=== PATIENT | male | born 1950 | race Caucasian/White ===

== ENCOUNTER → 2018-02-10 09:12 | Outpatient (POV) | payer OTHER, SELFPAY | PROVIDERS: Visit Provider Internal Medicine | DX: Z00.00 Encounter for general adult medical examination without abnormal findings (principal) ==

== ENCOUNTER → 2020-12-05 10:30 | Outpatient (CLI) | payer MEDICARE, SELFPAY ==
[2020-12-05 10:57] LABS: Basophils # 0.1 K/mm3 (0-0.2); Basophils % 1.6 % (0.1-2.0); Eosinophils # 0.5 K/mm3 (0.0-0.4); Eosinophils % 7.2 % (0.1-12.0); Hematocrit 53.8 % (42.0-52.0); Hemoglobin 17.7 g/dL (14.1-18.0); Lymphocytes # 1.3 K/mm3 (0.7-4.5); Lymphocytes % 19.4 % (10-50); Mean Corpuscular Hemoglobin 32.1 pg (27.0-31.2); Mean Corpuscular Volume 97.5 fl (80-94); Mean Platelet Volume 7.4 fl (7.4-10.4); Monocytes # 0.5 K/mm3 (0.1-1.0); Monocytes % 7.7 % (1.7-9.3); Neutrophils # 4.3 K/mm3 (1.8-7.8); Neutrophils % 64.2 % (37.0-80.0); Platelet Count 234 K/mm3 (142-424); Red Blood Count 5.52 M/mm3 (4.60-6.20); Red Cell Distribution Width 13.8 % (11.5-17.5); White Blood Count 6.8 K/mm3 (4.8-10.8)
[2020-12-05 11:06] LABS: Hemoglobin A1C 6.1 % (4.0-6.0)
[2020-12-05 16:24] LABS: Alanine Aminotransferase 27 U/L (12-78); Albumin Level 4.4 g/dl (3.5-5.0); Albumin/Globulin Ratio 1.4 (1.1-1.8); Alkaline Phosphatase 91 U/L (38-126); Anion Gap 12.7 mEq/L (5-15); Aspartate Amino Transferase 27 U/L (17-59); Bilirubin,Total 0.7 mg/dl (0.2-1.3); Blood Urea Nitrogen 12 mg/dl (9-20); Calcium 9.5 mg/dl (8.4-10.2); Carbon Dioxide 31 mmol/L (22.0-30.0); Chloride 99 mmol/L (98-107); Chol/HDL Ratio 3.4 (1-3.5); Cholesterol 162 mg/dl (140-200); Estimated Glomerular Filt Rate 84 ml/min (>60); GFR (African American) 102 ML/MIN (>60); Globulin 3.1 g/dL (1.3-3.2); Glucose 111 mg/dl (74-100); HDL Cholesterol 47 mg/dl (40-60); Potassium 4.7 mmoL/L (3.5-5.1); Sodium 138 mmol/L (136-145); Total Protein,Serum 7.5 g/dl (6.3-8.2); Triglycerides 98 mg/dl (30-150); VLDL Cholesterol 20 mg/dL (0-40)
[2020-12-05 16:58] LABS: Prostate Specific Ag, Diagnost 1.87 ng/ml (0.0-4.0)
== END ==
PROVIDERS: Visit Provider Internal Medicine
DX: I10 Essential (primary) hypertension (principal); E78.5 Hyperlipidemia, unspecified; E11.9 Type 2 diabetes mellitus without complications; J44.9 Chronic obstructive pulmonary disease, unspecified; N40.1 Benign prostatic hyperplasia with lower urinary tract symptoms
CPT/HCPCS: 36415; 80053; 80061; 83036; 84153; 85025

== ENCOUNTER → 2021-06-27 13:42 | Outpatient (CLI) | payer MEDICARE, SELFPAY ==
[2021-06-27 14:34] LABS: Alanine Aminotransferase 27 U/L (12-78); Albumin Level 4.3 g/dl (3.5-5.0); Albumin/Globulin Ratio 1.5 (1.1-1.8); Alkaline Phosphatase 81 U/L (38-126); Anion Gap 13.4 mEq/L (5-15); Aspartate Amino Transferase 31 U/L (17-59); Bilirubin,Total 0.7 mg/dl (0.2-1.3); Blood Urea Nitrogen 14 mg/dl (9-20); Calcium 9.2 mg/dl (8.4-10.2); Carbon Dioxide 29 mmol/L (22.0-30.0); Chloride 98 mmol/L (98-107); Cholesterol 164 mg/dl (140-200); Estimated Glomerular Filt Rate 84 ml/min (>60); GFR (African American) 102 ML/MIN (>60); Globulin 2.8 g/dL (1.3-3.2); Glucose 98 mg/dl (74-100); HDL Cholesterol 41 mg/dl (40-60); Potassium 4.4 mmoL/L (3.5-5.1); Sodium 136 mmol/L (136-145); Total Protein,Serum 7.1 g/dl (6.3-8.2); Triglycerides 137 mg/dl (30-150); VLDL Cholesterol 27 mg/dL (0-40)
[2021-06-27 14:45] LABS: Direct LDL Cholesterol 81.77 mg/dL (100-129)
[2021-06-27 15:07] LABS: Hemoglobin A1C 6.2 % (4.0-6.0)
== END ==
PROVIDERS: Visit Provider Internal Medicine
DX: I10 Essential (primary) hypertension (principal); E11.9 Type 2 diabetes mellitus without complications; E78.5 Hyperlipidemia, unspecified; J44.9 Chronic obstructive pulmonary disease, unspecified
CPT/HCPCS: 80053; 80061; 83036

== ENCOUNTER → 2021-10-26 12:35 | Outpatient (CLI) | payer MEDICARE, SELFPAY ==
[2021-10-26 14:15] LABS: Creatinine,Urine Random 91 mg/dL (Not Estab.)
[2021-10-26 14:18] LABS: Microalbumin/Creatinine Ratio 7.2
== END ==
PROVIDERS: PCP Internal Medicine; Visit Provider Pediatrics
DX: E11.9 Type 2 diabetes mellitus without complications (principal); I10 Essential (primary) hypertension; E78.5 Hyperlipidemia, unspecified
CPT/HCPCS: 82043; 82570

== ENCOUNTER → 2022-01-28 13:57 | Outpatient (CLI) | payer MEDICARE, SELFPAY ==
[2022-01-28 16:14] LABS: Basophils # 0.1 K/mm3 (0-0.2); Basophils % 1.8 % (0.1-2.0); Eosinophils # 0.4 K/mm3 (0.0-0.4); Eosinophils % 6.2 % (0.1-12.0); Hematocrit 52.2 % (42.0-52.0); Hemoglobin 16.9 g/dL (14.1-18.0); Lymphocytes # 1.2 K/mm3 (0.7-4.5); Mean Corpuscular HGB Conc 32.5 g/dL (31.8-35.4); Mean Corpuscular Volume 98.5 fl (80-94); Monocytes # 0.6 K/mm3 (0.1-1.0); Neutrophils % 63.9 % (37.0-80.0); Platelet Count 245 K/mm3 (142-424); Red Cell Distribution Width 13.5 % (11.5-17.5); White Blood Count 6.3 K/mm3 (4.8-10.8)
[2022-01-28 16:22] LABS: Alanine Aminotransferase 22 U/L (12-78); Albumin Level 4.5 g/dl (3.5-5.0); Albumin/Globulin Ratio 1.6 (1.1-1.8); Alkaline Phosphatase 111 U/L (38-126); Anion Gap 18.5 mEq/L (5-15); Aspartate Amino Transferase 28 U/L (17-59); Bilirubin,Total 0.6 mg/dl (0.2-1.3); Blood Urea Nitrogen 13 mg/dl (9-20); Calcium 9.8 mg/dl (8.4-10.2); Carbon Dioxide 30 mmol/L (22.0-30.0); Chloride 93 mmol/L (98-107); Chol/HDL Ratio 4.4 (1-3.5); Cholesterol 164 mg/dl (140-200); Estimated Glomerular Filt Rate 84 ml/min (>60); GFR (African American) 101 ML/MIN (>60); Globulin 2.8 g/dL (1.3-3.2); Glucose 102 mg/dl (74-100); HDL Cholesterol 37 mg/dl (40-60); Potassium 4.5 mmoL/L (3.5-5.1); Sodium 137 mmol/L (136-145); Total Protein,Serum 7.3 g/dl (6.3-8.2); Triglycerides 158 mg/dl (30-150); VLDL Cholesterol 32 mg/dL (0-40)
[2022-01-28 16:39] LABS: Direct LDL Cholesterol 83.61 mg/dL (100-129)
[2022-01-28 16:40] LABS: Creatinine,Urine Random 49 mg/dL (Not Estab.)
[2022-01-28 16:43] LABS: Microalbumin/Creatinine Ratio 19.5
[2022-01-28 16:57] LABS: Hemoglobin A1C 6.2 % (4.0-6.0)
== END ==
PROVIDERS: PCP Internal Medicine; Visit Provider Internal Medicine
DX: E78.5 Hyperlipidemia, unspecified (principal); E11.9 Type 2 diabetes mellitus without complications; I10 Essential (primary) hypertension; J44.9 Chronic obstructive pulmonary disease, unspecified
CPT/HCPCS: 80053; 80061; 82043; 82570; 83036; 85025

== ENCOUNTER → 2022-07-31 12:04 | Outpatient (CLI) | payer MEDICARE, SELFPAY ==
[2022-07-31 14:21] LABS: Alanine Aminotransferase 35 U/L (12-78); Albumin/Globulin Ratio 1.7 (1.1-1.8); Alkaline Phosphatase 130 U/L (38-126); Anion Gap 19.1 mEq/L (5-15); Aspartate Amino Transferase 30 U/L (17-59); Blood Urea Nitrogen 15 mg/dl (9-20); Calcium 8.9 mg/dl (8.4-10.2); Carbon Dioxide 27 mmol/L (22.0-30.0); Chloride 91 mmol/L (98-107); Chol/HDL Ratio 3.6 (1-3.5); Cholesterol 156 mg/dl (140-200); Estimated Glomerular Filt Rate 96 ml/min (>60); GFR (African American) 116 ML/MIN (>60); Globulin 2.3 g/dL (1.3-3.2); Glucose 286 mg/dl (74-100); HDL Cholesterol 43 mg/dl (40-60); Potassium 4.1 mmoL/L (3.5-5.1); Sodium 133 mmol/L (136-145); Total Protein,Serum 6.3 g/dl (6.3-8.2); Triglycerides 224 mg/dl (30-150); VLDL Cholesterol 45 mg/dL (0-40)
[2022-07-31 14:32] LABS: Direct LDL Cholesterol 79.51 mg/dL (100-129)
[2022-07-31 14:51] LABS: Prostate Specific Ag Screen 1.9 ng/ml (0.0-4.0)
[2022-07-31 22:56] LABS: Hemoglobin A1C 10.3 % (4.0-6.0)
== END ==
PROVIDERS: PCP Internal Medicine; Visit Provider Internal Medicine
DX: I10 Essential (primary) hypertension (principal); E11.9 Type 2 diabetes mellitus without complications; E78.5 Hyperlipidemia, unspecified; J44.9 Chronic obstructive pulmonary disease, unspecified; Z12.5 Encounter for screening for malignant neoplasm of prostate
CPT/HCPCS: 80053; 80061; 83036; G0103

== ENCOUNTER → 2023-01-30 09:20 | Outpatient (POV) | payer MEDICARE, SELFPAY | PROVIDERS: Visit Provider Specialist/Technologist | DX: Z00.00 Encounter for general adult medical examination without abnormal findings (principal) ==

== ENCOUNTER → 2023-02-14 10:37 | Outpatient (CLI) | payer MEDICARE, SELFPAY ==
[2023-02-14 11:45] LABS: Basophils # 0.1 K/mm3 (0-0.2); Basophils % 0.7 % (0.1-2.0); Eosinophils # 0.6 K/mm3 (0.0-0.4); Eosinophils % 8.8 % (0.1-12.0); Hemoglobin 16.5 g/dL (14.1-18.0); Lymphocytes # 1.3 K/mm3 (0.7-4.5); Mean Corpuscular HGB Conc 32.3 g/dL (31.8-35.4); Mean Corpuscular Hemoglobin 31.4 pg (27.0-31.2); Mean Corpuscular Volume 97.2 fl (80-94); Mean Platelet Volume 8.4 fl (7.4-10.4); Monocytes # 0.7 K/mm3 (0.1-1.0); Monocytes % 9.5 % (1.7-9.3); Neutrophils # 4.3 K/mm3 (1.8-7.8); Neutrophils % 61.9 % (37.0-80.0); Platelet Count 231 K/mm3 (142-424); Red Blood Count 5.25 M/mm3 (4.60-6.20); Red Cell Distribution Width 13.8 % (11.5-17.5); White Blood Count 6.9 K/mm3 (4.8-10.8)
[2023-02-14 12:11] LABS: Alanine Aminotransferase 38 U/L (12-78); Albumin Level 4.7 g/dl (3.5-5.0); Albumin/Globulin Ratio 1.5 (1.1-1.8); Alkaline Phosphatase 93 U/L (38-126); Anion Gap 13.2 mEq/L (5-15); Aspartate Amino Transferase 38 U/L (17-59); Bilirubin,Total 0.5 mg/dl (0.2-1.3); Blood Urea Nitrogen 21 mg/dl (9-20); Carbon Dioxide 28 mmol/L (22.0-30.0); Chloride 98 mmol/L (98-107); Chol/HDL Ratio 3.7 (1-3.5); Cholesterol 159 mg/dl (140-200); Estimated Glomerular Filt Rate 83 ml/min (>60); GFR (African American) 101 ML/MIN (>60); Globulin 3.1 g/dL (1.3-3.2); Glucose 85 mg/dl (74-100); HDL Cholesterol 43 mg/dl (40-60); Potassium 4.2 mmoL/L (3.5-5.1); Sodium 135 mmol/L (136-145); Total Protein,Serum 7.8 g/dl (6.3-8.2); Triglycerides 119 mg/dl (30-150); VLDL Cholesterol 24 mg/dL (0-40)
[2023-02-14 12:22] LABS: Direct LDL Cholesterol 88.92 mg/dL (100-129)
[2023-02-14 12:40] LABS: Microalbumin/Creatinine Ratio 22.6
[2023-02-14 12:44] LABS: Creatinine,Urine Random 68 mg/dL (Not Estab.)
[2023-02-14 13:10] LABS: Hemoglobin A1C 5.2 % (4.0-6.0)
== END ==
PROVIDERS: PCP Internal Medicine; Visit Provider Internal Medicine
DX: E11.9 Type 2 diabetes mellitus without complications (principal); E78.5 Hyperlipidemia, unspecified; I10 Essential (primary) hypertension; J44.9 Chronic obstructive pulmonary disease, unspecified; Z79.84 Long term (current) use of oral hypoglycemic drugs; Z12.5 Encounter for screening for malignant neoplasm of prostate
CPT/HCPCS: 80053; 80061; 82043; 82570; 83036; 85025

== ENCOUNTER → 2023-03-06 07:54 | Outpatient (CLI) | payer MEDICARE, SELFPAY ==
--- NOTE | 2023-03-06 08:01 | MR_ITS ---
FINAL REPORT TECHNIQUE: MRI of the brain with and without contrast, with images specifically directed at the internal auditory canals with and without contrast. CLINICAL HISTORY: LEFT SIDED HEARING LOSS COMPARISON: None FINDINGS: Multiplanar MR imaging of the brain was performed without and with contrast. There are small scattered foci of signal in the deep white matter, bilateral, likely mild changes of chronic ischemic/gliotic microvascular disease. There is a subcortical left posterior parietal focus of increased signal best seen on image #21 of sequence 5, likely a small focus of encephalomalacia. No restricted diffusion is identified to suggest an acute ischemic abnormality. No enhancement is identified after contrast administration. The internal auditory canals are unremarkable without evidence of focal enhancement to suggest a mass. There is no evidence of intracranial hemorrhage or mass. No abnormal extra-axial fluid collection is seen. The ventricular size is within normal limits. There is no evidence of shift of the midline structures. The posterior fossa and brainstem have an unremarkable appearance. Normal major vessel vascular flow voids are noted. There is lobular mucoperiosteal thickening present in the maxillary and ethmoid air cells. IMPRESSION: Mild changes of ischemic/gliotic microvascular disease are seen, as well as a small left posterior parietal focus of signal most suggestive of encephalomalacia. No acute intracranial abnormality is identified. Images of the internal auditory canals failed to reveal any evidence of enhancement or mass. Lobular mucoperiosteal thickening in the maxillary and ethmoid air cells. Reviewed, Interpreted and Dictated by Sudhir Ackerman MD Transcribed by Caridad Yen Authenticated and [facility]
== END ==
PROVIDERS: PCP Internal Medicine; Visit Provider Nurse Practitioner
DX: H91.8X3 Other specified hearing loss, bilateral (principal)
CPT/HCPCS: 70553; A9576

== ENCOUNTER → 2023-03-12 16:07 | Outpatient (POV) | payer MEDICARE, SELFPAY | PROVIDERS: PCP Internal Medicine; Visit Provider Specialist/Technologist | DX: Z00.00 Encounter for general adult medical examination without abnormal findings (principal) ==

== ENCOUNTER 2023-08-06 16:46 | Outpatient (CLI) | payer MEDICARE, SELFPAY ==
[2023-08-06 18:45] LABS: Alanine Aminotransferase 31 U/L (12-78); Albumin Level 4.6 g/dl (3.5-5.0); Albumin/Globulin Ratio 1.5 (1.1-1.8); Alkaline Phosphatase 89 U/L (38-126); Anion Gap 17.3 mEq/L (5-15); Aspartate Amino Transferase 34 U/L (17-59); Bilirubin,Total 0.5 mg/dl (0.2-1.3); Blood Urea Nitrogen 15 mg/dl (9-20); Calcium 9.6 mg/dl (8.4-10.2); Carbon Dioxide 28 mmol/L (22.0-30.0); Chloride 96 mmol/L (98-107); Chol/HDL Ratio 3.2 (1-3.5); Cholesterol 153 mg/dl (140-200); Estimated Glomerular Filt Rate 74 ml/min (>60); GFR (African American) 89 ML/MIN (>60); Globulin 3.1 g/dL (1.3-3.2); Glucose 51 mg/dl (74-100); HDL Cholesterol 48 mg/dl (40-60); Potassium 4.3 mmoL/L (3.5-5.1); Sodium 137 mmol/L (136-145); Total Protein,Serum 7.7 g/dl (6.3-8.2); Triglycerides 134 mg/dl (30-150); VLDL Cholesterol 27 mg/dL (0-40)
[2023-08-06 18:58] LABS: Direct LDL Cholesterol 80.38 mg/dL (100-129)
[2023-08-06 19:09] LABS: Hemoglobin A1C 5.3 % (4.0-6.0)
[2023-08-06 19:45] LABS: Prostate Specific Ag Screen 1.7 ng/ml (0.0-4.0)
== END 2023-08-06 23:59 | disposition home or self-care (01) ==
LOC: LAB.DROPOF 16:47
PROVIDERS: PCP Internal Medicine; Visit Provider Internal Medicine
DX: E11.9 Type 2 diabetes mellitus without complications (principal); E78.5 Hyperlipidemia, unspecified; I10 Essential (primary) hypertension; Z12.5 Encounter for screening for malignant neoplasm of prostate; Z79.84 Long term (current) use of oral hypoglycemic drugs
CPT/HCPCS: 80053; 80061; 83036; G0103

== ENCOUNTER 2023-11-18 08:21 | Outpatient (CLI) | payer MEDICARE, SELFPAY ==
--- NOTE | 2023-11-18 08:27 | CA_ITS ---
FINAL REPORT TECHNIQUE: Color Doppler, duplex Doppler and ross scale sonography of the bilateral neck vasculature was performed. Velocities were measured in the carotid arteries. Stenosis evaluation based on velocity criteria. CLINICAL HISTORY: Carotid bruit on right,HTN,HLD,SMOKER COMPARISON: None FINDINGS: The peak systolic velocity of the right common carotid artery is 66 cm/sec and internal carotid artery 95 cm/sec. The diastolic velocity in the internal carotid artery is 28 cm/sec. The ICA/CCA ratio is 1.65. Visually, a small amount of plaque is seen. These findings are consistent with less than 50% stenosis. The external carotid artery is patent. The right vertebral artery is patent with antegrade flow. The peak systolic velocity of the left common carotid artery is 75 cm/sec and internal carotid artery 91 cm/sec. The diastolic velocity in the internal carotid artery is 27 cm/sec. The ICA/CCA ratio is 1.2. Visually, a small amount of plaque is seen. These findings are consistent with less than 50% stenosis. The external carotid artery is patent. The left vertebral artery is patent, with retrograde flow. IMPRESSION: No evidence of significant carotid stenosis. Retrograde flow is present in the left vertebral artery, and would consider catheter angiography for further evaluation. Reviewed, Interpreted and Dictated by Albert Ochoa III, MD Transcribed by Caridad Yen Authenticated and [facility]
== END 2023-11-18 23:59 | disposition home or self-care (01) ==
PROVIDERS: PCP Internal Medicine; Visit Provider Internal Medicine
DX: R09.89 Other specified symptoms and signs involving the circulatory and respiratory systems (principal)
CPT/HCPCS: 93880

== ENCOUNTER 2023-12-10 08:36 | Outpatient (CLI) | payer MEDICARE, SELFPAY ==
--- NOTE | 2023-12-10 08:37 | CT_ITS ---
FINAL REPORT TECHNIQUE: Following the administration of intravenous contrast, helically acquired axial multidetector CT images were obtained involving the left upper extremity and aortic arch. Multiplanar, MIP and 3-D reconstructions were performed. This study was performed with techniques to keep radiation doses as low as reasonably achievable, (ALARA). Individualized dose reduction techniques using automated exposure control or adjustment of mA and/or kV according to the patient's size were employed. CLINICAL HISTORY: Retrograde blood flow in left vertebral artery COMPARISON: None FINDINGS: CTA LEFT UPPER EXTREMITY: THORAX: Visualization of the aortic arch and intrathoracic portions of the left upper extremity vessels reveals short segment occlusion of the left subclavian artery just beyond the origin of that artery to the level of the vertebral artery, 18 mm in length. The vessels reconstituted via retrograde flow in the left vertebral artery. LEFT UPPER EXTREMITY: The more distal subclavian artery after reconstitution and the brachial artery are widely patent. The radial, ulnar, and interosseous arteries are patent to the level of the proximal hand. 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 The left subclavian artery reconstitutes via retrograde flow in the left vertebral artery. There is no outflow disease identified in the left upper extremity distal to the reconstitution. Reviewed, Interpreted and Dictated by Nathalie Murillo MD Transcribed by Caridad Yen Authenticated and [facility]
[2023-12-10 09:01] LABS: Blood Urea Nitrogen 18 mg/dl (9-20); Estimated Glomerular Filt Rate 66 ml/min (>60); GFR (African American) 80 ML/MIN (>60)
[2023-12-10] MEDS: SODIUM CHLORIDE 0.9% 10ML SYR (RAD ONLY) 10 ML IV (09:55)
[2023-12-10] MEDS: 0.9 % SODIUM CHLORIDE 50 ML VIAL IV (09:55)
[2023-12-10] MEDS: IOPAMIDOL-370 (76%);100ML BOTTLE 100 ML IV (09:56)
== END 2023-12-10 23:59 | disposition home or self-care (01) ==
LOC: RAD 08:37
PROVIDERS: PCP Internal Medicine; Visit Provider Internal Medicine
DX: G45.8 Other transient cerebral ischemic attacks and related syndromes (principal); I73.9 Peripheral vascular disease, unspecified
CPT/HCPCS: 36415; 73206; 82565; 84520; Q9967

== ENCOUNTER 2023-12-26 06:55 | Outpatient (CLI) | payer MEDICARE, SELFPAY ==
--- NOTE | 2023-12-26 | CA_ITS ---
APPROVED REPORT Exam: Pharmacologic Technologist: Lynnette Barfield, Ht: 5 ft 10 in Wt: 181 lbs BSA: 2.00 m2 HR: 73 bpm BP: 152/71 mmHg Rhythm: NSR Medical History Medical History: Hyperlipidemia, Diabetes Medications: Pravastatin,,,,, Metformin,,,,, Flonase,,,,, Lisinopril-HCTZ,,,,, Allergies: Penicillins Cardiac Risk Factors: Hyperlipidemia, Diabetes Stress Test Details Test: LEXISCAN HR Resting HR: 82 bpm Max Heart Rate (APMHR): 149 bpm Max HR Achieved: 114 bpm Target HR (85% APMHR): 127 bpm % of APMHR: 77 Recovery HR: 99 bpm BP Resting BP: 152/71 mmHg Max BP: 153/77 mmHg Recovery BP: 153.0/77.0 mmHg ECG Resting ECG: NSR Stress ECG: No significant ST changes Arrhythmia: None Clinical Exercise duration: 04:01 min Highest Stage Achieved: Exercise capacity: 1.0 METs Stress ECG Conclusion Pt had head discomfort, mild stomach discomfort. No chest pain. Conclusion: No significant ST changes Unremarkable lexiscan stress. Myoview images reported separately. Test Summary REST 05:15 . . 82 . 152/ 71 . . Stage 1 01:00 . . 104 . . . . Stage 2 01:00 . . 113 . 137/ 80 . . Stage 3 01:00 . . 106 . 142/ 77 . . Stage 4 01:00 . . 102 . 146/ 79 . . Stage 4 01:01 . . 102 . 146/ 79 . Stop exercise at 04:01 RECOVERY 01:00 . . 103 . . . . RECOVERY 02:00 . . 100 . . . . RECOVERY 03:00 . . 97 . 153/ 77 . . RECOVERY 03:16 . . 98 . 153/ 77 . . Electronically signed by : Verenice Aparicio MD 12/29/2023 22:52:10
--- NOTE | 2023-12-26 07:03 | NM_ITS ---
APPROVED REPORT Exam: Nuclear Stress Test Indication: soa Patient Location: Outpatient Stress Tech: Lynnette Barfield [place] Tech:MARIAJOSE Mckeon RT(R)(N) Ht: 5 ft 10 in Wt: 180 lbs HR: 82 bpm BP: 152/71 mmHg BSA: 2.00 m2 TID: 1.18 BMI: 25.8 History: soa Procedure: Patient received 0.4 mg of intravenous Lexiscan, resting heart rate 82 bpm, resting blood pressure 152/71 mmHg, with Lexiscan maximum heart rate achieved was 114 bpm which is 85 % of the maximum predicted heart rate and blood pressure was 153/77 mmHg. With Lexiscan, patient denied any complaint of chest pain. Cardiac Stress and Resting SPECT Images: Cardiac Stress and Resting SPECT images were obtained using technetium 99m Myoview 31.2 mCi stress and 10.73 mCi at rest. Resting and stress imaging in supine and prone positions demonstrate no evidence of fixed or reversible perfusion defects. Gated imaging demonstrates normal global and regional LV systolic function. LVEF is calculated at 63%. Conclusion: No evidence of fixed or reversible perfusion defects. Gated imaging demonstrates normal global and regional LV systolic function. LVEF is calculated at 63%. Electronically signed by : Verenice Aparicio MD 12/29/2023 22:54:45
--- NOTE | 2023-12-26 07:39 | CA_ITS ---
APPROVED REPORT EXAM: Comprehensive 2D, Doppler, and color-flow Echocardiogram Wallpaper Inspector And Shipper: Mariam Platt, ELVIRA, RVS Ht: 5 ft 10 in Wt: 181lbs BSA: 2.00 BP: 122/79 mmHg Indications: HTN, DM, RODRIGUEZ, HLD, Smoker 2D Dimensions IVSd 1.15 cm LVEF (Visual) 70.10 % PWd 1.22 cm LA Volume 52.50 mL LVDd 5.24 cm LA Volume Index 26.30 mL/m2 (M/F) 16-34 LVDs 3.15 cm Aortic Root 3.27 cm Left Atrium 2.99 cm RVID Base (AP4) 2.84 cm (M/F) 2.5-4.1 LVOT 2.07 cm (M/F) 1.5-2.5 M-Mode Dimensions LVDd 5.24 cm (3.5-5.7) Ao Diam 3.68 cm (2.0-3.7) LVDs 3.15 cm (3.5-5.7) IVSd 1.15 cm (0.6-1.1) PWd 1.22 cm (0.6-1.1) EPSs 0.13 cm FS 39.90% TAPSE 1.62 (<1.7) LV Diastology E Decel Time 258 (160-240 msec) E/A Ratio 0.78 MED E' 6.8 (>= 7 cm/sec) MED A' 12.10 cm/s E'/MED E' Ratio 10.72 (<= 14) LAT E' 6.7 (>= 10 cm/sec) LAT A' 9.40 cm/s E/LAT E' Ratio 10.88 (<= 14) Aortic Valve LVOT Max 119.0 (70-110 cm/s) WENDY Index 1.25 cm2/m2 LVOT VTI 23.98 cm AoV Peak Wilmar. 170.0 (50-130 cm/s) AO Mean GR. 5.80 (<5 mmHg) AO VTI 32.2 (18-25 cm) WENDY (VTI) 2.51 (2.5-4.5 cm2) Mitral Valve MV E Max Wilmar. 73.0 (40-130 cm/s) MV A Velocity 94.0 (40-130 cm/s) E/A Ratio 0.78 MV Decel. Time 258 (160-240 ms) Left Ventricle The left ventricle is normal size. The left ventricular systolic function is normal. The left ventricular ejection fraction is within the normal range. There is increased LV wall thickness. There is normal LV segmental wall motion. Transmitral Doppler flow pattern suggests impaired LV relaxation. LVEF is 55%. Right Ventricle The right ventricle is normal size. The right ventricular systolic function is normal. Atria The left atrium size is normal. The right atrium size is normal. There is no Doppler evidence of interatrial shunt. Aortic Valve The aortic valve is mildly thickened. There is no aortic valvular stenosis. Trace aortic regurgitation. Mitral Valve The mitral valve leaflets are mildly thickened. Trace mitral regurgitation. No evidence of mitral valve stenosis. Tricuspid Valve The tricuspid valve leaflets are thin and pliable. Trace tricuspid regurgitation. There is insufficient TR jet to estimate RVSP. Pulmonic Valve The pulmonary valve is normal in structure. Trace pulmonic regurgitation. Great Vessels The aortic root is normal in size. The ascending aorta is not well-visualized. IVC is normal in size and collapses >50% with inspiration. Pericardium Trivial circumferential pericardial effusion is present. No echo indications of tamponade. Other Information Study Quality: Fair Conclusion Normal biventricular systolic function. No significant valvular stenosis or regurgitation. Trivial, circumferential pericardial effusion is present. No echo indications of tamponade. Electronically signed by : Verenice Aparicio MD 01/04/2024 01:20:47
[2023-12-26] MEDS: REGADENOSON 0.4MG/5ML SYRINGE 0.4 MG IV (09:40)
[2023-12-26] MEDS: SODIUM CHLORIDE 0.9% 10ML SYR (RAD ONLY) 10 ML IV ×2 (09:40)
[2023-12-26] MEDS: ISOTOPE MYOVIEW (PER STUDY) 1 DOSE IV (09:40)
== END 2023-12-26 23:59 | disposition home or self-care (01) ==
LOC: RAD 06:57
PROVIDERS: PCP Internal Medicine; Visit Provider Internal Medicine
DX: R06.09 Other forms of dyspnea (principal)
CPT/HCPCS: 78452; 93017; 93018; 93306; A9502; J2785

== ENCOUNTER 2024-02-11 14:12 | Outpatient (CLI) | payer MEDICARE, SELFPAY ==
[2024-02-11 12:34] LABS: Basophils # 0.1 K/mm3 (0-0.2); Basophils % 1.1 % (0.1-2.0); Eosinophils # 0.3 K/mm3 (0.0-0.4); Hematocrit 52.6 % (42.0-52.0); Hemoglobin 17.5 g/dL (14.1-18.0); Lymphocytes # 1.3 K/mm3 (0.7-4.5); Lymphocytes % 19.2 % (10-50); Mean Corpuscular HGB Conc 33.3 g/dL (31.8-35.4); Mean Corpuscular Hemoglobin 31.9 pg (27.0-31.2); Mean Corpuscular Volume 95.9 fl (80-94); Mean Platelet Volume 7.7 fl (7.4-10.4); Monocytes # 0.7 K/mm3 (0.1-1.0); Monocytes % 10.2 % (1.7-9.3); Neutrophils # 4.4 K/mm3 (1.8-7.8); Neutrophils % 64.6 % (37.0-80.0); Platelet Count 210 K/mm3 (142-424); Red Blood Count 5.48 M/mm3 (4.60-6.20); Red Cell Distribution Width 13.5 % (11.5-17.5); White Blood Count 6.8 K/mm3 (4.8-10.8)
[2024-02-11 12:45] LABS: Alanine Aminotransferase 39 U/L (12-78); Albumin Level 4.8 g/dl (3.5-5.0); Albumin/Globulin Ratio 1.7 (1.1-1.8); Alkaline Phosphatase 91 U/L (38-126); Anion Gap 14.6 mEq/L (5-15); Aspartate Amino Transferase 35 U/L (17-59); Bilirubin,Total 0.9 mg/dl (0.2-1.3); Blood Urea Nitrogen 17 mg/dl (9-20); Calcium 9.6 mg/dl (8.4-10.2); Carbon Dioxide 30 mmol/L (22.0-30.0); Chloride 98 mmol/L (98-107); Chol/HDL Ratio 3.5 (1-3.5); Cholesterol 169 mg/dl (140-200); Estimated Glomerular Filt Rate 74 ml/min (>60); GFR (African American) 89 ML/MIN (>60); Globulin 2.8 g/dL (1.3-3.2); Glucose 96 mg/dl (74-100); HDL Cholesterol 48 mg/dl (40-60); Potassium 4.6 mmoL/L (3.5-5.1); Sodium 138 mmol/L (136-145); Total Protein,Serum 7.6 g/dl (6.3-8.2); Triglycerides 123 mg/dl (30-150); VLDL Cholesterol 25 mg/dL (0-40)
[2024-02-11 12:56] LABS: Direct LDL Cholesterol 97.66 mg/dL (100-129)
[2024-02-11 15:00] LABS: Creatinine,Urine Random 69 mg/dL (Not Estab.)
[2024-02-11 15:03] LABS: Microalbumin/Creatinine Ratio 17.3
[2024-02-11 17:02] LABS: Hemoglobin A1C 6.2 % (4.0-6.0)
== END 2024-02-11 23:59 | disposition home or self-care (01) ==
LOC: LAB.DROPOF 14:13
PROVIDERS: PCP Internal Medicine; Visit Provider Internal Medicine
DX: E11.59 Type 2 diabetes mellitus with other circulatory complications (principal); I10 Essential (primary) hypertension; E78.49 Other hyperlipidemia; G45.8 Other transient cerebral ischemic attacks and related syndromes; I77.9 Disorder of arteries and arterioles, unspecified; I73.9 Peripheral vascular disease, unspecified; F17.209 Nicotine dependence, unspecified, with unspecified nicotine-induced disorders; J44.9 Chronic obstructive pulmonary disease, unspecified; J30.9 Allergic rhinitis, unspecified; H54.40 Blindness, one eye, unspecified eye
CPT/HCPCS: 80053; 80061; 82043; 82570; 83036; 85025

== ENCOUNTER 2024-08-10 09:19 | Outpatient (CLI) | payer MEDICARE, SELFPAY ==
--- NOTE | 2024-08-10 09:24 | XR_ITS ---
FINAL REPORT TECHNIQUE: Chest PA & Lateral CLINICAL HISTORY: Patient c/o chest pain COMPARISON: None FINDINGS: 2 views of the chest were performed. The heart size is normal. The mediastinum is within normal limits. There is chronic scarring noted at the lung bases. There is a somewhat ill-defined density in the periphery of the right lung measuring 1.5 cm. There are no pleural effusions. There is no pneumothorax. The bony thorax appears intact. IMPRESSION: Somewhat ill-defined 1.5 cm density in the periphery of the right lung. Recommend chest CT to better characterize. Reviewed, Interpreted and Dictated by Sudhir Ackerman MD Transcribed by Angela Rivera Authenticated and [facility]
[2024-08-10 15:22] LABS: Basophils # 0.1 K/mm3 (0-0.2); Basophils % 0.9 % (0.1-2.0); Eosinophils # 0.4 Kmm3 (0.0-0.4); Eosinophils % 6.3 % (0.1-12.0); Hematocrit 49.6 % (42.0-52.0); Hemoglobin 16.3 g/dL (14.1-18.0); Immature Granulocytes # 0.04 10^3uL; Immature Granulocytes % 0.6 %; Lymphocytes # 1.1 K/mm3 (0.7-4.5); Lymphocytes % 16.4 % (10-50); Mean Corpuscular HGB Conc 32.9 g/dL (31.8-35.4); Mean Corpuscular Hemoglobin 31.3 pg (27.0-31.2); Mean Corpuscular Volume 95.2 fl (80-94); Mean Platelet Volume 9.4 fl (7.4-10.4); Monocytes # 0.6 K/mm3 (0.1-1.0); Monocytes % 9.4 % (1.7-9.3); Neutrophils # 4.5 K/mm3 (1.8-7.8); Neutrophils % 66.4 % (37.0-80.0); Nucleated Red Blood Cells # 0 10^3/uL; Nucleated Red Blood Cells % 0 %; Platelet Count 250 K/mm3 (142-424); Red Blood Count 5.21 M/mm3 (4.60-6.20); Red Cell Distribution Width 12.8 % (11.5-17.5); White Blood Count 6.8 K/mm3 (4.8-10.8)
[2024-08-10 15:50] LABS: Alanine Aminotransferase 32 U/L (12-78); Albumin Level 4.3 g/dl (3.5-5.0); Albumin/Globulin Ratio 1.8 (1.1-1.8); Alkaline Phosphatase 115 U/L (38-126); Anion Gap 13.2 mEq/L (5-15); Aspartate Amino Transferase 28 U/L (17-59); Bilirubin,Total 0.6 mg/dl (0.2-1.3); Blood Urea Nitrogen 14 mg/dl (9-20); Calcium 9.3 mg/dl (8.4-10.2); Carbon Dioxide 31 mmol/L (22.0-30.0); Chloride 93 mmol/L (98-107); Chol/HDL Ratio 2.5 (1-3.5); Cholesterol 98 mg/dl (140-200); Estimated Glomerular Filt Rate 74 ml/min (>60); GFR (African American) 89 ML/MIN (>60); Globulin 2.4 g/dL (1.3-3.2); Glucose 196 mg/dl (74-100); HDL Cholesterol 39 mg/dl (40-60); Potassium 4.2 mmoL/L (3.5-5.1); Sodium 133 mmol/L (136-145); Total Protein,Serum 6.7 g/dl (6.3-8.2); Triglycerides 116 mg/dl (30-150); VLDL Cholesterol 23 mg/dL (0-40)
[2024-08-10 16:01] LABS: Direct LDL Cholesterol 41.78 mg/dL (100-129)
[2024-08-10 16:20] LABS: Prostate Specific Ag Screen 1.9 ng/ml (0.0-4.0)
[2024-08-10 17:26] LABS: Hemoglobin A1C 6.7 % (4.0-6.0)
== END 2024-08-10 23:59 | disposition home or self-care (01) ==
LOC: RAD 09:19
PROVIDERS: PCP Internal Medicine; Visit Provider Internal Medicine
DX: R91.8 Other nonspecific abnormal finding of lung field (principal); E11.59 Type 2 diabetes mellitus with other circulatory complications; E78.5 Hyperlipidemia, unspecified; R07.9 Chest pain, unspecified; I10 Essential (primary) hypertension; I73.9 Peripheral vascular disease, unspecified; Z12.5 Encounter for screening for malignant neoplasm of prostate
CPT/HCPCS: 71046; 80053; 80061; 83036; 85025; G0103

== ENCOUNTER 2024-08-18 07:17 | Outpatient (CLI) | payer MEDICARE, SELFPAY ==
--- NOTE | 2024-08-18 07:30 | CT_ITS ---
FINAL REPORT TECHNIQUE: Thin section axial images were obtained from the lung apices through the upper abdomen without contrast. This study was performed with techniques to keep radiation doses as low as reasonably achievable (ALARA). Individualized dose reduction techniques using automated exposure control or adjustment of mA and/or kV according to the patient's size were employed. CLINICAL HISTORY: New right lung nodule COMPARISON: None FINDINGS: There is no mediastinal, hilar, or axillary lymphadenopathy. No pleural or pericardial effusion. There is a spiculated nodule in the inferior right upper lobe abutting the minor fissure, measuring 21 x 21 mm in size. Mild lobular septal thickening is noted in the lung bases, that may represent early fibrosis particularly in the right lower lobe. Mild changes of emphysema are noted. There is a small right adrenal nodule, nonspecific. There are several old right rib fractures, without acute bony abnormality. IMPRESSION: Spiculated nodule in the inferior right upper lobe abutting the minor fissure, 21 x 21 mm in size. Recommend PET/CT and possibly tissue diagnosis for further evaluation. Reviewed, Interpreted and Dictated by Deysi Moreira MD Transcribed by Caridad Yen Authenticated and [facility]
== END 2024-08-18 23:59 | disposition home or self-care (01) ==
LOC: RAD 07:18
PROVIDERS: PCP Internal Medicine; Visit Provider Internal Medicine
DX: R91.1 Solitary pulmonary nodule (principal); J44.9 Chronic obstructive pulmonary disease, unspecified
CPT/HCPCS: 71250

== ENCOUNTER 2024-11-08 10:01 | Outpatient (CLI) | payer MEDICARE, SELFPAY ==
--- OUTSIDE RECORDS SUMMARY | 2024-09-27 10:00 | XMS_ITS | Encounter Summary ---
Author Organization [facility] Address [address] [place] [address] Care Team Providers Care Bias Cutter Helper Name Role Phone Jaylon Pa MD Primary Care Provider [phone] Reason for Visit * Reason Comments New Patient * Consultation (Routine) - Closed Specialty Diagnoses / Procedures Referred By Contanisa t Referred To Contact Pulmonary Disease / Hematology and Oncology Diagnoses Lung nodule Luis F Castillo MD [address] [place] [address] Phone: tel: fax: Robin Leyva MD [address] [place] [address] Phone: tel: fax: Referral ID Status Reason Start Date Expiration Date V isits Requested Visits Authorized [id number] Closed Specialty Services Required 09/24/2024 03/26/2026 1 1 Encounter Details Date Type Department Care Team ([facility] Contact Info) Description 09/27/2024 10:00 AM EDT Office Visit [facility] [address] , [address] [place] [address] Robin Leyva MD [address] [place] [address] Lung nodule (Primary Dx); Other emphysema (CMS/HCC) Social History Tobacco Use Types Packs/Day Years Used Date Smoking Tobacco: Every Day Cigarettes 0.5 56.6 Started: 1966 Smokeless Tobacco: Never Tobacco Cessation:Ready [...] from the original note were not included. [id number] Pulmonary Nodule A pulmonary nodule is a [...] website for more information: ?? www.smokefree.gov Home assisted care will depend on the diagnosis and the treatment used. Most people with a pulmonary nodule have no symptoms. If no special home care is needed, you may return to your usual activities and diet. Follow-up care Follow up with your health care provider as advised. More information about lung cancer is available from these resources: ?? [place] [employer] at www.lung.org or 806-415-0789 ?? National Cancer [place] at www.cancer.gov or 362-489-3448 When to get medical advice Contact your health care provider right away if you have: ?? A fever of 100.4??F (38??C) or higher, or as directed by your provider. ?? Unintended weight change. Call 911 Call 911 if you: ?? Cough up blood. ?? Have chest pain or shortness of breath. ?? Have a feeling of doom. Last Reviewed Date: 2024 00:00:00 ?? [id number] [employer]. All rights reserved. This information is not [...] lymphadenopathy on both CT and PET/CT. A [id number] RUL nodule without enlarged lymph nodes or FDG avid metastasis would be consistent with A2mI4F0 and clinical Stage 1A based on TNM [...] sample this with the ION robot with Tysdo 3D . Then stage the mediastinum with [...] Care Team (Latest Contact Info) Description 11/19/2024 7:35 AM EDT Hospital Encounter PAV A OPERATING ROOM [address] [place] [address] Chandler Escobar MD [address] [address] 11/19/2024 7:35 AM EDT - 11/19/2024 12:00 PM EDT Surgery P[facility] A OPERATING ROOM [address] [place] [address] Chandler Escobar MD [address] [address] ROBOTIC RIGHT UPPER LOBE WEDGE, POSSIBLE LOBECTOMY [29785 (CPT ) +1 more] Scheduled Procedures Name Priority Associated Diagnoses Date/Ti in VATS, ROBOT-ASSISTED Lung nodule 11/19/2024 7:35 AM EDT documented as of this encounter Results * (ABNORMAL) Pulmonary Function Test (09/27/2024 2:09 PM EDT) XSQ9UPQM 2.86(A) 3.09 - 5.29 L VYAIRE PFT NTT2SBQ 2.95(A) 3.09 - 5.29 L VYAIRE PFT FVC PRED 4.18 VYAIRE PFT FVC LLN 3.09 VYAIRE PFT FVCPREZSCORE -1.85 VYAIRE PFT FVCPRE%PRED 71 % % VYAIRE PFT FVCPOSTZSCORE -1.99 VYAIRE PFT FVCPOST%PRED 68 % % VYAIRE PFT FVCCHNG -90.00 VYAIRE PFT FVC%CHG -3 % % [facility]AIRE [facility] ([facility] VYAIRE PFT FVC Z-SCORE -1.85 -1.99 VYAIRE PFT DCO04YWJY 1.71(A) 2.26 - 3.98 L VYAIRE PFT FEV1 PRE 1.73(A) 2.26 - 3.98 L VYAIRE PFT FEV1 PRED 3.15 VYAIRE PFT FEV1 LLN 2.26 VYAIRE PFT QTZ8LCONSDOAJ -2.55 VYAIRE PFT FEV1_Pre%Pred 55 % % VYAIRE PFT FUZ4AFLOIRETGV -2.58 VYAIRE PFT PLJ9AWIE%PRED 54 % % VYAIRE PFT THS4SZFL -16.57 VYAIRE PFT FEV1%CHG -1 % % [facility]AIRE PFT [facility] ([facility] VYAIRE PFT FEV1 Z-SCORE -2.55 -2.58 VYAIRE PFT LQV7DGY7RXYS 59.87(A) 62.10 - 87.84 % VYAIRE PFT FEV1/FVC PRE 58.61(A) 62.10 - 87.84 % VYAIRE PFT RTO9SWERCZE 76 VYAIRE PFT FUJ0LSMMKE 62 VYAIRE PFT QPJ3EXFUKRPUFAFV -2.03 VYAIRE PFT DYP4GTXGZA%PRED 77 % % VYAIRE PFT CLL9XTIDPFTJWASCH -1.89 VYAIRE PFT HGC6JYYZNUN%PRED 79 % % VYAIRE PFT JHX7TWNWLGZ 1,264 VYAIRE PFT OTB7EQW%CHG 2 % % VYAIRE PFT JHW0BGRVREIY [facility] (2011) VYAIRE PFT VXE5LVXIZXUIV -2 -2 VYAIRE PFT UIQ88-84%_POST 0.88(A) 1.00 - 4.30 L/s VYAIRE PFT IKR58-01% PRE 0.83(A) 1.00 - 4.30 L/s VYAIRE PFT EPO18-96%_Pred 2.36 VYAIRE PFT SZM1491%LLN 1.00 VYAIRE PFT YTJ3946%PREZSCORE -1.93 VYAIRE PFT ATQ6545%PRE%PRED 35 % % VYAIRE PFT ZXL4131%POSTZSCORE -1.84 VYAIRE PFT QPP0656%POST%PRED 37 % % VYAIRE PFT MCI6756%CHNG 55.98 VYAIRE PFT HHQ7412%%CHG 7 % % VYAIRE PFT TLV0618%[facility] (2011) VYAIRE PFT NAS2HJGS 3.43(A) 5.94 - 10.57 L/s VYAIRE PFT PEF PRE 3.77(A) 5.94 - 10.57 L/s VYAIRE PFT PEF PRED 8.26 VYAIRE PFT PEF LLN 5.94 VYAIRE PFT PEFPREZSCORE -3.19 VYAIRE PFT PEFPRE%PRED 46 % % VYAIRE PFT PEFPOSTZSCORE -3.43 VYAIRE PFT PEFPOST%PRED 42 % % VYAIRE PFT PEFCHNG -339.00 VYAIRE PFT PEF%CHG -9 % % VYAIRE PFT PEF [facility] (1998) VYAIRE PFT DKQTERNRMICQRFIE7KXP 16.67(A) 18.78 - 33.75 ml/(min* mmHg) VYAIRE PFT DLCOSINGLEBREATH PRED 25.61 VYAIRE PFT DLCOSINGLEBREATH LLN 18.78 VYAIRE PFT DLCOSINGLEBREATH Z-SCORE -2.23 VYAIRE PFT DLCOSINGLEBREATH % PRED 65.1 % VYAIRE PFT DLCOSINGLEBREATH PREDIn[facility] HealthcareO GLI (2019) VYAIRE PFT DLCOSINGLEBREATH Z-SCORE -2.23 09/27/2024 2:04 PM EDT VYAIRE PFT VYHLYUZDZQYLZQWMC4QR E 16.67(A) 18.78 - 33.75 ml/(min* mmHg) VYAIRE PFT DLCOCSINGLEBREATH PRED 25.61 VYAIRE PFT DLCOCSINGLEBREATH LLN 18.78 VYAIRE PFT DLCOCSINGLEBREATH Z-SCORE -2.23 VYAIRE PFT DLCOCSINGLEBREATH % PRED 65.1 % VYAIRE PFT DLCOCSINGLEBREATH PREDAUT [facility] GLI (2019) VYAIRE PFT BHYBDS4NDO 3.93 2.97 - 5.16 ml/(min* mmHg*L) VYAIRE PFT DLCOVAPRED 4.02 VYAIRE PFT DLCOVALLN 2.97 VYAIRE PFT DLCOVAZSCORE -0.13 VYAIRE PFT DLCOVA%PRED 97.9 % VYAIRE PFT DLCOVAPREDAUTH [facility] GLI (2019) VYAIRE PFT DLCOVAZSCORE -0.13 09/27/2024 2:04 PM EDT VYAIRE PFT AVQUHYIIV5IRB 3.93 2.97 - 5.16 ml/(min* mmHg*L) VYAIRE PFT DLCOC SB/VA PRED 4.02 VYAIRE PFT DLCOC SB/VA LLN 2.97 VYAIRE PFT DLCOC SB/VA Z-SCORE -0.13 VYAIRE PFT DLCOC SB/VA % PRED 97.9 % VYAIRE PFT DLCOC SB/VA [facility] TL[facility] GLI (2019) VYAIRE PFT DLCOC SB/VA Z-SCORE -0.13 09/27 2:04 PM EDT VYAIRE PFT YVKLWMQWYFVINW6EML 4.24(A) 5.16 - 7.76 L VYAIRE PFT VASINGLEBREATH PRED 6.41 VYAIRE PFT VASINGLEBREATH LLN 5.16 VYAIRE PFT VASINGLEBREATH Z-SCORE -2.95 VYAIRE PFT VASINGLEBREATH % PRED 66.1 % VYAIRE PFT VASINGLEBREATH PREDAUT [facility] GLI (2019) VYAIRE PFT VASINGLEBREATH Z-SCORE -2.95 09/27/2024 2:04 PM EDT VYAIRE PFT ERZUJQBSYCGOUMK8MXM 2.69(A) 3.09 - 5.29 L VYAIRE PFT IVCSINGLEBREATH PRED 4.18 VYAIRE PFT IVCSINGLEBREATH LLN 3.09 VYAIRE PFT IVCSINGLEBREATH Z-SCORE -2.25 VYAIRE PFT IVCSINGLEBREATH % PRED 64.4 % VYAIRE PFT IVCSINGLEBREATH [facility] [place]) VYAIRE PFT AMANDA% VCMAX PRE 88.79 % VYAIRE PFT TLC SB PRE 4.43(A) 5.63 - 8.66 L VYAIRE PFT TLCSINGLEBREATH PRED 7.14 VYAIRE PFT TLCSINGLEBREATH LLN 5.63 VYAIRE PFT TLCSINGLEBREATH Z-SCORE -2.99 VYAIRE PFT TLCSINGLEBREATH % PRED 62.0 % VYAIRE PFT TLCSINGLEBREATH PREDT[facility] Lung volumes GLI (2019)__ VYAIRE PFT HB PRE 14.60 g(Hb)/dL VYAIRE PFT EFC2IEA 6.24 5.63 - 8.66 L VYAIRE PFT TLCPRED 7.14 VYAIRE PFT TLCLLN 5.63 VYAIRE PFT TLCULN 8.66 VYAIRE PFT TLCZSCORE -0.98 VYAIRE PFT TLC%PRED 87.4 % [facility]AI[facility] PFT TLCPREDAUTM[facility] Hospital Lung volumes GLI (2019)__ VYAIRE PFT VC0PRE 3.03(A) 3.09 - 5.29 L VYAIRE PFT VCPRED 4.18 VYAIRE PFT VCLLN 3.09 VYAIRE PFT VCULN 5.29 VYAIRE PFT VCZSCORE -1.73 VYAIRE PFT VC%PRED 72.5 % VYAIRE PFT VCPREDAUTDelaware Hospital for [facility]r GLI (2011) VYAIRE PFT IC0PRE 2.18(A) 2.25 - 4.17 L VYAIRE PFT ICPRED 3.23 VYAIRE PFT ICLLN 2.25 VYAIRE PFT ICULN 4.17 VYAIRE PFT IC Z-SCORE -1.75 VYAIRE PFT IC%PRED 67.5 % VYAIRE PFT ICPREDAUTMansfield Hospital Lung volumes GLI (2019)__ VYAIRE PFT NMAEQJQO2PHO 4.05 2.70 - 5.36 L VYAIRE PFT FRCPLETH PRED 3.88 VYAIRE PFT FRCPLETH LLN 2.70 VYAIRE PFT FRCPLETH ULN 5.36 VYAIRE PFT FRCPLETH Z-SCORE 0.21 VYAIRE PFT FRCPLETH % PRED 104.4 % VYAIRE PFT FRCPLETH PR[facility] Lung volumes GLI (2019)__ VYAIRE PFT GCZ9UEA 0.85 0.39 - 2.51 L VYAIRE PFT ERVPRED 1.24 VYAIRE PFT ERVLLN 0.39 VYAIRE PFT ERVULN 2.51 VYAIRE PFT ERV Z-SCORE -0.65 VYAIRE PFT ERV%PRED 68.7 % VYAIRE PFT ERVPREDAUTMansfield Hospital Lung volumes GLI (2019)__ VYAIRE PFT RV0PRE 3.20 1.52 - 3.85 L VYAIRE PFT RVPRED 2.57 VYAIRE PFT RVLLN 1.52 VYAIRE PFT RVULN 3.85 VYAIRE PFT RVZSCORE 0.84 VYAIRE PFT RV%PRED 124.3 % VYAIRE PFT RVPREDAUTM[facility]field Hospital Lung volumes GLI (2019)__ VYAIRE PFT RV%PVV9IAT 51.34(A) 24.58 - 48.02 % VYAIRE PFT RV%TLCPRED 36 VYAIRE PFT RV%TLCLLN 25 VYAIRE PFT RV%TLCULN 48 VYAIRE PFT RV%TLCZSCORE 2.09 VYAIRE PFT RV%TLC%PRED 142.5 % VYAIRE PFT RV%TLCPREDAUTMansfield Hospital Lung volumes GLI (2019)__ VYAIRE PFT Anatomical Region Laterality Modality PFT 09/27/2024 1:28 PM EDT Narrative 09/28/2024 6:22 PM EDT Pulmonary Function Testing Report Edwin Gould 73 y.o. underwent pulmonary function testing today at the [facility]. The patient underwent spirometry, lung volumes [...] documented as of this encounter Care Teams Bias Cutter Helper Relationship Specialty Start Date End Date Jaylon Pa MD [address] [place] [address] [address] [place] [address] PCP - General 09/27/24 documented as of this encounter
--- OUTSIDE RECORDS SUMMARY | 2024-09-27 14:00 | XMS_ITS | Encounter Summary ---
Author Organization Healthcare Address [address] [id number] Care Team Providers Care Assistant Hvac Mechanic Name Role Phone Jaylon Pa MD Primary Care Provider Encounter Details Date Type Department Care Team (Latest Contact Info) Description 09/27/2024 2:00 PM EDT Ancillary Procedure [facility] [address], [address] [place] [address] Other emphysema (CMS/HCC) Social History Tobacco Use Types Packs/Day Years Used Date Smoking Tobacco: Every Day Cigarettes 0.5 56.6 Started: 1966 Smokeless Tobacco: Never Alcohol Use Standard Drinks/Week Comments Never 0 [...] on file documented as of this encounter Functional Status * AUDIT-C Score [...] Tootie Michael documented as of this encounter Plan of Treatment Upcoming Encounters Date Type Department Care Team (Latest Contact Info) Description 11/19/2024 7:35 AM EDT Hospital Encounter PAV A OPERATING ROOM [address] [place] [address] Chandler Escobar MD [address] [address] 11/19/2024 7:35 AM EDT - 11/19/2024 12:00 PM EDT Surgery PAV A OPERATING ROOM [address] [place] [address] Chandler Escobar MD [address] [address] ROBOTIC RIGHT UPPER LOBE WEDGE, POSSIBLE LOBECTOMY [82931 (CPT ) +1 more] Scheduled Procedures Name Priority Associated Diagnoses Date/Ti me VATS, ROBOT-ASSISTED Lung nodule 11/19/2024 7:35 AM EDT documented as of this encounter Procedures Procedure Name Priority Date/Time Associated Diagnosis Comments HC PULM FUNCT TST PLETHYSMOGRAP - PLETHYSMOGRAPHY Routine 09/27/2024 2:09 PM EDT Other emphysema (CMS/HCC) documented in this encounter Results * (ABNORMAL) Pulmonary Function Test (09/27/2024 2:09 PM EDT) BAF6SSIM 2.86(A) 3.09 - 5.29 L VYAIRE PFT FYF3LSO 2.95(A) 3.09 - 5.29 L VYAIRE PFT FVC PRED 4.18 VYAIRE PFT FVC LLN 3.09 VYAIRE PFT FVCPREZSCORE -1.85 VYAIRE PFT FVCPRE%PRED 71 % % VYAIRE PFT FVCPOSTZSCORE -1.99 VYAIRE PFT FVCPOST%PRED 68 % % VYAIRE PFT FVCCHNG -90.00 VYAIRE PFT FVC%CHG -3 % % VYAIRE PFT FVC [facility] (2011) VYAIRE PFT FVC Z-SCORE -1.85 -1.99 VYAIRE PFT XAX56PTHD 1.71(A) 2.26 - 3.98 L VYAIRE PFT FEV1 PRE 1.73(A) 2.26 - 3.98 L VYAIRE PFT FEV1 PRED 3.15 VYAIRE PFT FEV1 LLN 2.26 VYAIRE PFT VKJ4OZNOVFPIU -2.55 VYAIRE PFT FEV1_Pre%Pred 55 % % VYAIRE PFT DSZ1ENRUKUFEUV -2.58 VYAIRE PFT YQG8GRRH%PRED 54 % % VYAIRE PFT ESD0PBKS -16.57 VYAIRE PFT FEV1%CHG -1 % % VYAIRE PFT FEV1 PR[facility]AUT[facility]I (2011) VYAIRE PFT FEV1 Z-SCORE -2.55 -2.58 VYAIRE PFT LTQ4ZSS8JTIN 59.87(A) 62.10 - 87.84 % VYAIRE PFT FEV1/FVC PRE 58.61(A) 62.10 - 87.84 % VYAIRE PFT QUW6CTLZKER 76 VYAIRE PFT YIH1YZHMPC 62 VYAIRE PFT CTE8DFNKWEIIXOZD -2.03 VYAIRE PFT GQX1AHPPPS%PRED 77 % % VYAIRE PFT OFI4FMFDPDPMFNEPX -1.89 VYAIRE PFT UIJ9HZGWDRW%PRED 79 % % VYAIRE PFT UVZ6OFVOXHD 1,264 VYAIRE PFT OVW6YGQ%CHG 2 % % VYAIRE PFT APA8SVAQPJTV [facility] (2011) VYAIRE PFT XVC9XLYBRRMOI -2 -2 VYAIRE PFT TGQ96-86%_POST 0.88(A) 1.00 - 4.30 L/s VYAIRE PFT WND29-35% PRE 0.83(A) 1.00 - 4.30 L/s VYAIRE PFT EID58-72%_Pred 2.36 VYAIRE PFT UOT8249%LLN 1.00 VYAIRE PFT DDA6403%PREZSCORE -1.93 VYAIRE PFT RRW0190%PRE%PRED 35 % % VYAIRE PFT UVD2480%POSTZSCORE -1.84 VYAIRE PFT DDQ7508%POST%PRED 37 % % VYAIRE PFT UAG5801%CHNG 55.98 VYAIRE PFT BHK1376%%CHG 7 % % VYAIRE PFT AMO5456%PREDAUT[facility] (2011) VYAIRE PFT XHD4HBRS 3.43(A) 5.94 - 10.57 L/s VYAIRE PFT PEF PRE 3.77(A) 5.94 - 10.57 L/s VYAIRE PFT PEF PRED 8.26 VYAIRE PFT PEF LLN 5.94 VYAIRE PFT PEFPREZSCORE -3.19 VYAIRE PFT PEFPRE%PRED 46 % % VYAIRE PFT PEFPOSTZSCORE -3.43 VYAIRE PFT PEFPOST%PRED 42 % % VYAIRE PFT PEFCHNG -339.00 VYAIRE PFT PEF%CHG -9 % % VYAIRE PFT PEF PREDAUT [facility] III (1998) VYAIRE PFT XFZOPUQOBZZMOSWP0YJC 16.67(A) 18.78 - 33.75 ml/(min* mmHg) VYAIRE PFT DLCOSINGLEBREATH PRED 25.61 VYAIRE PFT DLCOSINGLEBREATH LLN 18.78 VYAIRE PFT DLCOSINGLEBREATH Z-SCORE -2.23 VYAIRE PFT DLCOSINGLEBREATH % PRED 65.1 % VYAIRE PFT DLCOSINGLEBREATH PREDAUT [facility] GLI (2019) VYAIRE PFT DLCOSINGLEBREATH Z-SCORE -2.23 09/27/2024 2:04 PM EDT VYAIRE PFT RLJFZXHHROIVPZAOD7YO E 16.67(A) 18.78 - 33.75 ml/(min* mmHg) VYAIRE PFT DLCOCSINGLEBREATH PRED 25.61 VYAIRE PFT DLCOCSINGLEBREATH LLN 18.78 VYAIRE PFT DLCOCSINGLEBREATH Z-SCORE -2.23 VYAIRE PFT DLCOCSINGLEBREATH % PRED 65.1 % VYAIRE PFT DLCOCSINGLEBREATH [facility] TLCO GLI (2019) VYAIRE PFT INHHBU6QOZ 3.93 2.97 - 5.16 ml/(min* mmHg*L) VYAIRE PFT DLCOVAPRED 4.02 VYAIRE PFT DLCOVALLN 2.97 VYAIRE PFT DLCOVAZSCORE -0.13 VYAIRE PFT DLCOVA%PRED 97.9 % VYAIRE PFT DLCOVAPREDAUT [facility] GLI (2019) VYAIRE PFT DLCOVAZSCORE -0.13 09/27/2024 2:04 PM EDT VYAIRE PFT WMNXMKRST7BIB 3.93 2.97 - 5.16 ml/(min* mmHg*L) VYAIRE PFT DLCOC SB/VA PRED 4.02 VYAIRE PFT DLCOC SB/VA LLN 2.97 VYAIRE PFT DLCOC SB/VA Z-SCORE -0.13 VYAIRE PFT DLCOC SB/VA % PRED 97.9 % VYAIRE PFT DLCOC SB/VA PREDAUT [facility] GLI (2019) VYAIRE PFT DLCOC SB/VA Z-SCORE -0.13 09/27 2:04 PM EDT VYAIRE PFT CEZMWSPWYHHTWO5VFV 4.24(A) 5.16 - 7.76 L VYAIRE PFT VASINGLEBREATH PRED 6.41 VYAIRE PFT VASINGLEBREATH LLN 5.16 VYAIRE PFT VASINGLEBREATH Z-SCORE -2.95 VYAIRE PFT VASINGLEBREATH % PRED 66.1 % VYAIRE PFT VASINGLEBREATH PREDAtrium Healthvic [facility] GLI (2019) VYAIRE PFT VASINGLEBREATH Z-SCORE -2.95 09/27/2024 2:04 PM EDT VYAIRE PFT OCJCJGSOKEMEJDA8VEI 2.69(A) 3.09 - 5.29 L VYAIRE PFT IVCSINGLEBREATH PRED 4.18 VYAIRE PFT IVCSINGLEBREATH LLN 3.09 VYAIRE PFT IVCSINGLEBREATH Z-SCORE -2.25 VYAIRE PFT IVCSINGLEBREATH % PRED 64.4 % VYAIRE PFT IVCSINGLEBREATH [facility] GLI (2011) VYAIRE PFT AMANDA% VCMAX PRE 88.79 % VYAIRE PFT TLC SB PRE 4.43(A) 5.63 - 8.66 L VYAIRE PFT TLCSINGLEBREATH PRED 7.14 VYAIRE PFT TLCSINGLEBREATH LLN 5.63 VYAIRE PFT TLCSINGLEBREATH Z-SCORE -2.99 VYAIRE PFT TLCSINGLEBREATH % PRED 62.0 % VYAIRE PFT TLCSINGLEBREATH [facility] Lung volumes GLI (2019)__ VYAIRE PFT HB PRE 14.60 g(Hb)/dL VYAIRE PFT KIG9YEE 6.24 5.63 - 8.66 L VYAIRE PFT TLCPRED 7.14 VYAIRE PFT TLCLLN 5.63 VYAIRE PFT TLCULN 8.66 VYAIRE PFT TLCZSCORE -0.98 VYAIRE PFT TLC%PRED 87.4 % VYAIRE PFT TLCPREDAUTH [facility] Lung volumes GLI (2019)__ VYAIRE PFT VC0PRE [...] VYAIRE PFT IC%PRED 67.5 % VYAIRE PFT ICPREDAUTUniversity [facility] Lung volumes GLI (2019)__ VYAIRE PFT ZYNDRLED5KYM 4.05 2.70 - 5.36 L VYAIRE PFT FRCPLETH PRED 3.88 VYAIRE PFT FRCPLETH LLN 2.70 VYAIRE PFT FRCPLETH ULN 5.36 VYAIRE PFT FRCPLETH Z-SCORE 0.21 VYAIRE PFT FRCPLETH % PRED 104.4 % VYAIRE PFT FRCPLETH PREDAUTUniversity [facility]als [facility] Lung volumes GLI (2019)__ VYAIRE PFT MFP3VRF 0.85 0.39 - 2.51 L VYAIRE PFT ERVPRED 1.24 VYAIRE PFT ERVLLN 0.39 VYAIRE PFT ERVULN 2.51 VYAIRE PFT ERV Z-SCORE -0.65 VYAIRE PFT ERV%PRED 68.7 % VYAIRE PFT ERVPREDAUT [facility] Lung volumes GLI (2019)__ VYAIRE PFT RV0PRE 3.20 1.52 - 3.85 L VYAIRE PFT RVPRED 2.57 VYAIRE PFT RVLLN 1.52 VYAIRE PFT RVULN 3.85 VYAIRE PFT RVZSCORE 0.84 VYAIRE PFT RV%PRED 124.3 % VYAIRE PFT RVPREDAUT [facility] Lung volumes GLI (2019)__ VYAIRE PFT RV%VEP8JVE 51.34(A) 24.58 - 48.02 % VYAIRE PFT RV%TLCPRED 36 VYAIRE PFT RV%TLCLLN 25 VYAIRE PFT RV%TLCULN 48 VYAIRE PFT RV%TLCZSCORE 2.09 VYAIRE PFT RV%TLC%PRED 142.5 % VYAIRE PFT RV%TLCPREDAUTH [facility] Lung volumes GLI (2019)__ VYAIRE PFT Anatomical Region Laterality Modality PFT 09/27/2024 1:28 PM EDT Narrative 09/28/2024 6:22 PM EDT Pulmonary Function Testing Report Edwin Gould 73 y.o. underwent pulmonary function testing today at the [facility]. The patient underwent spirometry, lung volumes [...] There are no prior studies for comparison. us Robin Leyva MD PFT ORDERABLES Final Result documented in this encounter Visit Diagnoses Diagnosis Other emphysema (CMS/HCC) Other emphysema Lung nodule Other diseases of lung, not elsewhere classified documented in this encounter Additional Health Concerns Assessment Noted Time A fall risk assessment has been complete d for the patient 09/27/2024 9:29 AM EDT documented as of this encounter Care Teams Assistant Hvac Mechanic Relationship Specialty Start Date End Date Jaylon Pa MD [address] [place] [address] [address] [place] [address] PCP - General 09/27/24 documented as of this encounter
--- OUTSIDE RECORDS SUMMARY | 2024-10-15 10:42 | XMS_ITS | Encounter Summary ---
Author Organization Healthcare Address [address] [place] [address] Care Team Providers Care Lime Supervisor Name Role Phone Jaylon Pa MD Primary Care Provider [phone] Reason for Referral * Imaging (Routine) - Closed Specialty Diagnoses / Procedures Referred By Franki castillo Referred To Contact Radiology Diagnoses Lung nodule Procedures CT Chest wo IV Contrast Robin Leyva MD [address] [place] [address] Phone: tel: fax: Referral ID Status Reason Start Date Expiration Date Visits Re quested Visits Authorized [id number] Closed 09/28/2024 03/30/2026 1 1 Reason for Visit * Imaging (Routine) - Closed Specialty Diagnoses / Procedures Referred By Franki castillo Referred To Contact Radiology Diagnoses Lung nodule Procedures CT Chest wo IV Contrast Robin Leyva MD [address] [place] [address] Phone: tel: fax: Referral ID Status Reason Start Date Expiration Date Visits Re quested Visits Authorized [id number] Closed 09/28/2024 03/30/2026 1 1 Encounter Details Date Type Department Care Team (Latest Contact Info) Description 10/15/2024 10:42 AM EDT - 10/15/2024 12:37 PM EDT Hospital Encounter [facility] [address] [place] [address] Lung nodule Discharge Disposition: Home or Self Care Social History Tobacco Use Types Packs/Day Years [...] on file documented as of this encounter Medications at Time of Discharge Aspirin Low Dose 81 MG EC tablet Take 1 tablet by mouth daily. 12/15/2023 fluticasone (Flonase) 50 MCG/ACT nasal spray shake liquid and use 2 sprays in each nostril daily 09/03/2024 lisinopril-hydroC HLOROthiazide 20-25 MG tablet Take 1 tablet by mouth daily. 07/06/2024 metFORMIN (Glucophage) 500 MG tablet Take 2 tablets by mouth 2 times a day. 07/19/2024 pravastatin (Pravachol) 20 MG tablet Take 1 tablet by mouth nightly. 12/22/2023 documented as of this encounter Plan of Treatment Upcoming Encounters Date Type Department Care Team (Latest Contact Info) Description 11/19/2024 7:35 AM EDT Hospital Encounter [facility] [address] [place] [address] Chandler Escobar MD [address] [address] 11/19/2024 7:35 AM EDT - 11/19/2024 12:00 PM EDT Surgery [facility] [address] [place] [address] Chandler Escobar MD [address] [place] [address] ROBOTIC RIGHT UPPER LOBE WEDGE, POSSIBLE LOBECTOMY [89452 (CPT ) +1 more] Scheduled Procedures Name Priority Associated Diagnoses Date/Ti me VATS, ROBOT-ASSISTED Lung nodule 11/19/2024 7:35 AM EDT documented as of this encounter Goals Goal Patient Goal Type Associated Problems Recent Progress Patient-Stated? Author Autogenerat ed Goal Care Plan Autogenerated Problem No Quiana Pa L documented as of this encounter Procedures Procedure Name Priority Date/Time Associated Diagnosis Comments CT CHEST WO IV CONTRAST Routine 10/15/2024 10:49 AM EDT Lung nodule documented in this encounter Results * CT Chest wo IV Contrast (10/15/2024 10:49 AM EDT) Anatomical Region Laterality Modality Chest Computed Tomogra phy Impressions 10/15/2024 11:39 AM EDT Similar-appearing right upper lobe 2 cm spiculated nodule abutting the pleura with questionable chest wall invasion. Biopsy recommended. 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 CRITICAL RESULT: No. COMMUNICATION: Per this written report. By electronically signing this report, I, the attending physician, attest that I have personally reviewed the images/data for the above examination(s) and agree with the final edited report. Drafted by Veronique Long MD on 10/15/2024 10:54 AM Final report signed by Omega Ozuna MD on 10/15/2024 11:39 AM Narrative 10/15/2024 11:39 AM EDT CLINICAL INDICATION: Lung imaging for ION robotic bronchoscopy TECHNIQUE: Multiple CT helical images were obtained from thoracic inlet through upper abdomen without administration of IV contrast. The imaging protocol used in this examination was optimized to achieve diagnostic quality with the lowest possible radiation dose in accordance with the principles of ALARA (As Low As Reasonably Achievable). COMPARISON: Outside noncontrast chest CT August 18, 2024. FINDINGS: Mediastinum and Pleura: No mediastinal or hilar adenopathy. No pleural or pericardial effusion. Mild coronary artery calcification. Lungs: Stable right upper lobe 2 cm spiculated nodule abutting the pleura with some associated pleural retraction and adjacent focal pleural thickening with possible extension into the adjacent chest wall but no adjacent rib destruction. No additional suspicious nodules. Moderate emphysema with some mild lower lung reticulation and fibrosis with honeycomb cyst formation. Upper Abdomen: No suspicious lesions in the partially visualized upper abdomen. Musculoskeletal: No suspicious lytic or sclerotic lesion. Procedure Note Omega Ozuna MD - 10/15/2024 CLINICAL INDICATION: Lung imaging for ION robotic bronchoscopy TECHNIQUE: Multiple CT helical images were obtained from thoracic inlet through upperabdomen without administration of IV contrast. The imaging protocol used in this examination was optimized to achievediagnostic quality with the lowest possible radiation dose in accordancewith the principles of ALARA (As Low As Reasonably Achievable). COMPARISON: Outside noncontrast chest CT August 18, 2024. FINDINGS: Mediastinum and Pleura: No mediastinal or hilar adenopathy. No pleural orpericardial effusion. Mild coronary artery calcification. Lungs: Stable right upper lobe 2 cm spiculated nodule abutting the pleurawith some associated pleural retraction and adjacent focal pleuralthickening with possible extension into the adjacent chest wall but noadjacent rib destruction. No additional suspicious nodules. Moderateemphysema with some mild lower lung reticulation and fibrosis withhoneycomb cyst formation. Upper Abdomen: No suspicious lesions in the partially visualized upperabdomen. Musculoskeletal: No suspicious lytic or sclerotic lesion. IMPRESSION: Similar-appearing right upper lobe 2 cm spiculated nodule abutting thepleura with questionable chest wall invasion. Biopsy recommended. 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 CRITICAL RESULT: No. COMMUNICATION: Per this written report. By electronically signing this report, I, the attending physician, attestthat I have personally reviewed the images/data for the aboveexamination(s) and agree with the final edited report. Drafted by Veronique Long MD on 10/15/2024 10:54 AM Final report signed by Omega Ozuna MD on 10/15/2024 11:39 AM Robin Leyva MD IMG CT PROCEDURES Final Resul t documented in this encounter Visit Diagnoses Diagnosis Lung nodule Other diseases of lung, not elsewhere classified Lung nodule Other diseases of lung, not elsewhere classified documented in this encounter Additional Health Concerns Active Problems Noted Date Diagnosed Date Autogenerated Problem 09/28/2024 Assessment Noted Time A fall risk assessment has been complete d for the patient 09/27/2024 9:29 AM EDT documented as of this encounter Care Teams Lime Supervisor Relationship Specialty Start Date End Date Jaylon Pa MD [address] [place] [address] PCP - General 09/27/24 documented as of this encounter
--- OUTSIDE RECORDS SUMMARY | 2024-10-15 12:38 | XMS_ITS | Encounter Summary ---
Author Organization [facility] Address [address] [place] [address] Care Team Providers Care Department Manager Name Role Phone Jaylon Pa MD Primary Care Provider [phone] Reason for Referral * Imaging (Routine) - Closed Specialty Diagnoses / Procedures Referred By Franki castillo Referred To Contact Gastroenterology Diagnoses Lung nodule Procedures Bronchoscopy w Ion, w Radial US, w Biopsy, w BAL (Bronchoalveolar Lavage), w Eddy, w EBUS, w Robin Love MD [address] [place] [phone] Phone: tel: fax: Referral ID Status Reason Start Date Expiration Date V isits Requested Visits Authorized [id number] Closed Specialty Services Required 09/28/2024 03/30/2026 1 1 Reason for Visit * Imaging (Routine) - Closed Specialty Diagnoses / Procedures Referred By Franki castillo Referred To Contact Gastroenterology Diagnoses Lung nodule Procedures Bronchoscopy w Ion, w Radial US, w Biopsy, w BAL (Bronchoalveolar Lavage), w Eddy, w EBUS, w Robin Love MD [address] [place] [phone] Phone: tel: fax: Referral ID Status Reason Start Date Expiration Date V isits Requested Visits Authorized [id number] Closed Specialty Services Required 09/28/2024 03/30/2026 1 1 Encounter Details Date Type Department Care Team (Late st Contact Info) Description 10/15/2024 12:38 PM EDT - 10/15/2024 3:09 PM EDT Hospital Encounter [facility] [address] [place] [address] Robin Leyva MD [address] [place] [phone] Charbel Rollins RN GS - Endoscopy Lung nodule Discharge Disposition: Home or Self [...] Sign Reading Time Taken Comments Blood Pressure 130/80 10/15/2024 6:42 PM EDT Pulse 77 10/15/2024 6:42 PM EDT Temperature 36.2 C (97.2 F) 10/15/2024 5:56 PM EDT Respiratory Rate 17 10/15/2024 6:42 PM EDT Oxygen Saturation 93% 10/15/2024 6:42 PM EDT Inhaled Oxygen Concentration - - Weight 85.4 kg (188 lb 4.4 oz) 10/15/2024 1:39 P M EDT Height 177.8 cm (5' 10 ) 10/15/2024 1:39 PM EDT Body Mass Index 27.01 10/15/2024 1:39 PM EDT documented in this encounter Medications at Time of Discharge [...] nightly. 12/22/2023 documented as of this encounter Miscellaneous Notes * H&P - Willam Beltrán DO - 10/15/2024 3:00 PM EDT Images from the original note were not included. Pulmonary & Critical Care Medicine PULMONARY PRE-PROCEDURE H&P Chief Complaint: RUL nodule History Of Present Illness: Edwin Gould is a 73 y.o. male with history of CAD, tobacco use disorder with 40-50 back years, who presents for evaluation of RUL pulmonary nodule with ion bronchoscopy with biopsy. Doing well overall today with no acute complaints. Past Medical History: He has a past [...] drink alcohol and does not use drugs. Allergies: Penicillins ROS: Resp: denies SOA, cough, hemoptysis Objective: Physical Exam Constitutional: Appearance: Normal appearance. HENT: Head: Normocephalic. Cardiovascular: Rate and Rhythm: Normal rate. Pulmonary: Effort: Pulmonary effort is normal. Breath sounds: Normal breath sounds. Abdominal: Palpations: Abdomen is soft. Musculoskeletal: Cervical back: Normal range of motion. Skin: General: Skin is warm and dry. Neurological: Mental Status: He is alert and oriented to person, place, and time. Psychiatric: Mood and Affect: Mood normal. Behavior: Behavior normal. Last Recorded Vitals: Blood pressure 116/85, pulse 68, temperature (!) 36.2 ??C (97.2 ??F), temperature source Temporal, resp. rate 23, height 1.778 m (5' 10 ), weight 85.4 kg (188 lb 4.4 oz), SpO2 94%. Relevant Results: Labs in last 18 hours CBC WBC ?? Hb ?? Plt ?? Hct ?? ANC ?? INR ??, PTT ??, Anti-Xa ?? BMP Na ?? Cl ?? BUN ?? Glu ?? K ?? Co2 ?? Cr ?? Ca ?? iCa ?? Mg ??, Phos ?? Lactate ?? LFT AST ?? AlkPhos ?? T Prot ?? ALK ?? Bili ?? Alb ?? D.Bili ?? Assessment/Plan Active Problems: There are no active Hospital Problems. # RUL nodule - will proceed with ION bronchoscopy, BAL, TBBx, EBUS with possible TBNA - On aspirin 81 mg daily - consent obtained No change in history since patient was seen in clinic [1] Family History Problem Relation Name Age of Onset Cancer Mother No Known Problems Father Cancer Brother Cosigned by Robin Leyva MD at 10/15/2024 5:44 PM EDT Associated attestation - Robin Leyva MD - 10/15/2024 5:44 PM EDT I saw and evaluated the patient with the resident/fellow. I discussed the case with the resident/fellow and agree with the findings and plan as documented. * Larissa Agarwal RN - 10/15/2024 1:55 PM EDT Images from the original note were not included. [id number] Endoscopy Unit: Caring for Yourself after a Bronchoscopy Home care ? Getting home: We will give you medicine that makes you sleepy. You may not drive or ride home alone. Someone must be with you until you get home. ? Driving: Do not drive or use dangerous equipment for 24 hours. ? Eating and drinking: Your throat will be numb after treatment. Do not eat or drink until the numbness goes away. This often takes ?? to 1 hours. ? Sore throat: Your throat may be sore or hoarse for the next day or 2. ? Fever: You may have a mild fever tonight. If your temp is over 100?F, you may take lyuo-cpp-numzdtz Tylenol. ? Blood in the mouth: For a few days, you may cough up a little blood or have a little blood in your spit. This is normal. Call [phone] right away if you have any of the following ? Shortness of breath Call your doctor if you have any of the following These may be related to the treatment and need medical attention. ? Sore throat for more than 24 hours ? Fever for more than 24 hours ? Coughing up blood - more than 2 tablespoons between now and tomorrow morning ? Pain in the chest ? Breathing problems Our contact information: ? For Adult Pulmonary, call . Nights and weekends, call [phone] and ask for the elementary school art teacher electronic plotting system operator. ? For Transplant Service, call . Nights and weekends, call . ? For Pediatric Pulmonary, call and ask for the pediatric attending electronic plotting system operator. ? For Otolaryngology, call . Nights and weekends, call and ask for thesurgical resident electronic plotting system operator. documented in this encounter Plan of Treatment Upcoming Encounters Date Type Department Care Team (Latest Contact Info) Description 11/19/2024 7:35 AM EDT Hospital Encounter [facility] [address] [place] [phone] Chandler Escobar MD [address] [place] [phone] 11/19/2024 7:35 AM EDT - 11/19/2024 12:00 PM EDT Surgery [facility] [address] [place] [address] Chandler Escobar MD [address] [phone] ROBOTIC RIGHT UPPER LOBE WEDGE, POSSIBLE LOBECTOMY [80540 (CPT ) +1 more] Pending Results Name Type Priority Associated Diagnoses Date /Time AFB Culture, Respiratory Source and Acid Fast Stain Microbiology Routine Lung nodule 10/15/2024 5:08 PM EDT Fungal Culture, Respiratory and DREW Microbiology Routine Lung nodule 10/15/2024 5:08 PM EDT Scheduled Procedures Name Priority Associated Diagnoses Date/Ti me VATS, ROBOT-ASSISTED Lung nodule 11/19/2024 7:35 AM EDT documented as of this encounter Goals Goal Patient Goal Type Associated Problems Recent Progress Patient-Stated? Author Autogenerat ed Goal Care Plan Autogenerated Problem No Quiana Pa documented as of this encounter Procedures Procedure Name Priority Date/Time Associated Diagnosis Comments XR CHEST 1 VIEW STAT 10/15/2024 6:21 PM EDT POCT GLUCOSE METER UNSOLICITED RESULTS Routine 10/15/2024 6:20 PM EDT BRONCHOSCOPY Routine 10/15/2024 5:54 PM EDT Lung nodule NON-GYNECOLOGIC CYTOLOGY Routine 10/15/2024 5:10 PM EDT Lung nodule FUNGAL CULTURE, RESPIRATORY AND DREW Routine 10/15/2024 5:08 PM EDT Lung nodule AFB CULTURE, RESPIRATORY SOURCE AND ACID FAST STAIN Routine 10/15/2024 5:08 PM EDT Lung nodule BAL COMPREHENSIVE RESPIRATORY PANEL BY PCR Routine 10/15/2024 5:08 PM EDT Lung nodule QUANTITATIVE BAL/PAL/BRONCH WASH CULTURE AND GRAM STAIN Routine 10/15/2024 5:08 PM EDT Lung nodule FINE NEEDLE ASPIRATION - CYTOLOGY Routine 10/15/2024 4:57 PM EDT Lung nodule ECG ADULT STAT 10/15/2024 2:41 PM EDT POCT GLUCOSE METER UNSOLICITED RESULTS Routine 10/15/2024 1:26 PM EDT documented in this encounter Results * XR Chest 1 View (10/15/2024 6:21 PM EDT) Anatomical Region Laterality Modality Chest Digital Radiogra phy Impressions 10/15/2024 9:35 PM EDT No detected pneumothorax. Right upper lobe opacity corresponds to pulmonary nodule. CRITICAL RESULT: No. COMMUNICATION: Per this written report. Drafted by Benita Escalera MD on 10/15/2024 9:33 PM Final report signed by Benita Escalera MD on 10/15/2024 9:35 PM Narrative 10/15/2024 9:35 PM EDT CLINICAL INDICATION: Evaluation post robotic bronchoscopy TECHNIQUE: XR CHEST 1 VIEW COMPARISON: 10/15/2024 FINDINGS: Emphysema. Right upper lobe ill-defined opacity along the fissure. Bibasilar atelectasis. No detected pneumothorax. Stable cardiac silhouette. Procedure Note Benita Escalera MD - 10/15/2024 CLINICAL INDICATION: Evaluation post robotic bronchoscopy TECHNIQUE: XR CHEST 1 VIEW COMPARISON: 10/15/2024 FINDINGS: Emphysema. Right upper lobe ill-defined opacity along the fissure.Bibasilar atelectasis. No detected pneumothorax. Stable cardiacsilhouette. IMPRESSION: No detected pneumothorax. Right upper lobe opacity corresponds to pulmonary nodule. CRITICAL RESULT: No. COMMUNICATION: Per this written report. Drafted by Benita Escalera MD on 10/15/2024 9:33 PM Final report signed by Benita Escalera MD on 10/15/2024 9:35 PM Robin Leyva MD IMG XR PROCEDURES Final Resul t * (ABNORMAL) POCT glucose meter (10/15/2024 6:20 PM EDT) POCT Glucose 150(H) 74 - 99 mg/dL 10/15/2024 6:22 PM EDT [facility] Comment:Accuracy of a glucos e result obtained from a capillary whole blood specimen relies upon adequate, non-compromised capillary blood flow. If the capillary glucose result is not consistent with the patient's clinical signs and symptoms, glucose testing should be repeated with either an arterial or venous sample on the glucometer or [facility]. Comment 10/15/2024 6:22 PM EDT [facility] [employer] ID Tata Ozuna 10/15/2024 6:22 PM EDT [facility] Device ID [id number] 10/15/2024 6:22 PM EDT [facility] Specimen Type POC Capillary 10/15/2024 6:22 PM EDT [facility] Blood Capillary blood specimen / Unknown 10/15/2024 6:20 PM EDT 10/15/2024 6:22 PM EDT us Robin Leyva MD LAB POINT OF CARE TE ST DOCKED DEVICE UNSOLICITED RESULTS Final Result Performing Organization Address City/State/[facility] Co de Phone Number [facility] [address] [place] [phone] * Bronchoscopy w Ion, w Radial US, w Biopsy, w BAL (Bronchoalveolar Lavage), w Eddy, w EBUS, w Cios (10/15/2024 5:54 PM EDT) Anatomical Region Laterality Modality Endoscopy Narrative 10/15/2024 5:42 PM EDT Table formatting from the original result was not included. Indication Lung nodule RUL Preprocedure A history and physical has been performed, and patient medication allergies have been reviewed. The patient's tolerance of previous anesthesia has been reviewed. The risks and benefits of the procedure and the sedation options and risks were discussed with the patient. All questions were answered and informed consent obtained. Anesthesia/Sedation Medications See anesthesia record for anesthesia administered medications. Details of the Procedure The patient underwent general anesthesia, which was administered by an anesthesia professional. The patient's blood pressure, heart rate, level of consciousness, oxygen saturation, respirations, ETCO2 and ECG were monitored throughout the procedure. The patient experienced no blood loss. The scope was introduced through the endotracheal tube. The procedure was not difficult. The patient tolerated the procedure well. There were no apparent adverse events. Fluoroscopy time: see records Findings The trachea, main matt, left lung and right lung appeared normal. The RML was fish mouth, no endobrohial lesions. The patient was placed in the supine position. Under general anesthesia the patient was intubated with a 8.5 ET tube. A complete time out was performed before starting the procedure. A diagnostic bronchoscope was inserted through the ET tube to perform a full airway examination. Airway examination did not show endobronchial lesion. There was Moderate secretion. Patient images were previously uploaded into the ION Plan point software. The target nodule sampling was planned and the pathway was mapped The nodule measured 12 mm in long axis. Following airway examination, airway registration was performed using shape sensing robot assisted bronchoscopy (SSRAB). We were 4 mm from the near edge of the nodule in the right upper lobe anterior segment. A Radial EBUS - [id number] was inserted to confirm the location which was tangential. The [employer] spin mobile C-arm with true cone beam imaging was used for intra-procedural verification of the lesion and tool placement. 3D reconstruction were performed on an independent workstation. I personally interpreted the cone beam CT and 3D reconstruction. Total of 2 spins were performed. Tool in lesion was was confirmed. Under fluoroscopy guidance the samples were taken. A flexion 21 needle was used to performed FNA of the right upper lobe Lung nodule. A total of 4 passes were made. This was followed by passes with a Triple needle brush brush, 2 passes were made. Transbronchial forceps biopsies were then performed with a total of 10 passes were made in the right upper lobe Lung nodule. Bronchoalveolar lavage was performed. Left interlobar station (11L) evaluated. 4 passes taken with a 22 gauge needle. Subcarinal station (7) evaluated. 4 passes taken with a 22 gauge needle. Right interlobar station (11R) evaluated. 4 passes taken with a 22 gauge needle. Nodes observed under convex ultrasound guidance. Onsite cheese specialist was not present. Specimens ID Type Source Tests Collected by Time 1 : RUL BAL Bronchial Washing Lung, Right Upper Lobe QUANTITATIVE BAL/PAL/BRONCH WASH CULTURE AND GRAM STAIN, BAL COMPREHENSIVE RESPIRATORY PANEL BY PCR, AFB CULTURE, RESPIRATORY SOURCE AND ACID FAST STAIN, FUNGAL CULTURE, RESPIRATORY AND DREW Robin Leyva MD 10/15/2024 1708 A : RUL Nodule FNA Fine Needle Aspirate Lung, Right Upper Lobe FINE NEEDLE ASPIRATION - CYTOLOGY Robin Leyva MD 10/15/2024 1650 B : RUL Nodule TBBX Fine Needle Aspirate Lung, Right Upper Lobe FINE NEEDLE ASPIRATION - CYTOLOGY, TRANSBRONCHIAL BX Robin Leyva MD 10/15/2024 1657 C : RUL Nodule Brushing Fine Needle Aspirate Lung, Right Upper Lobe FINE NEEDLE ASPIRATION - CYTOLOGY Robin Leyva MD 10/15/2024 1701 D : Station 7 FNA Fine Needle Aspirate Lymph Node FINE NEEDLE ASPIRATION - Robin Galeas MD 10/15/2024 1716 E : Station 11L FNA Fine Needle Aspirate Lymph Node FINE NEEDLE ASPIRATION - CYTOLOGY Robin Leyva MD 10/15/2024 1721 F : Station 11R FNA Fine Needle Aspirate Lymph Node FINE NEEDLE ASPIRATION - CYTOLOGY Robin Leyva MD 10/15/2024 1725 Events Procedure Events Event Event Time ENDO SCOPE IN TIME 10/15/2024 4:07 PM ENDO SCOPE OUT TIME 10/15/2024 4:11 PM ENDO SCOPE IN TIME 10/15/2024 4:12 PM ENDO SCOPE IN TIME 10/15/2024 4:23 PM ENDO SCOPE OUT TIME 10/15/2024 4:47 PM ENDO SCOPE OUT TIME 10/15/2024 5:06 PM ENDO SCOPE IN TIME 10/15/2024 5:09 PM ENDO SCOPE OUT TIME 10/15/2024 5:27 PM ENDO SCOPE IN TIME 10/15/2024 5:27 PM ENDO SCOPE OUT TIME 10/15/2024 5:33 PM Staff Staff Role Cam Page, GUTIERREZ BLANKET WINDER OPERATOR Maria Guadalupe Villatoro Endo Bump Grader Operator Robin Leyva MD Proceduralist Willam Beltrán, DO Other - Other (see comments) Sudhir Ferris MD Anesthesiologist Charbel Rollins, SMILEY Endo Nurse Sandy Patel RN Endo Nurse Lj Garcia Endo Bump Grader Operator Susan Blount, GUTIERREZ BLANKET WINDER OPERATOR Impression Overall Impression: Normal endobronchial exam Biopsy of the RUL nodule Sampling of 11L, 7 , 11R Post Procedure Diagnosis None Recommendation Follow-up: with me Attestation I was present for the entire procedure Billing Codes See procedure report details above. 54633 - Bronchoscopy, rigid or flexible, including fluoroscopic guidance, when performed; with brishing or protected brushings 55465 - Bronchoscopy, rigid or flexible, including fluoroscopic guidance, when performed; with computer-assisted, image-guided navigation 38305 - Bronchoscopy, rigid or flexible, including fluoroscopic guidance, when performed; with transbronchial lung biopsy(s), single lobe 01107 - Bronchoscopy, rigid or flexible, including fluoroscopic guidance, when performed; with transbronchial needle aspiration biopsy(s), trachea, main stem, and/or lobar bronchus(i) 63787 - Bronchoscopy, rigid or flexible, including fluoroscopic guidance, when performed; with transbronchial lung biopsy(s), each additional lobe (list separately in addition to code for primary procedure) 79417 - EBUS convex prove 1 or 2 lesions 01778 - EBUS convex probe 3 or more lesions GC - Service has been performed in part by a resident/fellow under the direction of a teaching physician [address] ct guided placement of a needle. Robin Leyva MD GI PROCEDURE ORDERABLES Final Result * Non-Gynecologic Cytology (10/15/2024 5:10 PM EDT) Case Report Cytology Case: [id number] Authorizing Provider: Robni Leyva MD Collected: 10/15/2024 1710 Ordering Location: [facility] Received: 10/18/2024 0958 Pathologist: Justyn Abraham MD Specimen: Bronchial Brushing, Right Upper Lobe, RIGHT UPPER LOBE BRONCHIAL BRUSHING 10/19/2024 3:20 PM EDT [facility] Final Diagnosis A. RIGHT UPPER LOBE BRONCHIAL BRUSHING - NO EVIDENCE OF MALIGNANCY 10/19/2024 3:20 PM EDT [facility] at 1520 EDT Gross Description A. RIGHT UPPER LOBE BRONCHIAL BRUSHING Eddy tip in 10 ml's tinted fluid processed as thin prep 10/19/2024 3:20 PM EDT [facility] Clinical Information R91.1 - Lung nodule [ICD-10-CM] 10/19/2024 3:20 PM EDT [facility] Brushing Bronchial brushings specimen / Unknown 10/15/2024 5:10 PM EDT 10/18/2024 9:58 AM EDT us Robin Leyva MD LAB CYTOLOGY ORDERABLES Final Result Performing Organization Address City/[facility]/ZIP Co de Phone Number [facility] [address] [place] [address] * BAL Comprehensive Respiratory Panel by PCR (10/15/2024 5:08 PM EDT) Pathologist [facility] BAL Comprehensive PCR Result Not Detected for all analytes Not Detected for all analytes 10/15/2024 8:[address] [facility] Bronchial Washing Structure of upper lobe of right lung / Unknown 10/15/2024 5:08 PM EDT 10/15/2024 6:13 PM EDT Narrative [facility] - 10/15/2024 8:31 PM EDT This assay can detect Adenovirus, Coronavirus, Human Metapneumovirus, Human Rhino/Enterovirus, Influenza A, Influenza A H1, Influenza A H1 2009, Influenza A H3, Influenza B, Parainfluenza Virus 1, Parainfluenza Virus 2, Parainfluenza Virus 3, Parainfluenza Virus 4, Respiratory Syncytial Virus A, Respiratory Syncytial Virus B, Chlamydia pneumoniae, and Mycoplasma pneumoniae. Note: This assay does NOT detect SARS/CoV, novel Coronavirus 2019-nCoV, Bordetella pertussis or Bordetella parapertussis. This PCR assay was developed and its performance characteristics determined by [facility] as appropriate for clinical purposes. This assay has not been cleared or approved by the FDA, but is performed in a CLIA regulated laboratory that is performed in a CLIA regulated laboratory that is qualified to perform high-complexity testing. The [facility] Clinical Microbiology Laboratory is certified under the Clinical Laboratory Improvement Amendments of 1988 (CLIA-88) as qualified to perform high complexity clinical laboratory testing. Robin Leyva MD LAB MICROBIOLOGY - GENERAL OR DERABLES Final Result [facility] [address] [place] [address] * Quantitative BAL/PAL/Bronch Wash Culture and Gram StainLung, Right Upper Lobe (10/15/2024 5:08 PM EDT) Pathologist [facility] Culture No growth at day 2 2024 6:03 AM EDT [facility] Gram Stain Result No organisms seen 10/18/2024 6:03 AM EDT [facility] Gram Stain Result No polymorphonuclear leukocytes seen 10/18/2024 6:03 AM EDT [facility] Bronchial Washing Structure of upper lobe of right lung / Unknown 10/15/2024 5:08 PM EDT 10/15/2024 6:13 PM EDT us Robin Leyva MD LAB MICROBIOLOGY - GENERAL OR DERABLES Final Result [facility] [address] [place] [address] * Fine needle aspiration (10/15/2024 4:57 PM EDT) Case Report Cytology Case: [id number] Authorizing Provider: Robin Leyva MD Collected: 10/15/2024 1659 Ordering Location: [facility] H Endoscopy Received: 10/18/2024 0910 Pathologist: Sol Branch MD Specimens: A) - Lung, Right Upper Lobe, Fine Needle Aspiration, LUNG, RIGHT UPPER LOBE ION ROBOTIC NAVIGATIONAL FINE NEEDLE ASPIRATION B) - Lung, Right Upper Lobe, Transbronchial Biopsy, LUNG, RIGHT UPPER LOBE NODULE TRANSBRONCHIAL BIOPSY C) - Lymph node, Station 7, Fine Needle Aspiration, LYMPH NODE, STATION 7 ENDOBRONCHIAL ULTRASOUND GUIDED FINE NEEDLE ASPIRATION D) - Lymph Node, 11L, Fine Needle Aspiration, LYMPH NODE, 11 LEFT ENDOBRONCHIAL ULTRASOUND GUIDED FINE NEEDLE ASPIRATION E) - Lymph Node, 11R, Fine Needle Aspiration, LYMPH NODE, 11 RIGHT ENDOBRONCHIAL ULTRASOUND GUIDED FINE NEEDLE ASPIRATION 5 1:12 PM EDT [facility] Addendum PD-L1 IHC 22C3 pharmDx* is performed and the results are as follows: - Tumor proportion score (TPS)*: 1% - Expression level: Positive for PD-L1 expression (TPS 1-49%) Comments to treating physician: Pembrolizumab is indicated for treatment of patients with metastatic NSCLC whose tumors have high PD-L1 expression (TPS greater than or equal to 50%) as determined by an FDA-approved test, with no EGFR or ALK genomic tumor aberrations, and no prior systemic chemotherapy treatment for metastatic NSCLC. Pembrolizumab is also indicated for the treatment of patients with metastatic NSCLC whose tumors express PD-L1 (TPS greater than or equal to 1%) as determined by an FDA-approved test, with disease progression on or after atqasuk-containin g chemotherapy. Patients with EGFR or ALK genomic tumor aberrations should have disease progression on FDA-approved therapy for these aberrations prior to receiving Pembrolizumab. PD-L1 IHC serves as a complementary diagnostic in regards to other PD-L1/ZR-1-zrghkpc dtherapies (Nivolumab, Atezolizumab, Durvalumab, etc). Expression level: >Negative for PD-L1 expression (TPS less than 1%) >Positive for PD-L1 expression (TPS 1-49%) >Positive for high PD-L1 expression (TPS greater than or equal to 50%) *PD-L1 IHC 22C3 pharmDx is a FDA-approved international account executive diagnostic for pembrolizumab performed on [employer] Stainer using formalin-fixed, paraffin imbedded (FFPE) tissue from non-small bernadine lung carcinomas. Positivity is scored only in viable tumor cells with membrane staining (partial or complete) of greater than or equal to 1+ intensity. The TPS is estimated by manual quantification of PD-L1 positivity. Certain tissue processing factors such as decalcification, formalin fixation time outside an acceptable range (12 to 72 hrs), and prolonged time to fixation can affect PD-L1 staining/expressio n levels and results should be interpreted with caution in such instances. Additionally, tissue from older (greater than 5 yrs) formalin-fixed paraffin-embedded blocks may lose PD-L1 immunoreactivity. This assay is not validated for decalcified specimens. All controls show appropriate reactivity. All immunohistochemist ry, in situ hybridization, and histochemical tests were developed by and are performed at the [facility], [address] [place] [address]. All tests reported here, except those addressing HER2 and PD-L1 expression as predictive markers, have not been cleared by or approved by the US Food and Drug Administration (FDA). The laboratory is regulated under CLIA as qualified to perform high-complexity testing. The tests are used for clinical purposes. They should not be regarded as investigational or for research. 5 1:12 PM EDT [facility] Addendum electronically signed by Argentina Jones MD on 10/20/2024 at 1312 EDT Final Diagnosis A. LUNG, RIGHT UPPER LOBE, ION ROBOTIC NAVIGATIONAL FINE NEEDLE ASPIRATION: - PREDOMINANTLY BLOOD, NON-DIAGNOSTIC SPECIMEN. B. LUNG, RIGHT UPPER LOBE NODULE TRANSBRONCHIAL BIOPSY: - POSITIVE FOR MALIGNANCY, SQUAMOUS CELL CARCINOMA (SEE COMMENT). C. LYMPH NODE, STATION 7, ENDOBRONCHIAL ULTRASOUND GUIDED FINE NEEDLE ASPIRATION: - HEMODILUTE LYMPHOID TISSUE WITH NO EVIDENCE OF MALIGNANCY. D. LYMPH NODE, 11 LEFT, ENDOBRONCHIAL ULTRASOUND GUIDED FINE NEEDLE ASPIRATION: - LYMPHOID TISSUE WITH NO EVIDENCE OF MALIGNANCY. E. LYMPH NODE, 11 RIGHT, ENDOBRONCHIAL ULTRASOUND GUIDED FINE NEEDLE ASPIRATION: - HEMODILUTE LYMPHOID TISSUE WITH NO EVIDENCE OF MALIGNANCY. 1:[address] [facility] at 1653 EDT Comment Immunohistochemica l stains were performed which were supportive of the diagnosis (see below for details). PD-L1 is pending, and an addendum will be issued with the results. 1:[address] [facility] Special and Immunohistochemical Stains HC: B1-1 P40: Positive All controls show appropriate reactivity. All immunohistochemist ry, in situ hybridization, and histochemical tests were developed by and are performed at the [facility], [address] [place] [address]. All tests reported here, except those addressing HER2 (breast) and PD-L1 expression as predictive markers, have not been cleared by or approved by the US Food and Drug Administration (FDA). The FDA has determined that such clearance or approval is not necessary. The laboratory is regulated under CLIA as qualified to perform high-complexity testing. The tests are used for clinical purposes. They should not be regarded as investigational or for research. This assay has not been validated on decalcified tissues. Results should be interpreted with caution given the likelihood of false negativity on decalcified specimens. 1:[address] [facility] Intradepartmental Consultation with Agreement Dr. Naila Abraham 1:[address] [facility] Immediate Evaluation A: FNA performed by Dr. Leyva Number of sticks: Not provided B: Biopsy performed by: Dr. Leyva Number of sticks: Not provided C: FNA performed by Dr. Leyva Number of sticks: Not provided D: FNA performed by Dr. Leyva Number of sticks: Not provided E: FNA performed by Dr. Leyva Number of sticks: Not provided This service has been rendered in part by a resident. A pathologist has personally reviewed the slides/tissue and has rendered and is responsible for diagnosis for the diagnosis that appears on the report. 1:12 PM EDT [facility] Gross Description A. LUNG, RIGHT UPPER LOBE ION ROBOTIC NAVIGATIONAL FINE NEEDLE ASPIRATION 5 ml's bloody Needle rinse fluid processed as ThinPrep and cellblock for complete evaluation of sample. Slides were NOT received. Cold Time: 66h 01m B. LUNG, RIGHT UPPER LOBE NODULE TRANSBRONCHIAL BIOPSY Multiple white cheyr cores of friable tissue, all measuring less than 0.1 cm in diameter and ranging from 0.01 cm to 0.3 cm in length, entirely submitted in biowrap and/or cassette. Specimen was placed in formalin at 4:57 pm on 10/15/24 in cytology, and then taken to histology at 4:30 pm on 10/18/24 where it received an additional 3 hours of formalin fixation. Cold Time: <1m C. LYMPH NODE, STATION 7 ENDOBRONCHIAL ULTRASOUND GUIDED FINE NEEDLE ASPIRATION 20 ml's tinted Needle rinse fluid processed as ThinPrep and cellblock for complete evaluation of sample. Slides were NOT received. Cold Time: 65h 44m D. LYMPH NODE, 11 LEFT ENDOBRONCHIAL ULTRASOUND GUIDED FINE NEEDLE ASPIRATION 5 ml's tinted Needle rinse fluid processed as ThinPrep and cellblock for complete evaluation of sample. Slides were NOT received. Cold Time: 65h 39m E. LYMPH NODE, 11 RIGHT ENDOBRONCHIAL ULTRASOUND GUIDED FINE NEEDLE ASPIRATION 5 ml's tinted Needle rinse fluid processed as ThinPrep and cellblock for complete evaluation of sample. Slides were NOT received. Cold Time: 65h 35m 5 1:12 PM EDT [facility] Note: A resident was involved in the service. I attest I examined the relevant preparations for the specimens and confirmed the diagnosis or interpretation. 1:12 PM EDT [facility] Clinical Information R91.1 - Lung nodule [ICD-10-CM] 1:12 PM EDT [facility] Fine Needle Aspirate Structure of upper lobe of right lung / Unknown 10/15/2024 4:59 PM EDT 10/18/2024 9:10 AM EDT Specimen obtained by fine needle aspiration procedure (specimen) Structure of upper lobe of right lung / Unknown 10/15/2024 4:57 PM EDT 10/18/2024 9:10 AM EDT Specimen obtained by fine needle aspiration procedure (specimen) Structure of lymph node / Unknown 10/15/2024 5:16 PM EDT 10/18/2024 9:10 AM EDT Specimen obtained by fine needle aspiration procedure (specimen) Structure of lymph node / Unknown 10/15/2024 5:21 PM EDT 10/18/2024 9:12 AM EDT Specimen obtained by fine needle aspiration procedure (specimen) Structure of lymph node / Unknown 10/15/2024 5:25 PM EDT 10/18/2024 9:13 AM EDT us Robin Leyva MD LAB CYTOLOGY ORDERABLES Edite d Result - Final [facility] [address] [place] [address] * ECG Adult (10/15/2024 2:41 PM EDT) EKG DIAGNOSIS CLASS Normal MUSE ECG Ventricular Rate 73 BPM MUSE ECG Atrial Rate 73 BPM MUSE ECG VA Interval 162 ms MUSE ECG QRSD Interval 78 ms MUSE ECG QT Interval 416 ms MUSE ECG QTC Interval 458 ms MUSE ECG P [place] 68 degrees MUSE ECG R [place] 27 degrees MUSE ECG T Wave [place] 72 degrees MUSE ECG Diagnosis Normal sinus rhythm MUSE ECG Diagnosis Normal ECG MUSE ECG Diagnosis MUSE ECG Diagnosis Confirmed by Damien Flaherty ([id number]) on 10/15/2024 3:40:43 PM MUSE ECG 10/15/2024 2:41 PM EDT 10/15/2024 3:40 PM EDT us Sudhir Ferris MD ECG ORDERABLES Final Result MUSE ECG * (ABNORMAL) POCT glucose meter (10/15/2024 1:26 PM EDT) POCT Glucose 142(H) 74 - 99 mg/dL 10/15/2024 1:28 PM EDT [facility] Comment:Accuracy of a glucos e result obtained from a capillary whole blood specimen relies upon adequate, non-compromised capillary blood flow. If the capillary glucose result is not consistent with the patient's clinical signs and symptoms, glucose testing should be repeated with either an arterial or venous sample on the glucometer or sent to the main labortory for testing. Comment 10/15/2024 1:28 PM EDT [facility] Military Cook ID Lora Hawk 10/15/2024 1:28 PM EDT [facility] Device ID [id number] 10/15/2024 1:28 PM EDT [facility] Specimen Type POC Capillary 10/15/2024 1:28 PM EDT [facility] Blood Capillary blood specimen / Unknown 10/15/2024 1:26 PM EDT 10/15/2024 1:28 PM EDT Robin Leyva MD LAB POINT OF CARE TE ST DOCKED DEVICE UNSOLICITED RESULTS Final Result Performing Organization Address City[facility] Co de Phone Number [facility] [address] [place] [id number] documented in this encounter Visit Diagnoses Diagnosis Lung nodule Other diseases of lung, not elsewhere classified Lung nodule Other diseases of lung, not elsewhere classified documented in this encounter Administered Medications Inactive Administered Medications - up to 3 most recent administrations Medication Order MAR Action Action Date Dose Rate Site acetaminophen (Tylenol) tablet 1,000 mg 1,000 mg, Oral, Once as needed, 1 dose, Starting on Fri10/15/24 at 1658, Until Fri10/15/24 at 1819, Routine, Recovery (Phase I only), pain score of >1 out of 10 Given 10/15/2024 6:19 PM EDT 1,000 mg droperidol (Inapsine) injection 0.625 mg 0.625 mg, Intravenous, Once as needed, 1 dose, Starting on Fri10/15/24 at 1658, Until Fri10/15/24 at 1801, Routine, Recovery (Phase I only), nausea, vomiting Given 10/15/2024 6:01 PM EDT 0.625 mg ipratropium-albuterol (Duo-Neb) 0.5-2.5 mg/3 mL nebulizer solution 3 mL 3 mL, Nebulization, Once, 1 dose, On Fri10/15/24 at 1430, Routine, Holding - Preprocedure Given 10/15/2024 6:24 PM EDT 3 mL documented in this encounter Additional Health Concerns Active Problems Noted Date Diagnosed Date Autogenerated Problem 09/28/2024 Assessment Noted Time A fall risk assessment has been complete d for the patient 09/27/2024 9:29 AM EDT documented as of this encounter Care Teams Department Manager Relationship Specialty Start Date End Date Jaylon Pa MD [address] [place] [address] [address] [place] [address] PCP - General 09/27/24 documented as of this encounter
--- OUTSIDE RECORDS SUMMARY | 2024-10-15 15:10 | XMS_ITS | Encounter Summary ---
Author Organization [facility] Address [address] [id number] Care Team Providers Care Java Sybase Developer Name Role Phone Jaylon Pa MD Primary Care Provider [phone] Reason for Referral * Imaging (Routine) - Closed Specialty Diagnoses / Procedures Referred By Franki castillo Referred To Contact Radiology Diagnoses Lung nodule Procedures [place] Less than 1 Hour Intraoperative Robin Leyva MD [address] [place] [address] Phone: tel: fax: Referral ID Status Reason Start Date Expiration Date V isits Requested Visits Authorized [id number] Closed Perform Procedure 10/15/2024 04/16/2026 1 1 Reason for Visit * Imaging (Routine) - Closed Specialty Diagnoses / Procedures Referred By Franki castillo Referred To Contact Radiology Diagnoses Lung nodule Procedures [place] Less than 1 Hour Intraoperative Robin Leyva MD [address] [place] [address] Phone: tel: fax: Referral ID Status Reason Start Date Expiration Date V isits Requested Visits Authorized [id number] Closed Perform Procedure 10/15/2024 04/16/2026 1 1 Encounter Details Date Type Department Care Team (Latest Contact Info) Description 10/15/2024 3:10 PM EDT - 10/15/2024 6:09 PM EDT Hospital Encounter [facility] Radiology [address] [place] [address] Lung nodule Discharge Disposition: Home or Self [...] Hospital Encounter [facility] [address] [place] [address] Chandler Escobar MD [address] [address] 11/19/2024 7:35 AM EDT - 11/19/2024 12:00 PM EDT Surgery [facility] [address] [place] [address] Chandler Escobar MD [address] [address] ROBOTIC RIGHT UPPER LOBE WEDGE, POSSIBLE LOBECTOMY [94742 (CPT ) +1 more] Scheduled Procedures Name Priority Associated Diagnoses Date/Ti me VATS, ROBOT-ASSISTED Lung nodule 11/19/2024 7:35 AM EDT documented as of this encounter Goals Goal Patient Goal Type Associated Problems Recent Progress Patient-Stated? Author Autogenerat ed Goal Care Plan Autogenerated Problem No Eloisa Palogan Ordonez documented as of this encounter Procedures Procedure Name Priority Date/Time Associated Diagnosis Comments FL LESS THAN 1 HOUR (NON-REPORTABLE) Routine 10/15/2024 5:55 PM EDT Lung nodule documented in this encounter Results * [place] Less than 1 Hour Intraoperative (10/15/2024 5:55 PM EDT) Narrative IMAGING - 10/15/2024 6:13 PM EDT Images were obtained for surgical purposes. See Robin Leyva's surgical note in the patient's chart for the findings. Robin Leyva MD IMG FLUOROSCOPY PROCEDURES Fi nal Result IMAGING documented in this encounter Visit Diagnoses Diagnosis Lung nodule Other diseases of lung, not elsewhere classified Lung nodule Other diseases of lung, not elsewhere classified documented in this encounter Additional Health Concerns Active Problems Noted Date Diagnosed Date Autogenerated Problem 09/28/2024 Infection Onset Date Last Indicated Resolved Time Tuberculosis Rule-Out 10/15/2024 10/15/2024 Assessment Noted Time A fall risk assessment has been complete d for the patient 09/27/2024 9:29 AM EDT documented as of this encounter Care Teams Java Sybase Developer Relationship Specialty Start Date End Date Jaylon Pa MD [address] [place] [address] [address] [place] [address] PCP - General 09/27/24 documented as of this encounter
--- OUTSIDE RECORDS SUMMARY | 2024-10-15 15:47 | XMS_ITS | Encounter Summary ---
Author Organization [facility] Address [address] [id number] Care Team Providers Care Ward Nurse Name Role Phone Jaylon Pa MD Primary Care Provider [phone] Encounter Details Date Type Department Care Team (Late st Contact Info) Description 10/15/2024 3:47 PM EDT Anesthesia Event [facility] Endoscopy [address] [place] [address] Sudhir Ferris MD [address] [place] [address] Anesthesia Record Procedure Summary Procedure Name Responsible [...] by Cam Page CRNA 10/15/24 175 by Ssuan Blount CRNA documented in this encounter Social [...] during procedure: Obi Anesthesiologist: Sudhir Ferris MD SHIPYARD PAINTER APPRENTICE: Cam Page CRNA Performed: GUTIERREZ Patient Condition [...] ABG No results found for: PHART , GTK7APY , PO2ART , SO2ART , BEART , LOL7ZUC , HCTART , SODIUMART , POTASSIUMART , POCTCL , POCGLU , IONCALART , LACTATE No results found for: PH , PCO2 , PO2 , [id number] , BASEEXC , HCTSYR , KSYR , CLSYR , GLUSYR , CAION , LACTATE ECHO No echocardiogram results found for the past 12 months PFTs FEV1 PRE (L) Date/Time Value 09/27/2024 1409 1.73 (A) FEV1 PRED (no units) Date/Time Value 09/27/2024 1409 3.15 [id number] (L) Date/Time Value 09/27/2024 1409 2.95 (A) [...] Plan ASA 3 Plan was reviewed with: SHIPYARD PAINTER APPRENTICE Anesthesia technique(s) discussed with the patient/family: general [...] additional comments: PT DENIES HX OF CP, [place], CHF. Respiratory: COPD: breathing at baseline. Respiratory [...] Hospital Encounter [facility] RO[facility] [address] [place] [address] Chandler Escobar MD [address] [address] 11/19/2024 7:35 AM EDT - 11/19/2024 12:00 PM EDT Surgery [facility] RO[facility] [address] [place] [address] Chandler Escobar MD [address] [address] ROBOTIC RIGHT UPPER LOBE WEDGE, POSSIBLE LOBECTOMY [30705 (CPT ) +1 more] Scheduled Procedures Name Priority Associated Diagnoses Date/Ti me VATS, ROBOT-ASSISTED Lung nodule 11/19/2024 7:35 AM EDT documented as of this encounter Goals Goal Patient Goal Type Associated Problems Recent Progress Patient-Stated? Author Autogenerat ed Goal Care Plan Autogenerated Problem No Quiana Pa documented as of this encounter Procedures Procedure Name Priority Date/Time Associated Diagnosis Comments [place] AN ELECTIVE ENDOTRACHEAL AIRWAY Routine 10/15/2024 3:57 PM EDT documented in this encounter Results * NH AN ELECTIVE ENDOTRACHEAL AIRWAY (10/15/2024 3:57 PM EDT) Narrative Cam Page CRNA - 10/15/2024 3:57 PM EDT Cam Page CRNA 10/15/2024 4:15 PM Airway Date/Time: 10/15/2024 3:57 PM Reason: elective Airway not difficult General Information and Staff [facility] Anesthesiologist: Sudhir Ferris MD SHIPYARD PAINTER APPRENTICE: Cam Page CRNA Performed: GUTIERREZ Patient Condition [...] ETT on first attempt with minimal resistance. us Sudhir Ferris MD ANESTHESIA ORDERABLES Final Res [...] documented as of this encounter Care Teams Ward Nurse Relationship Specialty Start Date End Date Jaylon Pa MD [address] [place] [address] [address] [place] [address] PCP - General 09/27/24 documented as of this encounter
--- OUTSIDE RECORDS SUMMARY | 2024-10-15 18:10 | XMS_ITS | Encounter Summary ---
Author Organization [facility] Address [facility] [place] [id number] Care Team Providers Care Athlete Manager Name Role Phone Jaylon Pa MD Primary Care Provider [phone] Encounter Details Date Type Department Care Team (Latest Contact Info) Description 10/15/2024 6:10 PM EDT - 10/15/2024 11:59 PM EDT Hospital Encounter PAV H Radiology [address] [place] [address] Discharge Disposition: Home or Self Care Social [...] Hospital Encounter PAV A OPERATING ROOM [address] [place] [address] Chandler Escobar MD [address] [address] 11/19/2024 7:35 AM EDT - 11/19/2024 12:00 PM EDT Surgery PAV A OPERATING ROOM [address] [place] [address] Chandler Escobar MD [address] [address] ROBOTIC RIGHT UPPER LOBE WEDGE, POSSIBLE LOBECTOMY [84599 (CPT ) +1 more] Scheduled Procedures Name [...] 1 VIEW STAT 10/15/2024 6:21 PM EDT documented in this encounter Results [...] MD IMG XR PROCEDURES Final Resul t documented in this encounter Visit Diagnoses Not on filedocumented in this encounter Additional Health Concerns Active Problems Noted Date Diagnosed Date Autogenerated Problem 09/28/2024 Infection Onset Date Last Indicated Resolved Time Tuberculosis Rule-Out 10/15/2024 10/15/2024 Assessment Noted Time A fall risk assessment has been complete d for the patient 09/27/2024 9:29 AM EDT documented as of this encounter Care Teams Athlete Manager Relationship Specialty Start Date End Date Jaylon Pa MD [address] [place] [address] [address] [place] [address] PCP - General 09/27/24 documented as of this encounter
--- OUTSIDE RECORDS SUMMARY | 2024-10-25 09:00 | XMS_ITS | Encounter Summary ---
Author Organization [facility] Address [address] [id number] Care Team Providers Care Surgical Services Asst Name Role Phone Jaylon Pa MD Primary Care Provider [phone] Reason for Referral * Imaging (Urgent) - Authorized Specialty Diagnoses / Procedures Referred By Franki castillo Referred To Contact Cardiology Diagnoses Lung nodule Other emphysema (CMS/HCC) Dyspnea, unspecified type Procedures Echo, Adult Transthoracic Complete Chandler Escobar MD [address] [facility] [address] [place] [address] Phone: tel: fax: Referral ID Status Reason Start Date Expiration Date Visits Requested Visits Authorized [id number] Authorized Perform Procedure 10/25/2024 04/26/2026 1 1 Reason for Visit * Reason Comments New Patient * Consultation (Routine) - Closed Specialty Diagnoses / Procedures Referred By Franki castillo Referred To Contact Cardiothoracic Surgery Diagnoses Malignant neoplasm of right upper lobe of lung (CMS/HCC) Robin Leyva MD [address] [place] [address] Phone: tel: fax: Cardiothoracic Surgery [address] [place] [address] Phone: tel: Referral ID Status Reason Start Date Expiration Date V isits Requested Visits Authorized [id number] Closed Specialty Services Required 10/20/2024 04/21/2026 1 1 Encounter Details Date Type Department Care Team ([facility] st Contact Info) Description 10/25/2024 9:00 AM EDT Office Visit Pav CC Head, Neck & Respiratory [address] [place] [address] Chandler Escobar MD [address] [place] [address] Lung nodule (Primary Dx); Other emphysema (CMS/HCC); Dyspnea, unspecified type Social History Tobacco Use Types Packs/Day Years Used Date Smoking Tobacco: Every Day Cigarettes 0.5 56.6 Started: 1966 Smokeless Tobacco: Never Tobacco Cessation:Ready to Q uit: No; Counseling Given: No Alcohol Use Standard Drinks/Week Comments Never 0 [...] Sign Reading Time Taken Comments Blood Pressure 113/69 10/25/2024 8:27 AM EDT Pulse 105 10/25/2024 8:27 AM EDT Temperature 36.6 C (97.9 F) 10/25/2024 8:27 AM EDT Respiratory Rate 18 10/25/2024 8:27 AM EDT Oxygen Saturation 96% 10/25/2024 8:27 AM EDT Inhaled Oxygen Concentration - - Weight 85.3 kg (188 lb 0.8 oz) 10/25/2024 8:27 A M EDT Height 177.8 cm (5' 10 ) 10/25/2024 8:27 AM EDT Body Mass Index 26.98 10/25/2024 8:27 AM EDT documented in this encounter Miscellaneous Notes * Progress Notes - Jerzy Bailey MD - 10/25/2024 9:00 AM EDT Images from the original note were not included. [facility] Department of Surgery Section of Thoracic Surgery History & Physical Note Consulting MD: Dr. Leyva Reason for Consultation/Chief complaint: Newly diagnosed squamous cell carcinoma of the RUL History of Present Illness: Edwin Gould is a 73 y.o. male w/ pmhx significant for T2DM (non-insulin dependent), hypertension, and hyperlipidemia who presents to the outpatient clinic for evaluationof a newly diagnosed squamous cell carcinoma of the RUL. Patient was initially seen by Dr. Leyva on 09/27/2024 for a newly identified RUL pulmonary nodule that had PET / CT significant for hypermetabolic RUL nodule with SUV of 3.2, he also had NODIFY testing done for lung cancer with 89% probability. He underwent ION and EBUS on 10/15/2024 which was positive for squamous cell carcinoma, with nodes being negative and ultimately referred to Dr. Escobar for oncologic evaluation. Patient reports wanting surgical intervention if he's a candidate. 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 Patient specifically denies fevers, chills, n/v/d, dysphagia, chest pain, dyspnea, new muscle aches, night sweats, or recent infections. Past Medical History: Past Medical History Pertinent Negatives[1] Past Surgical History: Surgical History[2] Social History: Tobacco - Active smoker, ~40 pack years Alcohol - none Drugs - none Family Medical History: family history includes Cancer in his brother and mother; No Known Problems in his father. Allergies: Allergies[3] Home Medications: Current Medications[4] ROS: 14 point ROS was obtained and negative except for what is included in the HPI. Physical exam: Visit Vitals Ht 1.778 m (5' 10 ) Wt 85.3 kg (188 lb 0.8 oz) BMI 26.98 kg/m?? General: alert and oriented, appropriate Lungs: CTA B, no wheezes or rhonchi Heart: RRR, systolic ejection murmur audible Abdomen: soft NT/ND, normal bowel sounds Lymph nodes: no palpable supraclavicular or cervical adenopathy Extremities: no peripheral edema Skin: no rash, no cyanosis and warm to touch Psychiatric: oriented to person/place/time and normal mood/affect Imaging: I independently visualized the imaging which includes: CT Chest (10/2024) COMPARISON: Outside noncontrast chest CT August 18, [...] mild lower lung reticulation and fibrosis with honeycombcyst formation. Upper Abdomen: No suspicious lesions in the partially visualized upper abdomen. Musculoskeletal: No suspicious lytic or sclerotic lesion. IMPRESSION: Similar-appearing right upper lobe 2 cm spiculated nodule abutting the pleura with questionable chest wall invasion. Biopsy recommended. 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 Additional testing: FEV1 - 55% -ppoFEV1 for bilobectomy = 39.77% DLCO - 65% Final Diagnosis A. LUNG, RIGHT UPPER LOBE, [...] LYMPHOID TISSUE WITH NO EVIDENCE OF MALIGNANCY. Assessment and Plan: Edwin Gould is a 73 y.o. 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 The both SBRT and surgical resection were discussed with the patient and he would like to pursue surgery. He was told that given his audible murmur, that we would place an external referral for him to get an echo closer to home prior to the surgery (we need access to the reports of the echo). Otherwise, patient has completed his preoperative workup and he was scheduled for robotic wedge resection possible lobectomy on November [address] Escobar. Consent was obtained in clinic. All questions answered appropriately. -obtain ECHO closer to home prior to surgery -OR 11/19/2024 for robotic Right upper lobe wedge possible lobectomy -consent obtained in clinic -call clinic with any questions or concerns Jerzy Bailey MD 10/25/24 8:28 AM [1] Past Medical History: Diagnosis Date Diabetes (CMS/HCC) High blood pressure High cholesterol [2] Past Surgical History: Procedure Laterality Date NO PAST SURGERIES [3] Allergies Allergen Reactions Penicillins Other - please document in the comment field [4] Current Outpatient Medications: Aspirin Low Dose 81 MG EC tablet, Take 1 tablet by mouth daily., Disp: , Rfl: fluticasone (Flonase) 50 MCG/ACT nasal spray, shake liquid and use 2 sprays in each nostril daily, Disp: , Rfl: lisinopril-hydroCHLOROthiazide 20-25 MG tablet, Take 1 tablet by mouth daily., Disp: , Rfl: metFORMIN (Glucophage) 500 MG tablet, Take 2 tablets by mouth 2 times a day., Disp: , Rfl: pravastatin (Pravachol) 20 MG tablet, Take 1 tablet by mouth nightly., Disp: , Rfl: Cosigned by Chandler Escobar MD at 10/25/2024 11:07 AM EDT Associated attestation - Chandler Escobar MD - 10/25/2024 11:07 AM EDT Attending Addendum: I saw and evaluated the patient with the resident/fellow. I reviewed and interpreted the patient's history, labs, imaging/studies to develop the plan and discussed these with the resident/fellow in a teaching fashion. I agree with the note's findings and plan as documented. Briefly, Edwin Gould is a 73 y.o. male who presents with newly diagnosed cT1N0 right upper lobe squamou s cell carcinoma. His PET-CT is negative for evidence of metastatic disease and his PFTs are adequate for resection. We discussed curative intent treatment options, namely SBRT versus surgical resection. He would like to proceed with surgery. He was noted to have a murmur and we will obtain a TTE prior to surgery. Consent was obtained in clinic. All questions answered appropriately. Thank you forincluding me in the care of your patients and please do not hesitate to contact me with questions. documented in this encounter Plan of Treatment Upcoming Encounters Date Type Department Care Team (Latest Contact Info) Description 11/19/2024 7:35 AM EDT Hospital Encounter PAV A OPERATING ROOM [address] [place] [address] Chandler Escobar MD [address] [address] 11/19/2024 7:35 AM EDT - 11/19/2024 12:00 PM EDT Surgery PAV A OPERATING ROOM [address] [place] [address] Chandler Escobar MD [address] [address] ROBOTIC RIGHT UPPER LOBE WEDGE, POSSIBLE LOBECTOMY [73279 (CPT ) +1 more] Scheduled Orders Name Type Priority Associated Diagnoses Orde r Schedule Echo, Adult Transthoracic Complete Echocardiography STAT Lung nodule Other emphysema (CMS/HCC) Dyspnea, unspecified type Expected: 10/25/2024 (Approximate), Expires: 10/25/2026 Scheduled Procedures Name Priority Associated Diagnoses Date/Ti me VATS, ROBOT-ASSISTED Lung nodule 11/19/2024 7:35 AM EDT documented as of this encounter Goals Goal Patient Goal Type Associated Problems Recent Progress Patient-Stated? Author Autogenerat ed Goal Care Plan Autogenerated Problem No Quiana Pa documented as of this encounter Visit Diagnoses Diagnosis Lung nodule- Primary Other diseases of lung, not elsewhere classified Other emphysema (CMS/HCC) Other emphysema Dyspnea, unspecified type Lung nodule Other diseases of lung, not elsewhere classified documented in this encounter Additional Health Concerns Active Problems Noted Date Diagnosed Date Autogenerated Problem 09/28/2024 Infection Onset Date Last Indicated Resolved Time Tuberculosis Rule-Out 10/15/2024 10/15/2024 Assessment Noted Time A fall risk assessment has been complete d for the patient 10/25/2024 8:46 AM EDT A Body Mass Index follow-up plan has been documented for the patient 10/26/2024 12:00 PM EDT documented as of this encounter Care Teams Surgical Services Asst Relationship Specialty Start Date End Date Jaylon Pa MD [address] [facility] [address] [place] [address] PCP - General 09/27/24 documented as of this encounter
--- NOTE | 2024-11-08 10:08 | CA_ITS ---
APPROVED REPORT EXAM: Comprehensive 2D, Doppler, and color-flow Echocardiogram Nuclear Process Engineer: Shira Pearce RDCS Ht: 5 ft 10 in Wt: 187lbs BSA: 2.03 BP: 151/82 mmHg Indications: SOA PRE OP M-Mode Dimensions RVDd 1.36 cm (0.9-2.6) LA Diam 3.51 cm (1.9-4.0) LVDd 5.98 cm (3.5-5.7) LVDs 4.24 cm (3.5-5.7) IVSd 0.76 cm (0.6-1.1) PWd 0.61 cm (0.6-1.1) EF (Teich) 55.00% FS 29.10% EDV (Teich) 178.60 mL ESV (Teich) 80.40 mL LV Diastology E Decel Time 230 (160-240 msec) E/A Ratio 0.8 Mitral Valve MV E Max Wilmar. 63.0 (40-130 cm/s) MV A Velocity 76.0 (40-130 cm/s) E/A Ratio 0.83 MV PHT 67.0 ms Left Ventricle The left ventricle is normal size. Left ventricular systolic function is normal. The left ventricular ejection fraction is within the normal range. Proximal septal thickening is present. There is normal LV segmental wall motion. The left ventricular diastolic function is normal. LVEF is 55% Right Ventricle The right ventricle is normal size. The right ventricular systolic function is normal. Atria The left atrium size is normal. The right atrium size is normal. There is no color Doppler evidence of interatrial shunt. Aortic Valve The aortic valve opens well. There is no hemodynamically significant aortic valvular stenosis. No aortic regurgitation is present. Mitral Valve The mitral valve is normal in structure. No evidence of mitral valve stenosis. Trace mitral regurgitation is present. Tricuspid Valve The tricuspid valve leaflets are thin and pliable. Trace tricuspid regurgitation. There is insufficient TR jet to estimate RVSP. Pulmonic Valve The pulmonary valve is grossly normal in structure. Trace pulmonic valve regurgitation is present. Great Vessels The aortic root is normal in size. IVC is normal in size and collapses >50% with inspiration. Pericardium There is no pericardial effusion. Other Information Study Quality: Fair Conclusion Normal biventricular systolic function. No significant valvular stenosis or regurgitation. Electronically signed by : Verenice Aparicio MD 11/08/2024 12:46:40
--- OUTSIDE RECORDS SUMMARY | 2024-11-08 10:41 | XMS_ITS | Encounter Summary ---
Author Organization [facility] Address [address] [id number] Care Team Providers Care Race Engine Builder Name Role Phone Jaylon Pa MD Primary Care Provider [phone] Reason for Visit * Reason Comments Consult Encounter Details Date Type Department Care Team ([facility] st Contact Info) Description 10/25/2024 Social Work Psych Oncology [address] [place] [address] Skye Stoll LCSW [place] [id number] Social History Tobacco Use Types Packs/Day Years Used Date Smoking Tobacco: Every Day Cigarettes 0.5 56.6 Started: 1967 Smokeless Tobacco: Never Alcohol Use Standard Drinks/Week [...] as of this encounter Miscellaneous Notes * Clinician Note - Skye Stoll LCSW - 10/25/2024 9:22 AM EDT Encounter Type: In Person Visit Disease Status: Initial Psych Onc Contact Clinic Location: [facility] Disease Type: Lung & Bronchus Services Provided: Misc (Specify) Miscellaneous Services: Notary Education Provided: Legal Resources Intervention Level: 2 Units (1 unit = 15 minutes): 1 Narrative: SURVEY OPERATIONS DIRECTOR was consulted by patient regarding need for notary. SURVEY OPERATIONS DIRECTOR reviewed paperwork and highlighted that two disinterested witnesses are required to complete paperwork to be valid and notarize. SURVEY OPERATIONS DIRECTOR explained that [facility] requires durable POA paperwork to have two witness and notary. He was advised no one on medical staff can serve as witnesses so he'd likely need to pivot to having friends or family members not interested in document present. Patient and son verbalized understanding and were appreciative. SURVEY OPERATIONS DIRECTOR provided brief education of Psych-Onc services and availability and encouraged patient to reach out for supportive needs as they arise. documented in this encounter Plan of Treatment Upcoming Encounters Date Type Department Care Team (Latest Contact Info) Description 11/19/2024 7:35 AM EDT Hospital Encounter PAV A OPERATING ROOM [address] [place] [address] Chandler Escobar MD [address] [address] 11/19/2024 7:35 AM EDT - 11/19/2024 12:00 PM EDT Surgery PAV A OPERATING ROOM [address] [place] [address] Chandler Escobar MD [address] [address] ROBOTIC RIGHT UPPER LOBE WEDGE, POSSIBLE LOBECTOMY [97843 (CPT ) +1 more] Scheduled Procedures Name Priority Associated Diagnoses Date/Ti me VATS, ROBOT-ASSISTED Lung nodule 11/19/2024 7:35 AM EDT documented as of this encounter Goals Goal Patient Goal Type Associated Problems Recent Progress Patient-Stated? Author Autogenerat ed Goal Care Plan Autogenerated Problem No Thierno Quiana Ordonez documented as of this encounter Visit Diagnoses Not on filedocumented [...] documented as of this encounter Care Teams Race Engine Builder Relationship Specialty Start Date End Date Jaylon Pa MD [address] [place] [address] [address] [place] [address] PCP - General 09/27/24 documented as of this encounter
--- OUTSIDE RECORDS SUMMARY | 2024-11-08 10:41 | XMS_ITS | Encounter Summary ---
Author Organization [facility] Address [address] [place] [address] Care Team Providers Care City Detective Name Role Phone Jaylon Pa MD Primary Care Provider [phone] Encounter Details Date Type Department Care Team (Latest Contact Info) Description 10/25/2024 Travel Social History Tobacco Use Types Packs/Day Years [...] on file documented as of this encounter Plan of Treatment Upcoming Encounters Date Type Department Care Team (Latest Contact Info) Description 11/19/2024 7:35 AM EDT Hospital Encounter PAV A OPERATING ROOM [address] [place] [address] Chandler Escobar MD [address] [facility] [address] [place] [address] 11/19/2024 7:35 AM EDT - 11/19/2024 12:00 PM EDT Surgery PAV A OPERATING ROOM [address] [place] [address] Chandler Escobar MD [address] [place] [address] ROBOTIC RIGHT UPPER LOBE WEDGE, POSSIBLE LOBECTOMY [69634 (CPT ) +1 more] Scheduled Procedures Name [...] documented as of this encounter Care Teams City Detective Relationship Specialty Start Date End Date Jaylon Pa MD [address] [facility] [address] [place] [address] PCP - General 09/27/24 documented as of this encounter
--- OUTSIDE RECORDS SUMMARY | 2024-11-08 10:41 | XMS_ITS | Clinical Summary ---
Author Organization [facility] Address [address] [id number] Care Team Providers Care Power And Recovery Shift Engineer Name Role Phone Jaylon Pa MD Primary Care Provider [phone] Allergies Active Allergy Reactions Criticality Noted Date Comments Penicillins Other - please docum ent in the comment field Low 09/27/2024 Medications metFORMIN (Glucophage) 500 MG tablet Take 2 tablets by mouth 2 times a day. 07/19/2024 Active pravastatin (Pravachol) 20 MG tablet Take 1 tablet by mouth nightly. 12/22/2023 Active fluticasone (Flonase) 50 MCG/ACT nasal spray shake liquid and use 2 sprays in each nostril daily 09/03/2024 Active Aspirin Low Dose 81 MG EC tablet Take 1 tablet by mouth daily. 12/15/2023 Active lisinopril-hydr oCHLOROthiazide 20-25 MG tablet Take 1 tablet by mouth daily. 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 Encounters Date Type Department Care Team Description 10/25/2024 9:00 AM EDT Office Visit [facility] [address] [facility], [address]nd [place] [address] Chandler Escobar MD Lung nodule (Primary Dx); Other emphysema (CMS/HCC); Dyspnea, unspecified type 10/25/2024 Social Work Psych Oncology [address] [place] [address] Skye Stoll, ANNA 10/25/2024 Travel 10/20/2024 Social Work [facility] [address] [phone] Albert Graham III 10/20/2024 Orders Only [facility] [address] [phone] Tonie Centeno, RN Malignant neoplasm of right upper lobe of lung (CMS/HCC) (Primary Dx) 10/19/2024 Telephone [facility] [address] [phone] Robin Leyva MD 10/15/2024 6:10 PM EDT - 10/15/2024 11:59 PM EDT Hospital Encounter [facility] Radiology [address] [place] [phone] Discharge Disposition: Home or Self Care 10/15/2024 3:47 PM EDT Anesthesia Event [facility] Endoscopy [address] [place] [phone] Sudhir Ferris MD 10/15/2024 3:10 PM EDT - 10/15/2024 6:09 PM EDT Hospital Encounter [facility] Radiology [address] [place] [phone] Lung nodule Discharge Disposition: Home or Self Care 10/15/2024 12:38 PM EDT - 10/15/2024 3:09 PM EDT Hospital Encounter [facility] Endoscopy [address] [place] [address] Robin Leyva MD Seals, Brian, RN Lung nodule Discharge Disposition: Home or Self Care 10/15/2024 10:42 AM EDT - 10/15/2024 12:37 PM EDT Hospital Encounter [facility] [address] Pollack, [address] [place] [phone] Lung nodule Discharge Disposition: Home or Self Care 10/15/2024 Travel 09/28/2024 Orders Only [facility] Head[facility] Neck [facility] Respiratory [address] [phone] Terrie Sloan RN Lung nodule (Primary Dx) 09/27/2024 2:00 PM EDT Ancillary Procedure [facility] Medicine Specialties [address], [address] [place] [phone] Other emphysema (CMS/HCC) 09/27/2024 10:00 AM EDT Office Visit [facility] [address] [phone] Robin Leyva MD Lung nodule (Primary Dx); Other emphysema (CMS/HCC) 09/27/2024 Travel 09/13/2024 Orders Only External Location [address] [place] [address] Provider, External 08/18/2024 Orders Only External Location [address] [place] [phone] Jaylon Pa MD from Last 3 Months Family History Medical History Relation Name Comments Cancer Brother No Known Problems Father Cancer Mother Relation Name Status Comments Brother Father Mother Social History Tobacco Use Types Packs/Day Years [...] on file Sexual Orientation Not on file Last Filed Vital Signs Vital Sign Reading [...] Mass Index 26.98 10/25/2024 8:27 AM EDT Plan of Treatment Upcoming Encounters Date Type Department Care Team (Latest Contact Info) Description 11/19/2024 7:35 AM EDT Hospital Encounter [facility] OPERATING ROOM [address] [place] [address] Chandler Escobar MD [address] [place] [address] [phone] 11/19/2024 7:35 AM EDT - 11/19/2024 12:00 PM EDT Surgery [facility] OPERATING RO[facility] [address] [place] [address] Chandler Escobar MD [address] [place] [address] [phone] ROBOTIC RIGHT UPPER LOBE WEDGE, POSSIBLE LOBECTOMY [10332 (CPT ) +1 more] Scheduled Procedures Name Priority Associated Diagnoses Date/Ti me VATS, ROBOT-ASSISTED Lung nodule 11/19/2024 7:35 AM EDT Health Maintenance Due Date Last Done Comments [facility]-Depression Screening 1950 [facility]-Diabetes: Hemoglobin A1C 1950 [facility]-Hepatitis C Screening 1950 [facility]-Medicare Annual Wellness (AWV) 1950 [facility]-/Child/Adol SDOH Screenings 1950 VAF-VQUOC-12 Vaccine (#1) 1957 Diabetes: Dental Exam 1962 [facility]- SDOH Screenings 1970 [facility]-Adult SDOH Screenings 1970 [facility]-DTaP,Tdap,and Td Vaccine s (1 - Tdap) 12/24/1971 [facility]-Pneumococcal Vaccine: 50 + Years (1 of 2 - PCV) 12/24/1971 [facility]-Zoster Vaccines (1 of 2) 12/24/1971 CT Colonography 1997 Colonoscopy 1997 FIT-DNA 1997 FIT 1997 FOBT 1997 Sigmoidoscopy 1997 [facility]-Colorectal Cancer Screening 1997 [facility]-RSV Vaccine: 60+ Years o r (1 - Risk 60-74 years 1-dose series) 2012 [facility]-Abdominal Aortic Aneurys m (AAA) Screening 2017 [facility]-Influenza Vaccine (#1) 2024 02/24/2024 [facility]-Lung Cancer Screening Discontinued 10/15/2024 [facility]-Obesity Intervention Completed 10/25/2024 HPV Vaccines Aged Out No longer eligi ble based on patient's age to complete this topic [facility]-HIB Vaccines Aged Out No longer e ligible based on patient's age to complete this topic [facility]-Hepatitis A Vaccines Aged Out No longer eligible based on patient's age to complete this topic [facility]-IPV Vaccines Aged Out No longer e ligible based on patient's age to complete this topic [facility]-Rotavirus Vaccines Aged Out No lo nger eligible based on patient's age to complete this topic Goals Goal Patient Goal Type Associated Problems Recent Progress Patient-Stated? Author Autogenerat ed Goal Care Plan Autogenerated Problem No Quiana Pa Autogenerat ed Goal Care Plan Autogenerated Problem No LinaresPhyllis dash Procedures Procedure Name Priority Date/Time Associated Diagnosis Comments XR CHEST 1 VIEW STAT 10/15/2024 6:21 PM EDT POCT GLUCOSE METER UNSOLICITED RESULTS Routine 10/15/2024 6:20 PM EDT FL LESS THAN 1 HOUR (NON-REPORTABLE) Routine 10/15/2024 5:55 PM EDT Lung nodule BRONCHOSCOPY Routine 10/15/2024 5:54 PM EDT Lung [...] Routine 10/15/2024 4:57 PM EDT Lung nodule IL AN ELECTIVE ENDOTRACHEAL AIRWAY Routine 10/15/2024 3:57 PM EDT ECG ADULT STAT 10/15/2024 2:41 PM EDT POCT GLUCOSE METER UNSOLICITED RESULTS Routine 10/15/2024 1:[address] CHEST WO IV CONTRAST Routine 10/16/19 10:49 AM EDT Lung nodule HC PULM FUNCT TST PLETHYSMOGRAP - PLETHYSMOGRAPHY Routine 09/27/2024 2:09 PM EDT Other emphysema (CMS/HCC) PET OUTSIDE IMAGES 09/13/2024 10 :[address] OUTSIDE IMAGES 08/18/2024 7:2 5 AM EDT from Last 3 Months Results * XR Chest 1 View (10/15/2024 [...] POCT glucose meter (10/15/2024 6:20 PM EDT) Only the most recent of2 resultswithin the time period is included. POCT Glucose 150(H) 74 - 99 mg/dL [...] for testing. Comment 10/15/2024 6:22 PM EDT [facility] Load Dispatcher Local ID Tata Ozuna 10/15/2024 6:22 PM EDT [facility] Device ID [id number] 10/15/2024 6:22 PM EDT [facility] Specimen Type POC Capillary 10/15/2024 6:22 PM EDT [facility] Blood Capillary blood specimen / Unknown 10/15/2024 6:20 PM EDT 10/15/2024 6:22 PM EDT us Robin Leyva MD LAB POINT OF CARE TE ST DOCKED DEVICE UNSOLICITED RESULTS Final Result [facility] [address] [place] [address] * FL Less than 1 Hour Intraoperative (10/15/2024 5:55 PM EDT) Narrative IMAGING - 10/15/2024 6:13 PM EDT Images were obtained for surgical purposes. See Robin Leyva's surgical note in the patient's chart for the findings. Robin Leyva MD IMG FLUOROSCOPY PROCEDURES Fi nal Result IMAGING * Bronchoscopy w Ion, w Radial US, w Biopsy, w BAL (Bronchoalveolar Lavage), w Warren, w EBUS, w Cios (10/15/2024 5:54 PM [...] confirm the location which was tangential. The [employer] spin mobile C-arm with true cone beam [...] Nodes observed under convex ultrasound guidance. Onsite wax pattern coater was not present. Specimens ID Type Source [...] Upper Lobe FINE NEEDLE ASPIRATION - CYTOLOGY Rboin Leyva MD 10/15/2024 1701 D : Station [...] 5:33 PM Staff Staff Role Cam Page CRNA CRNA Hayes, Sydney J Endo Tree Feller Operator Robin Leyva MD Proceduralist Willam Beltrán, DO Other - Other (see comments) Sudhir Ferris MD Anesthesiologist Charbel Rollins, SMILEY Endo Nurse Sandy Patel RN Endo Nurse Lj Garcia Endo Tree Feller Operator Susan Blount CRNA PIT SHOVEL OPERATOR Impression Overall Impression: Normal endobronchial exam Biopsy of the RUL nodule Sampling of 11L, 7 , 11R Post Procedure Diagnosis None Recommendation Follow-up: with me Attestation I was present for the entire procedure Billing Codes See procedure report details above. 29724 - Bronchoscopy, rigid or flexible, including fluoroscopic guidance, when performed; with brishing or protected brushings 75998 - Bronchoscopy, rigid or flexible, including fluoroscopic guidance, when performed; with computer-assisted, image-guided navigation 39007 - Bronchoscopy, rigid or flexible, including fluoroscopic guidance, when performed; with transbronchial lung biopsy(s), single lobe 79723 - Bronchoscopy, rigid or flexible, including fluoroscopic guidance, when performed; with transbronchial needle aspiration biopsy(s), trachea, main stem, and/or lobar bronchus(i) 70453 - Bronchoscopy, rigid or flexible, including fluoroscopic guidance, when performed; with transbronchial lung biopsy(s), each additional lobe (list separately in addition to code for primary procedure) 48609 - EBUS convex prove 1 or 2 lesions 01938 - EBUS convex probe 3 or more lesions GC - Service has been performed in part by a resident/fellow under the direction of a teaching physician [address] ct guided placement of a needle. us Robin Leyva MD GI PROCEDURE ORDERABLES Final Result * Non-Gynecologic Cytology (10/15/2024 5:10 PM EDT) Case Report Cytology Case: [id number] Authorizing Provider: Robin Leyva MD Collected: 10/15/2024 1710 Ordering Location: [facility] H Endoscopy Received: 10/18/2024 0958 Pathologist: Justyn Abraham MD Specimen: Bronchial Brushing, Right Upper Lobe, RIGHT UPPER LOBE BRONCHIAL BRUSHING 10/19/2024 3:20 PM EDT [facility] Final Diagnosis A. RIGHT UPPER LOBE BRONCHIAL BRUSHING - NO EVIDENCE OF MALIGNANCY 10/19/2024 3:20 PM EDT [facility] at 1520 EDT Gross Description A. RIGHT UPPER LOBE BRONCHIAL BRUSHING Warren tip in 10 ml's tinted fluid processed as thin prep 10/19/2024 3:20 PM EDT [facility] Clinical Information R91.1 - Lung nodule [ICD-10-CM] 10/19/2024 3:20 PM EDT [facility] Brushing Bronchial brushings specimen / Unknown 10/15/2024 5:10 PM EDT 10/18/2024 9:58 AM EDT us Robin Leyva MD LAB CYTOLOGY ORDERABLES Final Result [facility] [address] [place] [address] * BAL Comprehensive Respiratory Panel by PCR (10/15/2024 5:08 PM EDT) BAL Comprehensive PCR Result Not Detected for all analytes Not Detected for all analytes 10/15/2024 8:31 PM EDT [facility] Bronchial Washing Structure of upper lobe of right lung / Unknown 10/15/2024 5:08 PM EDT 10/15/2024 6:13 PM EDT Narrative [facility] - 10/15/2024 8:31 PM EDT [...] developed and its performance characteristics determined by [facility] as appropriate for clinical purposes. This assay has not been cleared or approved by the FDA, but is performed in a CLIA regulated laboratory that is performed in a CLIA regulated laboratory that is qualified to perform high-complexity testing. The [facility]biology Laboratory is certified under the Clinical Laboratory Improvement Amendments of 1988 (CLIA-88) as qualified to perform high complexity clinical laboratory testing. Robin Leyva MD LAB MICROBIOLOGY - GENERAL OR DERABLES Final Result [facility] [address] [place] [address] * Quantitative BAL/PAL/Bronch Wash Culture and Gram StainLung, Right Upper Lobe (10/15/2024 5:08 PM EDT) Culture No growth at day 2 2024 6:03 AM EDT [facility] Gram Stain Result No organisms seen 10/18/2024 6:03 AM EDT [facility] Gram Stain Result No polymorphonuclear leukocytes seen 10/18/2024 6:03 AM EDT [facility] Bronchial Washing Structure of upper lobe of right lung / Unknown 10/15/2024 5:08 PM EDT 10/15/2024 6:13 PM EDT us Robin Leyva MD LAB MICROBIOLOGY - GENERAL OR DERABLES Final Result [facility] [address] [place] [address] * Fine needle aspiration (10/15/2024 4:57 PM EDT) Case Report Cytology Case: [id number] Authorizing Provider: Robin Leyva MD Collected: 10/15/2024 1659 Ordering Location: [facility] H Endoscopy Received: 10/18/2024 0910 Pathologist: [...] FINE NEEDLE ASPIRATION 5 1:12 PM EDT [facility] Addendum PD-L1 IHC 22C3 pharmDx* [...] test, with disease progression on or after teller-containin g chemotherapy. Patients with EGFR or ALK genomic tumor aberrations should have disease progression on FDA-approved therapy for these aberrations prior to receiving Pembrolizumab. PD-L1 IHC serves as a complementary diagnostic in regards to other PD-L1/IM-3-ugnvjwz dtherapies (Nivolumab, Atezolizumab, Durvalumab, etc). Expression level: >Negative for PD-L1 expression (TPS less than 1%) >Positive for PD-L1 expression (TPS 1-49%) >Positive for high PD-L1 expression (TPS greater than or equal to 50%) *PD-L1 IHC 22C3 pharmDx is a FDA-approved associate property manager diagnostic for pembrolizumab performed on [employer] Stainer using formalin-fixed, paraffin imbedded (FFPE) tissue [...] developed by and are performed at the [facility], [address] [place] [address]. All tests reported here, except those addressing HER2 and PD-L1 expression as predictive markers, have not been cleared by or approved by the US Food and Drug Administration (FDA). The laboratory is regulated under CLIA as qualified to perform high-complexity testing. The tests are used for clinical purposes. They should not be regarded as investigational or for research. 1:12 PM EDT [facility] Addendum electronically signed by [place] [...] NO EVIDENCE OF MALIGNANCY. 1:12 PM EDT [facility] at 1653 EDT Comment Immunohistochemica l stains were performed which were supportive of the diagnosis (see below for details). PD-L1 is pending, and an addendum will be issued with the results. 1:12 PM EDT [facility] Special and Immunohistochemical Stains HC: B1-1 P40: Positive All controls show appropriate reactivity. All immunohistochemist ry, in situ hybridization, and histochemical tests were developed by and are performed at the [facility], [address] [place] [address]. All tests reported here, except those addressing [...] negativity on decalcified specimens. 1:12 PM EDT [facility] Intradepartmental Consultation with Agreement Dr. Naila Abraham 1:12 PM EDT [facility] Immediate Evaluation A: FNA performed by Dr. [...] appears on the report. 1:12 PM EDT [facility] Gross Description A. LUNG, RIGHT [...] Time: 65h 35m 5 1:12 PM EDT [facility] Note: A resident was involved in the service. I attest I examined the relevant preparations for the specimens and confirmed the diagnosis or interpretation. 5 1:12 PM EDT [facility] Clinical Information R91.1 - Lung nodule [ICD-10-CM] 1:12 PM EDT [facility] Fine Needle Aspirate Structure of [...] 5:25 PM EDT 10/18/2024 9:13 AM EDT Robin Leyva MD LAB CYTOLOGY ORDERABLES Edite d Result - Final [facility] [address] [place] [address] * IL AN ELECTIVE ENDOTRACHEAL AIRWAY (10/15/2024 3:57 PM EDT) Narrative Cam Page CRNA - 10/15/2024 3:57 PM EDT Cam Page CRNA 10/15/2024 4:15 PM Airway Date/Time: 10/15/2024 3:57 PM Reason: elective Airway not difficult General Information and Staff Patient location during procedure: [place] Anesthesiologist: Sudhir Ferris MD PIT SHOVEL OPERATOR: Cam Page CRNA Performed: GUTIERREZ Patient Condition [...] Ferris MD ANESTHESIA ORDERABLES Final Res ult * ECG Adult (10/15/2024 2:41 PM EDT) EKG DIAGNOSIS CLASS Normal MUSE ECG Ventricular Rate 73 BPM MUSE ECG Atrial Rate 73 BPM MUSE ECG IL Interval 162 ms MUSE ECG QRSD Interval 78 ms MUSE ECG QT Interval 416 ms MUSE ECG QTC Interval 458 ms MUSE ECG P Craig 68 degrees MUSE ECG R Craig 27 degrees MUSE ECG T Wave Craig 72 degrees MUSE ECG Diagnosis Normal sinus rhythm MUSE ECG Diagnosis Normal ECG MUSE ECG Diagnosis MUSE ECG Diagnosis Confirmed by Damien Flaherty ([id number]) on 10/15/2024 3:40:43 PM MUSE ECG 10/15/2024 2:41 PM EDT 10/15/2024 3:40 PM EDT Sudhir Ferris MD ECG ORDERABLES Final Result MUSE ECG * CT Chest wo IV Contrast (10/15/2024 [...] signing this report, I, the attending physician, attjamesat I have personally reviewed the images/data for the aboveexamination(s) and agree with the final edited report. Drafted by Veronique Long MD on 10/15/2024 10:54 AM Final report signed by Omega Ozuna MD on 10/15/2024 11:39 AM Robin Leyva MD IMG CT PROCEDURES Final Resul t * (ABNORMAL) Pulmonary Function Test (09/27/2024 2:09 PM EDT) KDJ3TIRX 2.86(A) 3.09 - 5.29 L VYAIRE PFT BWM7GMR 2.95(A) 3.09 - 5.29 L VYAIRE PFT FVC PRED 4.18 VYAIRE PFT FVC LLN 3.09 VYAIRE PFT FVCPREZSCORE -1.85 VYAIRE PFT FVCPRE%PRED 71 % % VYAIRE PFT FVCPOSTZSCORE -1.99 VYAIRE PFT FVCPOST%PRED 68 % % VYAIRE PFT FVCCHNG -90.00 VYAIRE PFT FVC%CHG -3 % % VYAIRE PFT FVC PREDAUT US_Quanjer GLI (2011) VYAIRE PFT FVC Z-SCORE -1.85 -1.99 VYAIRE PFT INM24XYHU 1.71(A) 2.26 - 3.98 L VYAIRE PFT FEV1 PRE 1.73(A) 2.26 - 3.98 L VYAIRE PFT FEV1 PRED 3.15 VYAIRE PFT FEV1 LLN 2.26 VYAIRE PFT IDT7WICOTJGXF -2.55 VYAIRE PFT FEV1_Pre%Pred 55 % % VYAIRE PFT KDU4DUQWSIDGUG -2.58 VYAIRE PFT KOU7LBAT%PRED 54 % % VYAIRE PFT QEY8TRIC -16.57 VYAIRE PFT FEV1%CHG -1 % % VYAIRE PFT FEV1 PREDAUT US_Quanjer GLI (2011) VYAIRE PFT FEV1 Z-SCORE -2.55 -2.58 VYAIRE PFT VRF5FEN4SEHM 59.87(A) 62.10 - 87.84 % VYAIRE PFT FEV1/FVC PRE 58.61(A) 62.10 - 87.84 % VYAIRE PFT LJL1LMMPMRS 76 VYAIRE PFT ZFH6TWFPVC 62 VYAIRE PFT WPI1RXXPCTYSLTDC -2.03 VYAIRE PFT CPO1SCXMSP%PRED 77 % % VYAIRE PFT VHO0NPNFFBEAWJHTK -1.89 VYAIRE PFT WOQ1NJOSHZC%PRED 79 % % VYAIRE PFT IFT5IELHGJA 1,264 VYAIRE PFT BWF3NEO%CHG 2 % % VYAIRE PFT CTY9EAKOLQUC [facility] (2011) VYAIRE PFT WMF3PUENYGPZZ -2 -2 VYAIRE PFT SJW48-77%_POST 0.88(A) 1.00 - 4.30 L/s VYAIRE PFT FSY98-72% PRE 0.83(A) 1.00 - 4.30 L/s VYAIRE PFT NDU10-88%_Pred 2.36 VYAIRE PFT ZLD6770%LLN 1.00 VYAIRE PFT XSF4399%PREZSCORE -1.93 VYAIRE PFT JVH2493%PRE%PRED 35 % % VYAIRE PFT WTB7549%POSTZSCORE -1.84 VYAIRE PFT OBB1457%POST%PRED 37 % % VYAIRE PFT FGT0835%CHNG 55.98 VYAIRE PFT GUU9562%%CHG 7 % % VYAIRE PFT HNB6923%PREDAUTSt. Francis Hospital (2011) VYAIRE PFT WPE1RHWP 3.43(A) 5.94 - 10.57 L/s VYAIRE PFT PEF PRE 3.77(A) 5.94 - 10.57 L/s VYAIRE PFT PEF PRED 8.26 VYAIRE PFT PEF LLN 5.94 VYAIRE PFT PEFPREZSCORE -3.19 VYAIRE PFT PEFPRE%PRED 46 % % VYAIRE PFT PEFPOSTZSCORE -3.43 VYAIRE PFT PEFPOST%PRED 42 % % VYAIRE PFT PEFCHNG -339.00 VYAIRE PFT PEF%CHG -9 % % VYAIRE PFT PEF PREDAUT NHANES III (1998) VYAIRE PFT BMNPTIHAQJEXXOYX4EUB 16.67(A) 18.78 - 33.75 ml/(min* mmHg) VYAIRE PFT DLCOSINGLEBREATH PRED 25.61 VYAIRE PFT DLCOSINGLEBREATH LLN 18.78 VYAIRE PFT DLCOSINGLEBREATH Z-SCORE -2.23 VYAIRE PFT DLCOSINGLEBREATH % PRED 65.1 % VYAIRE PFT DLCOSINGLEBREATH PREDAUTH Stanojevic TLCO GLI (2019) VYAIRE PFT DLCOSINGLEBREATH Z-SCORE -2.23 09/27/2024 2:04 PM EDT VYAIRE PFT FPOLHKASRVOFPGQPU3TW E 16.67(A) 18.78 - 33.75 ml/(min* mmHg) VYAIRE PFT DLCOCSINGLEBREATH PRED 25.61 VYAIRE PFT DLCOCSINGLEBREATH LLN 18.78 VYAIRE PFT DLCOCSINGLEBREATH Z-SCORE -2.23 VYAIRE PFT DLCOCSINGLEBREATH % PRED 65.1 % VYAIRE PFT DLCOCSINGLEBREATH PREDAUTH Stanojevic TLCO GLI (2019) VYAIRE PFT REQXVZ6CQH 3.93 2.97 - 5.16 ml/(min* mmHg*L) VYAIRE PFT DLCOVAPRED 4.02 VYAIRE PFT DLCOVALLN 2.97 VYAIRE PFT DLCOVAZSCORE -0.13 VYAIRE PFT DLCOVA%PRED 97.9 % VYAIRE PFT DLCOVAPREDAUTH Stanojevic TLCO GLI (2019) VYAIRE PFT DLCOVAZSCORE -0.13 09/27/2024 2:04 PM EDT VYAIRE PFT QCCQBDTRY9ULJ 3.93 2.97 - 5.16 ml/(min* mmHg*L) VYAIRE PFT DLCOC SB/VA PRED 4.02 VYAIRE PFT DLCOC SB/VA LLN 2.97 VYAIRE PFT DLCOC SB/VA Z-SCORE -0.13 VYAIRE PFT DLCOC SB/VA % PRED 97.9 % VYAIRE PFT DLCOC SB/VA PRED[facility]BU[facility] Stanojevic TLCO GLI (2019) VYAIRE PFT DLCOC SB/VA Z-SCORE -0.13 09/27 2:04 PM EDT VYAIRE PFT POHDACIBWHMZTC5SUC 4.24(A) 5.16 - 7.76 L VYAIRE PFT VASINGLEBREATH PRED 6.41 VYAIRE PFT VASINGLEBREATH LLN 5.16 VYAIRE PFT VASINGLEBREATH Z-SCORE -2.95 VYAIRE PFT VASINGLEBREATH % PRED 66.1 % VYAIRE PFT VASINGLEBREATH PREDALBUQUERQUE [facility]DI[facility] Stanojevic TLCO GLI (2019) VYAIRE PFT VASINGLEBREATH Z-SCORE -2.95 09/27/2024 2:04 PM EDT VYAIRE PFT QVRGOKEESHPTFHQ2ZQA 2.69(A) 3.09 - 5.29 L VYAIRE PFT IVCSINGLEBREATH PRED 4.18 VYAIRE PFT IVCSINGLEBREATH LLN 3.09 VYAIRE PFT IVCSINGLEBREATH Z-SCORE -2.25 VYAIRE PFT IVCSINGLEBREATH % PRED 64.4 % VYAIRE PFT IVCSINGLEBREATH PREDALBUQUERQUE [facility] US_Quanjer GLI (2011) VYAIRE PFT AMANDA% VCMAX PRE 88.79 % VYAIRE PFT TLC SB PRE 4.43(A) 5.63 - 8.66 L VYAIRE PFT TLCSINGLEBREATH PRED 7.14 VYAIRE PFT TLCSINGLEBREATH LLN 5.63 VYAIRE PFT TLCSINGLEBREATH Z-SCORE -2.99 VYAIRE PFT TLCSINGLEBREATH % PRED 62.0 % VYAIRE PFT TLCSINGLEBREATH PREDALBUQUER[facility] Rodriguez Lung volumes GLI (2019)__ VYAIRE PFT HB PRE 14.60 g(Hb)/dL VYAIRE PFT KCB2KSG 6.24 5.63 - 8.66 L VYAIRE PFT TLCPRED 7.14 VYAIRE PFT TLCLLN 5.63 VYAIRE PFT TLCULN 8.66 VYAIRE PFT TLCZSCORE -0.98 VYAIRE PFT TLC%PRED 87.4 % VYAIRE PFT TLCPREDAUTOhio[facility] Lung volumes GLI (2019)__ VYAIRE PFT [...] VYAIRE PFT IC%PRED 67.5 % [facility]PRED[facility] Lung volumes GLI (2019)__ VYAIRE PFT WLRGQBMU2POU 4.05 2.70 - 5.36 L VYAIRE PFT FRCPLETH PRED 3.88 VYAIRE PFT FRCPLETH LLN 2.70 VYAIRE PFT FRCPLETH ULN 5.36 VYAIRE PFT FRCPLETH Z-SCORE 0.21 VYAIRE PFT FRCPLETH % PRED 104.4 % VYAIRE PFT FRCPLETH PREDAUTOhiohealth [facility] Lung volumes GLI (2019)__ VYAIRE PFT NWI9ZNV 0.85 0.39 - 2.51 L VYAIRE PFT ERVPRED 1.24 VYAIRE PFT ERVLLN 0.39 VYAIRE PFT ERVULN 2.51 VYAIRE PFT ERV Z-SCORE -0.65 VYAIRE PFT ERV%PRED 68.7 % VYAIRE PFT ERVPREDAUTOhiohealth [facility] Lung volumes GLI (2019)__ VYAIRE PFT RV0PRE 3.20 1.52 - 3.85 L VYAIRE PFT RVPRED 2.57 VYAIRE PFT RVLLN 1.52 VYAIRE PFT RVULN 3.85 VYAIRE PFT RVZSCORE 0.84 VYAIRE PFT RV%PRED 124.3 % VYAIRE PFT RVPREDAUTH Rodriguez Lung volumes GLI (2019)__ VYAIRE PFT RV%YAJ1MTC 51.34(A) 24.58 - 48.02 % VYAIRE PFT [...] underwent pulmonary function testing today at [facility]. The patient underwent spirometry, lung [...] Robin Leyva MD PFT ORDERABLES Final Result * PET OUTSIDE IMAGES (09/13/2024 10:35 AM EDT) Anatomical Region Laterality Modality Nuclear Medicine 09/13/2024 10:3 5 AM EDT us External Provider IMG NM PROCEDURES Final Result * CT OUTSIDE IMAGES (08/18/2024 7:25 AM EDT) Anatomical Region Laterality Modality Computed Tomogra phy 08/18/2024 7:25 AM EDT Jaylon Pa MD IMG CT PROCEDURES Final Result from Last 3 Months Additional Health Concerns Active Problems Noted Date Diagnosed Date Autogenerated Problem 09/28/2024 Autogenerated Problem 10/26/2024 Infection Onset Date Last Indicated Tuberculosis Rule-Out 10/15/2024 10/15/2024 Insurance Care Teams Power And Recovery Shift Engineer Relationship Specialty Start Date End Date Jaylon Pa MD [facility] 36 [address] [place] [address] PCP - General 09/27/24
--- OUTSIDE RECORDS SUMMARY | 2024-11-08 10:41 | XMS_ITS | Encounter Summary ---
Author Organization [facility] Address [address] [place] [address] Care Team Providers Care Annealing Torch Operator Name Role Phone Jaylon Pa MD Primary Care Provider [phone] Encounter Details Date Type Department Care Team (Latest Contact Info) Description 10/15/2024 Travel Social History Tobacco Use Types Packs/Day [...] Hospital Encounter PAV A OPERATING ROOM [address] [place] [address] Chandler Escobar MD [address] [facility] [address] [place] [address] 11/19/2024 7:35 AM EDT - 11/19/2024 12:00 PM EDT Surgery PAV A OPERATING ROOM [address] [place] [address] Chandler Escobar MD [address] [facility] [address] [place] [address] ROBOTIC RIGHT UPPER LOBE WEDGE, POSSIBLE LOBECTOMY [56900 (CPT ) +1 more] Scheduled Procedures Name [...] documented as of this encounter Care Teams Annealing Torch Operator Relationship Specialty Start Date End Date Jaylon Pa MD [facility] [address] [place] [address] PCP - General 09/27/24 documented as of this encounter
--- OUTSIDE RECORDS SUMMARY | 2024-11-08 10:41 | XMS_ITS | Encounter Summary ---
Author Organization Healthcare Address [address] [id number] Care Team Providers Care Thread Tool Grinder Set Up Operator Name Role Phone Jaylon Pa MD Primary Care Provider [phone] Encounter Details Date Type Department Care Team (Late st Contact Info) Description 10/19/2024 Telephone Pav CC Head, Neck & Respiratory [address] [place] [address] Robin Leyva MD [address] [place] [address] Social History Tobacco Use Types Packs/Day Years [...] as of this encounter Miscellaneous Notes * Telephone Encounter - Tonie Centeno RN - 10/21/2024 10:45 AM EDT Report has been faxed. * Telephone Encounter - Cydney Patino RN - 10/19/2024 3:33 PM EDT RN sent Bronch report. Results are not back yet. * Telephone Encounter - Yenny Wood - 10/19/2024 3:09 PM EDT [facility] was asking for results from tests that were done on pt here at [facility]. Told them that we would have someone find those results and send them over if available Ext [phone] documented in this encounter Plan of Treatment Upcoming Encounters Date Type Department Care Team (Latest Contact Info) Description 11/19/2024 7:35 AM EDT Hospital Encounter PAV A OPERATING ROOM [address] [place] [address] Chandler Escobar MD [address] [address] 11/19/2024 7:35 AM EDT - 11/19/2024 12:00 PM EDT Surgery PAV A OPERATING ROOM [address] [place] [address] Chandler Escobar MD [address] [address] ROBOTIC RIGHT UPPER LOBE WEDGE, POSSIBLE LOBECTOMY [26029 (CPT ) +1 more] Scheduled Procedures Name [...] documented as of this encounter Care Teams Thread Tool Grinder Set Up Operator Relationship Specialty Start Date End Date Jaylon Pa MD [address] [facility] [address] [place] [address] PCP - General 09/27/24 documented as of this encounter
--- OUTSIDE RECORDS SUMMARY | 2024-11-08 10:41 | XMS_ITS | Encounter Summary ---
Author Organization [facility] Address [address] [place] [address] Care Team Providers Care Foreign Language Instructor Name Role Phone Jaylon Pa MD Primary Care Provider Reason for Referral * Consultation (Routine) - Closed Specialty Diagnoses / Procedures Referred By Franki castillo Referred To Contact Cardiothoracic Surgery Diagnoses Malignant neoplasm of right upper lobe of lung (CMS/HCC) Robin Leyva MD [address] [place] [phone] Phone: tel: fax: Cardiothoracic Surgery [address] [place] [phone] Phone: tel: Referral ID Status Reason Start Date Expiration Date V isits Requested Visits Authorized [id number] Closed Specialty Services Required 10/20/2024 04/21/2026 1 1 Scheduling Instructions Re: for RUL/ RML bilobectomy * Imaging (Routine) - Authorized Specialty Diagnoses / Procedures Referred By Franki castillo Referred To Contact Diagnoses Malignant neoplasm of right upper lobe of lung (CMS/HCC) Procedures PET/CT FDG Skull Base To Mid Thigh Robin Leyva MD [address] [place] [address] Phone: tel: fax: Referral ID Status Reason Start Date Expiration Date V isits Requested Visits Authorized [id number] Authorized 10/20/2024 04/21/2026 2 2 Encounter Details Date Type Department Care Team (Late st Contact Info) Description 10/20/2024 Orders Only Pav CC Head, Neck & Respiratory [address] [facility], [address]nd [place] [address] Tonie Centeno, RN [facility]B-HEAD [facility]K [facility] Malignant neoplasm of right upper lobe of lung (CMS/HCC) (Primary Dx) Social History Tobacco Use Types Packs/Day Years [...] Hospital Encounter PAV A OPERATING ROOM [address] [place] [address] Chandler Escobar MD [address] [address] 11/19/2024 7:35 AM EDT - 11/19/2024 12:00 PM EDT Surgery PAV A OPERATING ROOM [address] [place] [address] Chandler Escobar MD [address] [address] ROBOTIC RIGHT UPPER LOBE WEDGE, POSSIBLE LOBECTOMY [12212 (CPT ) +1 more] Scheduled Orders Name Type Priority Associated Diagnoses Orde r Schedule PET/CT FDG Skull Base To Mid Thigh Imaging Routine Malignant neoplasm of right upper lobe of lung (CMS/HCC) Expected: 10/20/2024 (Approximate), Expires: 04/22/2026 Scheduled Procedures Name Priority Associated Diagnoses Date/Ti me VATS, ROBOT-ASSISTED Lung nodule 11/19/2024 7:35 AM EDT Scheduled Referrals Name Type Priority Associated Diagnoses Order Schedule Ambulatory referral to Thoracic Surgery Outpatient Referral Routine Malignant neoplasm of right upper lobe of lung (CMS/HCC) Expected: 10/20/2024 (Approximate), Expires: 04/23/2026 documented as of this encounter Goals Goal Patient Goal Type Associated Problems Recent Progress Patient-Stated? Author Autogenerat ed Goal Care Plan Autogenerated Problem No Thierno Quiana Ordonez documented as of this encounter Visit Diagnoses Diagnosis Malignant neoplasm of right upper lobe of lung (CMS/HCC)- Primary Lung nodule Other diseases of lung, not elsewhere classified documented in this encounter Additional Health Concerns Active Problems Noted Date Diagnosed Date Autogenerated Problem 09/28/2024 Infection Onset Date Last Indicated Resolved Time Tuberculosis Rule-Out 10/15/2024 10/15/2024 Assessment Noted Time A fall risk assessment has been complete d for the patient 09/27/2024 9:29 AM EDT documented as of this encounter Care Teams Foreign Language Instructor Relationship Specialty Start Date End Date Jaylon Pa MD [address] [place] [address] [address] [place] [address] PCP - General 09/27/24 documented as of this encounter
--- OUTSIDE RECORDS SUMMARY | 2024-11-08 10:41 | XMS_ITS | Encounter Summary ---
Author Organization Healthcare Address [facility] [place] [place] [id number] Care Team Providers Care Debeader Name Role Phone Jaylon Pa MD Primary Care Provider [phone] Encounter Details Date Type Department Care Team (Latest Contact Info) Description 09/27/2024 Travel Social History Tobacco Use Types Packs/Day [...] drink containing alcohol? Never 09/27/2024 9:26 AM LIBORIOT Tootie Michael Q2: How many drinks containing alcohol do you have on a typical day when you are drinking? Patient does not drink 09/27/2024 9:26 AM LIBORIOT Tootie Michael Q3: How often do you [...] Hospital Encounter PAV A OPERATING ROOM [address] [place] [address] Chandler Escobar MD [address] [address] 11/19/2024 7:35 AM EDT - 11/19/2024 12:00 PM EDT Surgery PAV A OPERATING ROOM [address] [place] [address] Chandler Escobar MD [address] [phone] ROBOTIC RIGHT UPPER LOBE WEDGE, POSSIBLE LOBECTOMY [48007 (CPT ) +1 more] Scheduled Procedures Name Priority Associated Diagnoses Date/Ti me VATS, ROBOT-ASSISTED Lung nodule 11/19/2024 7:35 AM EDT documented as of this encounter Visit Diagnoses Not on filedocumented in this encounter Additional Health Concerns Assessment Noted Time A fall risk assessment has been complete d for the patient 09/27/2024 9:29 AM EDT documented as of this encounter Care Teams Debeader Relationship Specialty Start Date End Date Jaylon Pa MD [facility] [address] [place] [address] PCP - General 09/27/24 documented as of this encounter
--- OUTSIDE RECORDS SUMMARY | 2024-11-08 10:41 | XMS_ITS | Encounter Summary ---
Author Organization [facility] Address [address] [id number] Care Team Providers Care Nuclear Powerplant Supervisor Name Role Phone Jaylon Pa MD Primary Care Provider [phone] Reason for Visit * Reason Comments Social Work/navigation Follow-up Encounter Details Date Type Department Care Team ([facility] st Contact Info) Description 10/20/2024 Social Work Pav CC Head, Neck & Respiratory [address] [place] [address] Albert Graham III Social History Tobacco Use Types Packs/Day Years [...] as of this encounter Miscellaneous Notes * Progress Notes - Albert Graham III - 10/20/2024 3:35 PM EDT Encounter Type: Phone Call Disease Status: Initial Psych Onc Contact [facility] Disease Type: Lung & Bronchus Services Provided: Resource Navigation Education Provided: Psych-Onc Services Intervention Level: 1 Units (1 unit = 15 minutes): 1 Narrative: PN attempted to call pt to discuss Tobacco Cessation Program, but there was no answer. PN left a non urgent message encouraging pt to call if they were interested in participating in the program. Albert Graham III, Patient Navigator [facility] Psych-Oncology Services documented in this encounter Plan of Treatment Upcoming Encounters Date Type Department Care Team (Latest Contact Info) Description 11/19/2024 7:35 AM EDT Hospital Encounter PAV A OPERATING ROOM [address] [place] [address] Chandler Escobar MD [address] [address] 11/19/2024 7:35 AM EDT - 11/19/2024 12:00 PM EDT Surgery PAV A OPERATING ROOM [address] [place] [address] Chandler Escobar MD [address] [phone] ROBOTIC RIGHT UPPER LOBE WEDGE, POSSIBLE LOBECTOMY [27700 (CPT ) +1 more] Scheduled Procedures Name [...] documented as of this encounter Care Teams Nuclear Powerplant Supervisor Relationship Specialty Start Date End Date Jaylon Pa MD [address] [facility] [address] [place] [address] PCP - General 09/27/24 documented as of this encounter
--- OUTSIDE RECORDS SUMMARY | 2024-11-08 10:41 | XMS_ITS | Encounter Summary ---
Author Organization Healthcare Address [address] [place] [address] Care Team Providers Care Civil Technician Name Role Phone Jaylon Pa MD Primary Care Provider [phone] Encounter Details Date Type Department Care Team (Late st Contact Info) Description 09/13/2024 Orders Only External Location [address] [place] [phone] Provider, External Social History Tobacco Use Types Packs/Day Years Used Date Smoking Tobacco: Never Assessed Sex and Gender Information Value Date Recorded Sex Assigned at Not on file Legal Sex Male 2:25 PM EDT Gender Identity Not on file Sexual Orientation Not on file documented as of this encounter Plan of Treatment Upcoming Encounters Date Type Department Care Team (Latest Contact Info) Description 11/19/2024 7:35 AM EDT Hospital Encounter PAV A OPERATING ROOM [address] [place] [address] Chandler Escobar MD [address] [phone] 11/19/2024 7:35 AM EDT - 11/19/2024 12:00 PM EDT Surgery PAV A OPERATING ROOM [address] [place] [address] Chandler Escobar MD [address] [phone] ROBOTIC RIGHT UPPER LOBE WEDGE, POSSIBLE LOBECTOMY [20832 (CPT ) +1 more] Scheduled Procedures Name Priority Associated Diagnoses Date/Ti me VATS, ROBOT-ASSISTED Lung nodule 11/19/2024 7:35 AM EDT documented as of this encounter Procedures Procedure Name Priority Date/Time Associated Diagnosis Comments PET OUTSIDE IMAGES 09/13/2024 10:35 AM EDT documented in this encounter Results * PET OUTSIDE IMAGES (09/13/2024 10:35 AM EDT) Anatomical Region Laterality Modality Nuclear Medicine 09/13/2024 10:3 5 AM EDT External Provider IMG OR PROCEDURES Final Result documented in this encounter Visit Diagnoses Not on filedocumented in this encounter Additional Health Concerns Infection Onset Date Last Indicated Resolved Time Tuberculosis Rule-Out 10/15/2024 10/15/2024 documented as of this encounter Care Teams Civil Technician Relationship Specialty Start Date End Date Jaylon Pa MD [address] [place] [address] [address] [place] [address] PCP - General 09/27/24 documented as of this encounter
--- OUTSIDE RECORDS SUMMARY | 2024-11-08 10:41 | XMS_ITS | Encounter Summary ---
Author Organization [facility] Address [address] [id number] Care Team Providers Care Nail Cutter Name Role Phone Jaylon Pa MD Primary Care Provider [phone] Reason for Referral * Imaging (Routine) - Closed Specialty Diagnoses / Procedures Referred By Franki castillo Referred To Contact Radiology Diagnoses Lung nodule Procedures CT Chest wo IV Contrast Robin Leyva MD [address] [place] [address] Phone: tel: fax: Referral ID Status Reason Start Date Expiration Date Visits Re quested Visits Authorized [id number] Closed 09/28/2024 03/30/2026 1 1 Encounter Details Date Type Department Care Team (Late st Contact Info) Description 09/28/2024 Orders Only Pav CC Head, Neck & Respiratory [address] [facility], 2nd [place] [address] Terrie Sloan, RN Lung nodule (Primary Dx) Social History Tobacco Use Types [...] Hospital Encounter PAV A OPERATING ROOM [address] [place] [address] Chandler Escobar MD [address] [place] [address] 11/19/2024 7:35 AM EDT - 11/19/2024 12:00 PM EDT Surgery PAV A OPERATING ROOM [address] [place] [phone] Chandler Escobar MD [address] [place] [address] ROBOTIC RIGHT UPPER LOBE WEDGE, POSSIBLE LOBECTOMY [62325 (CPT ) +1 more] Scheduled Procedures Name Priority Associated Diagnoses Date/Ti me VATS, ROBOT-ASSISTED Lung nodule 11/19/2024 7:35 AM EDT documented as of this encounter Goals Goal Patient Goal Type Associated Problems Recent Progress Patient-Stated? Author Autogenerat ed Goal Care Plan Autogenerated Problem No Quiana Pa documented as of this encounter Results * CT Chest wo [...] signing this report, I, the attending physician, otf I have personally reviewed the images/data for the aboveexamination(s) and agree with the final edited report. Drafted by Veronique Long MD on 10/15/2024 10:54 AM Final report signed by Omega Ozuna MD on 10/15/2024 11:39 AM us Robin Leyva MD IMG CT PROCEDURES Final [...] documented as of this encounter Care Teams Nail Cutter Relationship Specialty Start Date End Date Jaylon Pa MD [address] [place] [address] [address] [place] [address] PCP - General 09/27/24 documented as of this encounter
--- OUTSIDE RECORDS SUMMARY | 2024-11-08 10:41 | XMS_ITS | Encounter Summary ---
Author Organization [facility] Address [address] [place] [address] Care Team Providers Care Childhood Teacher Name Role Phone Jaylon Pa MD Primary Care Provider [phone] Encounter Details Date Type Department Care Team (Late st Contact Info) Description 08/18/2024 Orders Only External Location [address] [place] [phone] Jaylon Pa MD [address] [facility] [address] [place] [id number] Social History Tobacco Use Types Packs/Day Years [...] Hospital Encounter PAV A OPERATING ROOM [address] [place] [address] Chnadler Escobar MD [address] [phone] 11/19/2024 7:35 AM EDT - 11/19/2024 12:00 PM EDT Surgery PAV A OPERATING ROOM [address] [place] [address] Chandler Escobar MD [address] [address] ROBOTIC RIGHT UPPER LOBE WEDGE, POSSIBLE LOBECTOMY [26238 (CPT ) +1 more] Scheduled Procedures Name Priority Associated Diagnoses Date/Ti me VATS, ROBOT-ASSISTED Lung nodule 11/19/2024 7:35 AM EDT documented as of this encounter Procedures Procedure Name Priority Date/Time Associated Diagnosis Comments CT OUTSIDE IMAGES 08/18/2024 7:25 AM EDT documented in this encounter Results * CT OUTSIDE IMAGES (08/18/2024 7:25 AM EDT) Anatomical Region Laterality Modality Computed Tomogra phy 08/18/2024 7:25 AM EDT Jaylon Pa MD IMG CT PROCEDURES Final Result documented in this encounter Visit Diagnoses Not on filedocumented in this encounter Additional Health Concerns Infection Onset Date Last Indicated Resolved Time Tuberculosis Rule-Out 10/15/2024 10/15/2024 documented as of this encounter Care Teams Childhood Teacher Relationship Specialty Start Date End Date Jaylon Pa MD [address] [place] [address] [address] [place] [address] PCP - General 09/27/24 documented as of this encounter
== END 2024-11-08 23:59 | disposition home or self-care (01) ==
LOC: RT 10:02
PROVIDERS: PCP Internal Medicine; Visit Provider Surgery
DX: Z01.810 Encounter for preprocedural cardiovascular examination (principal); R91.1 Solitary pulmonary nodule; R06.02 Shortness of breath
CPT/HCPCS: 93306

== ENCOUNTER 2024-11-10 10:30 | Outpatient (CLI) | payer MEDICARE, SELFPAY ==
--- OUTSIDE RECORDS SUMMARY | 2024-09-27 10:00 | XMS_ITS | Encounter Summary ---
Author Organization [facility] Address [address] [place] [address] Care Team Providers Care Dispensing Operator Name Role Phone Jaylon Pa MD Primary Care Provider [phone] Reason for Visit * Reason Comments New Patient * Consultation (Routine) - Closed Specialty Diagnoses / Procedures Referred By Contanisa t Referred To Contact Pulmonary Disease / Hematology and Oncology Diagnoses Lung nodule Luis F Castillo MD [address] [place] [address] Phone: tel: fax: Robin Leyva MD [address] [place] [address] Phone: tel: fax: Referral ID Status Reason Start Date Expiration Date V isits Requested Visits Authorized [id number] Closed Specialty Services Required 09/24/2024 03/26/2026 1 1 Encounter Details Date Type Department Care Team ([facility] Contact Info) Description 09/27/2024 10:00 AM EDT Office Visit [facility] Res[facility] [address] [place] [address] Robin Leyva MD [address] [place] [address] Lung nodule (Primary Dx); Other emphysema (CMS/HCC) Social History Tobacco Use Types Packs/Day Years Used Date Smoking Tobacco: Every Day Cigarettes 0.5 56.7 Started: 1966 Smokeless Tobacco: Never Tobacco Cessation:Ready to Q uit: Not Asked; Counseling Given: Not Answered Alcohol Use Standard Drinks/Week Comments Never 0 (1 standard drink = 0.6 oz pur e alcohol) AUDIT-C Answer Date Recorded Q1: How often do you have a drink containing alcohol? Never 09/27/2024 Q2: How many drinks containi ng alcohol do you have on a typical day when you are drinking? Patient does not drink Q3: How often do you have si x or more drinks on one occasion? Never 09/27/2024 Sex and Gender Information Value Date Recorded Sex Assigned at Not on file Legal Sex Male 2:25 PM EDT Gender Identity Not on file Sexual Orientation Not on file documented as of this encounter Last Filed Vital Signs Vital Sign Reading Time Taken Comments Blood Pressure 135/77 09/27/2024 9:32 AM EDT Pulse 68 09/27/2024 9:32 AM EDT Temperature 36.6 C (97.9 F) 09/27/2024 9:32 AM EDT Respiratory Rate 18 09/27/2024 9:32 AM EDT Oxygen Saturation 96% 09/27/2024 9:32 AM EDT Inhaled Oxygen Concentration - - Weight 84.6 kg (186 lb 8.2 oz) 09/27/2024 9:32 A M EDT Height 177.8 cm (5' 10 ) 09/27/2024 9:32 AM EDT Body Mass Index 26.76 09/27/2024 9:32 AM EDT documented in this encounter Functional Status * AUDIT-C Score Answer Date of Assessment Author 0 09/27/2024 9:26 AM EDT Tootie Michael * Question Answer Date of Assessment Author Q1: How often do you have a drink containing alcohol? Never 09/27/2024 9:26 AM EDT Tootie Michael Q2: How many drinks containing alcohol do you have on a typical day when you are drinking? Patient does not drink 09/27/2024 9:26 AM EDT Tootie Michael Q3: How often do you have six or more drinks on one occasion? Never 09/27/2024 9:26 AM EDT Tootie Michael * Calculated C-SSRS Risk Score (Lifetime/Recent) Answer Date of Assessment Author No Risk Indicated 09/27/2024 9:28 AM EDT Tootie Buck * Question Answer Date of Assessment Author 1. Wish to be (Past 1 Month) No 025 9:28 AM EDT Tootie Michael 2. Non-Specific Active Suici mylene Thoughts (Past 1 Month) No 09/27/2024 9:28 AM EDT Ramona Michael 6. Suicidal Behavior (Lifetime) No 9:28 AM EDT Tootie Michael documented as of this encounter Miscellaneous Notes * Terrie Obrien, SMILEY - 09/27/2024 10:28 AM EDT Images from the original note were not included. [id number] Pulmonary Nodule A pulmonary nodule is a small area of lung tissue that's not normal. It's usually found on an X-raytaken for other reasons. It's a single spot (lesion) up to about an inch in size (ranging from lessthan 2 mm to over 30 mm). It's surrounded by normal lung tissue. Most nodules are not cancer (benign). However, a nodule could be an early stage of lung cancer. Or it may be a sign of cancer that has spread from another part of the body. When a nodule is found on a chest X-ray, you will need more testing to find out if it's benign or if it's cancer. To give yourhealth care provider more information about the nodule, you may have one or more tests, including: ?? Comparing new X-rays to earlier X-rays. ?? Chest CT scan. ?? PET scan. ?? Bronchoscopy. This is a test that lets the provider see the air passages in the lungs. They passa scope with a camera at the end through the mouth into the lungs. ?? Needle biopsy. ?? Lung surgery or minimally invasive lung surgery, such as thoracoscopy. This is a procedure that lets the surgeon take a portion of lung tissue through small incisions between the ribs. Test results ?? If your nodule is benign, continued follow-up over the next 2 years is usually advised. ?? If tests don't determine whether your nodule is benign or malignant, you may need surgery. ?? If tests show that the nodule is definitely malignant, you will probably need surgery. Often surgery will be advised without a biopsy if the other testing strongly suggests that the nodule is a cancer. The best survival rates from lung cancer occur when the original tumor is small (less than 1 inch).Follow your health care provider's advice on the timing of further testing. Prompt treatment gives the best chance of curing lung cancer. Prevention Smoking remains one of the biggest risk factors for lung cancer. If you smoke, it's important that you quit to lower your risk of lung cancer. Talk to your health care provider about things that can help you quit, including medicines and support groups. See the following website for more information: ?? www.smokefree.gov [facility] care will depend on the diagnosis and the treatment used. Most people with a pulmonary nodule have no symptoms. If no special home care is needed, you may return to your usual activities and diet. Follow-up care Follow up with your health care provider as advised. More information about lung cancer is available from these resources: ?? [place] [employer] at www.lung.org or 597-894-4005 ?? National [employer] at www.cancer.gov or 652-515-7878 When to get medical advice Contact your health care provider right away if you have: ?? A fever of 100.4??F (38??C) or higher, or as directed by your provider. ?? Unintended weight change. Call 911 Call 911 if you: ?? Cough up blood. ?? Have chest pain or shortness of breath. ?? Have a feeling of doom. Last Reviewed Date: 2024 00:00:00 ?? [id number] The [employer]. All rights reserved. This information is not intended as a substitute for professional medical care. Always follow your healthcare professional's instructions. * Patient Instructions - Terrie Sloan RN - 09/27/2024 10:00 AM EDT Please complete PFT today and you will be contacted with further instructions regarding the plan. Please do not smoke for one hour prior to testing. * Progress Notes - Josie Jung GRACE - 09/27/2024 10:00 AM EDT Images from the original note were not included. Pulmonary & Critical Care Medicine [facility] Referring provider Dr. Luis F Castillo Chief Complaint: Pulmonary nodule History Of Present Illness: Edwin Gould is a 73 y.o. male with pmxh of CAD and 40-50 pack year smoking history is referred for evaluation of RUL pulmonary nodule. Patient denies any RODRIGUEZ, hemoptysis or weight loss, he does have a chronic cough. Has not been evaluated for COPD prior- does not have any inhalers for use. He had a PET / CT significant for hypermetabolic RUL nodule with SUV of 3.2, he also had NODIFY testing done for lung cancer with 89% probability. Past Medical History: He has a past medical history of Diabetes (CMS/HCC), High blood pressure, and High cholesterol. Surgical History: He has a past surgical history that includes No past surgeries. Family History: Family History[1] Social History: He reports that he has been smoking cigarettes. He started smoking about 56 years ago. He has a 28.3 pack-year smoking history. He has never used smokeless tobacco. He reports that he does not drink alcohol and does not use drugs. Occupational History: Occupational history[2] Employer: No address on file. Allergies: Penicillins Review of Systems Complete 14 point review of systems is negative except for positives documented in HPI Objective: Physical Exam GENERAL: no acute distress EYES: anicteric sclerae NECK/Lymph: Trachea midline RESP: non-labored respirations Extremities: No edema, cyanosis or clubbing. NEURO: Alert and oriented Last Recorded Vitals: Blood pressure 135/77, pulse 68, temperature 36.6 ??C (97.9 ??F), temperature source Oral, resp. rate 18, height 1.778 m (5' 10 ), weight 84.6 kg (186 lb 8.2 oz), SpO2 96%. Data: Imaging: Hypermetabolic subpleural spiculated nodule RUL measuring upto 21mm with maximum SUV of 3.2, no other hypermetabolic thoracic adenopathy or distant FDG avid metastasis. PFTs 09/27/24 Assessment/Plan Edwin Gould is a 73 y.o. male with pmxh of CAD and 40-50 pack year smoking history is referred for evaluation of PET avid RUL pulmonary nodule. Given NODIFY testing done with 89% probability of malignancy alongside PET / CT significant for 3.2SUV RUL nodule, he has high pretest probability for this nodule being primary lung malignancy. We were not able to identify any enlarged mediastinal or hilar lymphadenopathy on both CT and PET/CT. A [id number] RUL nodule without enlarged lymph nodes or FDG avid metastasis would be consistent with R3dT8G2 and clinical Stage 1A based on TNM 9th edition. #21mm FDG avid RUL nodule, NODIFY 89% #Concern for Stage 1A NSCLC - Given extremely high pre-test probability that this is malignancy with a nodule >2 cm, we willplan for robotic bronchoscopy with Ion / EBUS - Obtain PFTs to assess for predicted post-operative FEV1; PPO calculated to be 1.46L - Will refer the patient to thoracic surgery based on results of navigational bronchoscopy and EBUS Patient was discussed with IP attending physician, GRACE Pereira Pulmonary Critical Care Fellow 09/27/24 [1] Family History Problem Relation Name Age of Onset Cancer Mother No Known Problems Father Cancer Brother [2] Cosigned by Robin Leyva MD at 09/27/2024 9:51 PM EDT Associated attestation - Robin Leyva MD - 09/27/2024 9:51 PM EDT I saw and evaluated the patient with the resident/fellow. I discussed the case with the resident/fellow and agree with the findings and plan as documented. JAVIER lung nodule measuring 21 mm. We will sample this with the ION robot with NuvoMed 3D . Then stage the mediastinum with EBUS. His PFT will allow for a RUL lobectomy if he is deemed a surgical candidate. I personally spent a total of approximately 60 minutes on this encounter. This time includes face to face with patient, spent reviewing pertinent medical/family/social history, performing physical exam, clinically evaluating, interpreting labs/imaging, ordering necessary studies (i.e. medication, tests, procedures) and counseling patient, and discussion and/or coordination of care. This does not include time spent with patient by nursing or clerical staff. documented in this encounter Plan of Treatment Upcoming Encounters Date Type Department Care Team (Latest Contact Info) Description 11/19/2024 7:30 AM EDT Hospital Encounter [facility] [address] [place] [id number] Chandler Escobar MD [address] [place] [address] 11/19/2024 7:30 AM EDT Anesthesia Event [facility] [address] [place] [id number] Bubba Mcclelland APRN [address] [place] [phone] 11/19/2024 7:30 AM EDT - 11/19/2024 11:55 AM EDT Surgery [facility] [address] [place] [phone] Chandler Escobar MD [address] [place] [phone] ROBOTIC RIGHT UPPER LOBE WEDGE, POSSIBLE LOBECTOMY [33698 (CPT ) +1 more] Scheduled Procedures Name Priority Associated Diagnoses Date/Ti ga VATS, ROBOT-ASSISTED Lung nodule 11/19/2024 7:30 AM EDT documented as of this encounter Results * (ABNORMAL) Pulmonary Function Test (09/27/2024 2:09 PM EDT) OKQ4MIMQ 2.86(A) 3.09 - 5.29 L VYAIRE PFT UIB1PEJ 2.95(A) 3.09 - 5.29 L VYAIRE PFT FVC PRED 4.18 VYAIRE PFT FVC LLN 3.09 VYAIRE PFT FVCPREZSCORE -1.85 VYAIRE PFT FVCPRE%PRED 71 % % VYAIRE PFT FVCPOSTZSCORE -1.99 VYAIRE PFT FVCPOST%PRED 68 % % VYAIRE PFT FVCCHNG -90.00 VYAIRE PFT FVC%CHG -3 % % [facility]AI[facility] PFT [facility] (2011[facility] VYAIRE PFT FVC Z-SCORE -1.85 -1.99 VYAIRE PFT LGO00CCIU 1.71(A) 2.26 - 3.98 L VYAIRE PFT FEV1 PRE 1.73(A) 2.26 - 3.98 L VYAIRE PFT FEV1 PRED 3.15 VYAIRE PFT FEV1 LLN 2.26 VYAIRE PFT JSX4VJDYBGIEC -2.55 VYAIRE PFT FEV1_Pre%Pred 55 % % VYAIRE PFT BWK8KNWJVJZTVU -2.58 VYAIRE PFT KZR5OPGT%PRED 54 % % VYAIRE PFT NJH1ROCI -16.57 VYAIRE PFT FEV1%CHG -1 % % VYAIRE PFT FEV[facility] (2011) VYAIRE PFT FEV1 Z-SCORE -2.55 -2.58 VYAIRE PFT TNP7OMI9ZYPK 59.87(A) 62.10 - 87.84 % VYAIRE PFT FEV1/FVC PRE 58.61(A) 62.10 - 87.84 % VYAIRE PFT CSK4LPJKDDI 76 VYAIRE PFT SWU8NOAVXD 62 VYAIRE PFT VBG5FDDBMPRIKAWS -2.03 VYAIRE PFT UDX4JOMZVR%PRED 77 % % VYAIRE PFT GNN6LFXJJMYPZTYCB -1.89 VYAIRE PFT XSC3WEARVDM%PRED 79 % % VYAIRE PFT BMP8BUGNALR 1,264 VYAIRE PFT LPS8CYB%CHG 2 % % VYAIRE PFT KGI5PMMPNICH [facility] (2011) VYAIRE PFT BLQ2GMWQMLPGL -2 -2 VYAIRE PFT RTO27-69%_POST 0.88(A) 1.00 - 4.30 L/s VYAIRE PFT MJE65-75% PRE 0.83(A) 1.00 - 4.30 L/s VYAIRE PFT PBU06-23%_Pred 2.36 VYAIRE PFT LOG2020%LLN 1.00 VYAIRE PFT SKM1129%PREZSCORE -1.93 VYAIRE PFT TDG4362%PRE%PRED 35 % % VYAIRE PFT KYH9127%POSTZSCORE -1.84 VYAIRE PFT CKZ0884%POST%PRED 37 % % VYAIRE PFT QEC9512%CHNG 55.98 VYAIRE PFT ZFY5712%%CHG 7 % % VYAIRE PFT GGU4167%PREDAUT[facility] (2011) VYAIRE PFT CEE3ILSQ 3.43(A) 5.94 - 10.57 L/s VYAIRE PFT PEF PRE 3.77(A) 5.94 - 10.57 L/s VYAIRE PFT PEF PRED 8.26 VYAIRE PFT PEF LLN 5.94 VYAIRE PFT PEFPREZSCORE -3.19 VYAIRE PFT PEFPRE%PRED 46 % % VYAIRE PFT PEFPOSTZSCORE -3.43 VYAIRE PFT PEFPOST%PRED 42 % % VYAIRE PFT PEFCHNG -339.00 VYAIRE PFT PEF%CHG -9 % % VYAIRE PFT PEF PREDAUT [facility] (1998) VYAIRE PFT RHZKFRNGQHQCDMYX9MJJ 16.67(A) 18.78 - 33.75 ml/(min* mmHg) VYAIRE PFT DLCOSINGLEBREATH PRED 25.61 VYAIRE PFT DLCOSINGLEBREATH LLN 18.78 VYAIRE PFT DLCOSINGLEBREATH Z-SCORE -2.23 VYAIRE PFT DLCOSINGLEBREATH % PRED 65.1 % VYAIRE PFT DLCOSINGLEBREATH PREDAUTH Stanojevic [facility] GLI (2019) VYAIRE PFT DLCOSINGLEBREATH Z-SCORE -2.23 09/27/2024 2:04 PM EDT VYAIRE PFT YGFOLIBFOBTARZKJD4RC E 16.67(A) 18.78 - 33.75 ml/(min* mmHg) VYAIRE PFT DLCOCSINGLEBREATH PRED 25.61 VYAIRE PFT DLCOCSINGLEBREATH LLN 18.78 VYAIRE PFT DLCOCSINGLEBREATH Z-SCORE -2.23 VYAIRE PFT DLCOCSINGLEBREATH % PRED 65.1 % VYAIRE PFT DLCOCSINGLEBREATH PREDE[facility] Stanojevic TLCO GLI (2019) VYAIRE PFT CZMNJN8YRE 3.93 2.97 - 5.16 ml/(min* mmHg*L) VYAIRE PFT DLCOVAPRED 4.02 VYAIRE PFT DLCOVALLN 2.97 VYAIRE PFT DLCOVAZSCORE -0.13 VYAIRE PFT DLCOVA%PRED 97.9 % VYAIRE PFT DLCOVAPREDAUTH Stanojevic TLCO GLI (2019) VYAIRE PFT DLCOVAZSCORE -0.13 09/27/2024 2:04 PM EDT VYAIRE PFT VMXLTOWLV1RIG 3.93 2.97 - 5.16 ml/(min* mmHg*L) VYAIRE PFT DLCOC SB/VA PRED 4.02 VYAIRE PFT DLCOC SB/VA LLN 2.97 VYAIRE PFT DLCOC SB/VA Z-SCORE -0.13 VYAIRE PFT DLCOC SB/VA % PRED 97.9 % VYAIRE PFT DLCOC SB/VA PREDAUT Stanojevic TL[facility] GLI (2019) VYAIRE PFT DLCOC SB/VA Z-SCORE -0.13 09/27 2:04 PM EDT VYAIRE PFT DNOCMFDYCLXTTO4ZCP 4.24(A) 5.16 - 7.76 L VYAIRE PFT VASINGLEBREATH PRED 6.41 VYAIRE PFT VASINGLEBREATH LLN 5.16 VYAIRE PFT VASINGLEBREATH Z-SCORE -2.95 VYAIRE PFT VASINGLEBREATH % PRED 66.1 % VYAIRE PFT VASINGLEBREATH PREDAUT Stanojevic TLCO GLI (2019) VYAIRE PFT VASINGLEBREATH Z-SCORE -2.95 09/27/2024 2:04 PM EDT VYAIRE PFT WTCZALXOJTXDGXB2SKO 2.69(A) 3.09 - 5.29 L VYAIRE PFT IVCSINGLEBREATH PRED 4.18 VYAIRE PFT IVCSINGLEBREATH LLN 3.09 VYAIRE PFT IVCSINGLEBREATH Z-SCORE -2.25 VYAIRE PFT IVCSINGLEBREATH % PRED 64.4 % VYAIRE PFT IVCSINGLEBREATH PREDAUTAD[facility] GLI (2011) VYAIRE PFT AMANDA% VCMAX PRE 88.79 % VYAIRE PFT TLC SB PRE 4.43(A) 5.63 - 8.66 L VYAIRE PFT TLCSINGLEBREATH PRED 7.14 VYAIRE PFT TLCSINGLEBREATH LLN 5.63 VYAIRE PFT TLCSINGLEBREATH Z-SCORE -2.99 VYAIRE PFT TLCSINGLEBREATH % PRED 62.0 % VYAIRE PFT TLCSINGLEBREATH PREDAr[facility] Lung volumes GLI (2019)__ VYAIRE PFT HB PRE 14.60 g(Hb)/dL VYAIRE PFT KIC9ROU 6.24 5.63 - 8.66 L VYAIRE PFT TLCPRED 7.14 VYAIRE PFT TLCLLN 5.63 VYAIRE PFT TLCULN 8.66 VYAIRE PFT TLCZSCORE -0.98 VYAIRE PFT TLC%PRED 87.4 % VYAIRE PFT TLCPREDAUTMer[facility] Lung volumes GLI (2019)__ VYAIRE PFT VC0PRE 3.03(A) 3.09 - 5.29 L VYAIRE PFT VCPRED 4.18 VYAIRE PFT VCLLN 3.09 VYAIRE PFT VCULN 5.29 VYAIRE PFT VCZSCORE -1.73 VYAIRE PFT VC%PRED 72.5 % VYAIRE PFT VCPREDAUT [facility] GLI (2011) VYAIRE PFT IC0PRE 2.18(A) 2.25 - 4.17 L VYAIRE PFT ICPRED 3.23 VYAIRE PFT ICLLN 2.25 VYAIRE PFT ICULN 4.17 VYAIRE PFT IC Z-SCORE -1.75 VYAIRE PFT IC%PRED 67.5 % VYAIRE PFT ICPREDAUTMer[facility] Lung volumes GLI (2019)__ VYAIRE PFT UOIMQMVL0LIZ 4.05 2.70 - 5.36 L VYAIRE PFT FRCPLETH PRED 3.88 VYAIRE PFT FRCPLETH LLN 2.70 VYAIRE PFT FRCPLETH ULN 5.36 VYAIRE PFT FRCPLETH Z-SCORE 0.21 VYAIRE PFT FRCPLETH % PRED 104.4 % VYAIRE PFT FRCPLET PREDAUTMer[facility] Lung volumes GLI (2019)__ VYAIRE PFT FMH0UVV 0.85 0.39 - 2.51 L VYAIRE PFT ERVPRED 1.24 VYAIRE PFT ERVLLN 0.39 VYAIRE PFT ERVULN 2.51 VYAIRE PFT ERV Z-SCORE -0.65 VYAIRE PFT ERV%PRED 68.7 % VYAIRE PFT ERVPREDAr[facility]-HRI Hospital Lung volumes GLI (2019)__ VYAIRE PFT RV0PRE 3.20 1.52 - 3.85 L VYAIRE PFT RVPRED 2.57 VYAIRE PFT RVLLN 1.52 VYAIRE PFT RVULN 3.85 VYAIRE PFT RVZSCORE 0.84 VYAIRE PFT RV%PRED 124.3 % VYAIRE PFT RVPREDAUT [facility] Lung volumes GLI (2019)__ VYAIRE PFT RV%ZOS3VFO 51.34(A) 24.58 - 48.02 % VYAIRE PFT RV%TLCPRED 36 VYAIRE PFT RV%TLCLLN 25 VYAIRE PFT RV%TLCULN 48 VYAIRE PFT RV%TLCZSCORE 2.09 VYAIRE PFT RV%TLC%PRED 142.5 % VYAIRE PFT RV%TLCPREDAUTH [facility] Lung volumes GLI (2019)__ VYAIRE PFT Anatomical Region Laterality Modality PFT 09/27/2024 1:28 PM EDT Narrative 09/28/2024 6:22 PM EDT Pulmonary Function Testing Report Edwin Gould 73 y.o. underwent pulmonary function testing today at the [facility]. The patient underwent spirometry, lung volumes by body plethysmography, and diffusion capacity testing. All tests were appropriately administered via ATS/ERS criteria. Spirometry: Test quality: A. Test is acceptable and useable for interpretation. Reduced FEV1 and reduced ratio consistent with moderate obstruction. A concomitant restrictive process is excluded by normal TLC on plethysmography. There is no significant positive bronchodilator response. Lung Volumes: Test Quality: Appropriate QA standards were met. Elevated RV/TLC which is suggestive of air trapping. Diffusion Capacity: Test Quality: Data should be interpreted with caution. Notably, DLCO may be underestimated due to incomplete inhalation. Diffusion capacity uncorrected for Hb is mildly reduced. A reduced DLCO with a low VA and low/normal KCO is a pattern that may suggest loss of alveolar capillary structure with loss of lung volume in conditions such as emphysema and ILD. Trend: There are no prior studies for comparison. Robin Leyva MD PFT ORDERABLES Final Result documented in this encounter Visit Diagnoses Diagnosis Lung nodule- Primary Other diseases of lung, not elsewhere classified Other emphysema (CMS/HCC) Other emphysema Other emphysema (CMS/HCC) Other emphysema Lung nodule Other diseases of lung, not elsewhere classified documented in this encounter Additional Health Concerns Assessment Noted Time A fall risk assessment has been complete d for the patient 09/27/2024 9:29 AM EDT documented as of this encounter Care Teams Dispensing Operator Relationship Specialty Start Date End Date Jaylon Pa MD [address] [place] [address] [place] [address] PCP - General 09/27/24 documented as of this encounter
--- OUTSIDE RECORDS SUMMARY | 2024-09-27 14:00 | XMS_ITS | Encounter Summary ---
Author Organization Healthcare Address [address] [id number] Care Team Providers Care Production Assembler Name Role Phone Jaylon Pa MD Primary Care Provider [phone] Encounter Details Date Type Department Care Team (Latest Contact Info) Description 09/27/2024 2:00 PM EDT Ancillary Procedure [facility] [address] [place] [address] Other emphysema (CMS/HCC) Social History Tobacco Use Types Packs/Day Years Used Date Smoking Tobacco: Every Day Cigarettes 0.5 56.7 Started: 1966 Smokeless Tobacco: Never Alcohol Use [...] Hospital Encounter [facility] [address] [place] [address] Chandler Escobar MD [address] [place] [address] 11/19/2024 7:30 AM EDT Anesthesia Event [facility] [address] [place] [address] Bubba Mcclelland, CHEESE COOKER [address] [place] [address] 11/19/2024 7:30 AM EDT - 11/19/2024 11:55 AM EDT Surgery [facility] [address] [place] [address] Chandler Escobar MD [address] [place] [address] ROBOTIC RIGHT UPPER LOBE WEDGE, POSSIBLE LOBECTOMY [38080 (CPT ) +1 more] Scheduled Procedures Name Priority Associated Diagnoses Date/Ti me VATS, ROBOT-ASSISTED Lung nodule 11/19/2024 7:30 AM EDT documented as of this encounter Procedures Procedure Name Priority Date/Time Associated Diagnosis Comments HC PULM FUNCT TST PLETHYSMOGRAP - PLETHYSMOGRAPHY Routine 09/27/2024 2:09 PM EDT Other emphysema (CMS/HCC) documented in this encounter Results * (ABNORMAL) Pulmonary Function Test (09/27/2024 2:09 PM EDT) RFF3CAQU 2.86(A) 3.09 - 5.29 L VYAIRE PFT YHT3CDH 2.95(A) 3.09 - 5.29 L VYAIRE PFT FVC PRED 4.18 VYAIRE PFT FVC LLN 3.09 VYAIRE PFT FVCPREZSCORE -1.85 VYAIRE PFT FVCPRE%PRED 71 % % VYAIRE PFT FVCPOSTZSCORE -1.99 VYAIRE PFT FVCPOST%PRED 68 % % VYAIRE PFT FVCCHNG -90.00 VYAIRE PFT FVC%CHG -3 % % VYAIRE PFT FVC PREDAUTH [facility] GLI (2011) VYAIRE PFT FVC Z-SCORE -1.85 -1.99 VYAIRE PFT GIQ74WRGL 1.71(A) 2.26 - 3.98 L VYAIRE PFT FEV1 PRE 1.73(A) 2.26 - 3.98 L VYAIRE PFT FEV1 PRED 3.15 VYAIRE PFT FEV1 LLN 2.26 VYAIRE PFT EEN4MTBMOLEEL -2.55 VYAIRE PFT FEV1_Pre%Pred 55 % % VYAIRE PFT UBJ2VFZMSYSJYM -2.58 VYAIRE PFT ZPY7XPWW%PRED 54 % % VYAIRE PFT TUH3KAMT -16.57 VYAIRE PFT FEV1%CHG -1 % % VYAIRE PFT FEV1 PREDAUTH [facility] (2011) VYAIRE PFT FEV1 Z-SCORE -2.55 -2.58 VYAIRE PFT JGY3CPD8OSAR 59.87(A) 62.10 - 87.84 % VYAIRE PFT FEV1/FVC PRE 58.61(A) 62.10 - 87.84 % VYAIRE PFT NCP9TFRNELT 76 VYAIRE PFT OEQ8NTFRYZ 62 VYAIRE PFT IML1IZXDRPAJXJTT -2.03 VYAIRE PFT WIL8LRFGQG%PRED 77 % % VYAIRE PFT TTZ7EEVOCXZITMLUE -1.89 VYAIRE PFT QJQ8CFYEFCS%PRED 79 % % VYAIRE PFT OYH3YGEATIB 1,264 VYAIRE PFT JIU3XQR%CHG 2 % % VYAIRE PFT DPS5EBREWGRR [facility] (2011) VYAIRE PFT CPW6VFKJPHBOF -2 -2 VYAIRE PFT LGP14-19%_POST 0.88(A) 1.00 - 4.30 L/s VYAIRE PFT VHH82-95% PRE 0.83(A) 1.00 - 4.30 L/s VYAIRE PFT OQY69-99%_Pred 2.36 VYAIRE PFT CIT5500%LLN 1.00 VYAIRE PFT FFQ4638%PREZSCORE -1.93 VYAIRE PFT XRR5451%PRE%PRED 35 % % VYAIRE PFT ILX4087%POSTZSCORE -1.84 VYAIRE PFT PJO4878%POST%PRED 37 % % VYAIRE PFT CKO4172%CHNG 55.98 VYAIRE PFT UYL2987%%CHG 7 % % VYAIRE PFT RMT6083%PREDAUTFrank[facility] (2011) VYAIRE PFT UPL9JNGA 3.43(A) 5.94 - 10.57 L/s VYAIRE PFT PEF PRE 3.77(A) 5.94 - 10.57 L/s VYAIRE PFT PEF PRED 8.26 VYAIRE PFT PEF LLN 5.94 VYAIRE PFT PEFPREZSCORE -3.19 VYAIRE PFT PEFPRE%PRED 46 % % VYAIRE PFT PEFPOSTZSCORE -3.43 VYAIRE PFT PEFPOST%PRED 42 % % VYAIRE PFT PEFCHNG -339.00 VYAIRE PFT PEF%CHG -9 % % VYAIRE PFT PEF PRED[facility] NH[facility] III (1998) VYAIRE PFT QMZTCUHFBQVLWIXK2MNB 16.67(A) 18.78 - 33.75 ml/(min* mmHg) VYAIRE PFT DLCOSINGLEBREATH PRED 25.61 VYAIRE PFT DLCOSINGLEBREATH LLN 18.78 VYAIRE PFT DLCOSINGLEBREATH Z-SCORE -2.23 VYAIRE PFT DLCOSINGLEBREATH % PRED 65.1 % VYAIRE PFT DLCOSINGLEBREATH PREDL[facility] TL[facility] GLI (2019) VYAIRE PFT DLCOSINGLEBREATH Z-SCORE -2.23 09/27/2024 2:04 PM EDT VYAIRE PFT FPYUWWGGLQNRKHBNP5PX E 16.67(A) 18.78 - 33.75 ml/(min* mmHg) VYAIRE PFT DLCOCSINGLEBREATH PRED 25.61 VYAIRE PFT DLCOCSINGLEBREATH LLN 18.78 VYAIRE PFT DLCOCSINGLEBREATH Z-SCORE -2.23 VYAIRE PFT DLCOCSINGLEBREATH % PRED 65.1 % VYAIRE PFT DLCOCSINGLEBREATH PREDLayton [facility] TLCO GLI (2019) VYAIRE PFT VKUZXH1BZU 3.93 2.97 - 5.16 ml/(min* mmHg*L) VYAIRE PFT DLCOVAPRED 4.02 VYAIRE PFT DLCOVALLN 2.97 VYAIRE PFT DLCOVAZSCORE -0.13 VYAIRE PFT DLCOVA%PRED 97.9 % VYAIRE PFT DLCOVAPREDAUTChristiana Hospitalvic TLCO GLI (2019) VYAIRE PFT DLCOVAZSCORE -0.13 09/27/2024 2:04 PM EDT VYAIRE PFT ICGHTVONV1IVN 3.93 2.97 - 5.16 ml/(min* mmHg*L) VYAIRE PFT DLCOC SB/VA PRED 4.02 VYAIRE PFT DLCOC SB/VA LLN 2.97 VYAIRE PFT DLCOC SB/VA Z-SCORE -0.13 VYAIRE PFT DLCOC SB/VA % PRED 97.9 % VYAIRE PFT DLCOC SB/VA [facility]ED[facility] Stanojevic TLCO GLI (2019) VYAIRE PFT DLCOC SB/VA Z-SCORE -0.13 09/27 2:04 PM EDT VYAIRE PFT SDIRFWDQDDICVL9QGJ 4.24(A) 5.16 - 7.76 L VYAIRE PFT VASINGLEBREATH PRED 6.41 VYAIRE PFT VASINGLEBREATH LLN 5.16 VYAIRE PFT VASINGLEBREATH Z-SCORE -2.95 VYAIRE PFT VASINGLEBREATH % PRED 66.1 % VYAIRE PFT VASINGLEBREATH PREDM[facility] Stanojevic TLCO GLI (2019) VYAIRE PFT VASINGLEBREATH Z-SCORE -2.95 09/27/2024 2:04 PM EDT VYAIRE PFT WQXQSHNBHSGJQVM0NIG 2.69(A) 3.09 - 5.29 L VYAIRE PFT IVCSINGLEBREATH PRED 4.18 VYAIRE PFT IVCSINGLEBREATH LLN 3.09 VYAIRE PFT IVCSINGLEBREATH Z-SCORE -2.25 VYAIRE PFT IVCSINGLEBREATH % PRED 64.4 % VYAIRE PFT IVCSINGLEBREATH PREDM[facility] US_[facility] GLI (2011) VYAIRE PFT AMANDA% VCMAX PRE 88.79 % VYAIRE PFT TLC SB PRE 4.43(A) 5.63 - 8.66 L VYAIRE PFT TLCSINGLEBREATH PRED 7.14 VYAIRE PFT TLCSINGLEBREATH LLN 5.63 VYAIRE PFT TLCSINGLEBREATH Z-SCORE -2.99 VYAIRE PFT TLCSINGLEBREATH % PRED 62.0 % VYAIRE PFT TLCSINGLEBREATH PREDM[facility] Rodriguez Lung volumes GLI (2019)__ VYAIRE PFT HB PRE 14.60 g(Hb)/dL VYAIRE PFT QII4CRD 6.24 5.63 - 8.66 L VYAIRE PFT TLCPRED 7.14 VYAIRE PFT TLCLLN 5.63 VYAIRE PFT TLCULN 8.66 VYAIRE PFT TLCZSCORE -0.98 VYAIRE PFT TLC%PRED 87.4 % VYAIRE PFT TLCPREDAUTUniversity [facility] Lung volumes GLI (2019)__ VYAIRE PFT VC0PRE [...] VYAIRE PFT IC%PRED 67.5 % [facility]AIRE PFT ICPREDMass[facility] Center Lung volumes GLI (2019)__ VYAIRE PFT DGBGGCWW9HNR 4.05 2.70 - 5.36 L VYAIRE PFT FRCPLETH PRED 3.88 VYAIRE PFT FRCPLETH LLN 2.70 VYAIRE PFT FRCPLETH ULN 5.36 VYAIRE PFT FRCPLETH Z-SCORE 0.21 VYAIRE PFT FRCPLETH % PRED 104.4 % VYAIRE PFT FRCPLETH PREDAUTUniversity [facility] Lung volumes GLI (2019)__ VYAIRE PFT UCP1EBJ 0.85 0.39 - 2.51 L VYAIRE PFT ERVPRED 1.24 VYAIRE PFT ERVLLN 0.39 VYAIRE PFT ERVULN 2.51 VYAIRE PFT ERV Z-SCORE -0.65 VYAIRE PFT ERV%PRED 68.7 % VYAIRE PFT ERVPAthens-Limestone Hospital Lung volumes GLI (2019)__ VYAIRE PFT RV0PRE 3.20 1.52 - 3.85 L VYAIRE PFT RVPRED 2.57 VYAIRE PFT RVLLN 1.52 VYAIRE PFT RVULN 3.85 VYAIRE PFT RVZSCORE 0.84 VYAIRE PFT RV%PRED 124.3 % VYAIRE PFT RVPREDAUTH Rodriguez Lung volumes GLI (2019)__ VYAIRE PFT RV%RVW1IRV 51.34(A) 24.58 - 48.02 % VYAIRE PFT [...] underwent pulmonary function testing today at the [facility]. The patient underwent spirometry, lung volumes [...] documented as of this encounter Care Teams Production Assembler Relationship Specialty Start Date End Date Jaylon Pa MD [address] [place] [address] PCP - General 09/27/24 documented as of this encounter
--- OUTSIDE RECORDS SUMMARY | 2024-10-15 10:42 | XMS_ITS | Encounter Summary ---
Author Organization Healthcare Address [address] [place] [address] Care Team Providers Care Facility Engineer Name Role Phone Jaylon Pa MD Primary Care Provider [phone] Reason for Referral * Imaging (Routine) - Closed Specialty Diagnoses / Procedures Referred By Franki castillo Referred To Contact Radiology Diagnoses Lung nodule Procedures CT Chest wo IV Contrast Robin Leyva MD [address] [place] [address] Phone: tel: fax: Referral ID Status Reason Start Date Expiration Date Visits Re quested Visits Authorized [id number] Closed 09/28/2024 03/30/2026 1 1 Reason for Visit * Imaging (Routine) - Closed Specialty Diagnoses / Procedures Referred By Franki castillo Referred To Contact Radiology Diagnoses Lung nodule Procedures CT Chest wo IV Contrast Robin Leyva MD [address] [place] [address] Phone: tel: fax: Referral ID Status Reason Start Date Expiration Date Visits Re quested Visits Authorized [id number] Closed 09/28/2024 03/30/2026 1 1 Encounter Details Date Type Department Care Team (Latest Contact Info) Description 10/15/2024 10:42 AM EDT - 10/15/2024 12:37 PM EDT Hospital Encounter [facility] [address] [place] [address] Lung nodule Discharge Disposition: Home or Self [...] Hospital Encounter [facility] [address] [place] [address] Chandler Escobar MD [address] [place] [address] 11/19/2024 7:30 AM EDT Anesthesia Event [facility] [address] [place] [phone] uBbba Mcclelland APRN [address] [place] [address] 11/19/2024 7:30 AM EDT - 11/19/2024 11:55 AM EDT Surgery [facility] [address] [place] [address] Chandler Escobar MD [address] [place] [address] ROBOTIC RIGHT UPPER LOBE WEDGE, POSSIBLE LOBECTOMY [88121 (CPT ) +1 more] Scheduled Procedures Name Priority Associated Diagnoses Date/Ti me VATS, ROBOT-ASSISTED Lung nodule 11/19/2024 7:30 AM EDT documented as of this encounter Goals Goal Patient Goal Type Associated Problems Recent Progress Patient-Stated? Author Autogenerat ed Goal Care Plan Autogenerated Problem No Quiana Pa documented as of this encounter Procedures Procedure [...] signing this report, I, the attending physician, attedmondthat I have personally reviewed the images/data for [...] documented as of this encounter Care Teams Facility Engineer Relationship Specialty Start Date End Date Jaylon Pa MD [address] [place] [address] [address] [place] [address] PCP - General 09/27/24 documented as of this encounter
--- OUTSIDE RECORDS SUMMARY | 2024-10-15 12:38 | XMS_ITS | Encounter Summary ---
Author Organization [facility] Address [address] [place] [address] Care Team Providers Care Manager Center Name Role Phone Jaylon Pa MD Primary Care Provider [phone] Reason for Referral * Imaging (Routine) - Closed Specialty Diagnoses / Procedures Referred By Franki castillo Referred To Contact Gastroenterology Diagnoses Lung nodule Procedures Bronchoscopy w Ion, w Radial US, w Biopsy, w BAL (Bronchoalveolar Lavage), w [place], w EBUS, w Robin Love MD [address] [place] [phone] Phone: tel: fax: Referral ID Status Reason Start Date Expiration Date V isits Requested Visits Authorized [id number] Closed Specialty Services Required 09/28/2024 03/30/2026 1 1 Reason for Visit * Imaging (Routine) - Closed Specialty Diagnoses / Procedures Referred By Franki castillo Referred To Contact Gastroenterology Diagnoses Lung nodule Procedures Bronchoscopy w Ion, w Radial US, w Biopsy, w BAL (Bronchoalveolar Lavage), w [place], w EBUS, w Robin Love MD [address] [place] [phone] Phone: tel: fax: Referral ID Status Reason Start Date Expiration Date V isits Requested Visits Authorized [id number] Closed Specialty Services Required 09/28/2024 03/30/2026 1 1 Encounter Details Date Type Department Care Team (Late st Contact Info) Description 10/15/2024 12:38 PM EDT - 10/15/2024 3:09 PM EDT Hospital Encounter [facility] [address] [place] [address] Robin Leyva MD [address] [place] [id number] Charbel Rollins RN GS - Endoscopy Lung [...] from the original note were not included. [id number] Endoscopy Unit: Caring for Yourself after a [...] temp is over 100?F, you may take pcim-pvg-iqgtogs Tylenol. ? Blood in the mouth: For a few days, you may cough up a little blood or have a little blood in your spit. This is normal. Call [phone] right away if you have any of [...] Pulmonary, call . Nights and weekends, call [phone] and ask for the senior gl accountant cotton stripper. ? For Transplant Service, call . Nights and weekends, call . ? For Pediatric Pulmonary, call and ask for the pediatric attending cotton stripper. ? For Otolaryngology, call . Nights and weekends, call and ask for thesurgical resident cotton stripper. documented in this encounter Plan of Treatment Upcoming Encounters Date Type Department Care Team (Latest Contact Info) Description 11/19/2024 7:30 AM EDT Hospital Encounter [facility] [address] [place] [address] Chandler Escobar MD [address] [place] [address] 11/19/2024 7:30 AM EDT Anesthesia Event [facility] [address] [place] [address] Bubba Mcclelland, COFFEE GRINDER [address] [place] [address] 11/19/2024 7:30 AM EDT - 11/19/2024 11:55 AM EDT Surgery [facility] [address] [place] [address] Chandler Escobar MD [address] [place] [address] ROBOTIC RIGHT UPPER LOBE WEDGE, POSSIBLE LOBECTOMY [16832 (CPT ) +1 more] Pending Results Name [...] - 99 mg/dL 10/15/2024 6:22 PM EDT [facility] Comment:Accuracy of [...] the main labortory for testing. Comment 10/15/2024 6:22 PM EDT [facility] Gas Tender ID Tata Ozuna 10/15/2024 6:22 PM EDT [facility] Device ID [id number] 10/15/2024 6:22 PM EDT [facility] Specimen Type POC Capillary 10/15/2024 6:22 PM EDT [facility] Blood Capillary blood specimen / Unknown 10/15/2024 6:20 PM EDT 10/15/2024 6:22 PM EDT us Robin Leyva MD LAB POINT OF CARE TE ST DOCKED DEVICE UNSOLICITED RESULTS Final Result Performing Organization Address City/State/[facility] Co de Phone Number [facility] [address] [place] [address] * Bronchoscopy w Ion, w Radial US, w Biopsy, w BAL (Bronchoalveolar Lavage), w [place], w EBUS, w Cios (10/15/2024 5:54 PM [...] confirm the location which was tangential. The [employer] spin mobile C-arm with true cone beam [...] Nodes observed under convex ultrasound guidance. Onsite community health director was not present. Specimens ID Type Source [...] ASPIRATION - CYTOLOGY Robin Leyva MD 10/15/2024 1659 B : RUL Nodule TBBX Fine Needle [...] ASPIRATION - CYTOLOGY Robin Leyva MD 10/15/2024 1716 E : Station 11L [...] 10/15/2024 5:33 PM Staff Staff Role Cam Page SHADING PAINTER SHADING PAINTER Maria Guadalupe Villatoro Endo Aqua Ammonia Operator Robin Leyva MD Proceduralist Willam Beltrán, DO Other - Other (see comments) Sudhir Ferris MD Anesthesiologist Charbel Rollins, RN Endo Nurse Sandy Patel RN Endo Nurse Lj Garcia Endo Aqua Ammonia Operator Susan Blount, SHADING PAINTER SHADING PAINTER Impression Overall Impression: Normal endobronchial exam Biopsy of the RUL nodule Sampling of 11L, 7 , 11R Post Procedure Diagnosis None Recommendation Follow-up: with me Attestation I was present for the entire procedure Billing Codes See procedure report details above. 07221 - Bronchoscopy, rigid or flexible, including fluoroscopic guidance, when performed; with brishing or protected brushings 91690 - Bronchoscopy, rigid or flexible, including fluoroscopic guidance, when performed; with computer-assisted, image-guided navigation 34326 - Bronchoscopy, rigid or flexible, including fluoroscopic guidance, when performed; with transbronchial lung biopsy(s), single lobe 33027 - Bronchoscopy, rigid or flexible, including fluoroscopic guidance, when performed; with transbronchial needle aspiration biopsy(s), trachea, main stem, and/or lobar bronchus(i) 64414 - Bronchoscopy, rigid or flexible, including fluoroscopic guidance, when performed; with transbronchial lung biopsy(s), each additional lobe (list separately in addition to code for primary procedure) 71940 - EBUS convex prove 1 or 2 lesions 65450 - EBUS convex probe 3 or more lesions GC - Service has been performed in part by a resident/fellow under the direction of a teaching physician [address] ct guided placement of a needle. Robin Leyva MD GI PROCEDURE ORDERABLES Final Result * Non-Gynecologic Cytology (10/15/2024 5:10 PM EDT) Case Report Cytology Case: [id number] Authorizing Provider: Robin Leyva MD Collected: 10/15/2024 1710 Ordering Location: [facility] Endoscopy Received: 10/18/2024 0958 Pathologist: Justyn Abraham MD Specimen: Bronchial Brushing, Right Upper Lobe, RIGHT UPPER LOBE BRONCHIAL BRUSHING 10/19/2024 3:20 PM EDT [facility] Final Diagnosis A. RIGHT UPPER LOBE BRONCHIAL BRUSHING - NO EVIDENCE OF MALIGNANCY 10/19/2024 3:20 PM EDT [facility] at 1520 EDT Gross Description A. RIGHT UPPER LOBE BRONCHIAL BRUSHING [place] tip in 10 ml's tinted fluid processed as thin prep 10/19/2024 3:20 PM EDT [facility] Clinical Information R91.1 - Lung nodule [ICD-10-CM] 10/19/2024 3:20 PM EDT [facility] Brushing Bronchial brushings specimen / Unknown 10/15/2024 5:10 PM EDT 10/18/2024 9:58 AM EDT Robin Leyva MD LAB CYTOLOGY ORDERABLES Final Result Performing Organization Address City/State/[facility] Co de Phone Number [facility] [address] [place] [address] * BAL Comprehensive Respiratory Panel by PCR (10/15/2024 5:08 PM EDT) BAL Comprehensive PCR Result Not Detected for all analytes Not Detected for all analytes 10/15/2024 8:31 PM EDT [facility] Bronchial Washing Structure of upper lobe of right lung / Unknown 10/15/2024 5:08 PM EDT 10/15/2024 6:13 PM EDT Narrative [facility] - 10/15/2024 8:31 PM EDT This [...] developed and its performance characteristics determined by [facility] as appropriate for clinical purposes. This assay has not been cleared or approved by the FDA, but is performed in a CLIA regulated laboratory that is performed in a CLIA regulated laboratory that is qualified to perform high-complexity testing. The [facility] is certified under the Clinical Laboratory Improvement Amendments of 1988 (CLIA-88) as qualified to perform high complexity clinical laboratory testing. Robin Leyva MD LAB MICROBIOLOGY - GENERAL OR DERABLES Final Result Performing Organization Address City/[facility] Co de Phone Number [facility] [address] [place] [address] * Quantitative BAL/PAL/Bronch Wash Culture and Gram StainLung, Right Upper Lobe (10/15/2024 5:08 PM EDT) Culture No growth at day 2 2024 6:03 AM EDT [facility] Gram Stain Result No organisms seen 10/18/2024 6:03 AM EDT [facility] Gram Stain Result No polymorphonuclear leukocytes seen 10/18/2024 6:03 AM EDT [facility] Bronchial Washing Structure of upper lobe of right lung / Unknown 10/15/2024 5:08 PM EDT 10/15/2024 6:13 PM EDT us Robin Leyva MD LAB MICROBIOLOGY - GENERAL OR DERABLES Final Result Performing Organization Address [facility] Co de Phone Number [facility] [address] [place] [address] * Fine needle aspiration (10/15/2024 4:57 PM EDT) Case Report Cytology Case: [id number] Authorizing Provider: Robin Leyva MD Collected: 10/15/2024 1659 Ordering Location: [facility] Endoscopy Received: 10/18/2024 0910 Pathologist: Sol [...] RIGHT ENDOBRONCHIAL ULTRASOUND GUIDED FINE NEEDLE ASPIRATION 1:12 PM EDT [facility] Addendum PD-L1 IHC 22C3 pharmDx* is performed [...] test, with disease progression on or after [place]ain[place] chemotherapy. Patients with EGFR or ALK genomic tumor aberrations should have disease progression on FDA-approved therapy for these aberrations prior to receiving Pembrolizumab. PD-L1 IHC serves as a complementary diagnostic in regards to other PD-L1/LE-7-hagqkxn dtherapies (Nivolumab, Atezolizumab, Durvalumab, etc). Expression level: >Negative for PD-L1 expression (TPS less than 1%) >Positive for PD-L1 expression (TPS 1-49%) >Positive for high PD-L1 expression (TPS greater than or equal to 50%) *PD-L1 IHC 22C3 pharmDx is a FDA-approved skiver box toe diagnostic for pembrolizumab performed on D[employer] Omnis Stainer using formalin-fixed, paraffin imbedded (FFPE) tissue [...] developed by and are performed at the [facility], [address] [place] [address]. All tests reported here, except those addressing HER2 and PD-L1 expression as predictive markers, have not been cleared by or approved by the US Food and Drug Administration (FDA). The laboratory is regulated under CLIA as qualified to perform high-complexity testing. The tests are used for clinical purposes. They should not be regarded as investigational or for research. 1:12 PM EDT [facility] Addendum electronically signed by Argentina Jones [...] NO EVIDENCE OF MALIGNANCY. 1:12 PM EDT [facility] at 1653 EDT Comment Immunohistochemica l stains were performed which were supportive of the diagnosis (see below for details). PD-L1 is pending, and an addendum will be issued with the results. 1:12 PM EDT [facility] Special and Immunohistochemical Stains HC: B1-1 P40: Positive All controls show appropriate reactivity. All immunohistochemist ry, in situ hybridization, and histochemical tests were developed by and are performed at the [facility], [address] [place] [address]. All tests reported here, except those addressing [...] This assay has not been validated on febalcified tissues. Results should be interpreted with caution given the likelihood of false negativity on decalcified specimens. 5 1:12 PM EDT [facility] Intradepartmental Consultation with Agreement Dr. Naila Abraham 1:12 PM EDT [facility] Immediate Evaluation A: FNA performed by Dr. [...] the diagnosis that appears on the report. 5 1:12 PM EDT [facility] Gross Description A. LUNG, RIGHT UPPER LOBE ION ROBOTIC NAVIGATIONAL FINE NEEDLE ASPIRATION 5 ml's bloody Needle rinse fluid processed as ThinPrep and cellblock for complete evaluation of sample. Slides were NOT received. Cold Time: 66h 01m B. LUNG, RIGHT UPPER LOBE NODULE TRANSBRONCHIAL BIOPSY Multiple white chery cores of friable tissue, all measuring less [...] were NOT received. Cold Time: 65h 35m 1:12 PM EDT [facility] Note: A resident was involved in the service. I attest I examined the relevant preparations for the specimens and confirmed the diagnosis or interpretation. 1:12 PM EDT [facility] Clinical Information R91.1 - Lung nodule [ICD-10-CM] 1:12 PM EDT [facility] Fine Needle Aspirate Structure of upper [...] CYTOLOGY ORDERABLES Edite d Result - Final [facility] [address] [place] [address] * ECG Adult (10/15/2024 2:41 PM EDT) EKG DIAGNOSIS CLASS Normal MUSE ECG Ventricular Rate 73 BPM MUSE ECG Atrial Rate 73 BPM MUSE ECG MT Interval 162 ms MUSE ECG QRSD Interval 78 ms MUSE ECG QT Interval 416 ms MUSE ECG QTC Interval 458 ms MUSE ECG P [place] 68 degrees MUSE ECG R [place] 27 degrees MUSE ECG T Wave [place] 72 degrees MUSE ECG Diagnosis Normal sinus rhythm MUSE ECG Diagnosis Normal ECG MUSE ECG Diagnosis MUSE ECG Diagnosis Confirmed by Damien Flaherty ([id number]) on 10/15/2024 3:40:43 PM MUSE ECG 10/15/2024 2:41 PM EDT 10/15/2024 3:40 PM EDT us Sudhir Ferris MD ECG ORDERABLES Final Result MUSE ECG * (ABNORMAL) POCT glucose meter (10/15/2024 1:26 PM EDT) [facility] POCT Glucose 142(H) 74 - 99 mg/dL [...] for testing. Comment 10/15/2024 1:28 PM EDT [facility] Gas Tender ID Lora Hawk 10/15/2024 1:28 PM EDT [facility] Device ID [id number] 10/15/2024 1:28 PM EDT [facility] Specimen Type POC Capillary 10/15/2024 1:28 PM EDT [facility] Blood Capillary blood specimen / Unknown 10/15/2024 1:26 PM EDT 10/15/2024 1:28 PM EDT us Robin Leyva MD LAB POINT OF CARE TE ST DOCKED DEVICE UNSOLICITED RESULTS Final Result [facility] [address] [place] [address] documented in this encounter Visit Diagnoses Diagnosis [...] documented as of this encounter Care Teams Manager Center Relationship Specialty Start Date End Date Jaylon Pa MD [address] [place] [id number] PCP - General 09/27/24 documented as of this encounter
--- OUTSIDE RECORDS SUMMARY | 2024-10-15 15:10 | XMS_ITS | Encounter Summary ---
Author Organization [facility] Address [address] [id number] Care Team Providers Care Arts Therapist Name Role Phone Jaylon Pa MD Primary Care Provider [phone] Reason for Referral * Imaging (Routine) - Closed Specialty Diagnoses / Procedures Referred By Franki castillo Referred To Contact Radiology Diagnoses Lung nodule Procedures FL Less than 1 Hour Intraoperative Robin Leyva MD [address] [place] [address] Phone: tel: fax: Referral ID Status Reason Start Date Expiration Date V isits Requested Visits Authorized [id number] Closed Perform Procedure 10/15/2024 04/16/2026 1 1 Reason for Visit * Imaging (Routine) - Closed Specialty Diagnoses / Procedures Referred By Franki castillo Referred To Contact Radiology Diagnoses Lung nodule Procedures FL Less than 1 Hour Intraoperative Robin Leyva MD [address] [place] [address] Phone: tel: fax: Referral ID Status Reason Start Date Expiration Date V isits Requested Visits Authorized [id number] Closed Perform Procedure 10/15/2024 04/16/2026 1 1 Encounter Details Date Type Department Care Team (Latest Contact Info) Description 10/15/2024 3:10 PM EDT - 10/15/2024 6:09 PM EDT Hospital Encounter [facility] Radiology [address] [place] [address] Lung nodule Discharge Disposition: Home or Self [...] Hospital Encounter [facility]PER[facility] ROOM [address] [place] [address] Chandler Escobar MD [address] [place] [address] 11/19/2024 7:30 AM EDT Anesthesia Event [facility] [address] [place] [phone] Bubba Mcclelland APRN [address] [place] [address] 11/19/2024 7:30 AM EDT - 11/19/2024 11:55 AM EDT Surgery [facility] [address] [place] [address] Chandler Escobar MD [address] [place] [address] ROBOTIC RIGHT UPPER LOBE WEDGE, POSSIBLE LOBECTOMY [88568 (CPT ) +1 more] Scheduled Procedures Name [...] documented as of this encounter Care Teams Arts Therapist Relationship Specialty Start Date End Date Jaylon Pa MD [address] [facility] [address] [place] [address] PCP - General 09/27/24 documented as of this encounter
--- OUTSIDE RECORDS SUMMARY | 2024-10-15 15:47 | XMS_ITS | Encounter Summary ---
Author Organization [facility] Address [address] [id number] Care Team Providers Care Controls Designer Name Role Phone Jaylon Pa MD Primary Care Provider [phone] Encounter Details Date Type Department Care Team (Late st Contact Info) Description 10/15/2024 3:47 PM EDT Anesthesia Event [facility] Endoscopy [address] [place] [address] Sudhir Ferris MD [address] [place] [address] Anesthesia Record Procedure Summary Procedure Name Responsible Anesthesiologist Anesthesia Start Time Anesthesia Stop Time BRONCHOSCOPY Sudhir Ferris MD 10/15/24 1547 10/15/24 1757 Events Date Time Event Comment 10/15/2024 1431 1547 In Room 1547 An Start The patient was reevaluated immediately before sedation and remains eligible for anesthesia plan. 1547 An Start Data 1554 An Induction The patient was reevaluated immediately before moderate or deep sedation use and before anesthesia induction. 1557 An Intubation 1559 Anesthesia Ready 1607 Proc Start 1733 Proc Fin 1751 An Extubation 1753 an stop data 1754 Out of Room 1757 Handoff to Receiving I compl eted my handoff to the receiving clinician during which we: 1. Identified the patient 2. Identified the responsible provider 3. Reviewed the pertinent medical history 4. Discussed the surgical course 5. Reviewed intra-op anesthesia management and issues during anesthesia 6. Set expectations for post-procedure period 7. Allowed opportunity for questions and acknowledgement of understanding. 1757 An Stop Meds Name Total lidocaine PF (Xylocaine-MPF) 2% 100 mg propofol (Diprivan) injection 10 mg/mL 2 00 mg rocuronium (ZeMuron) injection 10 mg/mL 70 mg dexamethasone (Decadron) injection 4 mg/ mL 4 mg phenylephrine (Robert-Synephrine) prefilled syringe 1 mg/10 mL 600 mcg ondansetron (Zofran) injection 2 mg/mL 4 mg sugammadex (Bridion) injection 100 mg/mL 341.6 mg propofol (Diprivan) infusion 10 mg/mL 1, 225.49 mg lactated Ringer's infusion 500 mL * Agents Name O2 * Blood No blood administrations on file. Lines, Drains, and Airways Type Details Placement Removal Peripheral IV Placement Date: 04/10; Placement Time: 1355; Catheter Size: 22 G; Orientation: Anterior, Left; Location: Forearm; Site Prep: Alcohol; Technique: Anatomical landmarks; Insertion Attempts: 1; Patient Tolerance: Tolerated well; Removal Date: 10/15/24; Removal Time: 18410/15/24 1355 by Larissa Spring RN 10/15/24 184 by Larissa Spring RN ETT Placement Date: 04/10; Placement Time: 1557 (created via procedure documentation); Mask Ventilation: 2; Technique: Direct laryngoscopy; Type: ETT - single; Single Lumen Tube Size: 8.5 mm; Cuffed: Yes; Laryngoscope: Raquel; Blade Size: 4; Location: Oral; Grade View: Grade IIa; Insertion Attempts: 1; Placement Verification: Auscultation, Bronchoscopy, Capnometry; Airway Comments: Sherin li DO placed ETT on first attempt with minimal resistance.; Placed by: GUTIERREZ; Removal Date: 10/15/24; Removal Time: 175010/15/24 155 by Cam Page CRNA 10/15/24 175 by Susan Blount CRNA documented in this encounter Social History Tobacco Use Types Packs/Day Years [...] on file documented as of this encounter Miscellaneous Notes * Anesthesia Postprocedure Evaluation - Susan Blount CRNA - 10/15/2024 5:57 PM EDT Patient: Edwin Gould Anesthesia Type: general Vitals Value Taken Time BP 128/76 10/15/24 17:55 Temp 98.4 10/15/24 18:01 Pulse 78 10/15/24 17:59 Resp 19 10/15/24 17:59 SpO2 100 % 10/15/24 17:59 Vitals shown include unfiled device data. Anesthesia Post Evaluation Patient location during evaluation: PACU Patient participation: complete - patient participated Level of consciousness: awake and sedated Pain management: adequate (pain score 0-3) Airway patency: natural airway Cardiovascular status: acceptable and hemodynamically stable Respiratory status: acceptable, blow-by oxygen, face mask, nonlabored ventilation, spontaneous ventilation and unassisted Hydration status: acceptable Nausea/Vomiting: No No notable events documented. * Anesthesia Procedure Notes - Cam Page CRNA - 10/15/2024 4:13 PM EDTAssociated Order(s): Airway Airway Date/Time: 10/15/2024 3:57 PM Reason: elective Airway not difficult General Information and Staff Patient location during procedure: [place] Anesthesiologist: Sudhir Ferris MD HAMMER ADJUSTER: Cam Page CRNA Performed: GUTIERREZ Patient Condition Indications for airway management: anesthesia Patient position: sniffing MILS maintained throughout Final Airway Details Final airway type: endotracheal airway Successful airway: ETT Cuffed: yes Successful intubation technique: direct laryngoscopy Endotracheal tube insertion site: oral Blade: Raquel Blade size: #4 ETT size (mm): 8.5 Cormack-Lehane Classification: grade IIa - partial view of glottis Placement verified by: chest auscultation, bronchoscopy and capnometry Measured from: lips ETT to lips (cm): 22 Additional Comments K li DO placed ETT on first attempt with minimal resistance. * Anesthesia Preprocedure Evaluation - Sudhir Ferris MD - 10/15/2024 2:06 PM EDT No anesthesia staff entered. Patient: Edwin Gould HPI Edwin Gould is a 73 y.o. male with body mass index is 27.01 kg/m??. who presents with No Principal Problem: There is no principal problem currently on the Problem List. Please update the Problem List and refresh., now for Procedure Information Date/Time: 10/15/24 1500 Scheduled providers: Robin Leyva MD; Charbel Rollins RN Procedure: BRONCHOSCOPY Location: [facility] Endoscopy Relevant Problems No relevant active problems ALLERGIES Allergies[1] NPO STATUS Date of Last Liquid: 10/15/24 (water) Time of Last Liquid: 1030 Date of Last Solid: 10/14/24 Time of Last Solid: 1999 Last Intake Type: Clear fluids Time of Last Void: 1340 Past Medical History[2] AIRWAY HISTORY Airway Detailed Review Displaying the 20 most recent records No records found. MEDICATIONS Outpatient Current Outpatient Medications Medication Instructions Aspirin Low Dose 81 mg, Daily fluticasone (Flonase) 50 MCG/ACT nasal spray shake liquid and use 2 sprays in each nostril daily lisinopril-hydroCHLOROthiazide 20-25 MG tablet 1 tablet, Daily metFORMIN (GLUCOPHAGE) 1,000 mg, 2 times daily pravastatin (PRAVACHOL) 20 mg, Nightly Scheduled Current Scheduled Medications[3] PRNs Current PRN Medications[4] SURGICAL HX: Surgical History[5] SOCIAL HX: Social History[6] OBJECTIVE DATA LABS No results found for: WBC , HGB , HCT , MCV , PLT No results found for: CALCIUM , BUN , CREATININE , BCR , NA , K , CL , CO2 , AG , CA Type and Screen No results found for: ABO No results found for: HGBA1C Lab Results Component Value Date PGLU 142 (H) 10/15/2024 ABG No results found for: PHART , TNN7OAT , PO2ART , SO2ART , BEART , MVE2GIR , HCTART , SODIUMART , POTASSIUMART , POCTCL , POCGLU , IONCALART , LACTATE No results found for: PH , PCO2 , PO2 , K0EESJUZ , BASEEXC , HCTSYR , KSYR , CLSYR , GLUSYR , CAION , LACTATE ECHO No echocardiogram results found for the past 12 months PFTs FEV1 PRE (L) Date/Time Value 09/27/2024 1409 1.73 (A) FEV1 PRED (no units) Date/Time Value 09/27/2024 1409 3.15 [id number] (L) Date/Time Value 09/27/2024 1409 2.95 (A) FVC PRED (no units) Date/Time Value 09/27/2024 1409 4.18 BP Readings from Last 5 Encounters: 10/15/24 116/85 09/27/24 135/77 Physical Exam Airway Mallampati: I Mouth opening: normal TM distance: >3 FB Neck ROM: full Cardiovascular Rhythm: regular Rate: normal The radial pulses are 1+ bilaterally. Dental (+) edentulous Pulmonary Breath sounds clear to auscultation (+) decreased breath sounds Neurological Oriented: normal to time, normal to place and normal to person and oriented to person, place and time Skin - normal exam Turgor: normal Musculoskeletal - normal exam Extremities -normal exam Handedness: right-handed Anesthesia Plan ASA 3 Plan was reviewed with: HAMMER ADJUSTER Anesthesia technique(s) discussed with the patient/family: general Anesthesia plan agreed upon was: general Comment: EKG ORDERED Anesthetic plan and risks discussed with patient. ROS Anesthesia: Does not have history of previous anesthesia. Anesthesia ROS additional comments: NO KNOWN FAMILY HX OF PROBLEMS WITH GA Cardiovascular: hyperlipidemia. hypertension: is well controlled. Exercise tolerance is 1 flight of stairs. Cardio additional comments: PT DENIES HX OF CP, [place], CHF. Respiratory: COPD: breathing at baseline. Respiratory ROS additional comments: SMOKER HEENT: missing teeth.decreased vision. Neurological: Negative neuro ROS. Musculoskeletal: arthritis. Integumentary: Negative skin ROS. Gastrointestinal: Negative GI ROS. Genitourinary: Negative ROS. Hematological/Lymphatic: negative hematology/oncology ROS. Endocrine/Metabolic: diabetes mellitus type 2.well controlled. [1] Allergies Allergen Reactions Penicillins Other - please document in the comment field [2] Past Medical History: Diagnosis Date Diabetes (CMS/HCC) High blood pressure High cholesterol [3] ipratropium-albuterol, 3 mL, Nebulization, Once lactated Ringer's, 100 mL/hr, Intravenous, Once Insert peripheral IV, , , Once AND Saline lock IV, , , Once AND sodium chloride, 10 mL, Intravenous, q12h AND sodium chloride, 10 mL, Intravenous, PRN [4] PRN medications: lidocaine, Insert peripheral IV AND Saline lock IV AND sodium chlorideAND sodium chloride [5] Past Surgical History: Procedure Laterality Date NO PAST SURGERIES [6] Social History Tobacco Use Smoking status: Every Day Current packs/day: 0.50 Average packs/day: 0.5 packs/day for 56.6 years (28.3 ttl pk-yrs) Types: Cigarettes Start date: 1966 Smokeless tobacco: Never Vaping Use Vaping status: Never Used Substance Use Topics Alcohol use: Never Drug use: Never documented in this encounter Plan of Treatment Upcoming Encounters Date Type Department Care Team (Latest Contact Info) Description 11/19/2024 7:30 AM EDT Hospital Encounter [facility] [address] [place] [address] Chandler Escobar MD [address] [place] [address] 11/19/2024 7:30 AM EDT Anesthesia Event [facility] RO[facility] [address] [place] [address] Bubba Mcclelland APRN [address] [place] [address] 11/19/2024 7:30 AM EDT - 11/19/2024 11:55 AM EDT Surgery [facility] [address] [place] [address] Chandler Escobar MD [address] [place] [address] ROBOTIC RIGHT UPPER LOBE WEDGE, POSSIBLE LOBECTOMY [60986 (CPT ) +1 more] Scheduled Procedures Name Priority Associated Diagnoses Date/Ti me VATS, ROBOT-ASSISTED Lung nodule 11/19/2024 7:30 AM EDT documented as of this encounter Goals Goal Patient Goal Type Associated Problems Recent Progress Patient-Stated? Author Autogenerat ed Goal Care Plan Autogenerated Problem No ThiernoQuiana José Luis documented as of this encounter Procedures Procedure Name Priority Date/Time Associated Diagnosis Comments AR AN ELECTIVE ENDOTRACHEAL AIRWAY Routine 10/15/2024 3:57 PM EDT documented in this encounter Results * AR AN ELECTIVE ENDOTRACHEAL AIRWAY (10/15/2024 3:57 PM EDT) Narrative Cam Page CRNA - 10/15/2024 3:57 PM EDT Cam Page CRNA 10/15/2024 4:15 PM Airway Date/Time: 10/15/2024 3:57 PM Reason: elective Airway not difficult General Information and Staff Patient location during procedure: [place] Anesthesiologist: Sudhir Ferris MD HAMMER ADJUSTER: Cam Page CRNA Performed: GUTIERREZ Patient Condition Indications for airway management: anesthesia Patient position: sniffing MILS maintained throughout Final Airway Details Final airway type: endotracheal airway Successful airway: ETT Cuffed: yes Successful intubation technique: direct laryngoscopy Endotracheal tube insertion site: oral Blade: Raquel Blade size: #4 ETT size (mm): 8.5 Cormack-Lehane Classification: grade IIa - partial view of glottis Placement verified by: chest auscultation, bronchoscopy and capnometry Measured from: lips ETT to lips (cm): 22 Additional Comments K li DO placed ETT on first attempt with minimal resistance. Sudhir Ferris MD ANESTHESIA ORDERABLES Final Res ult documented in this encounter Visit Diagnoses Not on filedocumented in this encounter Administered Medications Inactive Administered Medications - up to 3 most recent administrations Medication Order MAR Action Action Date Dose Rate Site dexamethasone (Decadron) injection Intravenous, As needed, Starting on Fri10/15/24 at 1611, Until Fri10/15/24 at 1801, Routine, Anesthesia Intraprocedure Given 10/15/2024 4:11 PM EDT 4 mg lactated Ringer's infusion 100 mL/hr, Intravenous, Once, 1 dose, On Fri10/15/24 at 1430, Routine New Bag 10/15/2024 3:47 PM EDT lidocaine PF (Xylocaine) 2 % injection Intravenous, As needed, Starting on Fri10/15/24 at 1554, Until Fri10/15/24 at 1801, Routine, Anesthesia Intraprocedure Given 10/15/2024 3:54 PM EDT 100 mg ondansetron (Zofran) injection Intravenous, As needed, Starting on Fri10/15/24 at 1611, Until Fri10/15/24 at 1801, Routine, Anesthesia Intraprocedure Given 10/15/2024 4:11 PM EDT 4 mg phenylephrine in NS (Robert-Synephrine) 100 mcg/mL prefilled syringe Intravenous, As needed, Starting on Fri10/15/24 at 1617, Until Fri10/15/24 at 1801, Routine, Anesthesia Intraprocedure Given 10/15/2024 4:49 PM EDT 200 mcg Given 10/15/2024 4:31 PM EDT 200 mcg Given 10/15/2024 4:17 PM EDT 200 mcg propofol (Diprivan) infusion 10 mg/mL Intravenous, Continuous PRN, Starting on Fri10/15/24 at 1558, Until Fri10/15/24 at 1801, Routine Rate/Dose Change 10/15/2024 5:26 PM EDT 125 mcg/kg/min 64.05 mL/hr Rate/Dose Change 10/15/2024 5:10 PM EDT 150 mcg/kg/min 76. 86 mL/hr Rate/Dose Change 10/15/2024 4:53 PM EDT 125 mcg/kg/min 64. 05 mL/hr propofol (Diprivan) injection Intravenous, As needed, Starting on Fri10/15/24 at 1554, Until Fri10/15/24 at 1801, Routine, Anesthesia Intraprocedure Given 10/15/2024 3:54 PM EDT 200 mg rocuronium (ZeMuron) injection Intravenous, As needed, Starting on Fri10/15/24 at 1554, Until Fri10/15/24 at 1801, Routine, Anesthesia Intraprocedure Given 10/15/2024 4:40 PM EDT 20 mg Given 10/15/2024 3:54 PM EDT 50 mg sugammadex (Bridion) 100 MG/ML injection Intravenous, As needed, Starting on Fri10/15/24 at 1729, Until Fri10/15/24 at 1801, Routine, Anesthesia Intraprocedure Given 10/15/2024 5:29 PM EDT 341.6 mg documented in this encounter Additional Health Concerns Active Problems Noted Date Diagnosed Date Autogenerated Problem 09/28/2024 Infection Onset Date Last Indicated Resolved Time Tuberculosis Rule-Out 10/15/2024 10/15/2024 Assessment Noted Time A fall risk assessment has been complete d for the patient 09/27/2024 9:29 AM EDT documented as of this encounter Care Teams Controls Designer Relationship Specialty Start Date End Date Jaylon Pa MD [address] [place] [address] PCP - General 09/27/24 documented as of this encounter
--- OUTSIDE RECORDS SUMMARY | 2024-10-15 18:10 | XMS_ITS | Encounter Summary ---
Author Organization [facility] Address [facility] [place] [id number] Care Team Providers Care J2Ee Java Developer Name Role Phone Jaylon Pa MD Primary Care Provider [phone] Encounter Details Date Type Department Care Team (Latest Contact Info) Description 10/15/2024 6:10 PM EDT - 10/15/2024 11:59 PM EDT Hospital Encounter PAV H Radiology [address] [place] [address] Discharge Disposition: Home or Self Care Social [...] Hospital Encounter PAV A OPERATING ROOM [address] [place] [address] Chandler Escobar MD [address] [place] [address] 11/19/2024 7:30 AM EDT Anesthesia Event PAV A OPERATING ROOM [address] [place] [address] Bubba Mcclelland APRN [address] [place] [address] 11/19/2024 7:30 AM EDT - 11/19/2024 11:55 AM EDT Surgery PAV A OPERATING ROOM [address] [place] [address] Chandler Escobar MD [address] [place] [address] ROBOTIC RIGHT UPPER LOBE WEDGE, POSSIBLE LOBECTOMY [77817 (CPT ) +1 more] Scheduled Procedures Name [...] documented as of this encounter Care Teams J2Ee Java Developer Relationship Specialty Start Date End Date Jaylon Pa MD [address] [place] [address] PCP - General 09/27/24 documented as of this encounter
--- OUTSIDE RECORDS SUMMARY | 2024-10-25 09:00 | XMS_ITS | Encounter Summary ---
Author Organization [facility] Address [address] [id number] Care Team Providers Care Industrial Insulator Name Role Phone Jaylon Pa MD Primary Care Provider [phone] Reason for Referral * Imaging (Urgent) - Authorized Specialty Diagnoses / Procedures Referred By Franki castillo Referred To Contact Cardiology Diagnoses Lung nodule Other emphysema (CMS/HCC) Dyspnea, unspecified type Procedures Echo, Adult Transthoracic Complete Chandler Escobar MD [address] [facility] [address] [place] [address] Phone: tel: fax: Referral ID Status Reason Start Date Expiration Date Visits Requested Visits Authorized [id number] Authorized Perform Procedure 10/25/2024 04/26/2026 1 1 Reason for Visit * Reason Comments New Patient * Consultation (Routine) - Closed Specialty Diagnoses / Procedures Referred By Franki castillo Referred To Contact Cardiothoracic Surgery Diagnoses Malignant neoplasm of right upper lobe of lung (CMS/HCC) Robin Leyva MD [address] [place] [address] Phone: tel: fax: Cardiothoracic Surgery [address] [place] [address] Phone: tel: Referral ID Status Reason Start Date Expiration Date V isits Requested Visits Authorized [id number] Closed Specialty Services Required 10/20/2024 04/21/2026 1 1 Encounter Details Date Type Department Care Team ([facility] st Contact Info) Description 10/25/2024 9:00 AM EDT Office Visit Pav CC Head, Neck & Respiratory [address] [place] [address] Chandler Escobar MD [address] [place] [address] Lung nodule (Primary Dx); Other [...] from the original note were not included. [facility] Department of Surgery Section of Thoracic Surgery [...] candidate. 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 [...] Hospital Encounter PAV A OPERATING ROOM [address] [place] [address] Chandler Escobar MD [address] [place] [address] 11/19/2024 7:30 AM EDT Anesthesia Event PAV A OPERATING ROOM [address] [place] [address] Bubba Mcclelland, JAGJIT [address] [place] [address] 11/19/2024 7:30 AM EDT - 11/19/2024 11:55 AM EDT Surgery PAV A OPERATING ROOM [address] [place] [address] Chandler Escobar MD [address] [place] [address] ROBOTIC RIGHT UPPER LOBE WEDGE, POSSIBLE LOBECTOMY [56188 (CPT ) +1 more] Scheduled Orders Name [...] documented as of this encounter Care Teams Industrial Insulator Relationship Specialty Start Date End Date Jaylon Pa MD [address] [place] [address] [address] [place] [address] PCP - General 09/27/24 documented as of this encounter
[2024-11-10 13:31] LABS: Hematocrit 51.4 % (42.0-52.0); Hemoglobin 16.7 g/dL (14.1-18.0); Immature Granulocytes % 0.6 %; Mean Corpuscular HGB Conc 32.5 g/dL (31.8-35.4); Mean Corpuscular Hemoglobin 30.6 pg (27.0-31.2); Mean Corpuscular Volume 94.3 fl (80-94); Nucleated Red Blood Cells % 0 %; Platelet Count 234 K/mm3 (142-424); Red Blood Count 5.45 M/mm3 (4.60-6.20); Red Cell Distribution Width-SD 46.5 fL; White Blood Count 6.9 K/mm3 (4.8-10.8)
[2024-11-10 14:07] LABS: Hemoglobin A1C 6.9 % (4.0-6.0)
[2024-11-10 14:11] LABS: Albumin Level 4.8 g/dl (3.5-5.0); Chloride 97 mmol/L (98-107); Potassium 5.2 mmoL/L (3.5-5.1); Sodium 138 mmol/L (136-145)
[2024-11-10 14:14] LABS: Alanine Aminotransferase 32 U/L (12-78); Albumin/Globulin Ratio 1.7 (1.1-1.8); Alkaline Phosphatase 107 U/L (38-126); Anion Gap 17.2 mEq/L (5-15); Aspartate Amino Transferase 37 U/L (17-59); Bilirubin,Total 0.7 mg/dl (0.2-1.3); Blood Urea Nitrogen 18 mg/dl (9-20); Calcium 9.6 mg/dl (8.4-10.2); Carbon Dioxide 29 mmol/L (22.0-30.0); Cholesterol 108 mg/dl (140-200); Creatinine,Serum 0.90 mg/dl (0.66-1.25); Estimated Glomerular Filt Rate 83 ml/min (>60); GFR (African American) 101 ML/MIN (>60); Globulin 2.9 g/dL (1.3-3.2); Glucose 118 mg/dl (74-100); HDL Cholesterol 46 mg/dl (40-60); Total Protein,Serum 7.7 g/dl (6.3-8.2); Triglycerides 71 mg/dl (30-150)
--- OUTSIDE RECORDS SUMMARY | 2024-11-10 14:45 | XMS_ITS | Encounter Summary ---
Author Organization Healthcare Address [address] [id number] Care Team Providers Care Revenue Specialist Name Role Phone Jaylon Pa MD Primary Care Provider [phone] Encounter Details Date Type Department Care Team (Late st Contact Info) Description 11/10/2024 2:45 PM EDT Pre-Admission Testing [facility] [address], [address] [place] [address] Anesthesia Record Procedure Summary Procedure Name Responsible Anesthesiologist Anesthesia Start Time Anesthesia Stop Time ROBOTIC RIGHT UPPER LOBE WEDGE, POSSIBLE LOBECTOMY (Right) Events No events on file. Meds * Agents No agents on file. * Blood No blood administrations on file. Lines, Drains, and Airways No LDAs on file. documented in this encounter Social History Tobacco Use Types Packs/Day Years Used Date Smoking Tobacco: Every Day Cigarettes 0.5 56.7 Started: 1966 Smokeless Tobacco: Never Tobacco Cessation:Ready to Q uit: Not Asked; Counseling Given: Not Answered Comments:Less than 1/2 pack per day Alcohol Use Standard Drinks/Week Comments Never 0 [...] as of this encounter Miscellaneous Notes * PAT Evaluation Note - Mayte Leal PA - 11/10/2024 2:45 PM EDT Images from the original note were not included. HPI Edwin Gould is a 73 y.o. male who presents with Pre-op Diagnosis * Lung nodule [R91.1] now scheduled for ROBOTIC RIGHT UPPER LOBE WEDGE, POSSIBLE LOBECTOMY (Right) with Chandler Escobar MD on 11/19/2024 in [facility] [place] Past Medical History[1] Family History[2] Social History[3] SURGICAL HISTORY: Surgical History[4] Allergies[5] MEDICATIONS: Current Medications[6] ROS Anesthesia: Date of last anesthetic: 10/15/24 Final airway type: endotracheal airway Successful airway: ETT Cuffed: yes Successful intubation technique: direct laryngoscopy Endotracheal tube insertion site: oral Blade: Raquel Blade size: #4 ETT size (mm): 8.5 Cormack-Lehane Classification: grade IIa - partial view of glottis Placement verified by: chest auscultation, bronchoscopy and capnometry Measured from: lips ETT to lips (cm): 22 history of previous anesthesia. Does not have a history of anesthetic complications, malignant hyperthermia, obstructive sleep apnea and PONV. Cardiovascular: CAD (in records but patient denies - sees cards at [facility]), hyperlipidemia and a murmur (got echo). Does not have angina, atrial fibrillation, CHF, dyspnea, dysrhythmias, pacemaker, past AK or syncope. hypertension: is well controlled. Exercise tolerance is 2 flights of stairs. Does not have chest pain. Cardio additional comments: -Can lay flat. -No active cardiac complaints. Per CT surgery note Assessment and Plan: Edwin Gould is a [...] -call clinic with any questions or concerns - Jerzy Bailey MD 11/08/24 Echo Normal biventricular systolic function No significant valvular stenosis or regurgitation Ef 55% . Respiratory: allergic rhinitis and chronic cough. Does not have home oxygen. Patient has no dyspnea.no asthma: COPD: breathing at baseline.Has not had an upper respiratory infection in last 30 days. Has not had bronchitis in the last 30 days, pneumonia in the last 30 days, RSV in the last 30 days or COVID in the last 30 days. 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 HEENT additional comments: Upper and lower dentures . Neurological: no seizures: Did not have a cerebrovascular accident.Does not have TIA. Musculoskeletal: arthritis. Does not have cervical spine limited mobility[place] [facility] [place] additional comments: R arm abrasion Gastrointestinal: Does not have GERD.Does not have hernia, pancreatitis or PUD. Does not have cirrhosis or hepatitis. Genitourinary: Does not have chronic renal disease.Does not have renal disease. Hematological/Lymphatic: History of no DVT. History of no pulmonary embolism. Not in a hypercoagulable state. no history of chemotherapy no history of radiation Does not have AIDS, HIV, MRSA or tuberculosis. Endocrine/Metabolic: diabetes mellitus type 2.well controlled. patient does not check Does not have thyroid disorder. No results found for: WBC , HGB , HCT , MCV , PLT No results found for: GLUCOSE , BUN , CREATININE , BCR , NA , K , CL , CO2 , AG , CA , PROT , ALBUMIN , ALKPHOS , BILITOT No results found for: HGBA1C No results found for: INR , PROTIME Visit Vitals Smoking Status Every Day 10/25/2024 8:27 AM Vitals Systolic 113 Diastolic 69 Heart Rate 105 Temp 36.6 C Resp 18 Height (cm) 177.8 cm Weight (kg) 85.3 kg BMI 26.98 kg/m2 BSA (m2) 2.05 m2 Visit Report Report OSH ECHO 11/08/24 (media) EF 55%. Normal LV segmental wall motion. Normal left ventricular diastolic funtion Normal right ventricular systolic function No evidence of interatrial shunt. No hemodynamically significant valvular dysfunction Physical Exam Anesthesia Plan ASA 3 Anesthesia technique(s) discussed with the patient/family: general Comment: TARIK Phone Screen Request records from [facility] Cardiology Discussed with Dr. Tahmina Mcclelland APRN [1] Past Medical History: Diagnosis Date Diabetes (CMS/HCC) High blood pressure High cholesterol [2] Family History Problem Relation Name Age of Onset Cancer Mother No Known Problems Father Cancer Brother Anesthesia problems Neg Hx Malig Hyperthermia Neg Hx [3] Social History Tobacco Use Smoking status: Every Day Current packs/day: 0.50 Average packs/day: 0.5 packs/day for 56.7 years (28.3 ttl pk-yrs) Types: Cigarettes Start date: 1966 Smokeless tobacco: Never Tobacco comments: Less than 1/2 pack per day Vaping Use Vaping status: Never Used Substance Use Topics Alcohol use: Never Drug use: Never [4] Past Surgical History: Procedure Laterality Date LUNG BIOPSY NO PAST SURGERIES [5] Allergies Allergen Reactions Penicillins Other - please document in the comment field [6] Current Outpatient Medications: albuterol, Inhale 2 puffs. Aspirin Low Dose, Take 1 tablet by mouth daily. fluticasone, shake liquid and use 2 sprays in each nostril daily lisinopril-hydroCHLOROthiazide, Take 1 tablet by mouth daily. metFORMIN, Take 2 tablets by mouth 2 times a day. iVIZIA Dry Eyes, Administer into affected eye(s). pravastatin, Take 1 tablet by mouth nightly. * Preprocedure Instructions - Bubba Mcclelland APRN - 11/10/2024 2:45 PM EDT Home Medication Instructions Current Medications Medication Instructions albuterol 108 (90 Base) MCG/ACT inhaler Take as needed Aspirin Low Dose 81 MG EC tablet Take morning of surgery per Dr. Martel fluticasone (Flonase) 50 MCG/ACT nasal spray Take as needed lisinopril-hydroCHLOROthiazide 20-25 MG tablet Hold day of surgery metFORMIN (Glucophage) 500 MG tablet Hold 48 hours before surgery Povidone, PF, (iVIZIA Dry Eyes) 0.5 % solution Take as needed pravastatin (Pravachol) 20 MG tablet Take night before surgery General Preoperative Instructions You will be called the business day before surgery with your arrival time No food after midnight the night before surgery. You can drink clear liquids up to 2 hours prior to arrival. Please do not try to get all your hydration in 2 hours prior to arrival. Start the day before surgery drinking more than you usually would.After midnight, you can have clear liquids only (water, apple juice, Gatorade) up to 2 hours prior to arrival. No coffee or tea. No alcohol or smoking prior to surgery Arrive on time to avoid delays Parking/Registration procedure explained You MUST have a responsible adult available for transport to and from hospital Visitation policy for the day of surgery reviewed Bring insurance card, photo ID, along with power of securities attorney, guardianship or advanced directives if applicable Do not bring money, jewelry or other valuables Hibiclens bathing instructions reviewed if applicable Notify surgeon of fever, illness, any changes or if you decide not to have surgery Pediatric patients under 12 years of age (If applicable) No solid food or milk after midnight Formula 6 hours prior to arrival for surgery Breast milk 4 hours prior to arrival surgery Clear liquids 2 hours prior to arrival for surgery Diabetes Instructions (If applicable) Take diabetes medication as instructed You may have up to 4 ounces of apple juice 2 hours prior to arrival for surgery for low glucose documented in this encounter Plan of Treatment Upcoming Encounters Date Type Department Care Team (Latest Contact Info) Description 11/19/2024 7:30 AM EDT Hospital Encounter [facility] [address] [place] [address] Chandler Escobar MD [address] [id number] 11/19/2024 7:30 AM EDT Anesthesia Event [facility] [address] [place] [address] Bubba Mcclelland, PROFESSIONAL SERVICES MANAGER [address] [place] [address] 11/19/2024 7:30 AM EDT - 11/19/2024 11:55 AM EDT Surgery [facility] [address] [place] [phone] Chandler Escobar MD [address] [place] [address] ROBOTIC RIGHT UPPER LOBE WEDGE, POSSIBLE LOBECTOMY [33131 (CPT ) +1 more] Scheduled Procedures Name Priority Associated Diagnoses Date/Ti me VATS, ROBOT-ASSISTED Lung nodule 11/19/2024 7:30 AM EDT documented as of this encounter Goals Goal Patient Goal Type Associated Problems Recent Progress Patient-Stated? Author Autogenerat ed Goal Care Plan Autogenerated Problem No Quiana Pa Autogenerat ed Goal Care Plan Autogenerated Problem No Phyllis Linares documented as of this encounter Visit Diagnoses Not on filedocumented in this encounter Additional Health Concerns Active Problems Noted Date Diagnosed Date Autogenerated Problem 09/28/2024 Autogenerated Problem 10/26/2024 Infection Onset Date Last Indicated Resolved Time Tuberculosis Rule-Out 10/15/2024 10/15/2024 Assessment Noted Time A fall risk assessment has been complete d for the patient 10/25/2024 8:46 AM EDT A Body Mass Index follow-up plan has been documented for the patient 10/26/2024 12:00 PM EDT documented as of this encounter Care Teams Revenue Specialist Relationship Specialty Start Date End Date Jaylon Pa MD [address] [facility] [address] [place] [address] PCP - General 09/27/24 documented as of this encounter
--- OUTSIDE RECORDS SUMMARY | 2024-11-12 11:03 | XMS_ITS | Encounter Summary ---
Author Organization [facility] Address [address] [id number] Care Team Providers Care Mental Health Technician Name Role Phone Jaylon Pa MD Primary Care Provider [phone] Reason for Referral * Imaging (Routine) - Closed Specialty Diagnoses / Procedures Referred By Franki castillo Referred To Contact Radiology Diagnoses Lung nodule Procedures CT Chest wo IV Contrast Robin Leyva MD [address] [place] [address] Phone: tel: fax: Referral ID Status Reason Start Date Expiration Date Visits Re quested Visits Authorized [id number] Closed 09/28/2024 03/30/2026 1 1 Encounter Details Date Type Department Care Team (Late st Contact Info) Description 09/28/2024 Orders Only Pav CC Head, Neck & Respiratory [address] [facility], [address]nd [place] [address] Terrie Sloan, RN Lung nodule (Primary Dx) [...] Hospital Encounter [facility] [address] [place] [phone] Chandler Escobar MD [address] [place] [address] 11/19/2024 7:30 AM EDT Anesthesia Event [facility] [address] [place] [phone] Bubba Mcclelland APRN [address] [place] [address] 11/19/2024 7:30 AM EDT - 11/19/2024 11:55 AM EDT Surgery [facility] [address] [place] [address] Chandler Escobar MD [address] [place] [address] ROBOTIC RIGHT UPPER LOBE WEDGE, POSSIBLE LOBECTOMY [04161 (CPT ) +1 more] Scheduled Procedures Name Priority Associated Diagnoses Date/Ti me VATS, ROBOT-ASSISTED Lung nodule 11/19/2024 7:30 AM EDT documented as of this encounter Goals Goal Patient Goal Type Associated Problems Recent Progress Patient-Stated? Author Autogenerat ed Goal Care Plan Autogenerated Problem No Quiana Pa L documented as of this encounter Results * [...] signing this report, I, the attending physician, jimmieat I have personally reviewed the images/data for [...] documented as of this encounter Care Teams Mental Health Technician Relationship Specialty Start Date End Date Jaylon Pa MD [address] [place] [address] PCP - General 09/27/24 documented as of this encounter
--- OUTSIDE RECORDS SUMMARY | 2024-11-12 11:03 | XMS_ITS | Encounter Summary ---
Author Organization [facility] Address [address] [id number] Care Team Providers Care Lumber Straightened Name Role Phone Jaylon Pa MD Primary Care Provider [phone] Reason for Visit * Reason Comments Social Work/navigation Follow-up Encounter Details Date Type Department Care Team ([facility] st Contact Info) Description 10/20/2024 Social Work Pav CC Head, Neck & Respiratory [address] [place] [address] Albert Graham III Social History Tobacco Use [...] Onc [facility] Disease Type: Lung & Bronchus Services Provided: Resource Navigation Education Provided: Psych-Onc Services Intervention Level: 1 Units (1 unit = 15 minutes): 1 Narrative: PN attempted to call pt to discuss Tobacco Cessation Program, but there was no answer. PN left a non urgent message encouraging pt to call if they were interested in participating in the program. Albert Graham III, Patient Navigator [facility] Psych-Oncology Services documented in this encounter Plan of Treatment Upcoming Encounters Date Type Department Care Team (Latest Contact Info) Description 11/19/2024 7:30 AM EDT Hospital Encounter [facility] [address] [place] [address] Chandler Escobar MD [address] [place] [address] 11/19/2024 7:30 AM EDT Anesthesia Event [facility] [address] [place] [address] Bubba Mcclelland APRN [address] [place] [address] 11/19/2024 7:30 AM EDT - 11/19/2024 11:55 AM EDT Surgery [facility] [address] [place] [address] Chandler Escobar MD [address] [place] [address] ROBOTIC RIGHT UPPER LOBE WEDGE, POSSIBLE LOBECTOMY [47396 (CPT ) +1 more] Scheduled Procedures Name [...] documented as of this encounter Care Teams Lumber Straightened Relationship Specialty Start Date End Date Jaylon Pa MD [address] [place] [address] PCP - General 09/27/24 documented as of this encounter
--- OUTSIDE RECORDS SUMMARY | 2024-11-12 11:03 | XMS_ITS | Clinical Summary ---
Author Organization Healthcare Address [address] [place] [address] Care Team Providers Care Intermission Coordinator Name Role Phone Jaylon Pa MD Primary Care Provider [phone] Allergies Active Allergy Reactions Criticality Noted Date Comments Penicillins Other - please docum ent in the comment field Low 09/27/2024 Medications metFORMIN (Glucophage) 500 MG tablet Take 2 tablets by mouth 2 times a day. 5 Active pravastatin (Pravachol) 20 MG tablet Take 1 tablet by mouth nightly. 4 Active fluticasone (Flonase) 50 MCG/ACT nasal spray shake liquid and use 2 sprays in each nostril daily 5 Active Aspirin Low Dose 81 MG EC tablet Take 1 tablet by mouth daily. 4 Active lisinopril-hydr oCHLOROthiazide 20-25 MG tablet Take 1 tablet by mouth daily. 5 Active albuterol 108 (90 Base) MCG/ACT inhaler Inhale 2 puffs. 5 Active Povidone, PF, (iVIZIA Dry Eyes) 0.5 % solution Administer into affected eye(s). 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 Encounters Date Type Department Care Team Description 11/10/2024 2:45 PM EDT Pre-Admission Testing [place] [facility] [address], [address] [place] [address] 11/10/2024 Travel 11/09/2024 Telephone [place] [facility] [address] [place] [address] Cholo Martel MD 10/25/2024 9:00 AM EDT Office Visit [facility] [address] [phone] Chandler Escobar MD Lung nodule (Primary Dx); Other emphysema (CMS/HCC); Dyspnea, unspecified type 10/25/2024 Social Work Psych Oncology [address] [place] [address] Skye Stoll LCSW 10/25/2024 Travel 10/20/2024 Social Work [facility] [address] [phone] Albert Graham III 10/20/2024 Orders Only [facility] [address] [phone] Tonie Centeno, RN Malignant neoplasm of right upper lobe of lung (CMS/HCC) (Primary Dx) 10/19/2024 Telephone [facility] [address] [phone] Robin Leyva MD 10/15/2024 6:10 PM EDT - 10/15/2024 11:59 PM EDT Hospital Encounter [facility] [address] [place] [phone] Discharge Disposition: Home or Self Care 10/15/2024 3:47 PM EDT Anesthesia Event [facility] End[facility] [address] [place] [phone] Sudhir Ferris MD 10/15/2024 3:10 PM EDT - 10/15/2024 6:09 PM EDT Hospital Encounter [facility] [address] [place] [phone] Lung nodule Discharge Disposition: Home or Self Care 10/15/2024 12:38 PM EDT - 10/15/2024 3:09 PM EDT Hospital Encounter [facility] [address] [place] [phone] Robin Leyva MD Seals, Brian RN Lung nodule Discharge Disposition: Home or Self Care 10/15/2024 10:42 AM EDT - 10/15/2024 12:37 PM EDT Hospital Encounter [facility] [address] [place] [address] Lung nodule Discharge Disposition: Home or Self Care 10/15/2024 Travel 09/28/2024 Orders Only [facility] [address] [facility] [place] [phone] Terrie Sloan RN Lung nodule (Primary Dx) 09/27/2024 2:00 PM EDT Ancillary Procedure [facility] Medicine Specialties [address], [address] [place] [phone] Other emphysema (CMS/HCC) 09/27/2024 10:00 AM EDT Office Visit [facility] [address] [phone] Robin Leyva MD Lung nodule (Primary Dx); Other emphysema (CMS/HCC) 09/27/2024 Travel 09/13/2024 Orders Only External Location [address] [place] [phone] Provider, External 08/18/2024 Orders Only External Location [address] [place] [phone] Jaylon Pa MD from Last 3 Months Family History Medical History Relation Name Comments Cancer Brother No Known Problems Father Cancer Mother Anesthesia problems Neg Hx Malig Hyperthermia Neg Hx Relation Name Status Comments Brother Father Mother [...] Hospital Encounter [facility] [address] [place] [phone] Chandler Escobar MD [address] [place] [address] 11/19/2024 7:30 AM EDT Anesthesia Event [facility] [address] [place] [phone] Bubba Mcclelland APRN [address] [place] [phone] 11/19/2024 7:30 AM EDT - 11/19/2024 11:55 AM EDT Surgery [facility] [address] [place] [phone] Chandler Escobar MD [address] [place] [phone] ROBOTIC RIGHT UPPER LOBE WEDGE, POSSIBLE LOBECTOMY [45904 (CPT ) +1 more] Scheduled Procedures Name Priority Associated Diagnoses Date/Ti me VATS, ROBOT-ASSISTED Lung nodule 11/19/2024 7:30 AM EDT Health Maintenance Due Date Last Done Comments [facility]-Depression Screening 1950 [facility]-Diabetes: Hemoglobin A1C 1950 [facility]-Hepatitis C Screening 1950 [facility]-Medicare Annual Wellness (AWV) 1950 [facility]-Infant/Child/Adol SDOH Screenings 1950 [facility]-[id number]-45 Vaccine (#1) 1957 Diabetes: Dental Exam 1962 [...] ed Goal Care Plan Autogenerated Problem No Linares Phyllis A Procedures Procedure Name Priority Date/Time Associated Diagnosis [...] Routine 10/15/2024 4:57 PM EDT Lung nodule FL AN ELECTIVE ENDOTRACHEAL AIRWAY Routine 10/15/2024 3:57 [...] Benita Escalera MD on 10/15/2024 9:35 PM us Robin Leyva MD IMG XR PROCEDURES Final [...] 10/15/2024 6:22 PM EDT [facility] Care Management Specialist ID Tata Ozuna 10/15/2024 6:22 PM EDT [facility] Device ID [id number] 10/15/2024 6:22 PM EDT [facility] Specimen Type POC Capillary 10/15/2024 6:22 PM EDT [facility] Blood Capillary blood specimen / Unknown 10/15/2024 6:20 PM EDT 10/15/2024 6:22 PM EDT us Robin Leyva MD LAB POINT OF CARE TE ST DOCKED DEVICE UNSOLICITED RESULTS Final Result Performing Organization Address City/[facility] Co de Phone Number [facility]ALTH[facility]ARE [facility] [address] [place] [address] * FL Less than 1 Hour Intraoperative (10/15/2024 5:55 PM EDT) Narrative IMAGING - 10/15/2024 6:13 PM EDT Images were obtained for surgical purposes. See Robin Leyva's surgical note in the patient's chart for the findings. us Robin Leyva MD IMG FLUOROSCOPY PROCEDURES Fi nal Result IMAGING * Bronchoscopy w Ion, w Radial US, w Biopsy, w BAL (Bronchoalveolar Lavage), w Mendham, w EBUS, w Cios (10/15/2024 5:54 PM [...] confirm the location which was tangential. The Handprint spin mobile C-arm with true cone beam [...] Nodes observed under convex ultrasound guidance. Onsite intake nurse was not present. Specimens ID Type Source [...] 5:33 PM Staff Staff Role Cam Page, Maria Guadalupe Frost CRNA Endo Slag Mixer Robin Leyva MD Proceduralist Willam Beltrán, Other - Other (see comments) Sudhir Ferris MD Anesthesiologist Charbel Rollins, SMILEY Endo Nurse Sandy Patel RN Endo Nurse Lj Garcia Endo Slag Mixer Susan Blount, GUTIERREZ WHITLEY Impression Overall Impression: Normal endobronchial exam Biopsy of the RUL nodule Sampling of 11L, 7 , 11R Post Procedure Diagnosis None Recommendation Follow-up: with me Attestation I was present for the entire procedure Billing Codes See procedure report details above. 79227 - Bronchoscopy, rigid or flexible, including fluoroscopic guidance, when performed; with brishing or protected brushings 04174 - Bronchoscopy, rigid or flexible, including fluoroscopic guidance, when performed; with computer-assisted, image-guided navigation 87980 - Bronchoscopy, rigid or flexible, including fluoroscopic guidance, when performed; with transbronchial lung biopsy(s), single lobe 52323 - Bronchoscopy, rigid or flexible, including fluoroscopic guidance, when performed; with transbronchial needle aspiration biopsy(s), trachea, main stem, and/or lobar bronchus(i) 20415 - Bronchoscopy, rigid or flexible, including fluoroscopic guidance, when performed; with transbronchial lung biopsy(s), each additional lobe (list separately in addition to code for primary procedure) 86531 - EBUS convex prove 1 or 2 lesions 30149 - EBUS convex probe 3 or more lesions GC - Service has been performed in part by a resident/fellow under the direction of a teaching physician [address] ct guided placement of a needle. us Robin Leyva MD GI PROCEDURE ORDERABLES Final Result * Non-Gynecologic Cytology (10/15/2024 5:10 PM EDT) Case Report Cytology Case: [id number] Authorizing Provider: Robin Leyva MD Collected: 10/15/2024 1710 Ordering Location: [facility] H Endoscopy Received: 10/18/2024 0938 Pathologist: Justyn Abraham MD Specimen: Bronchial Brushing, Right Upper Lobe, RIGHT UPPER LOBE BRONCHIAL BRUSHING 10/19/2024 3:20 PM EDT [facility] Final Diagnosis A. RIGHT UPPER LOBE BRONCHIAL BRUSHING - NO EVIDENCE OF MALIGNANCY 10/19/2024 3:20 PM EDT [facility] at 1520 EDT Gross Description A. RIGHT UPPER LOBE BRONCHIAL BRUSHING Mendham tip in 10 ml's tinted fluid processed as thin prep 10/19/2024 3:20 PM EDT [facility] Clinical Information R91.1 - Lung nodule [ICD-10-CM] 10/19/2024 3:20 PM EDT [facility] Brushing Bronchial brushings specimen / Unknown 10/15/2024 5:10 PM EDT 10/18/2024 9:58 AM EDT Robin Leyva MD LAB CYTOLOGY ORDERABLES Final Result [facility] [address] [place] [address] * BAL Comprehensive Respiratory Panel by PCR (10/15/2024 5:08 PM EDT) BAL Comprehensive PCR Result Not Detected for all analytes Not Detected for all analytes 10/15/2024 8:31 PM EDT [facility] Bronchial Washing Structure of upper lobe of right lung / Unknown 10/15/2024 5:08 PM EDT 10/15/2024 6:13 PM EDT Narrative [facility] - 10/15/2024 8:31 PM EDT [...] developed and its performance characteristics determined by [facility] as appropriate for clinical purposes. This assay has not been cleared or approved by the FDA, but is performed in a CLIA regulated laboratory that is performed in a CLIA regulated laboratory that is qualified to perform high-complexity testing. The [facility] Clinical Microbiology Laboratory is certified under the Clinical Laboratory Improvement Amendments of 1988 (CLIA-88) as qualified to perform high complexity clinical laboratory testing. Robin Leyva MD LAB MICROBIOLOGY - GENERAL OR DERABLES Final Result Performing Organization Address [facility]/ZIP Co de Phone Number [facility] [address] [place] [address] * Quantitative BAL/PAL/Bronch Wash Culture and Gram StainLung, Right Upper Lobe (10/15/2024 5:08 PM EDT) Culture No growth at day 2 2024 6:03 AM EDT [facility] Gram Stain Result No organisms seen 10/18/2024 6:03 AM EDT [facility] Gram Stain Result No polymorphonuclear leukocytes seen 10/18/2024 6:03 AM EDT [facility] Bronchial Washing Structure of upper lobe of right lung / Unknown 10/15/2024 5:08 PM EDT 10/15/2024 6:13 PM EDT Robin Leyva MD LAB MICROBIOLOGY - GENERAL OR DERABLES Final Result Performing Organization Address [facility] Co de Phone Number [facility] [address] [place] [address] * Fine needle aspiration (10/15/2024 4:57 PM EDT) Case Report Cytology Case: [id number] Authorizing Provider: Robin Leyva MD Collected: 10/15/2024 1659 Ordering Location: [facility] Endoscopy Received: 10/18/2024 0911 Pathologist: Sol Branch MD Specimens: A) - [...] FINE NEEDLE ASPIRATION 5 1:12 PM EDT [facility] Addendum PD-L1 IHC 22C3 pharmDx* is [...] test, with disease progression on or after wampanoag-containin g chemotherapy. Patients with EGFR or ALK genomic tumor aberrations should have disease progression on FDA-approved therapy for these aberrations prior to receiving Pembrolizumab. PD-L1 IHC serves as a complementary diagnostic in regards to other PD-L1/NC-1-azmllsc dtherapies (Nivolumab, Atezolizumab, Durvalumab, etc). Expression level: >Negative for PD-L1 expression (TPS less than 1%) >Positive for PD-L1 expression (TPS 1-49%) >Positive for high PD-L1 expression (TPS greater than or equal to 50%) *PD-L1 IHC 22C3 pharmDx is a FDA-approved benefits specialist diagnostic for pembrolizumab performed on Dako Venyo Stainer using formalin-fixed, paraffin imbedded (FFPE) tissue [...] developed by and are performed at the [facility], [address] [place] [address]. All tests reported here, except those addressing HER2 and PD-L1 expression as predictive markers, have not been cleared by or approved by the US Food and Drug Administration (FDA). The laboratory is regulated under CLIA as qualified to perform high-complexity testing. The tests are used for clinical purposes. They should not be regarded as investigational or for research. 1:12 PM EDT [facility] Addendum electronically signed by [place] [...] NO EVIDENCE OF MALIGNANCY. 1:12 PM EDT [facility] at 1653 EDT Comment Immunohistochemica l stains were performed which were supportive of the diagnosis (see below for details). PD-L1 is pending, and an addendum will be issued with the results. 1:12 PM EDT [facility] Special and Immunohistochemical Stains HC: B1-1 P40: Positive All controls show appropriate reactivity. All immunohistochemist ry, in situ hybridization, and histochemical tests were developed by and are performed at the [facility], [address] [place] [address]. All tests reported here, except those addressing [...] on decalcified specimens. 5 1:12 PM EDT [facility] Intradepartmental Consultation with Agreement Dr. Naila Abraham 1:12 PM EDT [facility] Immediate Evaluation A: FNA performed [...] on the report. 5 1:12 PM EDT [facility] Gross Description A. LUNG, RIGHT [...] Cold Time: 65h 35m 1:12 PM EDT [facility] Note: A resident was involved in the service. I attest I examined the relevant preparations for the specimens and confirmed the diagnosis or interpretation. 1:12 PM EDT [facility] Clinical Information R91.1 - Lung nodule [ICD-10-CM] 1:12 PM EDT [facility] Fine Needle Aspirate Structure of [...] CYTOLOGY ORDERABLES Edite d Result - Final [facility] [address] [place] [address] * FL AN ELECTIVE ENDOTRACHEAL AIRWAY (10/15/2024 3:57 PM EDT) Narrative Cam Page CRNA - 10/15/2024 3:57 PM EDT Cam Page CRNA 10/15/2024 4:15 PM Airway Date/Time: 10/15/2024 3:57 PM Reason: elective Airway not difficult General Information and Staff Patient location during procedure: [place] Anesthesiologist: Sudhir Ferris MD FOOD SERVICE TRAY ATTENDANT: Cam Page CRNA Performed: GUTIERREZ Patient Condition [...] ECG Atrial Rate 73 BPM MUSE ECG FL Interval 162 ms MUSE ECG QRSD Interval 78 ms MUSE ECG QT Interval 416 ms MUSE ECG QTC Interval 458 ms MUSE ECG P [place] 68 degrees MUSE ECG R [place] 27 degrees MUSE ECG T Wave [place] 72 degrees MUSE ECG Diagnosis Normal sinus [...] Pulmonary Function Test (09/27/2024 2:09 PM EDT) QGX5SADJ 2.86(A) 3.09 - 5.29 L VYAIRE PFT KGH0MWV 2.95(A) 3.09 - 5.29 L VYAIRE PFT FVC PRED 4.18 VYAIRE PFT FVC LLN 3.09 VYAIRE PFT FVCPREZSCORE -1.85 VYAIRE PFT FVCPRE%PRED 71 % % VYAIRE PFT FVCPOSTZSCORE -1.99 VYAIRE PFT FVCPOST%PRED 68 % % VYAIRE PFT FVCCHNG -90.00 VYAIRE PFT FVC%CHG -3 % % VYAIRE PFT FVC PREDAUTH US_Quanjer GLI (2011) VYAIRE PFT FVC Z-SCORE -1.85 -1.99 VYAIRE PFT NFS51SEYG 1.71(A) 2.26 - 3.98 L VYAIRE PFT FEV1 PRE 1.73(A) 2.26 - 3.98 L VYAIRE PFT FEV1 PRED 3.15 VYAIRE PFT FEV1 LLN 2.26 VYAIRE PFT ILY5SPLJEXKGO -2.55 VYAIRE PFT FEV1_Pre%Pred 55 % % VYAIRE PFT BLD1FOSLLMCRCB -2.58 VYAIRE PFT WXB3TZCY%PRED 54 % % VYAIRE PFT ZRB9AYPO -16.57 VYAIRE PFT FEV1%CHG -1 % % VYAIRE PFT FEV1 PREDTenn[facility] (2011) VYAIRE PFT FEV1 Z-SCORE -2.55 -2.58 VYAIRE PFT FIS5ZBE5ZYLM 59.87(A) 62.10 - 87.84 % VYAIRE PFT FEV1/FVC PRE 58.61(A) 62.10 - 87.84 % VYAIRE PFT WAW5WHZJHAA 76 VYAIRE PFT UBA8IEQQUF 62 VYAIRE PFT VSV8ODTJXDUTIPMS -2.03 VYAIRE PFT XEM3PXHBEI%PRED 77 % % VYAIRE PFT BVJ9GBHFAHWTJIQEF -1.89 VYAIRE PFT ERI4DKACXLD%PRED 79 % % VYAIRE PFT STL4XEVBZHI 1,264 VYAIRE PFT NHB2QPN%CHG 2 % % VYAIRE PFT BFS5SGDUEHUS [facility] (2011) VYAIRE PFT XMO3ASLPTUIEW -2 -2 VYAIRE PFT UNW81-46%_POST 0.88(A) 1.00 - 4.30 L/s VYAIRE PFT FFL87-63% PRE 0.83(A) 1.00 - 4.30 L/s VYAIRE PFT CAI42-86%_Pred 2.36 VYAIRE PFT ISL4852%LLN 1.00 VYAIRE PFT CHV1654%PREZSCORE -1.93 VYAIRE PFT SPJ3632%PRE%PRED 35 % % VYAIRE PFT TWC5444%POSTZSCORE -1.84 VYAIRE PFT WTS2378%POST%PRED 37 % % VYAIRE PFT OUA5099%CHNG 55.98 VYAIRE PFT PCU5554%%CHG 7 % % VYAIRE PFT JOI4279%[facility] US_Quanjer GLI (2011) VYAIRE PFT FDY3VWLL 3.43(A) 5.94 - 10.57 L/s VYAIRE PFT PEF PRE 3.77(A) 5.94 - 10.57 L/s VYAIRE PFT PEF PRED 8.26 VYAIRE PFT PEF LLN 5.94 VYAIRE PFT PEFPREZSCORE -3.19 VYAIRE PFT PEFPRE%PRED 46 % % VYAIRE PFT PEFPOSTZSCORE -3.43 VYAIRE PFT PEFPOST%PRED 42 % % VYAIRE PFT PEFCHNG -339.00 VYAIRE PFT PEF%CHG -9 % % VYAIRE PFT PEF PRED[facility] NHANES III (1998) VYAIRE PFT FPDABMJKQHGFJBGY4EXI 16.67(A) 18.78 - 33.75 ml/(min* mmHg) VYAIRE PFT DLCOSINGLEBREATH PRED 25.61 VYAIRE PFT DLCOSINGLEBREATH LLN 18.78 VYAIRE PFT DLCOSINGLEBREATH Z-SCORE -2.23 VYAIRE PFT DLCOSINGLEBREATH % PRED 65.1 % VYAIRE PFT DLCOSINGLEBREATH PREDPRES[facility] Stanojevic TLCO GLI (2019) VYAIRE PFT DLCOSINGLEBREATH Z-SCORE -2.23 09/27/2024 2:04 PM EDT VYAIRE PFT KBWWYCENIDGKILPQE8XY E 16.67(A) 18.78 - 33.75 ml/(min* mmHg) VYAIRE PFT DLCOCSINGLEBREATH PRED 25.61 VYAIRE PFT DLCOCSINGLEBREATH LLN 18.78 VYAIRE PFT DLCOCSINGLEBREATH Z-SCORE -2.23 VYAIRE PFT DLCOCSINGLEBREATH % PRED 65.1 % VYAIRE PFT DLCOCSINGLEBREATH PREDPRES[facility] Stanojevic TLCO GLI (2019) VYAIRE PFT BADBEC6UYN 3.93 2.97 - 5.16 ml/(min* mmHg*L) VYAIRE PFT DLCOVAPRED 4.02 VYAIRE PFT DLCOVALLN 2.97 VYAIRE PFT DLCOVAZSCORE -0.13 VYAIRE PFT DLCOVA%PRED 97.9 % VYAIRE PFT DLCOVAPREDAUT Stanojevic TLCO GLI (2019) VYAIRE PFT DLCOVAZSCORE -0.13 09/27/2024 2:04 PM EDT VYAIRE PFT GZLWOSEFK2UYY 3.93 2.97 - 5.16 ml/(min* mmHg*L) VYAIRE PFT DLCOC SB/VA PRED 4.02 VYAIRE PFT DLCOC SB/VA LLN 2.97 VYAIRE PFT DLCOC SB/VA Z-SCORE -0.13 VYAIRE PFT DLCOC SB/VA % PRED 97.9 % VYAIRE PFT DLCOC SB/VA [facility] Stanojevic TLCO GLI (2019) VYAIRE PFT DLCOC SB/VA Z-SCORE -0.13 09/27 2:04 PM EDT VYAIRE PFT BFHFNBKSZPFKMY3ZIC 4.24(A) 5.16 - 7.76 L VYAIRE PFT VASINGLEBREATH PRED 6.41 VYAIRE PFT VASINGLEBREATH LLN 5.16 VYAIRE PFT VASINGLEBREATH Z-SCORE -2.95 VYAIRE PFT VASINGLEBREATH % PRED 66.1 % VYAIRE PFT VASINGLEBREATH PREDPRES[facility] Stanojevic TLCO GLI (2019) VYAIRE PFT VASINGLEBREATH Z-SCORE -2.95 09/27/2024 2:04 PM EDT VYAIRE PFT VJPKTKAXKQLKROH2FDW 2.69(A) 3.09 - 5.29 L VYAIRE PFT IVCSINGLEBREATH PRED 4.18 VYAIRE PFT IVCSINGLEBREATH LLN 3.09 VYAIRE PFT IVCSINGLEBREATH Z-SCORE -2.25 VYAIRE PFT IVCSINGLEBREATH % PRED 64.4 % VYAIRE PFT IVCSINGLEBREATH PREDAUTHonorHealth [facility] GLI (2011) VYAIRE PFT AMANDA% VCMAX PRE 88.79 % VYAIRE PFT TLC SB PRE 4.43(A) 5.63 - 8.66 L VYAIRE PFT TLCSINGLEBREATH PRED 7.14 VYAIRE PFT TLCSINGLEBREATH LLN 5.63 VYAIRE PFT TLCSINGLEBREATH Z-SCORE -2.99 VYAIRE PFT TLCSINGLEBREATH % PRED 62.0 % VYAIRE PFT TLCSINGLEBREATH PREDAUTDayton Va Medical Center Lung volumes GLI (2019)__ VYAIRE PFT HB PRE 14.60 g(Hb)/dL VYAIRE PFT KQF4RDQ 6.24 5.63 - 8.66 L VYAIRE PFT TLCPRED 7.14 VYAIRE PFT TLCLLN 5.63 VYAIRE PFT TLCULN 8.66 VYAIRE PFT TLCZSCORE -0.98 VYAIRE PFT TLC%PRED 87.4 % VYAIRE PFT TLCPREDAUTDayton Va Medical Center Lung volumes GLI (2019)__ VYAIRE PFT VC0PRE 3.03(A) 3.09 - 5.29 L VYAIRE PFT VCPRED 4.18 VYAIRE PFT VCLLN 3.09 VYAIRE PFT VCULN 5.29 VYAIRE PFT VCZSCORE -1.73 VYAIRE PFT VC%PRED 72.5 % VYAIRE PFT VCPREDAUTHonorHealth [facility] GLI (2011) VYAIRE PFT IC0PRE 2.18(A) 2.25 - 4.17 L VYAIRE PFT ICPRED 3.23 VYAIRE PFT ICLLN 2.25 VYAIRE PFT ICULN 4.17 VYAIRE PFT IC Z-SCORE -1.75 VYAIRE PFT IC%PRED 67.5 % VYAIRE PFT ICPREDAUTDayton Va Medical Center Lung volumes GLI (2019)__ VYAIRE PFT DNPZXEGR3IQL 4.05 2.70 - 5.36 L VYAIRE PFT FRCPLETH PRED 3.88 VYAIRE PFT FRCPLETH LLN 2.70 VYAIRE PFT FRCPLETH ULN 5.36 VYAIRE PFT FRCPLETH Z-SCORE 0.21 VYAIRE PFT FRCPLETH % PRED 104.4 % VYAIRE PFT FRCPLETH PREDAUT Rodriguez Lung volumes GLI (2019)__ VYAIRE PFT JMW1ARE 0.85 0.39 - 2.51 L VYAIRE PFT ERVPRED 1.24 VYAIRE PFT ERVLLN 0.39 VYAIRE PFT ERVULN 2.51 VYAIRE PFT ERV Z-SCORE -0.65 VYAIRE PFT ERV%PRED 68.7 % VYAIRE PFT ERVPREDAUTDayton Va Medical Center Lung volumes GLI (2019)__ VYAIRE PFT RV0PRE 3.20 1.52 - 3.85 L VYAIRE PFT RVPRED 2.57 VYAIRE PFT RVLLN 1.52 VYAIRE PFT RVULN 3.85 VYAIRE PFT RVZSCORE 0.84 VYAIRE PFT RV%PRED 124.3 % VYAIRE PFT RVPREDAUT Rodriguez Lung volumes GLI (2019)__ VYAIRE PFT RV%UJL0NJD 51.34(A) 24.58 - 48.02 % VYAIRE PFT RV%TLCPRED 36 VYAIRE PFT RV%TLCLLN 25 VYAIRE PFT RV%TLCULN 48 VYAIRE PFT RV%TLCZSCORE 2.09 VYAIRE PFT RV%TLC%PRED 142.5 % VYAIRE PFT RV%TLCPREDAUT Rodriguez Lung volumes GLI (2019)__ VYAIRE PFT Anatomical Region Laterality Modality PFT 09/27/2024 1:28 PM EDT Narrative 09/28/2024 6:22 PM EDT Pulmonary Function Testing Report Edwin Gould 73 y.o. underwent pulmonary function testing today at the [facility]. The patient underwent spirometry, lung volumes by [...] 10:3 5 AM EDT External Provider IMG NM PROCEDURES Final Result * CT OUTSIDE IMAGES (08/18/2024 7:25 AM EDT) Anatomical Region Laterality Modality Computed Tomogra phy 08/18/2024 7:25 AM EDT Jaylon Pa MD IMG CT PROCEDURES Final Result from Last 3 Months Additional Health Concerns Active Problems Noted Date Diagnosed Date Autogenerated Problem 09/28/2024 Autogenerated Problem 10/26/2024 Infection Onset Date Last Indicated Tuberculosis Rule-Out 10/15/2024 10/15/2024 Insurance MEDICARE Care Teams Intermission Coordinator Relationship Specialty Start Date End Date Jaylon Pa MD [address] [place] [address] [address] [place] [address] PCP - General 09/27/24
--- OUTSIDE RECORDS SUMMARY | 2024-11-12 11:03 | XMS_ITS | Encounter Summary ---
Author Organization [facility] Address [address] [place] [address] Care Team Providers Care Welding Setter Name Role Phone Jaylon Pa MD Primary Care Provider Reason for Referral * Consultation (Routine) - Closed Specialty Diagnoses / Procedures Referred By Franki castillo Referred To Contact Cardiothoracic Surgery Diagnoses Malignant neoplasm of right upper lobe of lung (CMS/HCC) Robin Leyva MD [address] [place] [phone] Phone: tel: fax: Cardiothoracic Surgery [address] [place] [phone] Phone: tel: Referral ID Status Reason Start Date Expiration Date V isits Requested Visits Authorized [id number] Closed Specialty Services Required 10/20/2024 04/21/2026 1 1 Scheduling Instructions Re: for RUL/ RML bilobectomy * Imaging (Routine) - Authorized Specialty Diagnoses / Procedures Referred By Franki castillo Referred To Contact Diagnoses Malignant neoplasm of right upper lobe of lung (CMS/HCC) Procedures PET/CT FDG Skull Base To Mid Thigh Robin Leyva MD [address] [place] [phone] Phone: tel: fax: Referral ID Status Reason Start Date Expiration Date V isits Requested Visits Authorized [id number] Authorized 10/20/2024 04/21/2026 2 2 Encounter Details Date Type Department Care Team (Late st Contact Info) Description 10/20/2024 Orders Only Pav CC Head, Neck & Respiratory [address] [facility], 2nd [place] [phone] Tonie Centeno, RN AMB-HEAD NECK AND RESPIRATORY [...] Hospital Encounter PAV A OPERATING ROOM [address] [place] [phone] Chandler Escobar MD [address] [place] [address] 11/19/2024 7:30 AM EDT Anesthesia Event PAV A OPERATING ROOM [address] [place] [address] Bubba Mcclelland APRN [address] [place] [address] 11/19/2024 7:30 AM EDT - 11/19/2024 11:55 AM EDT Surgery [facility]AV A OPERATING ROOM [address] [place] [address] Chandler Escobar MD [address] [place] [address] ROBOTIC RIGHT UPPER LOBE WEDGE, POSSIBLE LOBECTOMY [19024 (CPT ) +1 more] Scheduled Orders Name Type Priority Associated Diagnoses Orde r Schedule PET/CT FDG Skull Base To Mid Thigh Imaging Routine Malignant neoplasm of right upper lobe of lung (CMS/HCC) Expected: 10/20/2024 (Approximate), Expires: 04/22/2026 Scheduled Procedures Name Priority Associated Diagnoses Date/Ti ia VATS, ROBOT-ASSISTED Lung nodule 11/19/2024 7:30 AM EDT Scheduled Referrals Name Type Priority [...] documented as of this encounter Care Teams Welding Setter Relationship Specialty Start Date End Date Jaylon Pa MD [address] [facility] [address] [place] [address] PCP - General 09/27/24 documented as of this encounter
--- OUTSIDE RECORDS SUMMARY | 2024-11-12 11:03 | XMS_ITS | Encounter Summary ---
Author Organization Healthcare Address [address] [place] [address] Care Team Providers Care Field Service Rep Name Role Phone Jaylon Pa MD Primary Care Provider [phone] Encounter Details Date Type Department Care Team (Late st Contact Info) Description 11/09/2024 Telephone [place] Clinic Pre-op Clinic [address], [address] [place] [address] Cholo Martel MD [address] [facility] [address] [place] [address] Social History Tobacco Use Types Packs/Day Years [...] Hospital Encounter PAV A OPERATING ROOM [address] [place] [address] Chandler Escobar MD [address] [facility] [address] [place] [address] 11/19/2024 7:30 AM EDT Anesthesia Event PAV A OPERATING ROOM [address] [place] [address] Bubba Mcclelland, JAGJIT [address] [place] [address] 11/19/2024 7:30 AM EDT - 11/19/2024 11:55 AM EDT Surgery PAV A OPERATING ROOM [address] [place] [address] Chandler Escobar MD [address] [place] [address] ROBOTIC RIGHT UPPER LOBE WEDGE, POSSIBLE LOBECTOMY [58193 (CPT ) +1 more] Scheduled Procedures Name [...] documented as of this encounter Care Teams Field Service Rep Relationship Specialty Start Date End Date Jaylon Pa MD 1210 [facility] [address] [place] [address] PCP - General 09/27/24 documented as of this encounter
--- OUTSIDE RECORDS SUMMARY | 2024-11-12 11:03 | XMS_ITS | Encounter Summary ---
Author Organization [facility] Address [address] [place] [address] Care Team Providers Care Cyber Incident Responder Name Role Phone Jaylon Pa MD Primary Care Provider [phone] Encounter Details Date Type Department Care Team [...] Hospital Encounter PAV A OPERATING ROOM [address] [place] [address] Chandler Escobar MD [address] [place] [address] 11/19/2024 7:30 AM EDT Anesthesia Event PAV A OPERATING ROOM [address] [place] [address] Bubba Mcclelland, LEASE OUT MAN [address] [place] [address] 11/19/2024 7:30 AM EDT - 11/19/2024 11:55 AM EDT Surgery [facility] A OPERATING ROOM [address] [place] [address] Chandler Escobar MD [address] [place] [address] ROBOTIC RIGHT UPPER LOBE WEDGE, POSSIBLE LOBECTOMY [71107 (CPT ) +1 more] Scheduled Procedures Name [...] documented as of this encounter Care Teams Cyber Incident Responder Relationship Specialty Start Date End Date Jaylon Pa MD [address] [place] [address] PCP - General 09/27/24 documented as of this encounter
--- OUTSIDE RECORDS SUMMARY | 2024-11-12 11:03 | XMS_ITS | Encounter Summary ---
Author Organization Healthcare Address [facility] [place] [id number] Care Team Providers Care Research And Development Tester Name Role Phone Jaylon Pa MD Primary Care Provider [phone] Encounter Details Date Type Department Care Team [...] Hospital Encounter PAV A OPERATING ROOM [address] [place] [address] Chandler Escobar MD [address] [place] [phone] 11/19/2024 7:30 AM EDT Anesthesia Event PAV A OPERATING ROOM [address] [place] [address] Bubba Mcclelland APRN [address] [place] [address] 11/19/2024 7:30 AM EDT - 11/19/2024 11:55 AM EDT Surgery PAV A OPERATING ROOM [address] [place] [address] Chandler Escobar MD [address] [place] [address] ROBOTIC RIGHT UPPER LOBE WEDGE, POSSIBLE LOBECTOMY [35325 (CPT ) +1 more] Scheduled Procedures Name Priority Associated Diagnoses Date/Ti wv VATS, ROBOT-ASSISTED Lung nodule 11/19/2024 7:30 AM EDT documented as of this encounter Visit Diagnoses Not on filedocumented in this encounter Additional Health Concerns Assessment Noted Time A fall risk assessment has been complete d for the patient 09/27/2024 9:29 AM EDT documented as of this encounter Care Teams Research And Development Tester Relationship Specialty Start Date End Date Jaylon Pa MD [address] [place] [address] PCP - General 09/27/24 documented as of this encounter
--- OUTSIDE RECORDS SUMMARY | 2024-11-12 11:03 | XMS_ITS | Encounter Summary ---
Author Organization Healthcare Address [address] [place] [address] Care Team Providers Care Physician/Ophthalmologist Name Role Phone Jaylon Pa MD Primary Care Provider [phone] Encounter Details Date Type Department Care Team (Late st Contact Info) Description 10/19/2024 Telephone Pav CC Head, Neck & Respiratory [address] [place] [address] Robin Leyva MD [address] [place] [address] Social History Tobacco Use Types [...] Yenny Wood - 10/19/2024 3:09 PM EDT [facility] was asking for results from tests that were done on pt here at [facility]. Told them that we would have someone find those results and send them over if available Ext [phone] documented in this encounter Plan of Treatment Upcoming Encounters Date Type Department Care Team (Latest Contact Info) Description 11/19/2024 7:30 AM EDT Hospital Encounter PAV A OPERATING ROOM [address] [place] [address] Chandler Escobar MD [address] [phone] 11/19/2024 7:30 AM EDT Anesthesia Event PAV A OPERATING ROOM [address] [place] [address] Bubba Mcclelland, JAGJIT [address] [place] [address] 11/19/2024 7:30 AM EDT - 11/19/2024 11:55 AM EDT Surgery PAV A OPERATING ROOM [address] [place] [address] Chandler Escobar MD [address] [place] [phone] ROBOTIC RIGHT UPPER LOBE WEDGE, POSSIBLE LOBECTOMY [97771 (CPT ) +1 more] Scheduled Procedures Name [...] documented as of this encounter Care Teams Physician/Ophthalmologist Relationship Specialty Start Date End Date Jaylon Pa MD [address] [place] [address] [address] [place] [id number] PCP - General 09/27/24 documented as of this encounter
--- OUTSIDE RECORDS SUMMARY | 2024-11-12 11:03 | XMS_ITS | Encounter Summary ---
Author Organization [facility] Address [address] [place] [address] Care Team Providers Care Wrapper Off Name Role Phone Jaylon Pa MD Primary Care Provider [phone] Encounter Details Date Type Department Care Team (Late st Contact Info) Description 08/18/2024 Orders Only External Location [address] [place] [phone] Jaylon Pa MD 1210 [facility] [address] [place] [phone] Social History Tobacco Use Types Packs/Day Years [...] Hospital Encounter PAV A OPERATING ROOM [address] [place] [address] Chandler Escobar MD [address] [place] [address] 11/19/2024 7:30 AM EDT Anesthesia Event PAV A OPERATING ROOM [address] [place] [address] Bubba Mcclelland APRN [address] [place] [address] 11/19/2024 7:30 AM EDT - 11/19/2024 11:55 AM EDT Surgery PAV A OPERATING ROOM [address] [place] [address] Chandler Escobar MD [address] [facility] [address] [place] [address] ROBOTIC RIGHT UPPER LOBE WEDGE, POSSIBLE LOBECTOMY [00156 (CPT ) +1 more] Scheduled Procedures Name [...] documented as of this encounter Care Teams Wrapper Off Relationship Specialty Start Date End Date Jaylon Pa MD 1210 [facility] [address] [place] [address] PCP - General 09/27/24 documented as of this encounter
--- OUTSIDE RECORDS SUMMARY | 2024-11-12 11:03 | XMS_ITS | Encounter Summary ---
Author Organization Healthcare Address [address] [place] [address] Care Team Providers Care Plant Associate Name Role Phone Jaylon Pa MD Primary Care Provider [phone] Encounter Details Date Type Department Care Team (Late st Contact Info) Description 09/13/2024 Orders Only External Location [address] [place] [address] Provider, External Social History Tobacco Use Types [...] Hospital Encounter PAV A OPERATING ROOM [address] [place] [address] Chandler Escobar MD [address] [place] [address] 11/19/2024 7:30 AM EDT Anesthesia Event PAV A OPERATING ROOM [address] [place] [address] Bubba Mcclelalnd APRN [address] [place] [address] 11/19/2024 7:30 AM EDT - 11/19/2024 11:55 AM EDT Surgery PAV A OPERATING ROOM [address] [place] [address] Chandler Escobar MD [address] [place] [address] ROBOTIC RIGHT UPPER LOBE WEDGE, POSSIBLE LOBECTOMY [02967 (CPT ) +1 more] Scheduled Procedures Name [...] External Provider IMG NM PROCEDURES Final Result documented in this encounter Visit Diagnoses Not on filedocumented in this encounter Additional Health Concerns Infection Onset Date Last Indicated Resolved Time Tuberculosis Rule-Out 10/15/2024 10/15/2024 documented as of this encounter Care Teams Plant Associate Relationship Specialty Start Date End Date Jaylon Pa MD [address] [facility] [address] [place], [place] [id number] PCP - General 09/27/24 documented as of this encounter
--- OUTSIDE RECORDS SUMMARY | 2024-11-12 11:04 | XMS_ITS | Encounter Summary ---
Author Organization Healthcare Address [address] [place] [address] Care Team Providers Care Train Electronic Technician Name Role Phone Jaylon Pa MD Primary Care Provider Encounter Details Date Type Department Care Team (Latest Contact Info) Description 11/10/2024 Travel Social History Tobacco Use Types Packs/Day Years Used Date Smoking Tobacco: Every Day Cigarettes 0.5 56.7 Started: 1966 Smokeless Tobacco: Never Comments:Less than 1/2 pack per day Alcohol [...] Hospital Encounter PAV A OPERATING ROOM [address] [place] [address] Chandler Escobar MD [address] [facility] [address] [place] [address] 11/19/2024 7:30 AM EDT Anesthesia Event PAV A OPERATING ROOM [address] [place] [address] Bubba Mcclelland, STEAM TENDER [address] [place] [address] 11/19/2024 7:30 AM EDT - 11/19/2024 11:55 AM EDT Surgery PAV A OPERATING ROOM [address] [place] [address] Chandler Escobar MD [address] [place] [address] ROBOTIC RIGHT UPPER LOBE WEDGE, POSSIBLE LOBECTOMY [55353 (CPT ) +1 more] Scheduled Procedures Name [...] documented as of this encounter Care Teams Train Electronic Technician Relationship Specialty Start Date End Date Jaylon Pa MD 1210 [facility] [address] [place] [address] PCP - General 09/27/24 documented as of this encounter
--- OUTSIDE RECORDS SUMMARY | 2024-11-12 11:04 | XMS_ITS | Encounter Summary ---
Author Organization [facility] Address [address] [place] [address] Care Team Providers Care Billboard Erector Helper Name Role Phone Jaylon Pa MD Primary Care Provider [phone] Encounter Details Date Type Department Care Team [...] Hospital Encounter PAV A OPERATING ROOM [address] [place] [address] Chandler Escobar MD [address] [place] [address] 11/19/2024 7:30 AM EDT Anesthesia Event PAV A OPERATING ROOM [address] [place] [address] Bubba Mcclelland, METER AND REGULATOR SHOP SUPERVISOR [address] [place] [address] 11/19/2024 7:30 AM EDT - 11/19/2024 11:55 AM EDT Surgery PAV A OPERATING ROOM [address] [place] [address] Chandler Escobar MD [address] [place] [address] ROBOTIC RIGHT UPPER LOBE WEDGE, POSSIBLE LOBECTOMY [96418 (CPT ) +1 more] Scheduled Procedures Name [...] documented as of this encounter Care Teams Billboard Erector Helper Relationship Specialty Start Date End Date Jaylon Pa MD [address] [place] [address] [address] [place] [address] PCP - General 09/27/24 documented as of this encounter
--- OUTSIDE RECORDS SUMMARY | 2024-11-12 11:04 | XMS_ITS | Encounter Summary ---
Author Organization [facility] Address [address] [place] [id number] Care Team Providers Care Combination Machine Tool Operator Name Role Phone Jaylon Pa MD Primary Care Provider [phone] Reason for Visit * Reason Comments Consult Encounter Details Date Type Department Care Team ([facility] st Contact Info) Description 10/25/2024 Social Work Psych Oncology [address] [place] [address] Skye Stoll LCSW [place] [phone] Social History Tobacco Use Types Packs/Day Years Used Date Smoking Tobacco: Every Day Cigarettes 0.5 56.7 Started: 1967 Smokeless Tobacco: Never Alcohol Use [...] Status: Initial Psych Onc Contact Clinic Location: [facility] Disease Type: Lung & Bronchus Services Provided: Misc (Specify) Miscellaneous Services: Notary Education Provided: Legal Resources Intervention Level: 2 Units (1 unit = 15 minutes): 1 Narrative: HEEL SEAT FILLER was consulted by patient regarding need for notary. HEEL SEAT FILLER reviewed paperwork and highlighted that two disinterested witnesses are required to complete paperwork to be valid and notarize. HEEL SEAT FILLER explained that [facility] requires durable POA paperwork to have two witness and notary. He was advised no one on medical staff can serve as witnesses so he'd likely need to pivot to having friends or family members not interested in document present. Patient and son verbalized understanding and were appreciative. HEEL SEAT FILLER provided brief education of Psych-Onc services and availability and encouraged patient to reach out for supportive needs as they arise. documented in this encounter Plan of Treatment Upcoming Encounters Date Type Department Care Team (Latest Contact Info) Description 11/19/2024 7:30 AM EDT Hospital Encounter PAV A OPERATING ROOM [address] [place] [address] Chandler Escobar MD [address] [place] [address] 11/19/2024 7:30 AM EDT Anesthesia Event PAV A OPERATING ROOM [address] [place] [address] Bubba Mcclelland, JAGJIT [address] [place] [address] 11/19/2024 7:30 AM EDT - 11/19/2024 11:55 AM EDT Surgery PAV A OPERATING ROOM [address] [place] [address] Chandler Escobar MD [address] [place] [address] ROBOTIC RIGHT UPPER LOBE WEDGE, POSSIBLE LOBECTOMY [27487 (CPT ) +1 more] Scheduled Procedures Name Priority Associated Diagnoses Date/Ti me VATS, ROBOT-ASSISTED Lung nodule 11/19/2024 7:30 AM EDT documented as of this encounter Goals Goal Patient Goal Type Associated Problems Recent Progress Patient-Stated? Author Autogenerat ed Goal Care Plan Autogenerated Problem No ThiernoEloisalogan Ordonez documented as of this encounter Visit [...] documented as of this encounter Care Teams Combination Machine Tool Operator Relationship Specialty Start Date End Date Jaylon Pa MD [address] [place] [address] [address] [place] [address] PCP - General 09/27/24 documented as of this encounter
== END 2024-11-10 23:59 | disposition home or self-care (01) ==
LOC: LAB.DROPOF 11-12 11:01
PROVIDERS: PCP Internal Medicine; Visit Provider Internal Medicine
DX: E11.59 Type 2 diabetes mellitus with other circulatory complications (principal); I10 Essential (primary) hypertension; I73.9 Peripheral vascular disease, unspecified; E78.49 Other hyperlipidemia
CPT/HCPCS: 80053; 80061; 83036; 85025

== ENCOUNTER 2025-03-02 06:11 | Inpatient (IN) | payer MEDICARE, SELFPAY ==
[2025-03-02] VITALS (14 sets, daily range): BP systolic 87–188; BP diastolic 63–101; PULSE 77–116; RESP 16–19; TEMP 36.6; O2SAT 93–98; BMI 26.5; BMI 25.1
--- NOTE | 2025-03-02 06:14 | ED_ITS ---
<Statement entered by Yifan Cody MD - 03/02/25 13:39> Yifan Cody MD: I was consulted by the TARIK, and we discussed the complexity of the problems being addressed. I approve the treatment and management plan for this patient's care in the emergency department, thus performing a substantive portion of the medical decision making. Discharge Plan Disposition Patient Disposition: Admitted Prescriptions Prescriptions: No Action aspirin [Adult Aspirin Regimen] 81 mg tablet,delayed release (DR/EC) 81 mg PO DAILY Qty: 30 5RF fluticasone propionate 50 mcg/actuation spray,suspension 2 spray intranasal DAILY Qty: 16 5RF albuterol sulfate [Ventolin HFA] 90 mcg/actuation HFA aerosol inhaler 2 inh inhalation QID PRN (Reason: shortness of breath or wheezing) 90 Days Qty: 8.5 3RF atropine 1 % drops Eye-Both Patient Comments: INSTILL 1 DROP INTO THE LEFT EYE ONCE DAILY Stiolto Respimat 2.5-2.5 mcg/actuation mist 2 puff inhalation DAILY PRN azithromycin 250 mg tablet See Rx Instructions PO .COMPLEX Qty: 6 0RF Rx Instructions: For 250 mg dose pack: take 500 mg today (day 1), then 250 mg for 4 days (days 2-5) PO atorvastatin [Lipitor] 40 mg tablet 40 mg PO DAILY Qty: 90 1RF metformin 500 mg tablet See Rx Instructions .ROUTE .COMPLEX Qty: 360 1RF Dose Instruction: TAKE 2 TABLETS BY MOUTH TWICE DAILY Rx Instructions: TAKE 2 TABLETS BY MOUTH TWICE DAILY lisinopril 20 mg tablet 20 mg PO DAILY Qty: 90 1RF Referrals Follow up/Referrals: Jaylon Pa MD [Primary Care Provider, Medical] - See instructions Clinical Impressions Clinical Impression: Closed femur fracture Qualifiers: Encounter type: initial encounter Femur location: intertrochanteric Print Language Print Language: [place] Discharge ED Provider: Cristobal Weiss General Adult HPI General Chief complaint: Fall Stated complaint: fall Time Seen by Provider: 03/02/25 06:12 History of Present Illness HPI narrative: 74-year-old male with history hypertension, COPD, diabetes presents for fall. He was walking on ice this morning on his way to work and he fell onto his right hip. He denies any other pain or injuries. Did not hit his head. He reports pain in his right hip, worse with movement. Related Data Home Medications ?Medication ?Instructions ?Recorded ?Confirmed atropine 1 % eye drops drp Eye-Both 01/30/23 tiotropium 2.5 mcg-olodaterol 2.5 2 puff inhalation DA ANGELINE PRN 02/14/25 02/14/25 mcg/actuation mist for inhalation (Stiolto Respimat) Previous Rx's ?Medication ?Instructions ?Recorded aspirin 81 mg tablet,delayed 81 mg PO DAILY #30 tabs 0 12/15/23 release (Adult Aspirin Regimen) fluticasone propionate 50 2 spray intranasal DAILY #16 grams 08/10/24 mcg/actuation nasal spray,suspension albuterol sulfate 90 mcg/actuation 2 inh inhalation QI D PRN shortness 10/19/24 aerosol inhaler (Ventolin HFA) of breath or wheezing 9 0 days #8.5 grams atorvastatin 40 mg tablet (Lipitor) 40 mg PO DAILY #90 tabs 01/05/25 metformin 500 mg tablet See Rx Instructions .Route 1 03/26/24 .COMPLEX #360 tabs lisinopril 20 mg tablet 20 mg PO DAILY #90 tabs 01/16 08/08 azithromycin 250 mg tablet See Rx Instructions PO .COM PLEX #6 02/14/25 tabs Allergies Allergy/AdvReac Type Severity Reaction Status Date / Time Penicillins Allergy Mild Unknown Verified 02/14/25 09:41 allergy reaction [facility] Disclaimer: The information contained in this section may have been updated after the patient was seen, as this information can be updated by other users. Medical History Primary lung cancer COPD mixed type Pulmonary emphysema Smoking greater than 30 pack years High-frequency hearing loss of one ear Asymmetrical hearing loss Severe hearing loss of left ear Tinnitus Hearing loss Surgical History History of bronchoscopy Social History Smoking Status: Current every day smoker tobacco type: cigarettes packs per day: 1 alcohol intake: never current occupational status: retired Travel in the last 8 weeks?: None Other Medical History Have you received the Pneumonia Vaccine: No ROS Obtained: Yes All systems reviewed & no additional complaints except as documented Physical Exam General General appearance: alert and in no apparent distress Head Head exam: atraumatic and normocephalic Eye Eye exam: Present normal appearance, PERRL and EOMI ENT ENT exam: Present normal oropharynx and normal external ear exam Neck Neck exam: Present normal inspection and full ROM Chest Chest inspection: Present normal inspection and symmetric chest wall rise; Absent tenderness Respiratory Respiratory exam: Present normal lung sounds bilaterally; Absent respiratory distress Cardiovascular Cardiovascular exam: Present regular rate and normal rhythm Abdominal Exam Abdominal exam: Present soft; Absent distention, tenderness or guarding Extremities Exam Extremities exam: Present normal inspection and other (Tenderness to palpation of the right greater trochanter, pain with rotation of the leg. Normal neuroexam.); Absent edema or joint swelling Back Exam Back exam: Present normal inspection; Absent tenderness Neurological Exam Neurological exam: Present alert and oriented X3; Absent motor sensory deficit Psychiatric Psychiatric exam: Present normal affect and normal mood Skin Skin exam: Present warm, dry and normal color Lymphatic Lymphatic Findings: no adenopathy Medical Decision Making Medical Records Medical records reviewed: Yes I reviewed the patient's medical records. Screening: Per USPSTF and CDC recommendations, given the prevalence of disease in our region, it is our hospital?s policy to screen for HIV and viral Hepatitis for all patients aged 18 and over and those with ongoing risk factors. Ap Inquiry Pt receiving controlled substance: No Ap was queried for this patient: No Vital Signs: 03/02/25 06:23 03/02/25 06:38 03/02/25 06:40 Temperature 97.9 F Temperature Source Oral Pulse Rate 101 H Pulse Rate [Left Radial] 116 H Respiratory Rate 19 Blood Pressure Blood Pressure [Right Arm] 188/101 H Blood Pressure Mean [Right Arm] 130 Blood Pressure Source [Right Arm] Automatic Cuff Blood Pressure Position [Right Arm] Supine 02 Sat by Pulse Oximetry 98 94 L 97 Oxygen Delivery Method Room Air Room Air Room Air 03/02/25 07:00 03/02/25 07:15 Temperature Temperature Source Pulse Rate 92 H 85 Pulse Rate [Left Radial] Respiratory Rate Blood Pressure 140/82 142/76 H Blood Pressure [Right Arm] Blood Pressure Mean [Right Arm] Blood Pressure Source [Right Arm] Blood Pressure Position [Right Arm] 02 Sat by Pulse Oximetry 95 94 L Oxygen Delivery Method Lab Data Lab results reviewed: Yes I reviewed the patient's lab results. Lab Results 03/02/25 06:18: WBC 8.3, RBC 5.00, Hgb 15.3, Hct 47.2, MCV 94.4 H, MCH 30.6, MCHC 32.4, RDW 13.0, Plt Count 351, MPV 9.0, Neut % (Auto) 64.0, Lymph % (Auto) 17.1, [place] % (Auto) 9.7 H, Eos % (Auto) 7.6, Baso % (Auto) 1.0, Neut # (Auto) 5.3, Lymph # (Auto) 1.4, [place] # (Auto) 0.8, Eos # (Auto) 0.6 H, Baso # (Auto) 0.1, PT 11.0, INR 0.99, Sodium 136, Potassium 3.5, Chloride 99, Carbon Dioxide 28, Anion Gap 12.5, BUN 16, Creatinine 0.90, Estimated Creat Clear 79, Estimated GFR 83, Est GFR ( Amer) 100, Glucose 206 H, Calcium 9.2, Total Bilirubin 0.7, AST 40, ALT 55, Alkaline Phosphatase 190 H, Total Protein 8.5 H, Albumin 4.6, Globulin 3.9 H, Albumin/Globulin Ratio 1.2 03/02/25 06:18 03/02/25 06:18 Orders (Tests/Meds): ED MEDICATIONS Discontinued Medications Generic Name Dose Route Start Last Admin Trade Name Jaronq PRN Reason Stop Dose Admin Acetaminophen 1,000 mg 03/02/25 06:20 03/02/25 06:33 Acetaminophen 500mg Tab PO 03/02/25 06:21 1,000 mg ONCE ONE Administration Ketorolac Tromethamine 15 mg 03/02/25 06:20 03/02/25 06:33 Ketorolac 30mg/Ml Vial IV 03/02/25 06:21 15 mg ONCE ONE Administration Morphine Sulfate 4 mg 03/02/25 06:20 03/02/25 06:33 Morphine 4mg/Ml Syringe IV 03/02/25 06:21 4 mg ONCE ONE Administration Ondansetron HCl 4 mg 03/02/25 06:20 03/02/25 06:33 Ondansetron 4mg/2ml Vial IV 03/02/25 06:21 4 mg ONCE ONE Administration ORDERS Category Date Time Status XR hip RT 2-3V w/pelvis Stat Exams 03/02/25 06:20 Taken CBC w/Auto Diff [Complete Blood Count Auto Diff] Stat Lab 03/02/25 06:18 Completed CMP [Comprehensive Metabolic Panel] Stat Lab 03/02/25 06:18 Completed HIV Combo Stat Lab 03/02/25 06:28 Ordered Hepatitis C Ab Qual. W/ RFX Stat Lab 03/02/25 06:28 Ordered INR [Prothrombin Time INR] Stat Lab 03/02/25 06:18 Completed Medical Decision Narrative: 74-year-old male with history of COPD, hypertension, type 2 diabetes presents for fall onto his right hip with right hip pain. History was obtained via interactive discussion with patient. On arrival, patient is [afebrile, hemodynamically stable, satting appropriately, alert, oriented x4, GCS 15], moving all extremities spontaneously. Full physical exam performed and significant for tenderness to the right hip. No tenderness to the head, neck, spines, chest, abdomen pelvis or other extremities Differential includes but is not limited to hip fracture, dislocation, strain. Patient was given morphine, Tylenol, Toradol, Zofran for symptomatic management and correction of underlying abnormalities. Workup initiated including radiographs of the pelvis and right hip, basic lab. On re-evaluation, patient [remains afebrile, HD stable.] Laboratory workup independently interpreted by me and significant for no significant electrolyte derangements, no significant leukocytosis. Imaging independently interpreted by me and significant for right intertrochanteric femur fracture. See radiology read for full review of final results. Patient was accepted by Dr. Nagy. We called and spoke with the hospitalist on- call for admission for right femur fracture. Procedures Risk/Benefits of Procedure(s) Were Explained: Yes Critical Care Critical Care Time Critical Care Time: No
--- NOTE | 2025-03-02 06:20 | XR_ITS ---
PROCEDURE INFORMATION: Exam: XR Right Hip Exam date and time: 03/02/2025 6:37 AM Age: 74 years old Clinical indication: Hip pain; Right hip; Additional info: Fall, right leg pain TECHNIQUE: Imaging protocol: Radiologic exam of the right hip. Views: 2 or 3 views hip with pelvis when performed. AP pelvis, AP and cross-table lateral views of the right hip. COMPARISON: No relevant prior studies available. FINDINGS: Bones/joints: Acute comminuted intertrochanteric fracture of the right proximal femur with displaced fracture fragments, the lesser trochanter is displaced medially. No significant angulation. No dislocation. Bony pelvis appears intact. Mild degenerative changes left hip. Soft tissues: Unremarkable. IMPRESSION: Acute comminuted right intertrochanteric fracture.
[2025-03-02] MEDS: ONDANSETRON 4MG/2ML VIAL 4 MG IV (06:33)
[2025-03-02] MEDS: KETOROLAC 30MG/ML VIAL 15 MG IV (06:33)
[2025-03-02] MEDS: MORPHINE 4MG/ML SYRINGE 4 MG IV (06:33)
[2025-03-02] MEDS: ACETAMINOPHEN 500MG TAB 1000 MG PO ×3 (06:33→19:51)
[2025-03-02 06:37] LABS: Albumin Level 4.6 g/dl (3.5-5.0); Chloride 99 mmol/L (98-107); Hematocrit 47.2 % (42.0-52.0); Hemoglobin 15.3 g/dL (14.1-18.0); Immature Granulocytes % 0.6 %; Mean Corpuscular HGB Conc 32.4 g/dL (31.8-35.4); Mean Corpuscular Hemoglobin 30.6 pg (27.0-31.2); Mean Corpuscular Volume 94.4 fl (80-94); Nucleated Red Blood Cells % 0 %; Platelet Count 351 K/mm3 (142-424); Potassium 3.5 mmoL/L (3.5-5.1); Red Blood Count 5.00 M/mm3 (4.60-6.20); Red Cell Distribution Width-SD 44.6 fL; Sodium 136 mmol/L (136-145); White Blood Count 8.3 K/mm3 (4.8-10.8)
[2025-03-02 06:40] LABS: Alanine Aminotransferase 55 U/L (12-78); Alkaline Phosphatase 190 U/L (38-126); Anion Gap 12.5 mEq/L (5-15); Aspartate Amino Transferase 40 U/L (17-59); Bilirubin,Total 0.7 mg/dl (0.2-1.3); Blood Urea Nitrogen 16 mg/dl (9-20); Carbon Dioxide 28 mmol/L (22.0-30.0); Creatinine Clearance Estimated 79 mL/min (50-200); Creatinine,Serum 0.90 mg/dl (0.66-1.25); Estimated Glomerular Filt Rate 83 ml/min (>60); GFR (African American) 100 ML/MIN (>60)
[2025-03-02 06:41] LABS: Albumin/Globulin Ratio 1.2 (1.1-1.8); Calcium 9.2 mg/dl (8.4-10.2); Globulin 3.9 g/dL (1.3-3.2); Glucose 206 mg/dl (74-100); Total Protein,Serum 8.5 g/dl (6.3-8.2)
[2025-03-02 06:45] LABS: INR 0.99 (0.9-1.1); Prothrombin Time 11.0 seconds (10.1-12.5)
--- OUTSIDE RECORDS SUMMARY | 2025-03-02 06:46 | XMS_ITS | Clinical Summary ---
Author Organization [facility] Address [address] [place] [address] Care Team Providers Care Miniature Set Builder Name Role Phone Jaylon Pa MD Primary Care Provider [phone] Allergies Active Allergy Reactions Criticality Noted Date Comments Penicillins Hives Medium 09/27/2024 Medications metFORMIN (Glucophage) 500 MG tablet [...] 108 (90 Base) MCG/ACT inhaler Inhale 2 puffs 4 times a day as needed. 5 Active Povidone, PF, (iVIZIA Dry Eyes) 0.5 % solution Administer into affected eye(s). Active methocarbamol (Robaxin) 500 MG tablet Take 1 tablet by mouth every 6 hours. 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 Encounters Date Type Department Care Team Description 12/27/2024 10:15 AM EDT Office Visit [facility] [address] [place] [address] [phone] Chandler Escobar MD Malignant neoplasm of middle lobe of right lung (Primary Dx) 12/27/2024 Travel 12/16/2024 9:41 AM EDT Anesthesia Event [facility] [address] [place] [address] [phone] Lito Xiong MD 12/16/2024 6:58 AM EDT - 12/16/2024 11:59 PM EDT Hospital Encounter [facility] [address] [place] [address] [phone] Joel Kirby MD Seals, Brian, RN Non-small cell lung cancer, unspecified laterality Discharge Disposition: Home or Self Care 12/16/2024 Travel 12/07/2024 Telephone [facility] [address] [place] [address] [phone] Tonie Centeno RN 12/07/2024 Orders Only [facility] [address] [place] [address] [phone] Tonie Centeno RN Malignant neoplasm of right upper lobe of lung (CMS/HCC) (Primary Dx) 12/06/2024 10:15 AM EDT Office Visit [facility] [address] [place] [address] [phone] Chandler Escobar MD Malignant neoplasm of right upper lobe of lung (CMS/HCC) (Primary Dx) 12/06/2024 9:11 AM EDT - 12/06/2024 11:59 PM EDT Hospital Encounter [facility] [address] [place] [address] [phone] Lung nodule Discharge Disposition: Home or Self Care 12/06/2024 Travel from Last 3 Months Immunizations Immunization Administration Dates Next Due Influenza, High-dose, Split Virus, Trivalent, Injectable, preservative free 02/24/2024 Family History Medical History Relation Name Comments Cancer Brother No Known Problems Father Cancer Mother Anesthesia problems Neg Hx Malig Hyperthermia Neg Hx Relation Name Status Comments Brother Father Mother Social History Tobacco Use Types Packs/Day Years Used Date Smoking Tobacco: Every Day Cigarettes 0.5 57 Started: 1966 Smokeless Tobacco: Never Tobacco Cessation:Ready to Q uit: No; Counseling Given: No Comments:Less than 1/2 pack per day Alcohol [...] Sign Reading Time Taken Comments Blood Pressure 104/66 12/27/2024 9:23 AM EDT Pulse 92 12/27/2024 9:23 AM EDT Temperature 36.4 C (97.6 F) 12/27/2024 9:23 AM EDT Respiratory Rate 16 12/27/2024 9:23 AM EDT Oxygen Saturation 96% 12/27/2024 9:23 AM EDT Inhaled Oxygen Concentration - - Weight 84.9 kg (187 lb 2.7 oz) 12/27/2024 9:23 A M EDT Height 177.8 cm (5' 10 ) 12/16/2024 7:37 AM EDT Body Mass Index 26.86 12/16/2024 7:37 AM EDT Plan of Treatment Upcoming Encounters Date Type Department Care Team (Late st Contact Info) Description 06/06/2025 9:30 AM EDT Appointment [facility] [address] [place] [phone] 06/06/2025 10:45 AM EDT Office Visit [facility] [address] [place] [address] Chandler Escobar MD [address] [facility] [address] [place] [address] Health Maintenance Due Date Last Done Comments [facility]-Depression Screening 1952 [facility]-Diabetes: Hemoglobin A1C 1952 [facility]-Hepatitis C Screening 1950 [facility]-Medicare Annual Wellness (AWV) 1952 [facility]-/Child/Adol SDOH Screenings 1950 TXD-SBITU-75 Vaccine (#1) 06/23/1953 Diabetes: Dental Exam 1962 [facility]- SDOH Screenings 1970 [facility]-Adult SDOH Screenings 1970 [facility]-DTaP,Tdap,and Td Vaccines (1 - Tdap) 12/24/1971 [facility]-Pneumococcal Vaccine: 50+ Years (1 of 2 - PCV) 12/24/1971 [facility]-Zoster Vaccines (1 of 2) 12/24/1971 CT Colonography 1997 Colonoscopy 1997 FIT-DNA 1997 FIT 1997 FOBT 1997 Sigmoidoscopy 1997 [facility]-Colorectal Cancer Screening 1997 [facility]-RSV Vaccine: 60+ Years or (1 - Risk 50-74 years 1-dose series) 2002 [facility]-Abdominal Aortic Aneurysm (AAA) Screening 2017 [facility]-Influenza Vaccine (#1) 2024 02/24/2024 [facility]-Lung Cancer Screening Discontinued 2024, 10/15/2024, 10/15/2024 [facility]-Obesity Intervention Completed 025, 12/06/2024, 10/26/2024, Additional history exists HPV Vaccines (No Doses Required) Completed [facility]-HIB Vaccines Aged Out No longer e [...] Care Plan Autogenerated Problem No Phyllis Linares Autogenerat ed Goal Care Plan Autogenerated Problem No Thierno, Quiana Procedures Procedure Name Priority Date/Time Associated Diagnosis Comments BRONCHOSCOPY Routine 12/16/2024 10:49 AM EDT Non-small cell lung cancer, unspecified laterality FINE NEEDLE ASPIRATION - CYTOLOGY Routine 12/16/2024 10:05 AM EDT Non-small cell lung cancer, unspecified laterality PB ANESTHESIA PLACEHOLDER Routine 12/16/2024 9:49 AM EDT CO AN ELECTIVE ENDOTRACHEAL AIRWAY Routine 12/16/2024 9:49 AM EDT POCT GLUCOSE METER UNSOLICITED RESULTS Routine 12/16/2024 7:31 AM EDT XR CHEST 2 VIEWS Routine 12/06/2024 9:42 AM EDT Lung nodule from Last 3 Months Results * Bronchoscopy w EBUS (12/16/2024 10:49 AM EDT) Anatomical Region Laterality Modality Endoscopy Narrative 12/16/2024 10:39 AM EDT Table formatting from the original result was not included. Indication Non-small cell lung cancer, unspecified laterality Preprocedure A history and physical has been performed, and patient medication allergies have been reviewed. The patient's tolerance of previous anesthesia has been reviewed. The risks and benefits of the procedure and the sedation options and risks were discussed with the patient. All questions were answered and informed consent obtained. Anesthesia/Sedation Medications See anesthesia record for anesthesia administered medications. Details of the Procedure Sedation was administered by an anesthesia professional. The patient's blood pressure, heart rate, level of consciousness, oxygen saturation and respirations were monitored throughout the procedure. The patient experienced no blood loss. The scope was introduced through the endotracheal tube. The procedure was not difficult. The patient tolerated the procedure well. Findings The main matt, left main stem, JAVIER, lingula, LLL, right main stem, RUL, bronchus intermedius and RML appeared normal. Right lower paratracheal station (4R) evaluated and lymph node observed measuring 10 mm. 6 passes taken with a 22 gauge needle. The sample was adequate. Nodes observed under convex ultrasound guidance. Onsite horse groomer was present and cytology results were preliminarily benign. Left lower paratracheal station (4L) evaluated and lymph node observed measuring 10 mm. 9 passes taken with a 22 gauge needle. The sample was adequate. Nodes observed under convex ultrasound guidance. Onsite horse groomer was present and cytology results were preliminarily benign. Specimens ID Type Source Tests Collected by Time A : Station 4R FNA Fine Needle Aspirate Lymph Node FINE NEEDLE ASPIRATION - CYTOLOGY Joel Kirby MD 12/16/2024 1005 B : Station 4L FNA Fine Needle Aspirate Lymph Node FINE NEEDLE ASPIRATION - CYTOLOGY Joel Kirby MD 12/16/2024 1019 Events Procedure Events Event Event Time ENDO SCOPE IN TIME 12/16/2024 9:55 AM ENDO SCOPE OUT TIME 12/16/2024 9:56 AM ENDO SCOPE IN TIME 12/16/2024 9:56 AM ENDO SCOPE OUT TIME 12/16/2024 10:33 AM ENDO SCOPE IN TIME 12/16/2024 10:34 AM ENDO SCOPE OUT TIME 12/16/2024 10:35 AM Staff Staff Role Sheeba Arias CRNA CRNA Rogozinski, Zbigniew S, MD Anesthesiologist Charbel Rollins RN Endo Nurse Atiya Ramos Endo Order Picker Joel Kirby MD Proceduralist Donte Harris Endo Order Picker Impression Overall Impression: The main matt, left main stem, JAVIER, lingula, LLL, right main stem, RUL, bronchus intermedius and RML appeared normal. Right lower paratracheal (4R) station evaluated. Lymph nodes at right lower paratracheal (4R) station sampled. Left lower paratracheal (4L) station evaluated. Lymph nodes at left lower paratracheal (4L) station sampled. Post Procedure Diagnosis None Recommendation Follow-up: with referring provider Attestation I personally performed the entire procedure Billing Codes See procedure report details above. 14968 - EBUS convex prove 1 or 2 lesions 25 - Significant, and separately identifiable E/M service by the same physician on the same day as the procedure or other service us Chandler Escobar MD GI PROCEDURE ORDERABLES Krys l Result * Fine needle aspiration (12/16/2024 10:05 AM EDT) Case Report Cytology Case: [id number] Authorizing Provider: Joel Kirby MD Collected: 12/16/2024 1005 Ordering Location: [facility] Received: 12/16/2024 1056 Pathologist: Argentina Jones MD Specimens: A) - Lymph Node, 4R, Fine Needle Aspiration, LYMPH NODE, 4 RIGHT ENDOBRONCHIAL ULTRASOUND GUIDED FINE NEEDLE ASPIRATION B) - Lymph Node, 4L, Fine Needle Aspiration, LYMPH NODE, 4 LEFT ENDOBRONCHIAL ULTRASOUND GUIDED FINE NEEDLE ASPIRATION 12/17/2024 12:04 PM EDT [facility] Final Diagnosis A. LYMPH NODE, 4 RIGHT ENDOBRONCHIAL ULTRASOUND GUIDED FINE NEEDLE ASPIRATION - NEGATIVE FOR MALIGNANCY. - LYMPH NODE COMPONENTS PRESENT. B. LYMPH NODE, 4 LEFT ENDOBRONCHIAL ULTRASOUND GUIDED FINE NEEDLE ASPIRATION - NEGATIVE FOR MALIGNANCY. - LYMPH NODE COMPONENTS PRESENT. 12/17/2024 12:04 PM EDT [facility] at 1204 EDT Immediate Evaluation A: FNA performed by: Dr. Kriby Number of sticks: 6 Immediate evaluation performed by: Dr. Jones / AC / SP Evaluation episode # 1-4: Lymph node components present.. Two passes into vial. B: FNA performed by: Dr. Kirby Number of sticks: 8 Immediate evaluation performed by: Dr. Jones / AC / SP Evaluation episode # 1-2: Predominantly blood, sparse hemodilute lymphocytes. # 3: Lymphocytes present, adequate. # 4-5: Blood and sparse lymphocytes. Three additional passes directly into vial. The immediate evaluation in this case was performed via telecytology by the attending physician listed above. 12/17/2024 12:04 PM EDT [facility] Gross Description A. LYMPH NODE, 4 RIGHT ENDOBRONCHIAL ULTRASOUND GUIDED FINE NEEDLE ASPIRATION 5 ml's bloody Needle rinse fluid processed as cellblock for complete evaluation of sample. Received 4 diff quick slides and 4 pap slides. Cold Time: 2h 55m B. LYMPH NODE, 4 LEFT ENDOBRONCHIAL ULTRASOUND GUIDED FINE NEEDLE ASPIRATION 5 ml's bloody Needle rinse fluid processed as cellblock for complete evaluation of sample. Received 5 diff quick slides and 5 pap slides. Cold Time: 2h 41m 12/17/2024 12:04 PM EDT [facility] Note: A resident was involved in the service. I attest I examined the relevant preparations for the specimens and confirmed the diagnosis or interpretation. 12/17/2024 12:04 PM EDT [facility] Clinical Information C34.90 - Non-small cell lung cancer, unspecified laterality [ICD-10-CM] 12/17/2024 12:04 PM EDT [facility] Fine Needle Aspirate Structure of lymph node / Unknown 12/16/2024 10:05 AM EDT 12/16/2024 10:56 AM EDT Specimen obtained by fine needle aspiration procedure (specimen) Structure of lymph node / Unknown 12/16/2024 10:19 AM EDT 12/16/2024 10:57 AM EDT us Joel Kirby MD LAB CYTOLOGY ORDERABLES Final Re sult [facility] [address] [place] [address] * CO AN ELECTIVE ENDOTRACHEAL AIRWAY, PB ANESTHESIA PLACEHOLDER (12/16/2024 9:49 AM EDT) Narrative Sheeba Arias CRNA - 12/16/2024 9:49 AM EDT Sheeba Arias CRNA 12/16/2024 10:02 AM Airway Date/Time: 12/16/2024 9:49 AM Reason: elective Airway not difficult General Information and Staff Patient location during procedure: [place] MEDICAL BILLING ASSOCIATE: Sheeba Arias CRNA Performed: GUTIERREZ Patient Condition Indications for airway management: anesthesia Patient position: sniffing MILS maintained throughout Final Airway Details Final airway type: endotracheal airway Successful airway: ETT Cuffed: yes Successful intubation technique: direct laryngoscopy Adjuncts used in placement: intubating stylet Endotracheal tube insertion site: oral Blade: Raquel Blade size: #4 ETT size (mm): 8.5 Cormack-Lehane Classification: grade IIa - partial view of glottis Placement verified by: chest auscultation and capnometry Inital cuff pressure (cm H2O): 6 Measured from: lips ETT to lips (cm): 22 Ventilation between attempts: none Additional Comments Atraumatic. No change to dentition. Lito Xiong MD ANESTHESIA ORDERABLES F inal Result * (ABNORMAL) POCT glucose meter (12/16/2024 7:31 AM EDT) POCT Glucose 155(H) 74 - 99 mg/dL 12/16/2024 7:33 AM EDT [facility] Comment:Accuracy of a glucos e result obtained from a capillary whole blood specimen relies upon adequate, non-compromised capillary blood flow. If the capillary glucose result is not consistent with the patient's clinical signs and symptoms, glucose testing should be repeated with either an arterial or venous sample on the glucometer or sent to the main labortory for testing. Comment 12/16/2024 7:33 AM EDT [facility] Certified Ethical Hacker ID Davide Lozano 025 7:33 AM EDT [facility] Device ID [id number] 12/16/2024 7:33 AM EDT [facility] Specimen Type POC Capillary 12/16/2024 7:33 AM EDT [facility] Blood Capillary blood specimen / Unknown 12/16/2024 7:31 AM EDT 12/16/2024 7:33 AM EDT Joel Kirby MD LAB POINT OF CARE TE ST DOCKED DEVICE UNSOLICITED RESULTS Final Result [facility] [address] [place] [address] * XR Chest 2 Views (12/06/2024 9:42 AM EDT) Anatomical Region Laterality Modality Chest Digital Radiogra phy Impressions 12/06/2024 3:53 PM EDT Extensive scarring throughout the middle and lower right lung. No acute cardiopulmonary findings otherwise. CRITICAL RESULT: No. COMMUNICATION: Per this written report. By electronically signing this report, I, the attending physician, attest that I have personally reviewed the images/data for the above examination(s) and agree with the final edited report. Drafted by Epifanio Kwong MD on 12/06/2024 2:10 PM Final report signed by Alber Sutherland MD on 12/06/2024 3:53 PM Narrative 12/06/2024 3:53 PM EDT CLINICAL INDICATION: Lung evaluation TECHNIQUE: XR CHEST 2 VIEWS COMPARISON: Chest x-ray 11/21/2024 CT chest 10/15/2024 FINDINGS: Stable cardiomediastinal silhouette. Extensive scarring throughout the middle and lower right lung. Interval resolution of the right chest wall subcutaneous emphysema seen on most recent comparison. No focal consolidation or pleural effusion. No significant residual pneumothorax. Resolution of previously seen subcutaneous emphysema. Procedure Note Alber Sutherland MD - 12/06/2024 CLINICAL INDICATION: Lung evaluation TECHNIQUE: XR CHEST 2 VIEWS COMPARISON: Chest x-ray 11/21/2024 CT chest 10/15/2024 FINDINGS: Stable cardiomediastinal silhouette. Extensive scarring throughout themiddle and lower right lung. Interval resolution of the right chest wallsubcutaneous emphysema seen on most recent comparison. No focalconsolidation or pleural effusion. No significant residual pneumothorax.Resolution of previously seen subcutaneous emphysema. IMPRESSION: Extensive scarring throughout the middle and lower right lung. No acutecardiopulmonary findings otherwise. CRITICAL RESULT: No. COMMUNICATION: Per this written report. By electronically signing this report, I, the attending physician, attestthat I have personally reviewed the images/data for the aboveexamination(s) and agree with the final edited report. Drafted by Epifanio Kwong MD on 12/06/2024 2:10 PM Final report signed by Alber Sutherland MD on 12/06/2024 3:53 PM us [employer] CARD GRINDER HELPER IMG XR PROCEDURES Final Res ult from Last 3 Months Additional Health Concerns Active Problems Noted Date Diagnosed Date Autogenerated Problem 09/28/2024 Autogenerated Problem 10/26/2024 Autogenerated Problem 12/07/2024 Insurance HUMAN MEDICARE Advance Directives Documents on File Type Date Recorded Patient Breast Buffer Expl anation Power of Easement Worker 11/19/2024 * Full Code (Latest Code Status on File) Date Activated Date Inactivated Comments 11/19/2024 11:50 AM 11/21/2024 6:18 PM Question Answer Comments I have reviewed the capacity from the link above and, if needed, have updated to appropriate status: Yes Care Teams Miniature Set Builder Relationship Specialty Start Date End Date Jaylon Pa MD [address] [facility] [address] [place] [address] PCP - General 09/27/24
--- OUTSIDE RECORDS SUMMARY | 2025-03-02 06:46 | XMS_ITS | Encounter Summary ---
Author Organization [facility] Address [address] [place] [address] Care Team Providers Care Building Equipment Operator Name Role Phone Jaylon Pa MD Primary Care Provider [phone] Encounter Details Date Type Department Care Team (Late Contact Info) Description 08/18/2024 Orders Only External Location [address] [place] [phone] Jaylon Pa MD [address] [facility] [address] [place] [phone] Social History Tobacco Use Types Packs/Day Years [...] Info) Description 06/06/2025 9:30 AM EDT Appointment [facility] [address] [place] [address] 06/06/2025 10:45 AM EDT Office Visit [facility] [address] [place] [phone] Chandler Escobar MD [address] [facility] [address] [place] [address] documented as of this encounter Procedures Procedure [...] Date Last Indicated Resolved Time Tuberculosis Rule-Out Comment:Afb smear neg and no suspicion from care team 10/15/2024 10/15/2024 11/19/2024 5:02 PM EDT documented as of this encounter Care Teams Building Equipment Operator Relationship Specialty Start Date End Date Jaylon Pa MD [address] [place], [place] [address] [address] [place] [address] PCP - General 09/27/24 documented as of this encounter
--- OUTSIDE RECORDS SUMMARY | 2025-03-02 06:46 | XMS_ITS | Encounter Summary ---
Author Organization Healthcare Address [address] [place] [address] Care Team Providers Care Quilting Machine Operator Name Role Phone Jaylon Pa MD Primary Care Provider [phone] Encounter Details Date Type Department Care Team (Late Contact Info) Description 09/13/2024 Orders Only External Location [address] [place] [address] Provider, External Social History Tobacco Use Types [...] EDT Appointment [facility] [address] [place] [address] 06/06/2025 10:45 AM EDT Office Visit [facility] [address] [place] [address] Chandler Escobar MD [address] [facility] [address] [place] [address] documented as of this encounter Procedures Procedure [...] documented as of this encounter Care Teams Quilting Machine Operator Relationship Specialty Start Date End Date Jaylon Pa MD [address] [place] [address] [address] [place] [facility] PCP - General 09/27/24 documented as of this encounter
--- NOTE | 2025-03-02 07:10 | PC.NURSE ---
pt is alert and pleasant this morning. denies pain @ this time. son is @ bedside
--- NOTE | 2025-03-02 08:39 | PC.NURSE ---
report called to Nicole REIS
--- NOTE | 2025-03-02 08:58 | PC.NURSE ---
arrived by stretcher from ED
--- NOTE | 2025-03-02 10:12 | HMH.PHAINT1 ---
Pharmacy Intervention Comments: MEDICATION RECONCILIATION COMPLETE USING EXTERNAL PHARMACY FILL HISTORY AND RECENT MD OFFICE VISIT NOTE.
[2025-03-02 10:29] LABS: Hepatitis C Ab Qual. W/ RFX NEGATIVE (Negative)
--- NOTE | 2025-03-02 10:52 | EXP.ORTH.CON ---
History of Present Illness *Admission Date: 03/02/25 *Reason for visit:: R intertrochanteric hip fracture *History of present illness: Patient was on his way to work, slipped on ice, fell, with immediate pain in the R hip and inability to bear weight or ambulate. He was brought to ER by EMS, where XR showed intertrochanteric hip fracture. Patient was admitted to the floor under medical service and ortho was consulted. He states that pain is localized to the R hip, characterized as an aching pain currently, 06/24. States he has had some new leg swelling for the past week, that he was recommended to see Dr. Dick for followup, per PCP. Denies radiation, paresthesias, CP, SOB. H/o significant for HTN, DM with PVD, and lung CA, with mass removed from R lung this November at . [facility] Disclaimer: The information contained in this section may have been updated after the patient was seen, as this information can be updated by other users. Medical History Primary lung cancer COPD mixed type Pulmonary emphysema Smoking greater than 30 pack years High-frequency hearing loss of one ear Asymmetrical hearing loss Severe hearing loss of left ear Tinnitus Hearing loss Surgical History History of bronchoscopy Social History Smoking Status: Current every day smoker tobacco type: cigarettes packs per day: 1 alcohol intake: never current occupational status: retired Travel in the last 8 weeks?: None Meds Home Medications and Allergies Home Medications ?Medication ?Instructions ?Recorded ?Confirmed ?Type fluticasone propionate 50 2 spray intranasal DAILY #16 grams 08/10/24 03/02/25 Rx mcg/actuation nasal spray,suspension lisinopril 20 mg tablet 20 mg PO DAILY #90 tabs 02/08/25 03/02/25 Rx tiotropium 2.5 mcg-olodaterol 2.5 2 puff inhalation DAILY 02/14/25 03/02/25 History mcg/actuation mist for inhalation (Stiolto Respimat) albuterol sulfate 90 mcg/actuation 2 inh inhalation QIDP PRN 03/02/25 03/02/25 History aerosol inhaler (Ventolin HFA) shortness of breath or wheezing aspirin 81 mg tablet,delayed 81 mg PO HS 03/02/25 03/02/25 History release (Adult Aspirin Regimen) atorvastatin 40 mg tablet (Lipitor) 40 mg PO HS 03/02/25 03/02/25 History metformin 500 mg tablet 1,000 mg PO BIDWMEAL 03/02/25 03/02/25 History New Prescriptions to Start Prescriptions: Allergies Allergy/AdvReac Type Severity Reaction Status Date / Time Penicillins Allergy Mild Unknown Verified 02/14/25 09:41 allergy reaction Ortho Exam (Inpt) Vital signs and Labs for Last 24 Hours: Temp Pulse Resp BP Pulse Ox O2 Del Method 97.8 F 81 16 87/63 L 96 Room Air 03/02/25 09:07 03/02/25 09:07 03/02/25 09:07 03/02/25 09:07 03/02/25 09:07 03/02/25 09:07 Laboratory Results - last 24 hr 03/02/25 06:18: WBC 8.3, RBC 5.00, Hgb 15.3, Hct 47.2, MCV 94.4 H, MCH 30.6, MCHC 32.4, RDW 13.0, Plt Count 351, MPV 9.0, Neut % (Auto) 64.0, Lymph % (Auto) 17.1, [place] % (Auto) 9.7 H, Eos % (Auto) 7.6, Baso % (Auto) 1.0, Neut # (Auto) 5.3, Lymph # (Auto) 1.4, [place] # (Auto) 0.8, Eos # (Auto) 0.6 H, Baso # (Auto) 0.1, PT 11.0, INR 0.99, Sodium 136, Potassium 3.5, Chloride 99, Carbon Dioxide 28, Anion Gap 12.5, BUN 16, Creatinine 0.90, Estimated Creat Clear 79, Estimated GFR 83, Est GFR ( Amer) 100, Glucose 206 H, Calcium 9.2, Total Bilirubin 0.7, AST 40, ALT 55, Alkaline Phosphatase 190 H, Total Protein 8.5 H, Albumin 4.6, Globulin 3.9 H, Albumin/Globulin Ratio 1.2, HCV Ab PRICE w/Rflx PCR Qn Negative, HIV Ag/Ab Combo Qual Negative I & O for Labs for Last 24 Hours: Intake & Output 02/27/25 02/28/25 03/01/25 03/02/25 23:59 23:59 23:59 23:59 Weight 79.379 kg Additional findings:: R hip: No erythema, edema, ecchymosis. +TTP over anterolateral hip. THigh and calves SNT. Grossly NVID with +2 DP, SILT at 1st DWS/PA equal b/l, + EHL/FHL/GS/TA. XR taken on 03/02/25 shows a R itnertrochanteric fracture, minimally displaced, with lesser troch off. Results Labs 03/02/25 06:18 03/02/25 06:18 Labs: Abnormal lab results 03/02/25 Range/Units 06:18 MCV 94.4 H (80-94) fl [place] % (Auto) 9.7 H (1.7-9.3) % Eos # (Auto) 0.6 H (0.0-0.4) Kmm3 Glucose 206 H (74-100) mg/dl Alkaline Phosphatase 190 H (38-126) U/L Total Protein 8.5 H (6.3-8.2) g/dl Globulin 3.9 H (1.3-3.2) g/dL H & H 03/02/25 Range/Units 06:18 Hgb 15.3 (14.1-18.0) g/dL Hct 47.2 (42.0-52.0) % Coagulation 03/02/25 Range/Units 06:18 INR 0.99 (0.9-1.1) All other labs normal. Assessment and Plan *Assessment and plan (1) Closed femur fracture: Status: Acute Qualifiers: Encounter type: initial encounter Femur location: intertrochanteric Category: Medical Code(s): S72.90XA - Unspecified fracture of unspecified femur, initial encounter for closed fracture Plan R intertrochanteric femur fracture HD#1 Plan is to go to OR tomorrow afternoon as add-on for R TFN with Dr. Nagy. Pain control Ice to R hip PRN NWB to RLE, strict bedrest. SCDs in place b/l IS Diet ordered, NPO after MN for OR tomorrow. T&S ordered. Consider Cards consult for new leg swelling (past week), per patient. Further care per medical team.
[2025-03-02] MEDS: HEPARIN SODIUM 5,000 UNIT/ML VIAL 5000 UNIT SUBCUT ×2 (12:05→19:52)
--- NOTE | 2025-03-02 12:10 | EXP.HP ---
History of Present Illness *Admission Date: 03/02/25 *History of present illness: Edwin Gould is a 74-year-old male with a medical history significant for type 2 diabetes, subclavian artery stenosis, right sided lung cancer s/p resection with clear margins in November 2024 at , current tobacco smoker who presents after a fall on ice earlier this morning. Patient states he was going to work, slipped on ice, fell on his right hip he felt pain. He was brought to our ED via EMS. Patient denies history of falls, chest pain, shortness of breath, fever/chills. States he recently had a resection of right lung cancer with clear margins in November 2024 at . Currently trying to cut down on smoking. Of note, patient endorses some leg swelling over the past few weeks and also weakness in the lower EXTR extremities, requiring him to sit more. Denies a history of congestive heart failure, shortness of breath, cough. Workup in the ED significant for hip x-ray revealing acute comminuted right intertrochanteric fracture, CBC, CMP relatively unremarkable. BNP 138. Case was discussed with orthopedic surgeon, Dr. Nagy, who recommended admission for surgical fixation tomorrow. ED provider discussed case with me and I decided to admit patient for further evaluation and management. [facility] Disclaimer: The information contained in this section may have been updated after the patient was seen, as this information can be updated by other users. Medical History HTN (hypertension) HLD (hyperlipidemia) CAD (coronary artery disease) PVD (peripheral vascular disease) Diabetes mellitus type 2 in nonobese Primary lung cancer COPD mixed type Pulmonary emphysema Smoking greater than 30 pack years High-frequency hearing loss of one ear Asymmetrical hearing loss Severe hearing loss of left ear Tinnitus Hearing loss Surgical History History of bronchoscopy Social History (Updated 03/02/25 @ 11:21 by Cristina Ramirez RN) Smoking Status: Current every day smoker tobacco type: cigarettes packs per day: 1 alcohol intake: never current occupational status: retired Travel in the last 8 weeks?: None Other Medical History Have you received the Flu Vaccine for this season: No Have you received the Pneumonia Vaccine: No Meds Home Medications and Allergies Home Medications ?Medication ?Instructions ?Recorded ?Confirmed ?Type fluticasone propionate 50 2 spray intranasal DAILY #16 grams 08/10/24 03/02/25 Rx mcg/actuation nasal spray,suspension lisinopril 20 mg tablet 20 mg PO DAILY #90 tabs 02/08/25 03/02/25 Rx tiotropium 2.5 mcg-olodaterol 2.5 2 puff inhalation DAILY 02/14/25 03/02/25 History mcg/actuation mist for inhalation (Stiolto Respimat) albuterol sulfate 90 mcg/actuation 2 inh inhalation QIDP PRN 03/02/25 03/02/25 History aerosol inhaler (Ventolin HFA) shortness of breath or wheezing aspirin 81 mg tablet,delayed 81 mg PO HS 03/02/25 03/02/25 History release (Adult Aspirin Regimen) atorvastatin 40 mg tablet (Lipitor) 40 mg PO HS 03/02/25 03/02/25 History metformin 500 mg tablet 1,000 mg PO BIDWMEAL 03/02/25 03/02/25 History New Prescriptions to Start Prescriptions: Allergies Allergy/AdvReac Type Severity Reaction Status Date / Time Penicillins Allergy Mild Unknown Verified 02/14/25 09:41 allergy reaction Exam Data for Last 24 hours Vital signs and Labs for Last 24 Hours: Temp Pulse Resp BP Pulse Ox O2 Del Method 97.8 F 81 16 87/63 L 96 Room Air 03/02/25 09:07 03/02/25 09:07 03/02/25 09:07 03/02/25 09:07 03/02/25 09:07 03/02/25 11:20 Laboratory Results - last 24 hr 03/02/25 06:18: WBC 8.3, RBC 5.00, Hgb 15.3, Hct 47.2, MCV 94.4 H, MCH 30.6, MCHC 32.4, RDW 13.0, Plt Count 351, MPV 9.0, Neut % (Auto) 64.0, Lymph % (Auto) 17.1, Jackson % (Auto) 9.7 H, Eos % (Auto) 7.6, Baso % (Auto) 1.0, Neut # (Auto) 5.3, Lymph # (Auto) 1.4, [place] # (Auto) 0.8, Eos # (Auto) 0.6 H, Baso # (Auto) 0.1, PT 11.0, INR 0.99, Sodium 136, Potassium 3.5, Chloride 99, Carbon Dioxide 28, Anion Gap 12.5, BUN 16, Creatinine 0.90, Estimated Creat Clear 79, Estimated GFR 83, Est GFR ( Amer) 100, Glucose 206 H, Calcium 9.2, Total Bilirubin 0.7, AST 40, ALT 55, Alkaline Phosphatase 190 H, Total Protein 8.5 H, Albumin 4.6, Globulin 3.9 H, Albumin/Globulin Ratio 1.2, HCV Ab PRICE w/Rflx PCR Qn Negative, HIV Ag/Ab Combo Qual Negative I & O for Last 24 hours: Intake & Output 02/27/25 02/28/25 03/01/25 03/02/25 23:59 23:59 23:59 23:59 Weight 79.379 kg Constitutional Constitutional: no acute distress *Routine HEENT Exam Head: Present normocephalic Eye: Present EOMI and PERRL ENT: Present mucous membranes moist *Routine Neck Exam Neck: Present supple; Absent lymphadenopathy *Routine Respiratory Exam Respiratory: Present CTA bilaterally *Routine Cardiovascular Exam Cardiovascular: Present RRR *Routine Abdominal Exam Abdominal: Present soft and normoactive bowel sounds; Absent tenderness *Routine Rectal Exam Rectal:: deferred *Routine Genitalia Exam Genitalia:: deferred *Routine Extremities Exam Extremities: Present edema; Absent cyanosis or clubbing *Routine Skin Exam Skin: Present warm; Absent rash *Routine Neurological Exam Neurological: Present alert and oriented X3 Assessment and Plan *Assessment and plan (1) Closed femur fracture: Status: Acute Qualifiers: Encounter type: initial encounter Femur location: intertrochanteric Category: Medical Code(s): S72.90XA - Unspecified fracture of unspecified femur, initial encounter for closed fracture Plan Edwin Gould is a 74-year-old male with a medical history significant for type 2 diabetes, subclavian artery stenosis, right sided lung cancer s/p resection with clear margins in November 2024 at , current tobacco smoker who presents after a fall on ice earlier this morning. Patient states he was going to work, slipped on ice, fell on his right hip he felt pain. He was brought to our ED via EMS. Patient denies history of falls, chest pain, shortness of breath, fever/chills. States he recently had a resection of right lung cancer with clear margins in November 2024 at . Currently trying to cut down on smoking. Of note, patient endorses some leg swelling over the past few weeks and also weakness in the lower EXTR extremities, requiring him to sit more. Denies a history of congestive heart failure, shortness of breath, cough. Workup in the ED significant for hip x-ray revealing acute comminuted right intertrochanteric fracture, CBC, CMP relatively unremarkable. BNP 138. Case was discussed with orthopedic surgeon, Dr. Nagy, who recommended admission for surgical fixation tomorrow. ED provider discussed case with me and I decided to admit patient for further evaluation and management. #Fall #Right intertrochanteric fracture ? Patient unfortunately slipped on ice on the morning of 03/02/2025, resulting in right hip fracture. ? Orthopedic surgery consulted, planning for surgical fixation in the morning. Bedrest until then. ? Hold antiplatelets. N.p.o. at midnight. ? Pain control with scheduled Tylenol 1000 mg every 8 hours, oxycodone 2.5 to 5 mg every 4 hours as needed, IV Toradol 30 mg as needed, Robaxin as needed. #Type 2 diabetes ? Hemoglobin 6.6% in early February. Monitor glucose daily. #Lower extremity pitting edema ? There is mild lower extremity pitting edema, +1. BNP 138. No known history of heart disease, CHF. ? This may represent venous sufficiency, but will follow-up ECHO in the morning. #Elevated TSH ? TSH elevated to 6.15, follow-up free T4. #Subclavian artery stenosis ? Hold aspirin for now pending surgery. # Hypertension ? Hold home lisinopril as BP low normal at this time. #Current tobacco smoker #COPD #Right sided lung cancer s/p resection, remission ? Counseled on smoking cessation, patient attempting. ? Continue home LABA LAMA. Full code DVT prophylaxis: Heparin 3 times daily
[2025-03-02] MEDS: KETOROLAC 30MG/ML VIAL 30 MG IV (16:49)
[2025-03-02 17:41] LABS: NT Pro Brain Natriuretic Pep. 138 pg/mL (0-125)
[2025-03-02 18:03] LABS: Thyroid Stimulating Hormone 6.15 uIU/mL (0.465-4.68)
[2025-03-02 18:11] LABS: Microscopic, Urine URINE MICROSCOPIC (MICROSCOPIC)
[2025-03-02 18:38] LABS: Bilirubin,Urine Negative (Negative); Color,Urine YELLOW (Yellow); Glucose,Urine (UA) Negative (Negative); Ketones,Urine TRACE (Negative); Leukocyte Esterase,Urine Negative (Negative); PH,Urine 5.5 (5.0-8.5); Protein,Urine TRACE (Negative); Urobilinogen,Urine 1.0 EU/dl (0.2)
[2025-03-02 18:43] LABS: Specific Gravity, Urine 1.040 (1.005-1.030)
[2025-03-03] VITALS (18 sets, daily range): BP systolic 113–170; BP diastolic 61–96; PULSE 74–95; RESP 16–22; TEMP 36.5–36.8; O2SAT 91–99; BMI 25.9
[2025-03-03] MEDS: ACETAMINOPHEN 500MG TAB 1000 MG PO ×3 (03:44→19:39)
[2025-03-03 06:00] LABS: Hematocrit 38.0 % (42.0-52.0); Immature Granulocytes % 0.3 %; Mean Corpuscular HGB Conc 33.4 g/dL (31.8-35.4); Mean Corpuscular Hemoglobin 30.8 pg (27.0-31.2); Mean Corpuscular Volume 92.2 fl (80-94); Nucleated Red Blood Cells % 0 %; Platelet Count 264 K/mm3 (142-424); Red Blood Count 4.12 M/mm3 (4.60-6.20); Red Cell Distribution Width-SD 43.8 fL; White Blood Count 7.0 K/mm3 (4.8-10.8)
--- NOTE | 2025-03-03 06:00 | CA_ITS ---
APPROVED REPORT EXAM: Comprehensive 2D, Doppler, and color-flow Echocardiogram Lap Winding Machine Operator: Shira Pearce RDCS Ht: 5 ft 10 in Wt: 175lbs BSA: 1.97 BP: 87/63 mmHg Indications: EDEMA FX HIP TDS SECONDARY HIP FX M-Mode Dimensions RVDd 1.09 cm (0.9-2.6) LA Diam 3.39 cm (1.9-4.0) LVDd 5.59 cm (3.5-5.7) LVDs 4.02 cm (3.5-5.7) IVSd 0.85 cm (0.6-1.1) PWd 0.93 cm (0.6-1.1) EF (Teich) 53.70% FS 28.10% EDV (Teich) 153.00 mL ESV (Teich) 70.80 mL LV Diastology E Decel Time 220 (160-240 msec) E/A Ratio 0.8 Aortic Valve WENDY Index 2.05 cm2/m2 AoV Peak Wilmar. 97.0 (50-130 cm/s) AO Peak GR. 3.80 mmHg AO Mean GR. 2.00 (<5 mmHg) AO VTI 17.6 (18-25 cm) WENDY (VTI) 4.14 (2.5-4.5 cm2) Mitral Valve MV E Max Wilmar. 63.0 (40-130 cm/s) MV A Velocity 79.0 (40-130 cm/s) E/A Ratio 0.80 MV PHT 64.0 ms Left Ventricle The left ventricle is normal size. Left ventricular systolic function is normal. The left ventricular ejection fraction is within the normal range. There is normal left ventricular wall thickness. There is normal LV segmental wall motion. The left ventricular diastolic function is normal. LVEF is 55% Right Ventricle The right ventricle is normal size. The right ventricular systolic function is normal. Atria The left atrium size is normal. The right atrium size is normal. There is no color Doppler evidence of interatrial shunt. Aortic Valve The aortic valve opens well. There is no hemodynamically significant aortic valvular stenosis. Trace aortic regurgitation is present. Mitral Valve The mitral valve is normal in structure. No evidence of mitral valve stenosis. Trace mitral regurgitation is present. Tricuspid Valve The tricuspid valve leaflets are thin and pliable. Trace tricuspid regurgitation. There is insufficient TR jet to estimate RVSP. Pulmonic Valve The pulmonary valve is grossly normal in structure. Trace pulmonic valve regurgitation is present. Great Vessels The aortic root is normal in size. IVC is normal in size and collapses >50% with inspiration. Pericardium There is no pericardial effusion. Other Information Study Quality: Fair Conclusion Normal biventricular systolic function. No significant valvular stenosis or regurgitation. The above findings were relayed to the inpatient team prior to dictation of this report. Electronically signed by : Verenice Aparicio MD 03/13/2025 13:53:45
[2025-03-03 06:08] LABS: Hemoglobin 12.1 g/dL (14.1-18.0)
[2025-03-03 06:16] LABS: Albumin Level 3.5 g/dl (3.5-5.0); Chloride 103 mmol/L (98-107)
[2025-03-03 06:17] LABS: Potassium 4.1 mmoL/L (3.5-5.1); Sodium 132 mmol/L (136-145)
[2025-03-03 06:19] LABS: Alanine Aminotransferase 32 U/L (12-78); Anion Gap 3.1 mEq/L (5-15); Blood Urea Nitrogen 17 mg/dl (9-20); Carbon Dioxide 30 mmol/L (22.0-30.0); Creatinine Clearance Estimated 77 mL/min (50-200); Creatinine,Serum 0.90 mg/dl (0.66-1.25); Estimated Glomerular Filt Rate 83 ml/min (>60); GFR (African American) 100 ML/MIN (>60)
[2025-03-03 06:20] LABS: Albumin/Globulin Ratio 1.2 (1.1-1.8); Alkaline Phosphatase 146 U/L (38-126); Aspartate Amino Transferase 31 U/L (17-59); Bilirubin,Total 0.5 mg/dl (0.2-1.3); Globulin 3.0 g/dL (1.3-3.2); Total Protein,Serum 6.5 g/dl (6.3-8.2)
[2025-03-03 06:37] LABS: Calcium 8.6 mg/dl (8.4-10.2); Glucose 128 mg/dl (74-100)
[2025-03-03 07:24] LABS: Free T4 (Free Thyroxine) 1.14 ng/dl (0.78-2.19)
[2025-03-03] MEDS: KETOROLAC 30MG/ML VIAL 30 MG IV (08:15)
--- OUTSIDE RECORDS SUMMARY | 2025-03-03 10:46 | XMS_ITS | Clinical Summary ---
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 (Primary Dx) 12/27/2024 Travel 12/16/2024 9:41 AM EDT Anesthesia Event [facility] [address] [place] [address] [phone] Lito Xiong MD 12/16/2024 6:58 AM EDT - 12/16/2024 11:59 PM EDT Hospital Encounter [facility] [address] [place] [address] [phone] Joel Kirby MD Seals, Brian, RN Non-small cell lung cancer, unspecified laterality Discharge Disposition: Home or Self Care 12/16/2024 Travel 12/07/2024 Telephone [facility] [address] [place] [address] [phone] Tonie Centeno RN 12/07/2024 Orders Only [facility] [address] [place] [address] [phone] Tonie Centeno RN Malignant neoplasm of right upper lobe of lung (CMS/HCC) (Primary Dx) 12/06/2024 10:15 AM EDT Office Visit [facility] [address] [place] [address] [phone] Chandler Escobar MD Malignant neoplasm of right upper lobe of lung (CMS/HCC) (Primary Dx) 12/06/2024 9:11 AM EDT - 12/06/2024 11:59 PM EDT Hospital Encounter [facility] [address] [place] [address] [phone] Lung nodule Discharge Disposition: Home or Self [...] EDT Appointment [facility] [address] [place] [address] 06/06/2025 10:45 AM EDT Office Visit [facility] [address] [place] [address] Chandler Escobar MD [address] [facility] [address] [place] [phone] Health Maintenance Due Date Last Done Comments [facility]-Depression Screening 1950 [facility]-Diabetes: Hemoglobin A1C 1950 [facility]-Hepatitis C Screening 1950 [facility]-Medicare Annual Wellness (AWV) 1950 [facility]-/Child/Adol SDOH Screenings 1950 [id number] Vaccine (#1) 06/23/1953 Diabetes: Dental Exam 1962 [...] ANESTHESIA PLACEHOLDER Routine 12/16/2024 9:49 AM EDT IA AN ELECTIVE ENDOTRACHEAL AIRWAY Routine 12/16/2024 9:49 [...] Nodes observed under convex ultrasound guidance. Onsite custom marine canvas fabricator was present and cytology results were preliminarily benign. Left lower paratracheal station (4L) evaluated and lymph node observed measuring 10 mm. 9 passes taken with a 22 gauge needle. The sample was adequate. Nodes observed under convex ultrasound guidance. Onsite custom marine canvas fabricator was present and cytology results were preliminarily [...] Rollins RN Endo Nurse Atiya Ramos Endo Rn Night Joel Kirby MD Proceduralist Donte Harris Endo Rn Night Impression Overall Impression: The main matt, left [...] Billing Codes See procedure report details above. 44383 - EBUS convex prove 1 or 2 lesions 25 - Significant, and separately identifiable E/M service by the same physician on the same day as the procedure or other service us Chandler Escobar MD GI PROCEDURE ORDERABLES Krys l Result * Fine needle aspiration (12/16/2024 10:05 AM EDT) Case Report Cytology Case: [id number] Authorizing Provider: Joel Kirby MD Collected: 12/16/2024 1005 Ordering Location: [facility] Received: 12/16/2024 1056 Pathologist: Argentina Jones MD Specimens: A) - Lymph Node, 4R, Fine Needle Aspiration, LYMPH NODE, 4 RIGHT ENDOBRONCHIAL ULTRASOUND GUIDED FINE NEEDLE ASPIRATION B) - Lymph Node, 4L, Fine Needle Aspiration, LYMPH NODE, 4 LEFT ENDOBRONCHIAL ULTRASOUND GUIDED FINE NEEDLE ASPIRATION 12/17/2024 12:04 PM EDT [facility] Final Diagnosis A. LYMPH NODE, 4 RIGHT ENDOBRONCHIAL ULTRASOUND GUIDED FINE NEEDLE ASPIRATION - NEGATIVE FOR MALIGNANCY. - LYMPH NODE COMPONENTS PRESENT. B. LYMPH NODE, 4 LEFT ENDOBRONCHIAL ULTRASOUND GUIDED FINE NEEDLE ASPIRATION - NEGATIVE FOR MALIGNANCY. - LYMPH NODE COMPONENTS PRESENT. 12/17/2024 12:04 PM EDT [facility] at 1204 EDT Immediate Evaluation A: FNA performed by: Dr. Kirby Number of sticks: 6 Immediate evaluation performed [...] physician listed above. 12/17/2024 12:04 PM EDT [facility] Gross Description A. LYMPH NODE, [...] Time: 2h 41m 12/17/2024 12:04 PM EDT [facility] Note: A resident was involved in the service. I attest I examined the relevant preparations for the specimens and confirmed the diagnosis or interpretation. 12/17/2024 12:04 PM EDT [facility] Clinical Information C34.90 - Non-small cell lung cancer, unspecified laterality [ICD-10-CM] 12/17/2024 12:04 PM EDT [facility] Fine Needle Aspirate Structure of lymph node / Unknown 12/16/2024 10:05 AM EDT 12/16/2024 10:56 AM EDT Specimen obtained by fine needle aspiration procedure (specimen) Structure of lymph node / Unknown 12/16/2024 10:19 AM EDT 12/16/2024 10:57 AM EDT us Joel Kirby MD LAB CYTOLOGY ORDERABLES Final Re sult [facility] [address] [place] [address] * IA AN ELECTIVE ENDOTRACHEAL AIRWAY, PB ANESTHESIA PLACEHOLDER (12/16/2024 9:49 AM EDT) Narrative Sheeba Arias CRNA - 12/16/2024 9:49 AM EDT Sheeba Arias CRNA 12/16/2024 10:02 AM Airway Date/Time: 12/16/2024 9:49 AM Reason: elective Airway not difficult General Information and Staff Patient location during procedure: OR ONLINE EDITOR: Sheeba Arias CRNA Performed: GUTIERREZ Patient Condition [...] Comment 12/16/2024 7:33 AM EDT [facility] Annual Giving Officer ID Davide Lozano 025 7:33 AM EDT [facility] Device ID [id number] 12/16/2024 7:33 AM EDT [facility] Specimen Type POC Capillary 12/16/2024 7:33 AM EDT [facility] Blood Capillary blood specimen / Unknown 12/16/2024 7:31 AM EDT 12/16/2024 7:33 AM EDT Joel Kirby MD LAB POINT OF CARE TE ST DOCKED DEVICE UNSOLICITED RESULTS Final Result [facility] [address] [place] [address] * XR Chest 2 Views (12/06/2024 9:42 [...] with the final edited report. Drafted by Eipfanio Kwong MD on 12/06/2024 2:10 PM Final [...] on 12/06/2024 3:53 PM us [employer] Case SCREW MACHINE SET UP OPERATOR TOOL IMG XR PROCEDURES Final Res ult from Last 3 Months Additional Health Concerns Active Problems Noted Date Diagnosed Date Autogenerated Problem 09/28/2024 Autogenerated Problem 10/26/2024 Autogenerated Problem 12/07/2024 Insurance [employer] Advance Directives Documents on File Type Date Recorded Patient Supervisor Salvage Expl anation Power of Battery Container Inspector 11/19/2024 * Full Code (Latest Code Status on File) Date Activated Date Inactivated Comments 11/19/2024 11:50 AM 11/21/2024 6:18 PM Question Answer Comments I have reviewed the capacity from the link above and, if needed, have updated to appropriate status: Yes Care Teams Adult Education Teacher Relationship Specialty Start Date End Date Jaylon Pa MD [address] [facility] [address] [place] [address] PCP - General 09/27/24
--- OUTSIDE RECORDS SUMMARY | 2025-03-03 10:46 | XMS_ITS | Encounter Summary ---
Author Organization Healthcare Address [address] [place] [address] Care Team Providers Care City Administrator Name Role Phone Jaylon Pa MD Primary Care Provider [phone] Encounter Details Date Type Department Care Team (Late Contact Info) Description 09/13/2024 Orders Only External Location [address] [place] [address] Provider, External Social History Tobacco Use Types [...] EDT Appointment [facility] [address] [place] [address] 06/06/2025 10:45 AM EDT Office Visit [facility] [address] [place] [address] Chandler Escobar MD [address] [facility] [address] [place] [address] documented as of this encounter Procedures Procedure [...] as of this encounter Care Teams City Administrator Relationship Specialty Start Date End Date Jaylon Pa MD [address] [place] [address] [address] [place] [facility] PCP - General 09/27/24 documented as of this encounter
--- OUTSIDE RECORDS SUMMARY | 2025-03-03 10:46 | XMS_ITS | Encounter Summary ---
Author Organization [facility] Address [address] [place] [address] Care Team Providers Care Anthropology Lecturer Name Role Phone Jaylon Pa MD Primary Care Provider [phone] Encounter Details Date Type Department Care Team (Late Contact Info) Description 08/18/2024 Orders Only External Location [address] [place] [id number] Jaylon Pa MD [address] [facility] [place] [address] [place] [id number] Social History Tobacco Use Types Packs/Day Years [...] EDT Appointment [facility] Radiology [address] [place] [address] 06/06/2025 10:45 AM EDT Office Visit [facility] [address] [place] [phone] Chandler Escobar MD [address] [facility] [address] [place] [address] documented as of this encounter Procedures Procedure [...] documented as of this encounter Care Teams Anthropology Lecturer Relationship Specialty Start Date End Date Jaylon Pa MD [address] [place], [place] [address] [address] [place] [address] PCP - General 09/27/24 documented as of this encounter
--- NOTE | 2025-03-03 13:26 | EXP.ANES.CKL ---
[facility] Disclaimer: The information contained in this section may have been updated after the patient was seen, as this information can be updated by other users. 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 Anesthesia Checklist Patient Identification Patient Identification: Arm Band and Verbal (Name & ) Structural Data Admitted From: Home Planned Operative Procedure/s: TFN Consent for Planned Operative Procedure(s) Verified: Yes Verified Documents: Surgical Consent NPO Status Verified Time NPO: 00:00 Chart Verification Results Verified: BMP Additional verifications Anesthesia Reactions: No Airway Assessment Mallampati Score:: Class II C-Spine Mobility Assessed: Yes TMJ Mobility Assessed: Yes Dentition: Edentulous Neurological Assessment Level of Consciousness: Awake, Alert and Appropriate Hx Seizures: No Numbness or tingling in extremities: No Anesthesia Plan Anesthesia Risk discussed: Yes Anesthesia Plan: Verified ASA Class: III Anesthesia Type: General
[2025-03-03] MEDS: CLINDAMYCIN PHOSPHATE/D5W 900 MG/50 ML PIGGYBACK 100 MG (14:00)
--- NOTE | 2025-03-03 14:22 | EXP.PN ---
Subjective *Date: 03/03/25 *Time: 14:22 Interval history: Patient is in good spirits today, quite conversational and pleasant. Ready to get surgery over with. N.p.o. until surgery today. Exam Data for Last 24 hours Vital signs and Labs for Last 24 Hours: Temp Pulse Resp BP Pulse Ox O2 Del Method 98.2 F 83 18 114/78 95 Room Air 03/03/25 11:50 03/03/25 11:50 03/03/25 11:50 03/03/25 11:50 03/03/25 11:50 03/03/25 13:00 Laboratory Results - last 24 hr 03/02/25 06:18: NT-Pro-B Natriuret Pep 138 H, TSH 6.15 H 03/02/25 11:25: Blood Type AB Positive, Antibody Screen Positive, Antibody Identification Cold Antibody 03/02/25 18:05: Urine Color Yellow, Urine Appearance Clear, Urine pH 5.5, Ur Specific [place] 1.040 H, Urine Protein Trace, Urine Glucose (UA) Negative, Urine Ketones Trace, Urine Blood 1+ A, Urine Nitrate Negative, Urine Bilirubin Negative, Urine Urobilinogen 1.0, Ur Leukocyte Esterase Negative, Urine RBC 3-5, Urine WBC None, Ur Squamous Epith Cells None, Urine Bacteria None 03/03/25 05:40: WBC 7.0, RBC 4.12 L, Hgb 12.1 L D, Hct 38.0 L, MCV 92.2, MCH 30.8, MCHC 33.4, RDW 13.0, Plt Count 264, MPV 8.9, Neut % (Auto) 67.7, Lymph % (Auto) 12.8, [place] % (Auto) 10.8 H, Eos % (Auto) 7.7, Baso % (Auto) 0.7, Neut # (Auto) 4.8, Lymph # (Auto) 0.9, [place] # (Auto) 0.8, Eos # (Auto) 0.5 H, Baso # (Auto) 0.1, Sodium 132 L, Potassium 4.1, Chloride 103, Carbon Dioxide 30, Anion Gap 3.1 L, BUN 17, Creatinine 0.90, Estimated Creat Clear 77, Estimated GFR 83, Est GFR ( Amer) 100, Glucose 128 H D, Calcium 8.6, Total Bilirubin 0.5, AST 31, ALT 32 D, Alkaline Phosphatase 146 H, Total Protein 6.5, Albumin 3.5 D, Globulin 3.0, Albumin/Globulin Ratio 1.2, Free T4 1.14 I & O for Last 24 hours: Intake & Output 02/28/25 03/01/25 03/02/25 03/03/25 23:59 23:59 23:59 23:59 Intake Total 510 / 760 250 / 250 Output Total 425 / 725 875 / 875 Balance 85 / 35 -625 / -625 Weight 79.379 kg 82.055 kg Constitutional Constitutional: no acute distress *Routine HEENT Exam Head: Present normocephalic Eye: Present EOMI and PERRL ENT: Present mucous membranes moist *Routine Neck Exam Neck: Present supple; Absent lymphadenopathy *Routine Respiratory Exam Respiratory: Present CTA bilaterally *Routine Cardiovascular Exam Cardiovascular: Present RRR *Routine Abdominal Exam Abdominal: Present soft and normoactive bowel sounds; Absent tenderness *Routine Extremities Exam Extremities: Absent cyanosis, clubbing or edema *Routine Skin Exam Skin: Present warm; Absent rash *Routine Neurological Exam Neurological: Present alert and oriented X3 Assessment and Plan *Assessment and plan (1) Closed femur fracture: Status: Acute Qualifiers: Encounter type: initial encounter Femur location: intertrochanteric Category: Medical Code(s): S72.90XA - Unspecified fracture of unspecified femur, initial encounter for closed fracture Plan Edwin Gould is a 74-year-old male with a medical history significant for type 2 diabetes, subclavian artery stenosis, right sided lung cancer s/p resection with clear margins in November 2024 at , current tobacco smoker who presents after a fall on ice earlier this morning. Patient states he was going to work, slipped on ice, fell on his right hip he felt pain. He was brought to our ED via EMS. Patient denies history of falls, chest pain, shortness of breath, fever/chills. States he recently had a resection of right lung cancer with clear margins in November 2024 at . Currently trying to cut down on smoking. Of note, patient endorses some leg swelling over the past few weeks and also weakness in the lower EXTR extremities, requiring him to sit more. Denies a history of congestive heart failure, shortness of breath, cough. Workup in the ED significant for hip x-ray revealing acute comminuted right intertrochanteric fracture, CBC, CMP relatively unremarkable. BNP 138. Case was discussed with orthopedic surgeon, Dr. Nagy, who recommended admission for surgical fixation tomorrow. ED provider discussed case with me and I decided to admit patient for further evaluation and management. #Fall #Right intertrochanteric fracture ? Patient unfortunately slipped on ice on the morning of 03/02/2025, resulting in right hip fracture. ? Orthopedic surgery consulted, planning for surgical fixation today. Bedrest until then. ? Hold antiplatelets. N.p.o. until surgery. ? Pain control with scheduled Tylenol 1000 mg every 8 hours, oxycodone 2.5 to 5 mg every 4 hours as needed, IV Toradol 30 mg as needed, Robaxin as needed. #Type 2 diabetes ? Hemoglobin 6.6% in early February. Monitor glucose daily. #Lower extremity pitting edema ? There is mild lower extremity pitting edema, +1. BNP 138. No known history of heart disease, CHF. ? This may represent venous sufficiency, but will follow-up ECHO report. #Elevated TSH ? TSH elevated to 6.15, free T4 normal. Will recommend outpatient repeat TFTs. #Subclavian artery stenosis ? Hold aspirin for now pending surgery. # Hypertension ? Hold home lisinopril as BP normal at this time. #Current tobacco smoker #COPD #Right sided lung cancer s/p resection, remission ? Counseled on smoking cessation, patient attempting. ? Continue home LABA LAMA. Full code DVT prophylaxis: Heparin 3 times daily
--- NOTE | 2025-03-03 15:06 | XR_ITS ---
FINAL REPORT CLINICAL HISTORY: HIP IN OR ft 0.9 12.76dap FINDINGS: FLUOROSCOPY LESS THAN 1 HOUR HISTORY: Fluoroscopy guidance. FINDINGS: Fluoroscopic guidance was provided for right hip ORIF. Three spot films were obtained. A total of 0.9 minutes of fluoroscopy time were used. DAP: 12.76 mGy IMPRESSION: As above. Reviewed, Interpreted and Dictated by Sudhir Ackerman MD Transcribed by Gely Miller Authenticated and . [facility]
--- NOTE | 2025-03-03 15:26 | P.PNANES_ITS ---
[facility] Anesthesia Record Part I Anesthesia Record I Intake, IV Amount: 500 Hydration: Adequate Estimated blood loss (mL): 25 Urine output (mL): 100 Blood Products used (#): none Blood Pressure: 130/77 SaO2: 98 Pulse Rate: 81 Airway Patency: Patent Respiratory Rate: 16 Temperature: 97.7 F Patient is:: Oral/Nasal airway, Stable and Somnolent Stable to PACU at:: 15:25
--- NOTE | 2025-03-03 15:28 | P.OP_ITS ---
Date of procedure: 03/03/25 Pre-op Diagnosis:: Right intertrochanteric hip fracture Post-op Diagnosis:: Same Procedure performed:: Cephalomedullary nailing right proximal femur Surgeon:: Florentin Nagy DO EGG TESTER:: Naeem Ordoñez Anesthesia: GETA Estimated blood loss (mL): 50 Operative findings:: Intertrochanteric hip fracture Operative note:: Patient identified preoperatively. Right hip marked with yes my initials. T ransported operative suite. Placed upon operating bed. General anesthesia administered airway secured. Then placed in line traction with the fracture table with the right lower extremity in line with traction on the left lower extremity in semilithotomy position with perineal post. Right hip was then viewed on the C arm x-rays reduction maneuver was performed with inline traction using the fracture table and slight internal rotation to anatomically reduce the intertrochanteric hip fracture. Once reduced the right hip was prepped and draped normal sterile fashion. Once prepped and draped final operative timeout performed to identify proper patient procedure and extremity. Everyone involved in the case agreed. There were no counter indications to beginning. Did receive preoperative antibiotics clindamycin. 2 fingerbreadth incision 2 fingerbreadths above the tip of the trochanter was performed IT band was cut the guidewire was then placed on the tip of the trochanter and using x-ray guidance a guidewire was placed through the trochanter into the femoral canal this was confirmed on the AP and lateral views. Opening reamer was then utilized and a size 11 short TFN nail was se lected and impacted over the guidewire. This was taken down to the proper depth. And the 3 and [address] skin and IT band was cut and the guidewire was placed through the femoral neck into the femoral head this was viewed on the AP and lateral views to found to be in good trajectory and position. Once this was done it was measured and measured to a size 106 so a 105 screw was selected. Lateral cortex reamer was used followed by step reamer. And then a size 105 helical blade was selected and impacted into place this was directly viewed on the x-ray as well for proper placement. And then attention was brought to the top of the nail where the sliding mechanism was locked and the nail from the screw. Attention was then brought distally where the distal locking screw was placed through the triple guide after bicortical drilling was performed. This was then locked into place the pictures were taken AP and lateral views hardware in good position fracture aligned well. The guys were then removed irrigation of the wound performed. Deep layers with the IT band closed with 0 Vicryl subcutaneous with 2-0 Vicryl surgical clips in the skin for closure sterile dressing placed with Xeroform 4 x 4's ABDs and tape. Patient then waken anesthesia and taken recovery in stable condition. Condition: stable Disposition: PACU Complications:: None apparent
[2025-03-03 15:52] LABS: Microscopic,Cath URINE MICROSCOPIC (MICROSCOPIC)
[2025-03-03] MEDS: HYDROCODONE/APAP 5/325 MG TABLET 2 TAB PO (16:16)
[2025-03-03 20:25] LABS: Appearance,Urine/Cath CLEAR (Clear); Bilirubin,Cath Negative (Negative); Blood, Urine/Cath Negative (Negative); Color,Urine/Cath YELLOW (Yellow); Glucose,Urine/Cath (UA) Negative (Negative); Ketones,Urine/Cath Negative (Negative); Leukocyte Esterase,Cath Negative (Negative); Nitrate,Cath Negative (Negative); PH,Urine/Cath 8.0 (5.0-8.5); Protein,Urine/Cath Negative (Negative); Specific Gravity, Urine/Cath 1.015 (1.005-1.030); Urobilinogen,Cath 0.2 EU/dl (0.2)
[2025-03-03 20:29] LABS: Amorphous Sediment,Ur/Cath 2+ /lpf; Bacteria,Urine/Cath 1+ /lpf; Mucus,Urine/Cath 1+ /lpf
[2025-03-03] MEDS: ATORVASTATIN 40MG TABLET 40 MG PO (21:27)
[2025-03-03] MEDS: CLINDAMYCIN PHOSPHATE/D5W 900 MG/50 ML PIGGYBACK 100 MG IV (21:28)
[2025-03-04] VITALS (8 sets, daily range): BP systolic 105–147; BP diastolic 61–77; PULSE 71–85; RESP 16–20; TEMP 36.5–36.8; O2SAT 92–99; BMI 25.9
--- NOTE | 2025-03-04 02:44 | PC.NURSE ---
Pt has surgery today on his Hip fracture. Pt has not c/o pain or discomfort. Pt has ate well after getting back to his room. PT is A and O x 4. on RA, uses a urinal . Last BM was on 03/02. Will continue to monitor VS. Call light is with in reach, wheels are locked on the bed. ERIK BARRERA RN
[2025-03-04] MEDS: ACETAMINOPHEN 500MG TAB 1000 MG PO ×2 (03:25→19:58)
[2025-03-04] MEDS: CLINDAMYCIN PHOSPHATE/D5W 900 MG/50 ML PIGGYBACK 100 MG IV (04:36)
[2025-03-04 06:09] LABS: Hematocrit 35.4 % (42.0-52.0); Hemoglobin 11.7 g/dL (14.1-18.0); Immature Granulocytes % 0.4 %; Mean Corpuscular HGB Conc 33.1 g/dL (31.8-35.4); Mean Corpuscular Hemoglobin 30.2 pg (27.0-31.2); Mean Corpuscular Volume 91.5 fl (80-94); Nucleated Red Blood Cells % 0 %; Platelet Count 272 K/mm3 (142-424); Red Blood Count 3.87 M/mm3 (4.60-6.20); Red Cell Distribution Width-SD 42.0 fL; White Blood Count 9.6 K/mm3 (4.8-10.8)
[2025-03-04] MEDS: UMECLIDINIUM/VILANTEROL 62.5/25MCG INHALER 1 PUFF IH (06:18)
[2025-03-04 06:29] LABS: Albumin Level 3.5 g/dl (3.5-5.0); Chloride 101 mmol/L (98-107); Potassium 4.3 mmoL/L (3.5-5.1); Sodium 134 mmol/L (136-145)
[2025-03-04 06:31] LABS: Blood Urea Nitrogen 17 mg/dl (9-20); Creatinine Clearance Estimated 78 mL/min (50-200); Creatinine,Serum 0.90 mg/dl (0.66-1.25); Estimated Glomerular Filt Rate 83 ml/min (>60); GFR (African American) 100 ML/MIN (>60)
[2025-03-04 06:32] LABS: Alanine Aminotransferase 34 U/L (12-78); Albumin/Globulin Ratio 1.2 (1.1-1.8); Alkaline Phosphatase 133 U/L (38-126); Anion Gap 9.3 mEq/L (5-15); Aspartate Amino Transferase 30 U/L (17-59); Bilirubin,Total 0.5 mg/dl (0.2-1.3); Calcium 8.4 mg/dl (8.4-10.2); Carbon Dioxide 28 mmol/L (22.0-30.0); Globulin 3.0 g/dL (1.3-3.2); Glucose 132 mg/dl (74-100); Total Protein,Serum 6.5 g/dl (6.3-8.2)
--- NOTE | 2025-03-04 08:09 | EXP.ANES.II ---
[facility] Anesthesia Record Part II Anesthesia Record Part II Discharge Time: 15:45 Destination: Medical Surgical Department PACU nurse assessment reviewed?: Yes Patient Condition:: Good Anesthesia Complications:: None Swallowing reflex intact?: Yes Airway Patency: Patent Cyanosis?: No Blood Pressure: 142/61 SaO2: 99 Respiratory Rate: 20 Pulse Rate: 84 Temperature: 97.7 F Mental Status: Alert & Oriented Pain level:: 0 Nausea and/or vomitting:: None Intake, IV Amount: 0 Hydration: Adequate
[2025-03-04 09:28] LABS: POC Glucose,Bedside 115 gm/dL (70-110)
[2025-03-04] MEDS: LISINOPRIL 20MG TABLET 20 MG PO (10:00)
[2025-03-04] MEDS: ASPIRIN EC 81MG TABLET 81 MG PO ×2 (10:00→19:59)
--- NOTE | 2025-03-04 10:03 | HMH.PTEV ---
Physical Therapy Evaluation Rehab PT IP Evaluation Start: 03/02/25 11:56 Freq: ONCE Status: Active Protocol: Document 03/04/25 09:47 [facility]ENK[facility] (Rec: 03/04/25 10:02 V[facility] [id number]) Subjective/History History History Per H&P: Edwin Gould is a 74-year-old male with a medical history significant for type 2 diabetes, subclavian artery stenosis, right sided lung cancer s/p resection with clear margins in November 2024 at , current tobacco smoker who presents after a fall on ice earlier this morning. Patient states he was going to work, slipped on ice, fell on his right hip he felt pain. He was brought to our ED via EMS. Patient denies history of falls, chest pain, shortness of breath, fever/chills. States he recently had a resection of right lung cancer with clear margins in November 2024 at . Currently trying to cut down on smoking. Of note, patient endorses some leg swelling over the past few weeks and also weakness in the lower EXTR extremities, requiring him to sit more. Denies a history of congestive heart failure, shortness of breath, cough. Workup in the ED significant for hip x- ray revealing acute comminuted right intertrochanteric fracture, CBC, CMP relatively unremarkable. BNP 138. Case was discussed with orthopedic surgeon, Dr. Nagy, who recommended admission for surgical fixation tomorrow. ED provider discussed case with me and I decided to admit patient for further evaluation and management. Subjective Subjective Pt is one day s/p Cephalomedullary nailing right proximal femur. Pt is WBAT. PLOF: IND with all mobility without use of AD. HOME: Lives alone in a home with 4 HILAR[address]. ASSIST: Pt does not have 07/10 assist. [facility] How much help from another person do you currently need... Turning from your A lot back to your side while in a flat bed without using bedrails? Moving from lying on A lot back to sitting on the side of a flat bed without using bedrails? Moving to and from a A little bed to a chair ( including a wheelchair)? Standing up from a A little chair using your arms? (e.g., wheelchair, bedside chair) Walking in hospital A little room? Climbing 3-5 steps A lot with a railing? Mobility Score 15 Mobility Level [facility] Mobility 4 Move to chair/commode Mobility Calculator Rehab PT IP Eval Objective Appearance Patient Behavior Appropriate,Cooperative Patient Orientation Person,Place,Situation Difficulty following none instructions Speech Pattern Clear Ambulation Patient Able to Yes Ambulate Ambulation Observation IP General Gait Antalgic Gait Pattern Observation Ambulation Distance 8 (feet) Ambulation Assistive Rolling Walker Device Ambulation Ability Minimal x 1 (25% assist) Balance Ability to Arise Able, uses arms to help Sitting Balance Steady, safe Standing Balance Steady, wide stance Dynamic Sitting Good Balance Ability Dynamic Standing Fair Balance Ability Transfers Bed Transfer Ability Moderate x 2 (50% assist) Sit to Stand Bed Minimal x 1 (25% assist) Transfer Ability Rehab PT IP prob,goals,plan Problems Date of Evaluation: 03/04/25 PT IP Problems Bed Mobility,Transfers,Gait,Balance,Self care,Safety Rehab Potential Rehab Potential Good Plan PT Intervention Plan Bed Mobility,Transfers,Gait,Balance,Self care,Safety, Therapeutic Exercise Other Intervention 1-2 times Plan PT Plan Frequency Daily Discharge Goals Bed Transfer Ability Supervision/Stand by Sit to Stand Chair Supervision/Stand by Transfer Ability Ambulation Assistive Rolling Walker Device Ambulation Distance 50 (feet) Discharge Plan PT Discharge Plan Pt presents below his baseline in all mobility. Pt most appropriate for inpatient rehabilitation facility (IRF) placement to address deficits and return to PLOF. Pt would benefit from skilled PT while at [facility] to address deficits and decrease caregiver burden. Eval Complexity Eval Charge Codes 68653 - Moderate Complexity PHYSICIAN CERTIFICATION: I certify the specified therapy services for Edwin Gould are required, authorized, and reviewed every 30 days.
[2025-03-04] MEDS: HYDROCODONE/APAP 5/325 MG TABLET 2 TAB PO ×2 (10:42→15:59)
--- NOTE | 2025-03-04 10:59 | HMH.OTEV ---
OT Evaluation Rehab OT IP Evaluation Start: 03/03/25 08:00 Freq: ONCE Status: Active Protocol: Document 03/04/25 10:53 [facility] (Rec: 03/04/25 10:59 [facility] [id number]) Rehab OT IP Assessment Subjective History Per H&P: Edwin Gould is a 74-year-old male with a medical history significant for type 2 diabetes, subclavian artery stenosis, right sided lung cancer s/p resection with clear margins in November 2024 at , current tobacco smoker who presents after a fall on ice earlier this morning. Patient states he was going to work, slipped on ice, fell on his right hip he felt pain. He was brought to our ED via EMS. Patient denies history of falls, chest pain, shortness of breath, fever/chills. States he recently had a resection of right lung cancer with clear margins in November 2024 at . Currently trying to cut down on smoking. Of note, patient endorses some leg swelling over the past few weeks and also weakness in the lower EXTR extremities, requiring him to sit more. Denies a history of congestive heart failure, shortness of breath, cough. Workup in the ED significant for hip x- ray revealing acute comminuted right intertrochanteric fracture, CBC, CMP relatively unremarkable. BNP 138. Case was discussed with orthopedic surgeon, Dr. Nagy, who recommended admission for surgical fixation tomorrow. ED provider discussed case with me and I decided to admit patient for further evaluation and management. [ End ] Subjective Pt is one day s/p Cephalomedullary nailing right proximal femur. Pt is WBAT. PLOF: IND with all mobility without use of AD. Pt is normally independent with all ADLs and IADLs. Pt also still drives. HOME: Lives alone in a home with 4 HILARIA. ASSIST: Pt does not have 07/10 assist. Objective Patient Orientation Person,Place,Birthday Right Upper WFL Extremity Gross ROM Left Upper Extremity WFL Gross ROM Bed Mobility bed mobility-scooting,bed mobility - supine/sit Assist Level Moderate x 1 (50% assist) Transfer Training Sit/Stand Transfer Assist Level Minimal x 1 (25% assist) Chair Transfer Minimal x 1 (25% assist) Ability Chair Transfer Sit to/from Ambulatory Technique Chair Transfer Rolling Walker Assistive Devices Lower Body Dressing Maximum Assistance Ability Rehab OT IP prob,goals,plan Problems Date of Evaluation: 03/04/25 OT IP Problems Bed Mobility,Transfers,Balance,Self care,Safety Rehab Potential Rehab Potential Good Equipment Needs Assistive Devices Rolling / Wheeled Walker Plan OT intervention Plan Bed Mobility,Transfers,Balance,Self care,Safety, Therapeutic Exercise OT Plan Frequency Daily Duration LOS Discharge Goals Bed Mobility Ability Assistance x1 Sit to Stand Chair Contact Guard/Hand Hold Transfer Ability Chair Transfer Contact Guard/Hand Hold Ability Chair Transfer Sit to/from Ambulatory Technique Chair Transfer Rolling Walker Assistive Devices Lower Body Dressing Moderate Assistance Ability Upper Body Dressing Standby Assistance Ability Performing Toilet Minimal Assistance Hygiene Ability Overall Commode/ Contact Guard Toilet Transfer Ability Commode/Toilet Sit to/from Ambulatory Transfer Technique Discharge Plan OT Discharge Plan Pt presents below his baseline with functional transfers and ADL independence. Pt most appropriate for inpatient rehabilitation facility (IRF) placement to address deficits and return to PLOF. Pt would benefit from skilled OT while at [facility] to address deficits and decrease caregiver burden. Eval Complexity Eval Charge Codes 21508 - Moderate Complexity PHYSICIAN CERTIFICATION: I certify the specified therapy services for Edwin Gould are required, authorized, and reviewed every 30 days.
--- NOTE | 2025-03-04 11:33 | SW/DCPLANNER ---
Addendum entered by Lynnette Elliott 03/07/25 14:14: [facility]. Miguel Angel BLANCO Swimmer Addendum entered by Lynnette Elliott 03/07/25 12:20: I faxed patient's information to [facility] and will update once i hear back if they can accept patient or not. Miguel Angel BLANCO Swimmer Addendum entered by Rain Puente 03/07/25 12:18: I have also updated Nakia duncan/ [facility] regarding discharge plans. Addendum entered by Rain Puente 03/07/25 12:11: Patient was approved by insurance SNF level of care. However patient was able to ambulate 250 ft SBA this AM. Patient/family now prefer to return home w/ home health services (no agency preferece). CM will set up home health services. Patient has a rolling walker at home. Patient is agreeable to outpatient PT services if home health is unable to be set up due to insurance. CM will continue to follow up. Discharge date is unknown at this time. Addendum entered by Rain Puente 03/07/25 08:28: Per Ivon duncan/ [facility] auth is still pending at this time. Addendum entered by Rain Puente 03/07/25 07:46: Updated patient information faxed to [facility]. Addendum entered by Sandra Yoo RN 03/06/25 16:00: Still awaiting auth. Addendum entered by Sandra Yoo RN 03/04/25 15:28: [facility] has accepted patient and started authorization. Original Note: Therapy has recommended short term rehab. Patient and family are interested in [facility], [facility], or [facility]. [facility] does not have a male bed available until Friday. I have sent information to the other two facilities. Awaiting replies.
--- NOTE | 2025-03-04 14:50 | P.PN_ITS ---
Subjective *Date: 03/04/25 *Time: 14:50 Interval history: Patient doing well, no acute complaints. Working with PT/OT pending placement. Exam Data for Last 24 hours Vital signs and Labs for Last 24 Hours: Temp Pulse Resp BP Pulse Ox O2 Del Method O2 Flow Rate 97.8 F 85 18 105/68 L 92 L Room Air 2 03/04/25 12:00 03/04/25 12:00 03/04/25 12:00 03/04/25 12:00 03/04/25 12:00 03/04/25 12:00 03/03/25 15:35 Laboratory Results - last 24 hr 03/03/25 13:18: POC Glucose 115 H 03/03/25 14:15: Urine Color Yellow, Urine Appearance Clear, Urine pH 8.0, Ur Specific [place] 1.015, Urine Protein Negative, Urine Glucose (UA) Negative, Urine Ketones Negative, Urine Blood Negative, Urine Nitrate Negative, Urine Bilirubin Negative, Urine Urobilinogen 0.2, Ur Leukocyte Esterase Negative, Urine RBC 3-5, Urine WBC 3-5, Ur Squamous Epith Cells 5-10, Urine Bacteria 1+ 03/04/25 05:46: WBC 9.6 D, RBC 3.87 L, Hgb 11.7 L, Hct 35.4 L, MCV 91.5, MCH 30.2, MCHC 33.1, RDW 12.6, Plt Count 272, MPV 9.0, Neut % (Auto) 79.4, Lymph % (Auto) 10.1, [place] % (Auto) 9.3, Eos % (Auto) 0.2, Baso % (Auto) 0.6, Neut # (Auto) 7.6, Lymph # (Auto) 1.0, [place] # (Auto) 0.9, Eos # (Auto) 0.0, Baso # (Auto) 0.1, Sodium 134 L, Potassium 4.3, Chloride 101, Carbon Dioxide 28, Anion Gap 9.3, BUN 17, Creatinine 0.90, Estimated Creat Clear 78, Estimated GFR 83, Est GFR ( Amer) 100, Glucose 132 H, Calcium 8.4, Total Bilirubin 0.5, AST 30, ALT 34, Alkaline Phosphatase 133 H, Total Protein 6.5, Albumin 3.5, Globulin 3.0, Albumin/Globulin Ratio 1.2 I & O for Last 24 hours: Intake & Output 03/01/25 03/02/25 03/03/25 03/04/25 23:59 23:59 23:59 23:59 Intake Total 510 / 760 1040 / 1360 610 / 610 Output Total 425 / 725 1925 / 1925 450 / 450 Balance 85 / 35 -885 / -565 160 / 160 Weight 79.379 kg 82.055 kg 82.236 kg Constitutional Constitutional: no acute distress *Routine HEENT Exam Head: Present normocephalic Eye: Present EOMI and PERRL ENT: Present mucous membranes moist *Routine Neck Exam Neck: Present supple; Absent lymphadenopathy *Routine Respiratory Exam Respiratory: Present CTA bilaterally *Routine Cardiovascular Exam Cardiovascular: Present RRR *Routine Abdominal Exam Abdominal: Present soft and normoactive bowel sounds; Absent tenderness *Routine Extremities Exam Extremities: Absent cyanosis, clubbing or edema *Routine Skin Exam Skin: Present warm; Absent rash *Routine Neurological Exam Neurological: Present alert and oriented X3 Assessment and Plan *Assessment and plan (1) Closed femur fracture: Status: Acute Qualifiers: Encounter type: initial encounter Femur location: intertrochanteric Category: Medical Code(s): S72.90XA - Unspecified fracture of unspecified femur, initial encounter for closed fracture Plan Edwin Gould is a 74-year-old male with a medical history significant for type 2 diabetes, subclavian artery stenosis, right sided lung cancer s/p resection with clear margins in November 2024 at , current tobacco smoker who presents after a fall on ice earlier this morning. Patient states he was going to work, slipped on ice, fell on his right hip he felt pain. He was brought to our ED via EMS. Patient denies history of falls, chest pain, shortness of breath, fever/chills. States he recently had a resection of right lung cancer with clear margins in November 2024 at . Currently trying to cut down on smoking. Of note, patient endorses some leg swelling over the past few weeks and also weakness in the lower EXTR extremities, requiring him to sit more. Denies a history of congestive heart failure, shortness of breath, cough. Workup in the ED significant for hip x-ray revealing acute comminuted right intertrochanteric fracture, CBC, CMP relatively unremarkable. BNP 138. Case was discussed with orthopedic surgeon, Dr. Nagy, who recommended admission for surgical fixation tomorrow. ED provider discussed case with me and I decided to admit patient for further evaluation and management. #Fall #Right intertrochanteric fracture ? Patient unfortunately slipped on ice on the morning of 03/02/2025, resulting in right hip fracture. ? Orthopedic surgery consulted, s/p cephalomedullary nailing right proximal femur on 03/03/2025. Patient tolerated procedure well. ? Per orthopedic surgery, weightbearing as tolerated and aspirin 81 mg twice daily for DVT prophylaxis. Recommend intermediate rehab as patient lives by himself. ? Pain control with scheduled Tylenol 1000 mg every 8 hours, oxycodone 2.5 to 5 mg every 4 hours as needed, IV Toradol 30 mg as needed, Robaxin as needed. ? PT/OT recommending rehab, pacemaker and assisting with placement. #Type 2 diabetes ? Hemoglobin 6.6% in early February. Monitor glucose daily. #Lower extremity pitting edema ? There is mild lower extremity pitting edema, +1. BNP 138. No known history of heart disease, CHF. ? This likely represents venous sufficiency, but will follow-up ECHO report. #Elevated TSH ? TSH elevated to 6.15, free T4 normal. Will recommend outpatient repeat TFTs. #Subclavian artery stenosis ? Continue aspirin as above. # Hypertension ? Hold home lisinopril 20 mg daily. #Current tobacco smoker #COPD #Right sided lung cancer s/p resection, remission ? Counseled on smoking cessation, patient attempting. ? Continue home LABA LAMA. Full code DVT prophylaxis: Lovenox 40 mg
--- NOTE | 2025-03-04 15:01 | P.PN_ITS ---
Subjective *Date: 03/04/25 *Time: 15:01 Interval history: Patient up in chair today. Minimal pain today. Overall doing okay. Ortho Exam (Inpt) Vital signs and Labs for Last 24 Hours: Temp Pulse Resp BP Pulse Ox O2 Del Method O2 Flow Rate 97.8 F 85 18 105/68 L 92 L Room Air 2 03/04/25 12:00 03/04/25 12:00 03/04/25 12:00 03/04/25 12:00 03/04/25 12:00 03/04/25 12:00 03/03/25 15:35 Laboratory Results - last 24 hr 03/03/25 13:18: POC Glucose 115 H 03/03/25 14:15: Urine Color Yellow, Urine Appearance Clear, Urine pH 8.0, Ur Specific [place] 1.015, Urine Protein Negative, Urine Glucose (UA) Negative, Urine Ketones Negative, Urine Blood Negative, Urine Nitrate Negative, Urine Bilirubin Negative, Urine Urobilinogen 0.2, Ur Leukocyte Esterase Negative, Urine RBC 3-5, Urine WBC 3-5, Ur Squamous Epith Cells 5-10, Urine Bacteria 1+ 03/04/25 05:46: WBC 9.6 D, RBC 3.87 L, Hgb 11.7 L, Hct 35.4 L, MCV 91.5, MCH 30.2, MCHC 33.1, RDW 12.6, Plt Count 272, MPV 9.0, Neut % (Auto) 79.4, Lymph % (Auto) 10.1, [place] % (Auto) 9.3, Eos % (Auto) 0.2, Baso % (Auto) 0.6, Neut # (Auto) 7.6, Lymph # (Auto) 1.0, [place] # (Auto) 0.9, Eos # (Auto) 0.0, Baso # (Auto) 0.1, Sodium 134 L, Potassium 4.3, Chloride 101, Carbon Dioxide 28, Anion Gap 9.3, BUN 17, Creatinine 0.90, Estimated Creat Clear 78, Estimated GFR 83, Est GFR ( Amer) 100, Glucose 132 H, Calcium 8.4, Total Bilirubin 0.5, AST 30, ALT 34, Alkaline Phosphatase 133 H, Total Protein 6.5, Albumin 3.5, Globulin 3.0, Albumin/Globulin Ratio 1.2 I & O for Labs for Last 24 Hours: Intake & Output 03/01/25 03/02/25 03/03/25 03/04/25 23:59 23:59 23:59 23:59 Intake Total 510 / 760 1040 / 1360 610 / 610 Output Total 425 / 725 1925 / 1925 450 / 450 Balance 85 / 35 -885 / -565 160 / 160 Weight 175 lb 180 lb 14.4 oz 181 lb 4.8 oz Additional findings:: Right hip: Surgical dressing in place. No evidence of drainage. No tenderness with slight internal and external rotation of the hip actively or passively. Assessment and Plan *Assessment and plan (1) Intertrochanteric fracture of right hip: Status: Acute Category: Medical Code(s): S72.141A - Displaced intertrochanteric fracture of right femur, initial encounter for closed fracture Plan Progress with PT. Patient can be weightbearing as tolerated on the rolling walker. Rehab placement options because he lives at home by himself. Return to the clinic 2 weeks postop for staple removal.
[2025-03-04] MEDS: ATORVASTATIN 40MG TABLET 40 MG PO (19:59)
[2025-03-05] VITALS: BP 101/63; PULSE 76; RESP 16; TEMP 36.6; O2SAT 96
[2025-03-05] MEDS: ACETAMINOPHEN 500MG TAB 1000 MG PO ×3 (03:02→18:50)
[2025-03-05 03:38] VITALS: BP 102/76; PULSE 76; RESP 17; TEMP 36.7; O2SAT 96; BMI 25.1
[2025-03-05] MEDS: UMECLIDINIUM/VILANTEROL 62.5/25MCG INHALER 1 PUFF IH (06:51)
[2025-03-05 06:57] LABS: Hematocrit 35.2 % (42.0-52.0); Hemoglobin 11.5 g/dL (14.1-18.0); Immature Granulocytes % 0.4 %; Mean Corpuscular HGB Conc 32.7 g/dL (31.8-35.4); Mean Corpuscular Hemoglobin 30.2 pg (27.0-31.2); Mean Corpuscular Volume 92.4 fl (80-94); Nucleated Red Blood Cells % 0 %; Platelet Count 248 K/mm3 (142-424); Red Blood Count 3.81 M/mm3 (4.60-6.20); Red Cell Distribution Width-SD 44.2 fL; White Blood Count 8.2 K/mm3 (4.8-10.8)
[2025-03-05 07:03] LABS: Albumin Level 3.5 g/dl (3.5-5.0); Chloride 102 mmol/L (98-107); Potassium 4.0 mmoL/L (3.5-5.1); Sodium 135 mmol/L (136-145)
[2025-03-05 07:06] LABS: Alanine Aminotransferase 47 U/L (12-78); Albumin/Globulin Ratio 1.2 (1.1-1.8); Alkaline Phosphatase 128 U/L (38-126); Anion Gap 9.0 mEq/L (5-15); Aspartate Amino Transferase 47 U/L (17-59); Bilirubin,Total 0.5 mg/dl (0.2-1.3); Blood Urea Nitrogen 18 mg/dl (9-20); Carbon Dioxide 28 mmol/L (22.0-30.0); Creatinine Clearance Estimated 75 mL/min (50-200); Creatinine,Serum 0.90 mg/dl (0.66-1.25); Estimated Glomerular Filt Rate 83 ml/min (>60); GFR (African American) 100 ML/MIN (>60); Globulin 3.0 g/dL (1.3-3.2); Total Protein,Serum 6.5 g/dl (6.3-8.2)
[2025-03-05 07:07] LABS: Calcium 9.1 mg/dl (8.4-10.2); Glucose 128 mg/dl (74-100)
[2025-03-05 08:00] VITALS: BP 170/81; PULSE 84; RESP 16; TEMP 36.6; O2SAT 95; O2SAT 97
[2025-03-05] MEDS: OXYCODONE 5MG IMMEDIATE RELEASE TABLET 5 MG PO ×3 (08:45→21:15)
[2025-03-05] MEDS: ASPIRIN EC 81MG TABLET 81 MG PO ×2 (08:45→20:33)
[2025-03-05] MEDS: LISINOPRIL 20MG TABLET 20 MG PO (08:45)
--- NOTE | 2025-03-05 09:16 | EXP.DC.SUM ---
General Admission date:: 03/02/25 Discharge date: 03/06/25 HPI HPI HPI: Edwin Gould is a 74-year-old male with a medical history significant for type 2 diabetes, subclavian artery stenosis, right sided lung cancer s/p resection with clear margins in November 2024 at , current tobacco smoker who presents after a fall on ice earlier this morning. Patient states he was going to work, slipped on ice, fell on his right hip he felt pain. He was brought to our ED via EMS. Patient denies history of falls, chest pain, shortness of breath, fever/chills. States he recently had a resection of right lung cancer with clear margins in November 2024 at . Currently trying to cut down on smoking. Of note, patient endorses some leg swelling over the past few weeks and also weakness in the lower EXTR extremities, requiring him to sit more. Denies a history of congestive heart failure, shortness of breath, cough. Workup in the ED significant for hip x-ray revealing acute comminuted right intertrochanteric fracture, CBC, CMP relatively unremarkable. BNP 138. Case was discussed with orthopedic surgeon, Dr. Nagy, who recommended admission for surgical fixation tomorrow. ED provider discussed case with me and I decided to admit patient for further evaluation and management. Exam Data for Last 24 hours Vital signs and Labs for Last 24 Hours: Temp Pulse Resp BP Pulse Ox O2 Del Method O2 Flow Rate 98.0 F 76 17 102/76 L 96 Room Air 2 03/05/25 03:38 03/05/25 03:38 03/05/25 03:38 03/05/25 03:38 03/05/25 03:38 03/05/25 06:53 03/03/25 15:35 Laboratory Results - last 24 hr 03/03/25 13:18: POC Glucose 115 H 03/05/25 06:36: WBC 8.2, RBC 3.81 L, Hgb 11.5 L, Hct 35.2 L, MCV 92.4, MCH 30.2, MCHC 32.7, RDW 13.1, Plt Count 248, MPV 8.9, Neut % (Auto) 66.3, Lymph % (Auto) 14.7, [place] % (Auto) 10.1 H, Eos % (Auto) 7.9, Baso % (Auto) 0.6, Neut # (Auto) 5.4, Lymph # (Auto) 1.2, [place] # (Auto) 0.8, Eos # (Auto) 0.7 H, Baso # (Auto) 0.1, Sodium 135 L, Potassium 4.0, Chloride 102, Carbon Dioxide 28, Anion Gap 9.0, BUN 18, Creatinine 0.90, Estimated Creat Clear 75, Estimated GFR 83, Est GFR ( Amer) 100, Glucose 128 H, Calcium 9.1, Total Bilirubin 0.5, AST 47 D, ALT 47 D, Alkaline Phosphatase 128 H, Total Protein 6.5, Albumin 3.5, Globulin 3.0, Albumin/Globulin Ratio 1.2 I & O for Last 24 hours: Intake & Output 03/02/25 03/03/25 03/04/25 03/05/25 23:59 23:59 23:59 23:59 Intake Total 510 / 760 1040 / 1360 1570 / 1810 240 / 240 Output Total 425 / 725 1925 / 1925 450 / 450 0 / 0 Balance 85 / 35 -885 / -565 1120 / 1360 240 / 240 Weight 79.379 kg 82.055 kg 82.236 kg 79.605 kg Results Data Completed and Pending Labs on day of discharge: Labs from last 24 hours 03/05/25 03/03/25 06:36 13:18 WBC 8.2 RBC 3.81 L Hgb 11.5 L Hct 35.2 L MCV 92.4 MCH 30.2 MCHC 32.7 RDW 13.1 Plt Count 248 MPV 8.9 Neut % (Auto) 66.3 Lymph % (Auto) 14.7 [place] % (Auto) 10.1 H Eos % (Auto) 7.9 Baso % (Auto) 0.6 Neut # (Auto) 5.4 Lymph # (Auto) 1.2 [place] # (Auto) 0.8 Eos # (Auto) 0.7 H Baso # (Auto) 0.1 Sodium 135 L Potassium 4.0 Chloride 102 Carbon Dioxide 28 Anion Gap 9.0 BUN 18 Creatinine 0.90 Estimated Creat Clear 75 Estimated GFR 83 Est GFR ( Amer) 100 Glucose 128 H POC Glucose 115 H Calcium 9.1 Total Bilirubin 0.5 AST 47 D ALT 47 D Alkaline Phosphatase 128 H Total Protein 6.5 Albumin 3.5 Globulin 3.0 Albumin/Globulin Ratio 1.2 DS: Diagnosis Discharge Diagnosis (1) Closed femur fracture: Status: Acute Code(s): S72.90XA - Unspecified fracture of unspecified femur, initial encounter for closed fracture Qualifiers: Encounter type: initial encounter Femur location: intertrochanteric (2) Intertrochanteric fracture of right hip: Status: Acute Code(s): S72.141A - Displaced intertrochanteric fracture of right femur, initial encounter for closed fracture Meds Home Medications and Allergies Home Medications ?Medication ?Instructions ?Recorded ?Confirmed ?Type fluticasone propionate 50 2 spray intranasal DAILY #16 grams 08/10/24 03/02/25 Rx mcg/actuation nasal spray,suspension lisinopril 20 mg tablet 20 mg PO DAILY #90 tabs 02/08/25 03/02/25 Rx tiotropium 2.5 mcg-olodaterol 2.5 2 puff inhalation DAILY 02/14/25 03/02/25 History mcg/actuation mist for inhalation (Stiolto Respimat) albuterol sulfate 90 mcg/actuation 2 inh inhalation QIDP PRN 03/02/25 03/02/25 History aerosol inhaler (Ventolin HFA) shortness of breath or wheezing aspirin 81 mg tablet,delayed 81 mg PO HS 03/02/25 03/02/25 History release (Adult Aspirin Regimen) atorvastatin 40 mg tablet (Lipitor) 40 mg PO HS 03/02/25 03/02/25 History metformin 500 mg tablet 1,000 mg PO BIDWMEAL 03/02/25 03/02/25 History New Prescriptions to Start Prescriptions: Allergies Allergy/AdvReac Type Severity Reaction Status Date / Time Penicillins Allergy Mild Unknown Verified 02/14/25 09:41 allergy reaction Discharge Plan Disposition Patient Disposition: Xfer SNF Condition: Fair Follow up Plan Follow up with: Florentin Nagy DO [Staff Physician, Orthopedics] - Enter time for follow up Prescriptions/Medication Reconciliation: No Action fluticasone propionate 50 mcg/actuation spray,suspension 2 spray intranasal DAILY Qty: 16 5RF Stiolto Respimat 2.5-2.5 mcg/actuation mist 2 puff inhalation DAILY lisinopril 20 mg tablet 20 mg PO DAILY Qty: 90 1RF metformin 500 mg tablet 1,000 mg PO BIDWMEAL atorvastatin [Lipitor] 40 mg tablet 40 mg PO HS aspirin [Adult Aspirin Regimen] 81 mg tablet,delayed release (DR/EC) 81 mg PO HS albuterol sulfate [Ventolin HFA] 90 mcg/actuation HFA aerosol inhaler 2 inh inhalation QIDP PRN (Reason: shortness of breath or wheezing) Problem Reconciliation Problems Reviewed?: Yes Patient Discharge Instructions ACTIVITY: Continue current activity DIET: continue same diet Patient Instructions: DI for Hip Fracture, DI for Surgical Site Infection, Catheter-Associated Urinary Tract Infection, Stop Light Infection Print Language: Swiss Providers Primary Care Provider: Jaylon Pa Admit Provider: Cholo Estrella Attending Provider: Cholo Estrella
--- NOTE | 2025-03-05 14:44 | EXP.ACUTE.PN ---
Subjective *Date: 03/05/25 *Time: 15:18 Interval history: Complaining of some right sided pain. Stable on room air. Afebrile. No nausea or vomiting. No bowel movement in at least the past 24 hours. Awaiting insurance approval for rehab. Medical Exam Vital signs and Labs for Last 24 Hours: Vital Signs Temp Pulse Resp BP Pulse Ox O2 Del Method 03/05/25 08:00 97.8 F 84 16 170/81 H 95 Room Air 03/05/25 06:53 Room Air 03/05/25 05:00 Room Air 03/05/25 03:38 98.0 F 76 17 102/76 L 96 Room Air 03/05/25 03:00 Room Air 03/05/25 01:00 Room Air 03/05/25 00:00 97.9 F 76 16 101/63 L 96 Room Air 03/04/25 23:00 Room Air 03/04/25 21:00 Room Air 03/04/25 20:00 97.8 F 75 17 141/75 H 94 L Room Air 03/04/25 20:00 Room Air 03/04/25 18:37 Room Air 03/04/25 17:00 Room Air 03/04/25 16:00 97.9 F 82 16 137/68 95 Room Air 03/04/25 15:00 Room Air Intake and Output 03/04/25 03/05/25 03/05/25 23:59 07:59 15:59 Intake Total 480 / 1810 240 / 720 480 / 720 Output Total 0 / 450 0 / 0 0 / 0 Balance 480 / 1360 240 / 720 480 / 720 Intake: Intake, Oral Amount 480 / 1760 240 / 720 480 / 720 Output: Output, Urine Amount 0 / 450 0 / 0 0 / 0 Other: Number of Unmeasured Voids 1 1 2 Weight 79.605 kg Patient Weight 03/05/25 23:59 Weight 79.605 kg Laboratory Results - last 24 hr 03/05/25 06:36: WBC 8.2, RBC 3.81 L, Hgb 11.5 L, Hct 35.2 L, MCV 92.4, MCH 30.2, MCHC 32.7, RDW 13.1, Plt Count 248, MPV 8.9, Neut % (Auto) 66.3, Lymph % (Auto) 14.7, [place] % (Auto) 10.1 H, Eos % (Auto) 7.9, Baso % (Auto) 0.6, Neut # (Auto) 5.4, Lymph # (Auto) 1.2, [place] # (Auto) 0.8, Eos # (Auto) 0.7 H, Baso # (Auto) 0.1, Sodium 135 L, Potassium 4.0, Chloride 102, Carbon Dioxide 28, Anion Gap 9.0, BUN 18, Creatinine 0.90, Estimated Creat Clear 75, Estimated GFR 83, Est GFR ( Amer) 100, Glucose 128 H, Calcium 9.1, Total Bilirubin 0.5, AST 47 D, ALT 47 D, Alkaline Phosphatase 128 H, Total Protein 6.5, Albumin 3.5, Globulin 3.0, Albumin/Globulin Ratio 1.2 I & O for Labs for Last 24 Hours: Intake & Output 03/02/25 03/03/25 03/04/25 03/05/25 23:59 23:59 23:59 23:59 Intake Total 510 / 760 1040 / 1360 1570 / 1810 720 / 720 Output Total 425 / 725 1925 / 1925 450 / 450 0 / 0 Balance 85 / 35 -885 / -565 1120 / 1360 720 / 720 Weight 79.379 kg 82.055 kg 82.236 kg 79.605 kg Constitutional: Present no acute distress, average body habitus and cooperative Head: Present atraumatic Respiratory: Present wheezes, crackles and normal respiratory effort; Absent respiratory distress or rhonchi Cardiac: Present Reg Rate and Rhythm GI: Present normal bowel sounds; Absent tenderness Extremities: Present normal inspection Comment:: Tender over right hip. Bandage intact. Clean dry and intact with no bleeding from wound Skin: Present intact; Absent erythema Neuro: Present Grossly Intact, alert, awake, oriented x 3 and moves all extremities Assessment and Plan *Assessment and plan (1) Closed femur fracture: Status: Acute Qualifiers: Encounter type: initial encounter Femur location: intertrochanteric Category: Medical Code(s): S72.90XA - Unspecified fracture of unspecified femur, initial encounter for closed fracture (2) Intertrochanteric fracture of right hip: Status: Acute Category: Medical Code(s): S72.141A - Displaced intertrochanteric fracture of right femur, initial encounter for closed fracture (3) Type 2 diabetes mellitus with vascular disease: Status: Chronic Category: Medical Code(s): E11.59 - Type 2 diabetes mellitus with other circulatory complications (4) COPD (chronic obstructive pulmonary disease): Status: Chronic Qualifiers: COPD type: unspecified COPD Qualified Code(s): J44.9 - Chronic obstructive pulmonary disease, unspecified Category: Medical Code(s): J44.9 - Chronic obstructive pulmonary disease, unspecified (5) Hyperlipidemia: Status: Chronic Qualifiers: Hyperlipidemia type: other hyperlipidemia Qualified Code(s): E78.49 - Other hyperlipidemia Category: Medical Code(s): E78.5 - Hyperlipidemia, unspecified (6) Hypertension: Status: Chronic Category: Medical Code(s): I10 - Essential (primary) hypertension Plan Edwin Gould is a 74-year-old male with a medical history significant for type 2 diabetes, subclavian artery stenosis, right sided lung cancer s/p resection with clear margins in November 2024 at , current tobacco smoker who presents after a fall on ice earlier this morning. Patient states he was going to work, slipped on ice, fell on his right hip he felt pain. He was brought to our ED via EMS. Patient denies history of falls, chest pain, shortness of breath, fever/chills. States he recently had a resection of right lung cancer with clear margins in November 2024 at . Currently trying to cut down on smoking. Of note, patient endorses some leg swelling over the past few weeks and also weakness in the lower EXTR extremities, requiring him to sit more. Denies a history of congestive heart failure, shortness of breath, cough. Workup in the ED significant for hip x-ray revealing acute comminuted right intertrochanteric fracture, CBC, CMP relatively unremarkable. BNP 138. Case was discussed with orthopedic surgeon, Dr. Nagy, who recommended admission for surgical fixation tomorrow. ED provider discussed case with me and I decided to admit patient for further evaluation and management. Doing well. Awaiting rehab placement. Problems addressed as follows: #Fall #Right intertrochanteric fracture ? Patient unfortunately slipped on ice on the morning of 03/02/2025, resulting in right hip fracture. ? Orthopedic surgery consulted, s/p cephalomedullary nailing right proximal femur on 03/03/2025. Patient tolerated procedure well. ? Per orthopedic surgery, weightbearing as tolerated and aspirin 81 mg twice daily for DVT prophylaxis. Recommend [facility] rehab as patient lives by himself. ? Pain control with scheduled Tylenol 1000 mg every 8 hours, oxycodone 2.5 to 5 mg every 4 hours as needed, IV Toradol 30 mg as needed, Robaxin as needed. Monitor for toxicity ? PT/OT recommending rehab, awaiting prior authorization for assisted. Stable to discharge - White count normal 8.2, hemoglobin 11.5. Repeat CBC, CMP, magnesium ordered for the morning. - No bowel movement at least 24 hours due to pain meds. Initiate MiraLAX 17 g daily #Type 2 diabetes ? Hemoglobin 6.6% in early February. Morning glucose 128. #Lower extremity pitting edema ? There is mild lower extremity pitting edema, +1. BNP 138. No known history of heart disease, CHF. ? This likely represents venous sufficiency, but will follow-up ECHO report. #Elevated TSH ? TSH elevated to 6.15, free T4 normal. Will recommend outpatient repeat TFTs. #Subclavian artery stenosis ? Continue aspirin as above. # Hypertension: Elevated today. Resume lisinopril 20 mg daily. #Current tobacco smoker #COPD #Right sided lung cancer s/p resection, remission ? Counseled on smoking cessation, patient attempting. ? Continue home LABA LAMA. Full code DVT prophylaxis: Lovenox 40 mg Regular diet
[2025-03-05 16:00] VITALS: BP 109/72; PULSE 93; RESP 16; TEMP 36.8; O2SAT 99
[2025-03-05 19:57] VITALS: BP 100/74; PULSE 75; RESP 16; TEMP 36.4; O2SAT 96
[2025-03-05] MEDS: ATORVASTATIN 40MG TABLET 40 MG PO (20:33)
[2025-03-06] MEDS: ACETAMINOPHEN 500MG TAB 1000 MG PO ×3 (02:15→18:38)
[2025-03-06 04:00] VITALS: BP 109/67; PULSE 78; RESP 17; TEMP 36.7; O2SAT 95; BMI 25.2
--- NOTE | 2025-03-06 04:10 | PC.NURSE ---
Patient is pleasantly alert and oriented x4. Visual impairment to left eye, slightly hard of hearing (patient baseline). He was observed to be resting in bed with eyes closed, respirations even and unlabored on room air, and no apparent distress throughout the majority of the night. Patient has had complaints of moderate right hip/leg pain of which has been treated with both scheduled Tylenol and as needed OxyIR 5 mg per MAR. Right hip fracture operative site was assessed; dressing remains clean, dry, and intact. He has been ambulating with x1 assistance + use of a walker to the bathroom this shift; slightly unsteady at first but was observed to have moved/bear weight quite well once he got going. Patient is eager to recover. Physical assessment (see nursing shift biophysical intervention) performed as appropriately this shift. Scheduled medications administered per MAR. A turkey and cheese sandwich was provided for a bedtime snack. No reports of shortness of breath this shift. Incentive spirometer usage at the bedside. At this time, the patient remains resting in bed without any further complaints. No acute changes noted thus far. Call light within reach.
[2025-03-06] MEDS: OXYCODONE 5MG IMMEDIATE RELEASE TABLET 5 MG PO ×2 (04:25→21:20)
[2025-03-06] MEDS: UMECLIDINIUM/VILANTEROL 62.5/25MCG INHALER 1 PUFF IH (06:25)
[2025-03-06 07:17] LABS: Hematocrit 34.2 % (42.0-52.0); Hemoglobin 11.2 g/dL (14.1-18.0); Immature Granulocytes % 0.8 %; Mean Corpuscular HGB Conc 32.7 g/dL (31.8-35.4); Mean Corpuscular Hemoglobin 30.4 pg (27.0-31.2); Mean Corpuscular Volume 92.7 fl (80-94); Nucleated Red Blood Cells % 0 %; Platelet Count 270 K/mm3 (142-424); Red Blood Count 3.69 M/mm3 (4.60-6.20); Red Cell Distribution Width-SD 45.1 fL; White Blood Count 7.6 K/mm3 (4.8-10.8)
[2025-03-06 07:30] LABS: Chloride 103 mmol/L (98-107)
[2025-03-06 07:31] LABS: Albumin Level 3.5 g/dl (3.5-5.0); Potassium 3.9 mmoL/L (3.5-5.1); Sodium 137 mmol/L (136-145)
[2025-03-06 07:33] LABS: Alanine Aminotransferase 52 U/L (12-78); Blood Urea Nitrogen 20 mg/dl (9-20); Creatinine Clearance Estimated 75 mL/min (50-200); Creatinine,Serum 0.90 mg/dl (0.66-1.25); Estimated Glomerular Filt Rate 83 ml/min (>60); GFR (African American) 100 ML/MIN (>60)
[2025-03-06 07:34] LABS: Albumin/Globulin Ratio 1.1 (1.1-1.8); Alkaline Phosphatase 130 U/L (38-126); Anion Gap 10.9 mEq/L (5-15); Aspartate Amino Transferase 47 U/L (17-59); Bilirubin,Total 0.6 mg/dl (0.2-1.3); Calcium 9.0 mg/dl (8.4-10.2); Carbon Dioxide 27 mmol/L (22.0-30.0); Globulin 3.1 g/dL (1.3-3.2); Glucose 130 mg/dl (74-100); Total Protein,Serum 6.6 g/dl (6.3-8.2)
[2025-03-06 08:00] VITALS: BP 132/73; PULSE 88; RESP 16; TEMP 36.6; O2SAT 94
--- NOTE | 2025-03-06 08:50 | P.PN_ITS ---
Subjective *Date: 03/06/25 *Time: 08:50 Interval history: Stable on room air. No nausea or vomiting. Working with nursing and therapy. Bowel movement overnight. Medical Exam Vital signs and Labs for Last 24 Hours: Vital Signs Temp Pulse Pulse Resp BP Pulse Ox O2 Del Method 03/06/25 08:21 Room Air 03/06/25 06:45 Room Air 03/06/25 05:00 Room Air 03/06/25 04:00 98.0 F 78 17 109/67 L 95 Room Air 03/06/25 03:00 Room Air 03/06/25 01:00 Room Air 03/05/25 23:00 Room Air 03/05/25 21:00 Room Air 03/05/25 20:00 Room Air 03/05/25 19:57 97.6 F 75 16 100/74 L 96 Room Air 03/05/25 18:57 Room Air 03/05/25 16:00 98.3 F 93 H 16 109/72 L 99 Room Air 03/05/25 15:07 Room Air 03/05/25 15:00 Room Air 03/05/25 13:00 Room Air 03/05/25 11:00 Room Air 03/05/25 09:00 Room Air Intake and Output 03/05/25 03/06/25 03/06/25 23:59 07:59 15:59 Intake Total 480 / 1380 280 / 280 Output Total 0 / 0 0 / 0 Balance 480 / 1380 280 / 280 Intake: Intake, Oral Amount 480 / 1380 280 / 280 Output: Output, Urine Amount 0 / 0 0 / 0 Other: Number of Unmeasured Voids 1 1 Number of Bowel Movements 1 Weight 79.923 kg Patient Weight 03/06/25 23:59 Weight 79.923 kg Laboratory Results - last 24 hr 03/06/25 06:33: WBC 7.6, RBC 3.69 L, Hgb 11.2 L, Hct 34.2 L, MCV 92.7, MCH 30.4, MCHC 32.7, RDW 13.2, Plt Count 270, MPV 9.2, Neut % (Auto) 64.2, Lymph % (Auto) 14.1, Reynolds % (Auto) 10.7 H, Eos % (Auto) 9.3, Baso % (Auto) 0.9, Neut # (Auto) 4.9, Lymph # (Auto) 1.1, Reynolds # (Auto) 0.8, Eos # (Auto) 0.7 H, Baso # (Auto) 0.1, Sodium 137, Potassium 3.9, Chloride 103, Carbon Dioxide 27, Anion Gap 10.9, BUN 20, Creatinine 0.90, Estimated Creat Clear 75, Estimated GFR 83, Est GFR ( Amer) 100, Glucose 130 H, Calcium 9.0, Total Bilirubin 0.6, AST 47, ALT 52, Alkaline Phosphatase 130 H, Total Protein 6.6, Albumin 3.5, Globulin 3.1, Albumin/Globulin Ratio 1.1 I & O for Labs for Last 24 Hours: Intake & Output 03/03/25 03/04/25 03/05/25 03/06/25 23:59 23:59 23:59 23:59 Intake Total 1040 / 1360 1570 / 1810 1200 / 1380 280 / 280 Output Total 1925 / 1925 450 / 450 0 / 0 0 / 0 Balance -885 / -565 1120 / 1360 1200 / 1380 280 / 280 Weight 82.055 kg 82.236 kg 79.605 kg 79.923 kg Constitutional: Present no acute distress, average body habitus and cooperative Head: Present atraumatic Respiratory: Present wheezes, crackles and normal respiratory effort; Absent respiratory distress or rhonchi Cardiac: Present Reg Rate and Rhythm GI: Present normal bowel sounds; Absent tenderness Extremities: Present normal inspection Comment:: Tender over right hip. Bandage intact. Clean dry and intact with no bleeding from wound Skin: Present intact; Absent erythema Neuro: Present Grossly Intact, alert, awake, oriented x 3 and moves all extremities Assessment and Plan *Assessment and plan (1) Closed femur fracture: Status: Acute Qualifiers: Encounter type: initial encounter Femur location: intertrochanteric Category: Medical Code(s): S72.90XA - Unspecified fracture of unspecified femur, initial encounter for closed fracture (2) Intertrochanteric fracture of right hip: Status: Acute Category: Medical Code(s): S72.141A - Displaced intertrochanteric fracture of right femur, initial encounter for closed fracture (3) Type 2 diabetes mellitus with vascular disease: Status: Chronic Category: Medical Code(s): E11.59 - Type 2 diabetes mellitus with other circulatory complications (4) COPD (chronic obstructive pulmonary disease): Status: Chronic Qualifiers: COPD type: unspecified COPD Qualified Code(s): J44.9 - Chronic obstructive pulmonary disease, unspecified Category: Medical Code(s): J44.9 - Chronic obstructive pulmonary disease, unspecified (5) Hyperlipidemia: Status: Chronic Qualifiers: Hyperlipidemia type: other hyperlipidemia Qualified Code(s): E78.49 - Other hyperlipidemia Category: Medical Code(s): E78.5 - Hyperlipidemia, unspecified (6) Hypertension: Status: Chronic Category: Medical Code(s): I10 - Essential (primary) hypertension Plan Edwin Gould is a 74-year-old male with a medical history significant for type 2 diabetes, subclavian artery stenosis, right sided lung cancer s/p resection with clear margins in November 2024 at , current tobacco smoker who presents after a fall on ice earlier this morning. Patient states he was going to work, slipped on ice, fell on his right hip he felt pain. He was brought to our ED via EMS. Patient denies history of falls, chest pain, shortness of breath, fe griselda/chills. States he recently had a resection of right lung cancer with clear margins in November 2024 at . Currently trying to cut down on smoking. Of note, patient endorses some leg swelling over the past few weeks and also weakness in the lower EXTR extremities, requiring him to sit more. Denies a history of congestive heart failure, shortness of breath, cough. Workup in the ED significant for hip x-ray revealing acute comminuted right intertrochanteric fracture, CBC, CMP relatively unremarkable. BNP 138. Case was discussed with orthopedic surgeon, Dr. Nagy, who recommended admission for surgical fixation tomorrow. ED provider discussed case with me and I decided to admit patient for further evaluation and management. Doing well. Awaiting rehab placement. Problems addressed as follows: #Fall #Right intertrochanteric fracture ? Patient unfortunately slipped on ice on the morning of 03/02/2025, resulting in right hip fracture. ? Orthopedic surgery consulted, s/p cephalomedullary nailing right proximal femur on 03/03/2025. Patient tolerated procedure well. ? Per orthopedic surgery, weightbearing as tolerated and aspirin 81 mg twice daily for DVT prophylaxis. Recommend intermediate rehab as patient lives by himself. ? Pain control with scheduled Tylenol 1000 mg every 8 hours, oxycodone 2.5 to 5 mg every 4 hours as needed, IV Toradol 30 mg as needed, Robaxin as needed. Monitor for toxicity ? PT/OT recommending rehab, awaiting prior authorization for [facility]. Stable to discharge - White count 7.6, hemoglobin 11.2, Kidney function stable with BUN 20, creatinine 0.9. Lab holiday in the morning. -Continue initiate MiraLAX 17 g daily, bowel movement overnight. #Type 2 diabetes: Hemoglobin 6.6% in early February. Morning glucose 130. #Lower extremity pitting edema: There is mild lower extremity pitting edema, +1. This likely represents venous sufficiency. Preliminary echo results normal with preserved ejection fraction. #Elevated TSH: TSH elevated to 6.15, free T4 normal. Will recommend outpatient repeat TFTs. #Subclavian artery stenosis: Continue aspirin as above. # Hypertension: lisinopril 20 mg daily. #Current tobacco smoker #COPD #Right sided lung cancer s/p resection, remission ? Counseled on smoking cessation, patient attempting. ? Continue home LABA LAMA. Full code DVT prophylaxis: Aspirin 81 mg twice daily per Ortho recommendations Regular diet
[2025-03-06] MEDS: ASPIRIN EC 81MG TABLET 81 MG PO ×2 (09:00→20:00)
[2025-03-06] MEDS: LISINOPRIL 20MG TABLET 20 MG PO (09:00)
--- NOTE | 2025-03-06 15:44 | PC.NURSE ---
PT IS SITTING UP IN THE CHAIR. ALERT AND ORIENTED X4. EATING AND DRINKING WELL. LUNG SOUNDS CLEAR. ABDOMEN SOFT/NON TENDER WITH ACTIVE BOWEL SOUNDS. PT HAS AMBULATED TO THE BATHROOM AND EMERSON THIS SHIFT (STANDBY ASSIST). DRESSING TO RIGHT HIP CHANGED THIS SHIFT. WILL CONTINUE TO MONITOR.
[2025-03-06 16:00] VITALS: BP 145/63; PULSE 77; RESP 16; TEMP 36.5; O2SAT 96
[2025-03-06 20:00] VITALS: BP 118/75; PULSE 79; RESP 17; TEMP 36.8; O2SAT 95
[2025-03-06] MEDS: OXYMETAZOLINE NASAL SPRAY 0.05% 15ML NS (20:00)
[2025-03-06] MEDS: ATORVASTATIN 40MG TABLET 40 MG PO (20:00)
[2025-03-07] MEDS: ACETAMINOPHEN 500MG TAB 1000 MG PO ×2 (03:40→11:31)
--- NOTE | 2025-03-07 03:45 | PC.NURSE ---
Patient remains pleasantly alert and oriented x4. He was observed to be resting in bed with eyes closed, respirations even and unlabored on room air, and no apparent distress throughout the majority of the night. Patient continues to have complaints of moderate right hip pain of which has been treated with both scheduled Tylenol and as needed OxyIR 5 mg per MAR. Pain aggravates during movement. Right hip dressing remains clean, dry, and intact. He continues to improve with ambulation and bears weight tolerably with use of a rolling walker. Physical assessment (see nursing shift biophysical intervention) performed as appropriately this shift. Scheduled medications administered per MAR. No reports of shortness of breath. Patient did report having nasal congestion of which Afrin nasal spray was provided per MAR. At this time, the patient remains resting in bed without any further complaints. No acute changes noted thus far. Call light within reach.
[2025-03-07 04:00] VITALS: BP 124/79; PULSE 74; RESP 16; TEMP 36.4; O2SAT 95; BMI 25.0
[2025-03-07] MEDS: UMECLIDINIUM/VILANTEROL 62.5/25MCG INHALER 1 PUFF IH (06:15)
[2025-03-07 08:00] VITALS: BP 140/79; PULSE 82; RESP 18; TEMP 36.6; O2SAT 95
[2025-03-07] MEDS: LISINOPRIL 20MG TABLET 20 MG PO (08:18)
[2025-03-07] MEDS: ASPIRIN EC 81MG TABLET 81 MG PO (08:18)
--- NOTE | 2025-03-07 09:13 | P.DS_ITS ---
<Statement entered by Paulo Pritchard MD - 03/07/25 11:35> Rounded on patient after nurse practitioner. Personally examined and interviewed patient. Agree with exam findings and care plan as documented. General Admission date:: 03/02/25 Discharge date: 03/07/25 HPI HPI HPI: Edwin Gould is a 74-year-old male with a medical history significant for type 2 diabetes, subclavian artery stenosis, right sided lung cancer s/p resection with clear margins in November 2024 at , current tobacco smoker who presents after a fall on ice earlier this morning. Patient states he was going to work, slipped on ice, fell on his right hip he felt pain. He was brought to our ED via EMS. Patient denies history of falls, chest pain, shortness of breath, fever/chills. States he recently had a resection of right lung cancer with clear margins in November 2024 at . Currently trying to cut down on smoking. Of note, patient endorses some leg swelling over the past few weeks and also weakness in the lower EXTR extremities, requiring him to sit more. Denies a history of congestive heart failure, shortness of breath, cough. Workup in the ED significant for hip x-ray revealing acute comminuted right intertrochanteric fracture, CBC, CMP relatively unremarkable. BNP 138. Case was discussed with orthopedic surgeon, Dr. Ngay, who recommended admission for surgical fixation tomorrow. ED provider discussed case with me and I decided to admit patient for further evaluation and management. Hospital Course Hospital Course Hospital Course: Mr. Gould is a 74-year-old male who has a primary medical history of T2DM, subclavian artery stenosis, right lung cancer s/p resection with clear margins in November 2024 at , current tobacco user, and COPD. Patient presented to our emergency department on 03/02/2025 after a fall on the ice early that morning. Patient stated he was going to work, slipped on the ice, fell on his right hip and had pain. He was brought to the emergency department via EMS. Workup in the emergency department was significant for an acute commuted right intertrochanteric fracture. Lab work at time of admission was unremarkable, BNP 138. Orthopedics were consulted, Dr. Nagy, who recommended admission for surgical fixation the following day. Hospital medicine at this time was consulted for admission and management of the patient's care. Hospital course was as follows: #Fall #Right intertrochanter fracture with #S/P right cephalomedullary nailing on 03/03/2025 ?Patient is now status post cephalomedullary nailing of the right proximal femur on 03/03. Patient tolerated procedure well, no complications noted at this time. Per orthopedic surgery's recommendation, weightbearing as tolerated with assistive device if needed. Patient was assessed by PT/OT who recommended intermediate rehab, as patient lives alone and needs assistance for independent ADLs. ?Patient agreeable to rehab services, care management consulted and patient was accepted by [facility] pending insurance approval. Insurance approval obtained on 03/07/2025. ?Pain control with Tylenol 1 g every 8 hours as needed, oxycodone 7.5-5 mg every 4 hours as needed, Toradol 30 mg IV as needed, and Robaxin as needed. Patient has needed little medication for pain control, has done extremely well, transition self from bed to chair with walker. Patient will discharge with oxycodone 5 mg every 4 hours as needed for severe pain, Robaxin every 8 hours as needed for mild to moderate pain. May use Tylenol OTC if needed as well. ?Per surgery's recommendation patient will be discharged home on aspirin 81 mg twice daily for DVT prophylaxis. ?Lab work on 03/06/2025 reassuring for discharge?WBC 7.6, hemoglobin 11.2, no electrolyte abnormalities, normal kidney function. ?Patient's last bowel movement was yesterday, 03/06. Should continue stool softeners/MiraLAX as needed for constipation/or with concurrent opioid use. #Type 2 diabetes: Hemoglobin 6.6 in February 2025. Glucose stable at 130. Continue metformin 1 g twice daily with meals at discharge. #Lower extremity edema: On admission patient had mild lower extremity edema, 1+. Likely related to venous insufficiency, pulmonary echo results are normal with preserved EF. They have discharged very trace lower extremity edema noted, nonpitting. Patient denies pain/tenderness lower extremities/calfs. #Elevated TSH: TSH was checked on admission which showed elevated levels of 6.15, free T4 was normal. Recommendation of repeat TFTs outpatient with PCP. #Subclavian artery stenosis: continue aspirin twice daily and Lipitor 40 mg at bedtime. Patient has remained hemodynamically stable during admission. #Hypertension: Continue lisinopril 20 mg daily at discharge, blood pressure has been normotensive during admission. #Tobacco use disorder #COPD/hx right lung cancer s/p resection, remission ?Counseled on smoking cessation, patient endorses trying to quit. Not interested in nicotine patch at this time. Continue home use of LABA/LAMA, Flonase 2 sprays daily, albuterol inhaler as needed 4 times daily. Total time spent on discharge 35 minutes in counseling, documentation, chart review, and direct care with patient. Exam Data for Last 24 hours Vital signs and Labs for Last 24 Hours: Temp Pulse Resp BP Pulse Ox O2 Del Method O2 Flow Rate 97.8 F 82 18 140/79 95 Room Air 2 03/07/25 08:00 03/07/25 08:00 03/07/25 08:00 03/07/25 08:00 03/07/25 08:00 03/07/25 08:00 03/03/25 15:35 I & O for Last 24 hours: Intake & Output 03/04/25 03/05/25 03/06/25 03/07/25 23:59 23:59 23:59 23:59 Intake Total 1570 / 1810 1200 / 1380 1160 / 1360 700 / 700 Output Total 450 / 450 0 / 0 0 / 0 0 / 0 Balance 1120 / 1360 1200 / 1380 1160 / 1360 700 / 700 Weight 82.236 kg 79.605 kg 79.923 kg 79.515 kg Constitutional Constitutional: no acute distress, average body habitus and cooperative *Routine HEENT Exam Head: Present normocephalic Eye: Present EOMI and PERRL ENT: Present mucous membranes moist *Routine Neck Exam Neck: Present supple and full ROM; Absent lymphadenopathy *Routine Respiratory Exam Respiratory: Present CTA bilaterally and normal respiratory effort; Absent wheezes or crackles *Routine Cardiovascular Exam Cardiovascular: Present RRR; Absent murmur *Routine Abdominal Exam Abdominal: Present soft and normoactive bowel sounds; Absent tenderness or distended *Routine Rectal Exam Patient deferred: visual exam *Routine Exam Patient deferred: penile exam *Routine Extremities Exam Extremities: Present normal capillary refill; Absent cyanosis, clubbing, edema o r calf tenderness Comments: Right hip surgical dressing clean dry and intact *Routine Skin Exam Skin: Present warm; Absent rash *Routine Neurological Exam Neurological: Present alert, oriented X3, vision grossly intact, hearing grossly intact and normal speech Routine Psychiatric Exam Psychiatric: Present normal affect and cooperative DS: Diagnosis Discharge Diagnosis (1) Closed femur fracture: Status: Acute Code(s): S72.90XA - Unspecified fracture of unspecified femur, initial encounter for closed fracture Qualifiers: Encounter type: initial encounter Femur location: intertrochanteric (2) Intertrochanteric fracture of right hip: Status: Acute Code(s): S72.141A - Displaced intertrochanteric fracture of right femur, initial encounter for closed fracture (3) Type 2 diabetes mellitus with vascular disease: Status: Chronic Code(s): E11.59 - Type 2 diabetes mellitus with other circulatory complications (4) COPD (chronic obstructive pulmonary disease): Status: Chronic Code(s): J44.9 - Chronic obstructive pulmonary disease, unspecified Qualifiers: COPD type: unspecified COPD Qualified Code(s): J44.9 - Chronic obstructive pulmonary disease, unspecified (5) Hyperlipidemia: Status: Chronic Code(s): E78.5 - Hyperlipidemia, unspecified Qualifiers: Hyperlipidemia type: other hyperlipidemia Qualified Code(s): E78.49 - Other hyperlipidemia (6) Hypertension: Status: Chronic Code(s): I10 - Essential (primary) hypertension Meds Home Medications and Allergies Home Medications ?Medication ?Instructions ?Recorded ?Confirmed ?Type fluticasone propionate 50 2 spray intranasal DAILY #16 grams 08/10/24 03/02/25 Rx mcg/actuation nasal spray,suspension lisinopril 20 mg tablet 20 mg PO DAILY #90 tabs 01/1603/02/25 Rx tiotropium 2.5 mcg-olodaterol 2.5 2 puff inhalation DA ANGELINE 02/14/25 03/02/25 H istory mcg/actuation mist for inhalation (Stiolto Respimat) albuterol sulfate 90 mcg/actuation 2 inh inhalation QI DP PRN 03/02/25 03/02/25 History aerosol inhaler (Ventolin HFA) shortness of breath or wheezing atorvastatin 40 mg tablet (Lipitor) 40 mg PO HS 03/02/25 History metformin 500 mg tablet 1,000 mg PO BIDWMEAL 5 03/02/25 History aspirin 81 mg tablet,delayed 81 mg PO BID 30 days #60 tabs 03/07/25 Rx release methocarbamol 500 mg tablet 500 mg PO Q8HP PRN muscle spasm 03/07/25 Rx #20 tabs oxycodone 5 mg tablet 5 mg PO Q4HP PRN Moderate Pa in 03/07/25 Rx (4-6) #17 tabs New Prescriptions to Start Prescriptions: oxycodone Ifrah Huang methocarbamol Sal,Ifrah aspirin Ifrah Huang Allergies Allergy/AdvReac Type Severity Reaction Status Date / Time Penicillins Allergy Mild Unknown Verified 02/14/25 09:41 allergy reaction Discharge Plan Disposition Patient Disposition: Xfer SNF Condition: Fair Follow up Plan Follow up with: Jaylon Pa MD [Primary Care Provider, Medical] - Enter time for follow up Florentin Nagy DO [Staff Physician, Orthopedics] - Enter time for follow up Prescriptions/Medication Reconciliation: New methocarbamol 500 mg Tablet 500 mg PO Q8HP PRN (Reason: muscle spasm) Qty: 20 0RF aspirin 81 mg Tablet,Delayed Release (Dr/Ec) 81 mg PO BID 30 Days Qty: 60 0RF oxycodone 5 mg Tablet 5 mg PO Q4HP PRN (Reason: Moderate Pain (4-6)) Qty: 17 0RF Continued fluticasone propionate 50 mcg/actuation spray,suspension 2 spray intranasal DAILY Qty: 16 5RF Stiolto Respimat 2.5-2.5 mcg/actuation mist 2 puff inhalation DAILY lisinopril 20 mg tablet 20 mg PO DAILY Qty: 90 1RF metformin 500 mg tablet 1,000 mg PO BIDWMEAL atorvastatin [Lipitor] 40 mg tablet 40 mg PO HS albuterol sulfate [Ventolin HFA] 90 mcg/actuation HFA aerosol inhaler 2 inh inhalation QIDP PRN (Reason: shortness of breath or wheezing) Discontinued aspirin [Adult Aspirin Regimen] 81 mg tablet,delayed release (DR/EC) 81 mg PO HS Problem Reconciliation Problems Reviewed?: Yes Patient Discharge Instructions ACTIVITY: Continue current activity, Ambulate as tolerated, No heavy lifting and Up with assistance DIET: continue same diet Additional Instructions: Weightbearing as tolerated?with walker if needed Patient Instructions: DI for Hip Fracture, DI for Surgical Site Infection, Catheter-Associated Urinary Tract Infection, Stop Light Infection Print Language: [place]an Providers Primary Care Provider: Jaylon Pa Admit Provider: Cholo Estrella Attending Provider: Cholo Estrella
--- NOTE | 2025-03-08 10:56 | SW/DCPLANNER ---
Spoke with patient on the phone. Patient stated that he is doing good. Patient stated that he is aware of his upcoming appointments. Patient stated that he is aware of his upcoming appointments. Patient stated that he was able to get his new medicine picked up from the pharmacy. Patient stated that he has no concerns or questions at this time. Miguel Angel Herrera
== END 2025-03-07 16:07 | DRG 482 ==
LOC: ER 07:42 → 2ND 08:21
PROVIDERS: Orthopaedic Surgery; Physician Assistant Surgical; Admitting Provider Student in an Organized Health Care Education/Training Program; Emergency Provider Emergency Medicine; PCP Internal Medicine; Visit Provider Student in an Organized Health Care Education/Training Program
PROC: 0QS634Z Reposition Right Upper Femur with Internal Fixation Device, Percutaneous Approach (ICD-10-PCS; CPT 27245; principal; 2025-03-03 12:00)
DX: S72.141A Displaced intertrochanteric fracture of right femur, initial encounter for closed fracture (principal); W01.198A Fall on same level from slipping, tripping and stumbling with subsequent striking against other object, initial encounter; J44.9 Chronic obstructive pulmonary disease, unspecified; Z85.118 Personal history of other malignant neoplasm of bronchus and lung; Z79.84 Long term (current) use of oral hypoglycemic drugs; I87.2 Venous insufficiency (chronic) (peripheral); R94.6 Abnormal results of thyroid function studies; I77.1 Stricture of artery; I10 Essential (primary) hypertension; Z71.6 Tobacco abuse counseling; E11.59 Type 2 diabetes mellitus with other circulatory complications; E78.5 Hyperlipidemia, unspecified; Z79.82 Long term (current) use of aspirin; Z88.0 Allergy status to penicillin; H91.92 Unspecified hearing loss, left ear; F17.210 Nicotine dependence, cigarettes, uncomplicated; E11.51 Type 2 diabetes mellitus with diabetic peripheral angiopathy without gangrene; I25.10 Atherosclerotic heart disease of native coronary artery without angina pectoris
CPT/HCPCS: 36415; 51702; 73502; 76000; 80053; 81001; 82962; 83880; 84439; 84443; 85025; 85610; 86803; 86850; 86870; 87389; 93306; 94640; 97116; 97162; 97166; 97530; 99285; C1713; J0736; J1100; J1171; J1644; J1885; J2003; J2270; J2405; J2704